=== PATIENT | male | born 1945 | race Caucasian/White ===

== ENCOUNTER 2016-07-23 08:22 | Inpatient (IN) | payer MEDICARE, OTHER ==
[~2016-07-23] VITALS: Ht 182.9 cm; Wt 145.1 kg
[2016-07-23] VITALS (19 sets, daily range): BP systolic 98–165; BP diastolic 47–83; PULSE 76–138; RESP 18–28; TEMP 97.4–98; O2SAT 93–98
[~2016-07-23 08:22] MED LIST: ASPI325T PO; CARD240C6 PO; GABA300C3 PO; LANTUS2P SC; LISI10 PO; METF-324 PO; SITA100 PO; TRIA50 PO
[2016-07-23] MEDS ORDERED: ASPIRIN 81 MG CHEW TAB PO ONE (08:45)
[2016-07-23] MEDS ORDERED: SODIUM CHLORIDE 0.9% FLUSH 10 ML FLUSH IVF PRN ×2 (08:45→09:30)
--- NOTE | 2016-07-23 08:56 | PD ---
HPI Chief Complaint: Chest Pain Time Seen by Provider: 08:44 Travel History International Travel<30 days: No Contact w/Intl Traveler<30days: No Traveled to known affect area: No History of Present Illness HPI This is a 71-year-old gentleman with a history of diabetes mellitus, who presents today with complaints of intermittent left sided chest pain. Patient states that last night while sleeping, he noted left sided chest pain. He states it was positional when he laid on his right side. He reports the pain is an "achy" sensation with no radiation. He reports it as a 4-5 on the 10 scale. He denies any nausea or vomiting. He denies any diaphoresis. The patient does have chronic shortness of breath and states he can only walk a half a block before be getting winded. He states this is not new. The patient denies any acute swelling of his extremities. He denies any history of pulmonary disease. PFSH Past Medical History Arthritis: Yes (possibly in bi - lat knees) Anxiety: No Depression: No Heart Rhythm Problems: Yes (this visit) Cancer: No Cardiac Catheterization: Yes Cardiovascular Problems: Yes (this visit - SVT) Diabetes: Yes (INSULIN DEPENDENT) Patient Takes Glucophage: No Diminished Hearing: Yes (BILAT DIMINISHED ) Endocrine: Yes Gastrointestinal Disorders: Yes (ABDOMINAL DISTENTION, ABDOMINAL PAIN) Genitourinary: No Hepatitis: No Hiatal Hernia: No Hypertension: Yes Immune Disorder: No Musculoskeletal: No Neurologic: No Psychiatric: No Reproductive: No Respiratory: Yes Thyroid Disease: No Past Surgical History AICD: No Joint Replacement: No Pacemaker: No Social History Alcohol Use: No Tobacco Use: No Substance Use: No Allergies-Medications (Allergen,Severity, Reaction): Coded Allergies: No Known Allergies (Unverified , 10/22/15) Reported Meds & Prescriptions Reported Meds & Active Scripts Active Reported Dyrenium (Triamterene) 50 Mg Cap 25 Mg PO DAILY Januvia (Sitagliptin Phosphate) 100 Mg Tab 100 Mg PO DAILY Metformin (Metformin HCl) 1,000 Mg Tab 1,000 Mg PO BIDPC With meals Lisinopril 10 Mg Tab 10 Mg PO DAILY Lantus Inj (Insulin Glargine) 1,000 Unit/10 Ml Vial 30 Units SQ HS Gabapentin 300 Mg Cap 300 Mg PO DAILY Cardizem (Diltiazem HCl) 120 Mg Tab 240 Mg PO DAILY Aspirin 325 Mg Tab 325 Mg PO DAILY Review of Systems Except as stated in HPI: all other systems reviewed are Neg General / Constitutional: No: Fever, Chills HENT: No: Headaches, Vertigo, Lightheadedness Cardiovascular: Positive: Chest Pain or Discomfort, No: Palpitations Respiratory: Positive: Shortness of Breath (chronic), Wheezing, No: Cough Gastrointestinal: No: Nausea, Vomiting Genitourinary: No: Frequency, Dysuria Musculoskeletal: No: Weakness, Edema, Pain Neurologic: No: Weakness, Dizziness, Headache Endocrine: No: Polyuria, Polydipsia Physical Exam Narrative GENERAL: Well-developed well-nourished gentleman in mild to moderate respiratory discomfort. SKIN: Focused skin assessment warm/dry. HEAD: Atraumatic. Normocephalic. EYES: No scleral icterus. No injection or drainage. ENT: No nasal bleeding or discharge. Mucous membranes pink and moist. NECK: Trachea midline. Supple. CARDIOVASCULAR: Tachycardic with a rate in the 130s to 140s. No obvious appreciable murmur. RESPIRATORY: Diffuse expiratory wheezing. No Rales appreciated. GASTROINTESTINAL: Abdomen soft, obese, non-tender, nondistended. MUSCULOSKELETAL: No obvious deformities. No clubbing. No cyanosis. No edema. Chronic venous stasis changes. NEUROLOGICAL: Awake and alert. No obvious cranial nerve deficits. Motor grossly within normal limits. Normal speech. PSYCHIATRIC: Appropriate mood and affect; insight and judgment normal. Data Data Last Documented VS Vital Signs Date Time Temp Pulse Resp B/P Pulse Ox O2 Delivery O2 Flow Rate FiO2 07/23/16 09:59 88 18 165/70 07/23/16 09:49 Nasal Cannula 1 96 07/23/16 08:57 98 07/23/16 08:24 97.8 Orders Electrocardiogram (07/23/16 08:44) Basic Metabolic Panel (Bmp) (07/23/16 08:44) B-Type Natriuretic Peptide (07/23/16 08:44) Ckmb (Isoenzyme) Profile (07/23/16 08:44) Complete Blood Count With Diff (07/23/16 08:44) Magnesium (Mg) (07/23/16 08:44) Prothrombin Time / Inr (Pt) (07/23/16 08:44) Act Partial Throm Time (Ptt) (07/23/16 08:44) Troponin I (07/23/16 08:44) Chest, Single Ap (07/23/16 08:44) Ecg Monitoring (07/23/16 08:44) Bilateral Bp Monitoring (07/23/16 08:44) Iv Access Insert/Monitor (07/23/16 08:44) Oximetry (07/23/16 08:44) Oxygen Administration (07/23/16 08:44) Aspirin Chew (Aspirin Chew) (07/23/16 08:45) Sodium Chloride 0.9% Flush (Ns Flush) (07/23/16 08:45) Blood Pressure (07/23/16 09:25) Vital Signs (07/23/16 09:25) Diltiazem Inj (Cardizem Inj) (07/23/16 09:30) Diltiazem Inj (Cardizem Inj) (07/23/16 09:30) Sodium Chloride 0.9% Flush (Ns Flush) (07/23/16 09:30) Thyroid Stimulating Hormone (07/23/16 09:27) Electrocardiogram (07/23/16 10:22) Labs Laboratory Tests Test 07/23/16 09:06 White Blood Count 17.0 TH/MM3 Red Blood Count 4.69 MIL/MM3 Hemoglobin 14.5 GM/DL Hematocrit 42.9 % Mean Corpuscular Volume 91.4 FL Mean Corpuscular Hemoglobin 31.0 PG Mean Corpuscular Hemoglobin 33.9 % Concent Red Cell Distribution Width 14.9 % Platelet Count 297 TH/MM3 Mean Platelet Volume 9.8 FL Neutrophils (%) (Auto) 80.8 % Lymphocytes (%) (Auto) 10.1 % Monocytes (%) (Auto) 8.1 % Eosinophils (%) (Auto) 0.8 % Basophils (%) (Auto) 0.2 % Neutrophils # (Auto) 13.7 TH/MM3 Lymphocytes # (Auto) 1.7 TH/MM3 Monocytes # (Auto) 1.4 TH/MM3 Eosinophils # (Auto) 0.1 TH/MM3 Basophils # (Auto) 0.0 TH/MM3 CBC Comment DIFF FINAL Differential Comment Prothrombin Time 11.8 SEC Prothromb Time International 1.1 RATIO Ratio Activated Partial 32.9 SEC Thromboplast Time Sodium Level 136 MEQ/L Potassium Level 4.9 MEQ/L Chloride Level 104 MEQ/L Carbon Dioxide Level 25.4 MEQ/L Anion Gap 7 MEQ/L Blood Urea Nitrogen 28 MG/DL Creatinine 1.61 MG/DL Estimat Glomerular Filtration 43 ML/MIN Rate Random Glucose 166 MG/DL Calcium Level 9.2 MG/DL Magnesium Level 2.1 MG/DL Total Creatine Kinase 99 U/L Troponin I LESS THAN 0.02 NG/ML B-Type Natriuretic Peptide 254 PG/ML Thyroid Stimulating Hormone 1.500 uIU/ML 3rd Gen [facility] Medical Decision Making Medical Screen Exam Complete: Yes Emergency Medical Condition: Yes Differential Diagnosis ACS versus CHF versus pneumonia versus A. fib with RVR Narrative Course 71-year-old year-old gentleman who presents with intermittent chest pain since last night. The patient was noted to be and atrial tachycardia/flutter with a rate in the 130s. He was given diltiazem bolus followed by a drip and is now rate controlled in the 80s. The patient's cardiac enzymes are normal. He does have renal insufficiency noted on laboratory tests. The patient is pain-free at the time of my examination. BNP is elevated in the 200s. White blood cell count is elevated at 17,000. A urinalysis has also been ordered. There is a call out to [facility] hospitalist, Dr. Sanford, for admission. Diagnosis Primary Impression: Atrial flutter with rapid ventricular response Additional Impressions: Renal insufficiency Leukocytosis Diabetes mellitus type 2 in obese Admitting Information Admitting Physician Requests: Admit Al Mabry MD Jul 23, 2016 08:56
[2016-07-23] MEDS ORDERED: ASPI325T PO (09:01)
[2016-07-23] MEDS ORDERED: CARD120T4 PO (09:02)
[2016-07-23] MEDS ORDERED: TRIA1CAP6 PO (09:06)
[2016-07-23] MEDS ORDERED: LANTUS2P SQ (09:06)
[2016-07-23] MEDS ORDERED: SITA1TAB2 PO (09:06)
[2016-07-23] MEDS ORDERED: METF1000 PO (09:06)
[2016-07-23] MEDS ORDERED: LISI10TA3 PO (09:06)
[2016-07-23] MEDS ORDERED: GABA300C5 PO (09:06)
[2016-07-23 09:18] LABS: AUTOMATED NEUTROPHIL # 13.7 TH/MM3 (1.8-7.7); BASOPHIL % 0.2 % (0.0-2.0); EOSINOPHIL # 0.1 TH/MM3 (0-0.4); EOSINOPHIL % 0.8 % (0.0-4.0); HEMATOCRIT 42.9 % (39.0-51.0); HEMO FLAGS DIFF FINAL; LYMPH % 10.1 % (9.0-44.0); LYMPHOCYTE # 1.7 TH/MM3 (1.0-4.8); MEAN CELL VOLUME 91.4 FL (80.0-100.0); MEAN CORPUSCULAR HGB CONC 33.9 % (32.0-36.0); MONO % 8.1 % (0.0-8.0); NEUT % 80.8 % (16.0-70.0); PLATELET COUNT 297 TH/MM3 (150-450); RED BLOOD COUNT 4.69 MIL/MM3 (4.50-5.90); RED CELL DISTRIBUTION WIDTH 14.9 % (11.6-17.2)
[2016-07-23 09:27] LABS: APTT (PATIENT) 32.9 SEC (24.3-30.1); INTERNATIONAL NORMALIZED RATIO 1.1 RATIO; PROTHROMBIN TIME - PATIENT 11.8 SEC (9.8-11.6)
[2016-07-23] MEDS ORDERED: DILTIAZEM INJ 125 MG in SODIUM CHLORIDE 0.9% INJ 100 ML IV SCH ×2 (09:30→11:00)
[2016-07-23] MEDS ORDERED: DILTIAZEM HCL 25 MG/5 ML VIAL IV PUSH ONE (09:30)
[2016-07-23 09:39] LABS: ANION GAP 7 MEQ/L (5-15); BICARBONATE 25.4 MEQ/L (21.0-32.0); BLOOD UREA NITROGEN 28 MG/DL (7-18); CHLORIDE 104 MEQ/L (98-107); GLOMERULAR FILTRATION RATE 43 ML/MIN (>89); MAGNESIUM 2.1 MG/DL (1.5-2.5); POTASSIUM 4.9 MEQ/L (3.5-5.1); SODIUM (NA) 136 MEQ/L (136-145)
--- NOTE | 2016-07-23 09:39 | RADRPT ---
EXAM DATE/TIME: 07/23/2016 09:06 [place] COMPARISON: CHEST SINGLE AP, October 22, 2015, 19:43. INDICATIONS : Chest pain. MEDICAL HISTORY : None. SURGICAL HISTORY : None. ENCOUNTER: Initial ACUITY: 1 day PAIN SCORE: 8/10 LOCATION: Bilateral chest FINDINGS: The heart is enlarged. There are patchy areas of atelectasis in both lung bases stable compared to pr evious dated 10/22/15. The lung apices are clear. The visualized bony structures are intact. No pneumothorax is seen. CONCLUSION: 1. Mild cardiomegaly. 2. Patchy areas of atelectasis in the lung bases. This is most apparent on the left. 3. Stable compared previous exam. Lee Navarro MD on July 23, 2016 at 9:36 Board Certified Radiologist. This report was verified electronically.
[2016-07-23 09:59] LABS: CREATINE KINASE 99 U/L (39-308)
[2016-07-23] MEDS ORDERED: SODIUM CHLORIDE 0.9% FLUSH 10 ML FLUSH IV FLUSH SCH (11:00)
[2016-07-23] MEDS ORDERED: SODIUM CHLORIDE 0.9% FLUSH 10 ML FLUSH IV FLUSH PRN (11:00)
[2016-07-23] MEDS ORDERED: NITROGLYCERIN 0.4 MG SL 25 TABS/BTL SL PRN (11:15)
[2016-07-23] MEDS ORDERED: ACETAMINOPHEN 500 MG CPLT PO PRN (11:15)
[2016-07-23] MEDS ORDERED: ONDANSETRON HCL 4 MG/2 ML VIAL IV PRN (11:15)
[2016-07-23] MEDS ORDERED: FUROSEMIDE 40 MG/4 ML VIAL IV PUSH ONE (11:15)
[2016-07-23] MEDS: PANTOPRAZOLE SOD 40 MG DELAYED RELEASE TAB PO SCH (12:25)
[2016-07-23] MEDS: ENOXAPARIN SODIUM 40 MG/0.4 ML SYRINGE SQ SCH (12:26)
--- NOTE | 2016-07-23 12:40 | MB ---
cc: RONNY RECINOS M.D. DATE OF CONSULTATION 07/23/2016 REASON FOR CONSULTATION Juan José is a very pleasant 71-year-old gentleman with a history of atrial fibrillation, type 2 diabetes, and renal insufficiency. He developed chest pain while lying on his left side at 3:00 a.m. He is not able to characterize this is a tightness, squeezing pressure sharp or dull headache. He does state it is severe. It is not completely relieve. He was found to be in an SVT at a rate of about 150 beats per minute initially which appears to be regular. Subsequent EKG shows ectopic atrial rhythm. He has been evaluated by Dr. Cochran in the past and had an EP study which showed no significant arrhythmia. LEFT HEART CATHETERIZATION Left heart catheterization 10/31/2015 showed no significant coronary disease, EF 60%. LV pressure is 150/20-22. Negative EP study October 2015. He has been seen by Dr. Cochran for severe tachybrady. Dr. Cochran did not indicate the patient had a. fib and read his EKG as SVT with right bundle-branch block and possible left anterior fascicular block. 2-D echo 11/03/2015 showed an EF of 60-65%, mild MR. PAST MEDICAL HISTORY Includes: 1. Arthritis 2. Hypertension SOCIAL HISTORY Denies tobacco or alcohol use. ALLERGIES None. MEDICATIONS PRIOR TO ADMISSION 1. Januvia 2. Metformin. 3. Triamterene 50/25 daily 4. Lisinopril 10 daily 5. Lantus 6. Gabapentin 7. Cardizem 120 daily 8. Aspirin 325 daily MEDICATIONS IN THE HOSPITAL 1. Aspirin 81 mg daily 2. Albuterol 3. Lovenox 40 subcu q24h 4. Pantoprazole 40 daily 5. Cardizem drip CURRENT PHYSICAL EXAM VITAL SIGNS: Blood pressure 165/70, pulse 88. GENERAL: He is alert and oriented times three in no acute distress. NECK: Supple. No JVD. No bruit. CARDIOVASCULAR: S1 and S2. No murmurs, rubs or gallops. CHEST: Clear to auscultation bilaterally. ABDOMEN: Soft, nontender, nondistended. Positive bowel sounds. EXTREMITIES: No clubbing, cyanosis or edema. LABORATORY DATA White count 17.0, hemoglobin 14.5, hematocrit 42.9, platelet count 297, troponin is less than 0.02. BNP is 254. Sodium 136, potassium 4.9, chloride 104, bicarb 25.4, BUN 20 creatinine 1.61, TSH is 1.5, INR 1.1. Chest x-ray, mild cardiomegaly, patchy areas of atelectasis in the lung bases most apparent on the left. EKG is not in the computer, but again the initial EKG showed SVT at a rate of 150 beats per minute. A second EKG shows ectopic atrial rhythm. FINAL DIAGNOSIS 1. SVT 2. History of tachybrady syndrome 3. Diabetes 4. Elevated white count 5. Decompensated congestive heart failure 6. Chronic renal insufficiency 7. Hyperglycemia DISCUSSION At this point in time, the patient has converted to sinus rhythm. He has no definite evidence of a. flutter a. fib. He denies noncompliance, however, he does have a history of tachybrady syndrome and ultimately may require AV node ablation and a permanent pacemaker. We will monitor him on telemetry. If the patient does develop bradyarrhythmia on higher doses of Cardizem, we will consult Dr. Cochran. MD RANDOLPH Tapia/MITZI /12:18 PM /12:29 PM
[2016-07-23] MEDS ORDERED: NALOXONE HCL 0.4 MG/ML AMP IV PRN (12:45)
[2016-07-23] MEDS: RESP: ALBUTEROL 2.5 MG/IPRATROPIUM 0.5 MG NEB (SCH) NEB ×2 (14:20→19:05)
--- NOTE | 2016-07-23 15:00 | EC ---
Study Study Date:07/23/2016 STUDY CONCLUSIONS SUMMARY - Procedure narrative: Transthoracic echocardiography. Image quality was very poor. Scanning was performed from the parasternal, apical, and subcostal acoustic windows. - Left ventricle: The cavity size was normal. Wall thickness was normal. Systolic function was normal. The estimated ejection fraction was in the range of 55% to 60%. Images were inadequate for LV wall motion assessment. - Aortic valve: Poorly visualized. - Tricuspid valve: Trace regurgitation. If LV function is below 40, please consider prescribing an ACEI or ARB or document rationale for non-use. PROCEDURE DATA STUDY STATUS: Elective. Procedure: Transthoracic echocardiography. Image quality was very poor. Scanning was performed from the parasternal, apical, and subcostal acoustic windows. Study completion: The patient tolerated the procedure well. Transthoracic echocardiography. M-mode, complete 2D, complete spectral Doppler, and color Doppler. Height: Height: 72in. Weight: Weight: 325.3lb. Body mass index: BMI: 44.2kg/m^2. Body surface area: BSA: 2.62m^2. Patient status: Inpatient. CARDIAC ANATOMY LEFT VENTRICLE: The cavity size was normal. Wall thickness was normal. Systolic function was normal. The estimated ejection fraction was in the range of 55% to 60%. Images were inadequate for LV wall motion assessment. AORTIC VALVE: Poorly visualized. Doppler: Transvalvular velocity was within the normal range. There was no stenosis. No regurgitation. Valve area: 2.74cm^2(VTI). Indexed valve area: 1.05cm^2/m^2 (VTI). Valve area: 2.47cm^2 (Vmax). Indexed valve area: 0.94cm^2/m^2 (Vmax). Mean gradient: 2mm Hg (S). AORTA: Aortic root: The aortic root was normal in size. MITRAL VALVE: Structurally normal valve. Doppler: Transvalvular velocity was within the normal range. There was no evidence for stenosis. No regurgitation. Peak gradient: 8mm Hg (D). LEFT ATRIUM: The atrium was normal in size. RIGHT VENTRICLE: The cavity size was normal. Wall thickness was normal. PULMONIC VALVE: Doppler: Transvalvular velocity was within the normal range. There was no evidence for stenosis. No regurgitation. TRICUSPID VALVE: Structurally normal valve. Doppler: Transvalvular velocity was within the normal range. Trace regurgitation. PULMONARY ARTERY: The main pulmonary artery was normal-sized. Systolic pressure was within the normal range. RIGHT ATRIUM: The atrium was normal in size. PERICARDIUM: There was no pericardial effusion. SYSTEMIC VEINS: Inferior vena cava: The vessel was normal in size. Patient weight: 325.3lb _Ejection fraction:_ 65-75% _Fractional shortening:_ 32% up to 5Kg 5-11.5Kg 11.6-22.9Kg 23-45Kg 45-57Kg Aortic Root 7-13 <17 13-22 17-27 17-27 LA diam 6-13 <23 24-38 33-47 37-40 RVID 10-17 7-15 7-15 7-18 8-17 LVIDd 12-22 <32 24-38 33-47 37-40 LVPW 2-4 3-6 5-7 6-8 7-8 IVS 2-4 3-6 5-7 6-8 7-8 BASIC MEASUREMENTS ADULT NORMAL Left ventricle LV internal dimension, ED, chordal 43.8 mm 43-52 level, PLAX LV internal dimension, ES, chordal *39.8 mm 23-38 level, PLAX Fractional shortening, chordal level, *9 % >29 PLAX LV posterior wall thickness, ED 11.3 mm IVS/LVPW ratio, ED 1.02 <1.3 Ventricular septum Septal thickness, ED 11.5 mm Aortic valve Leaflet separation 25 mm 15-26 Aorta Root diameter, ED 36 mm BASIC MEASUREMENTS ADULT NORMAL Aortic valve Leaflet separation 25 mm 15-26 DOPPLER MEASUREMENTS ADULT NORMAL Main pulmonary artery Pressure, S 25 mm Hg =30 Aortic valve Peak velocity, S 83.7 cm/s Mean velocity, S 62.4 cm/s VTI, S 11.8 cm Mean gradient, S 2 mm Hg Valve area, VTI 2.74 cm^2 Valve area index, VTI 1.05 cm^2/m^2 Valve area, Vmax 2.47 cm^2 Valve area index, Vmax 0.94 cm^2/m^2 Mitral valve Peak E-wave velocity 145 cm/s Deceleration time *129 ms 150-230 Peak gradient, D 8 mm Hg Tricuspid valve Regurgitant peak velocity 198 cm/s Peak RV-RA gradient, S 16 mm Hg Maximal regurgitant velocity 198 cm/s Systemic veins Estimated CVP 10 mm Hg Right ventricle RV pressure, S 26 mm Hg <30 Pulmonic valve Peak velocity, S 48.9 cm/s LEGEND: Mean values are shown as u=mean value. Asterisk (*) tracy values outside specified normal range. Prepared and signed by Ronni Harding [id number]
[2016-07-23] MEDS ORDERED: DEXTROSE 50% IN WATER 50 ML VIAL(D50) IV PUSH PRN (17:15)
[2016-07-23] MEDS ORDERED: GLUCAGON 1 MG/ML VIAL OTHER PRN (17:15)
--- NOTE | 2016-07-23 18:00 | HHI.PR ---
Objective Objective Results - Vital Signs Date Time Temp Pulse Resp B/P Pulse Ox O2 Delivery O2 Flow Rate FiO2 07/23/16 17:00 86 07/23/16 16:00 98 07/23/16 15:16 118 07/23/16 15:00 97.9 112 28 133/83 93 07/23/16 15:00 107 07/23/16 14:32 122 20 162/75 96 Nasal Cannula 2 07/23/16 14:23 95 Nasal Cannula 2.00 07/23/16 09:59 88 18 165/70 07/23/16 09:58 88 18 165/70 07/23/16 09:49 88 20 165/70 Nasal Cannula 1 96 07/23/16 08:58 136 18 Nasal Cannula 2 07/23/16 08:57 136 121/64 98 Nasal Cannula 2 07/23/16 08:56 135 122/72 07/23/16 08:54 98 Nasal Cannula 2 07/23/16 08:54 98 Nasal Cannula 2 07/23/16 08:24 97.8 138 24 138/65 95 Room Air I/O 07/22/16 07/22/16 07/22/16 07/23/16 07/23/16 07/23/16 07:00 15:00 23:00 07:00 15:00 23:00 Intake Total 272 ml Output Total 350 ml Balance -78 ml Intake Oral 240 ml IV Total 32 ml Output Urine Total 350 ml # Bowel Movements 0 Result Diagram: 07/23/16 0906 07/23/16 0906 Other Results Laboratory Tests Test 07/23/16 09:06 White Blood Count 17.0 Red Blood Count 4.69 Hemoglobin 14.5 Hematocrit 42.9 Mean Corpuscular Volume 91.4 Mean Corpuscular Hemoglobin 31.0 Mean Corpuscular Hemoglobin 33.9 Concent Red Cell Distribution Width 14.9 Platelet Count 297 Mean Platelet Volume 9.8 Neutrophils (%) (Auto) 80.8 Lymphocytes (%) (Auto) 10.1 Monocytes (%) (Auto) 8.1 Eosinophils (%) (Auto) 0.8 Basophils (%) (Auto) 0.2 Neutrophils # (Auto) 13.7 Lymphocytes # (Auto) 1.7 Monocytes # (Auto) 1.4 Eosinophils # (Auto) 0.1 Basophils # (Auto) 0.0 CBC Comment DIFF FINAL Differential Comment Prothrombin Time 11.8 Prothromb Time International 1.1 Ratio Activated Partial 32.9 Thromboplast Time Sodium Level 136 Potassium Level 4.9 Chloride Level 104 Carbon Dioxide Level 25.4 Anion Gap 7 Blood Urea Nitrogen 28 Creatinine 1.61 Estimat Glomerular Filtration 43 Rate Random Glucose 166 Calcium Level 9.2 Magnesium Level 2.1 Total Creatine Kinase 99 Troponin I LESS THAN 0.02 B-Type Natriuretic Peptide 254 Thyroid Stimulating Hormone 1.500 3rd Gen A/P Assessment and Plan PT SEEN AND EXAMINED FACE TO FACE TO TIME SPENT WITH PT CHART WAS REVIEWED INCLUDING LABS MEDS AND RAD DATA PLAN OF CARE WAS DW JORGE QUIROZ PT IN DETAIL H/P WILL BE DICTATED BY Von Guthrie MD Jul 23, 2016 18:00
[2016-07-23 18:10] LABS: CREATINE KINASE 87 U/L (39-308)
--- NOTE | 2016-07-23 19:14 | MH ---
cc: STANISLAV SANFORD DATE OF ADMISSION 07/23/2016 DATE OF 1945 REASON FOR ADMISSION Chest pain, irregular heart rhythm. Travel in the last 30 days, none. HISTORY OF THE PRESENT ILLNESS This is a pleasant 71-year-old gentleman who presents with left-sided chest pain. He states that he was awakened during the night with an aching sensation on his left chest. He thought he had laid on the wrong side but the pain continued. It waxed and waned through the night but sometime in the early in the morning the pain went away. He describes no dizziness. No nausea. No vomiting. No headache. He was positive for some mild clamminess, some mild shortness of breath. He did note some palpitations with is heart. The patient states that he does have chronic shortness of breath and his ambulation and activity is limited. He states that he does have some swelling in his lower extremities but denies any COPD. The patient is a diabetic for approximately five years and is insulin dependent. The patient wears glasses. He has caries and is missing some of his teeth. The patient is obese. He is currently resting in the bed with O2 on. Head of bed is lying almost flat. PAST MEDICAL HISTORY Medical history includes: 1. Arthritis. 2. Current irregular heart rhythm. 3. . 4. Insulin-dependent diabetes mellitus type 2. 5. Bilateral hard of hearing. 6. Abdominal distention. 7. Abdominal pain. 8. Hypertension. 9. Shortness of breath. PAST SURGICAL HISTORY None to my knowledge. ALLERGIES NONE KNOWN. MEDICATIONS Reported: 1. Januvia. 2. Metformin. 3. Lisinopril. 4. Lantus. 5. Gabapentin. 6. Cardizem. 7. Aspirin. 8. Dyrenium. SOCIAL HISTORY The patient is , currently lives at home with his . He denies any alcohol, tobacco or illicit drug use. He is retired. FAMILY HISTORY Heart disease. REVIEW OF SYSTEMS A 12 point review was done. Positives and negatives were noted in the history of present illness which include chest pain, irregular heart rhythm, clamminess and shortness of breath. Otherwise systems are negative or unremarkable. PHYSICAL EXAMINATION VITAL SIGNS: Temperature 97.9, pulse labile between 86-122, respiratory rate also labile between 20-28. Blood pressure is 162/79 and 133/83. O2 saturation 93% currently on 2 liters nasal cannula. GENERAL: Obese, male looks to be his stated age, resting in the bed. He is alert and a fair historian. HEENT: Atraumatic, normocephalic. Pupils equal, round, reactive to light and accommodation. Mucous membranes are slightly dry but pink. NECK: Supple. Thick. SKIN: Erik but warm and dry. CARDIOVASCULAR: S1-S2, irregular heart rhythm. No murmurs, rubs, or gallops appreciated but heart sounds are distant. LUNGS: He has no rhonchi. No wheezing. He does have diminished breath sounds in his bases bilaterally and decreased breath sounds with some possible bibasilar rales in his lower lobes. ABDOMEN: Round, soft and nontender. Nondistended. Active bowel sounds. MUSCULOSKELETAL: He moves his extremities with purpose. NEUROLOGIC: He is alert, oriented, appropriate. Conversational. Speech is clear. PSYCHOSOCIAL: Appropriate mood and affect. LABORATORY DATA Diagnostic data WBC 17, RBC 4.69. Hemoglobin 14.5, hematocrit 42.9. Platelet count 297. Neutrophil auto count 80.8, monocyte auto count 8.1. PT INR 1.1. Chemistry, sodium 136, potassium 4.9, chloride 104, carbon dioxide 25.4, anion gap 7, BUN 28, creatinine 1.61. GFR 43, random glucose 166, calcium 9.2. Magnesium 2.1. Total creatine kinase 99 and then 87 as a redraw. Troponin less than 0.02. BNP 254. TSH 1.5. IMAGING Imaging studies show chest x-ray to have mild cardiomegaly, patchy areas of atelectasis in his lung bases more apparent on the left than the right. Stable compared to previous examination. ASSESSMENT AND PLAN 1. Chest pain, rule out myocardial infarction, rule out cardiovascular disease. 2. Obesity. 3. Atrial fibrillation with some atrial flutter and rapid ventricular response, uncontrolled. 4. Leukocytosis. 5. Cardiomegaly. 6. Renal insufficiency with acute kidney injury. 7. Generalized weakness with dyspnea. 8. Hypertension. Our plan is to admit inpatient status. In the emergency room the patient was placed on the monitor, IV access was obtained, labs were drawn. The patient's heart rate was treated with IV Cardizem and gentle hydration. The patient was placed on a Cardizem drip and blood pressure was monitored q.15 and as warranted for stabilization. The patient did respond to Cardizem but has continued to be monitored and bolused as appropriate. Sequential compression devices and Lovenox used for deep venous thrombosis prophylaxis. We will consult cardiology for their expert opinion and we will follow their recommendations. A 2-D echocardiogram to be done. The patient was placed on aspirin, healthy heart diet ADA, intake and output. Bed rest unless up to the bedside commode with assistance. The patient was started on his home medications. He is on Protonix for peptic ulcer disease prophylaxis. Pain management which includes nitroglycerine sublingual for any chest pain. He will have a rule out course. Currently the patient is full code, full aggressive care and we will follow. Dictated by: JORGE Jackson Stanislav Sanford MD JP/ERIC /6:23 PM /6:38 PM PT SEEN AND EXAMINED IN DAY OF ADMISSION ABOVE CHART WAS REVIEWED PLAN OF CARE WAS RICHIE COOLEY
[2016-07-23] MEDS: INSULIN ASPART SUPPLEMENTAL SCALE SQ SCH (21:00)
[2016-07-23] MEDS: INSULIN DETEMIR 100 UNITS/ML VIAL SQ SCH (21:39)
[2016-07-24] VITALS (21 sets, daily range): BP systolic 110–135; BP diastolic 50–88; PULSE 62–108; RESP 20–40; TEMP 97.4–98.3; O2SAT 90–96
[2016-07-24 00:56] LABS: CREATINE KINASE 111 U/L (39-308)
[2016-07-24 01:08] LABS: CKMB 1.8 NG/ML (0.5-3.6)
[2016-07-24 06:04] LABS: HEMATOCRIT 39.9 % (39.0-51.0); MEAN CELL VOLUME 91.8 FL (80.0-100.0); MEAN CORPUSCULAR HEMOGLOBIN 30.5 PG (27.0-34.0); MEAN CORPUSCULAR HGB CONC 33.2 % (32.0-36.0); PLATELET COUNT 239 TH/MM3 (150-450); RED BLOOD COUNT 4.35 MIL/MM3 (4.50-5.90); RED CELL DISTRIBUTION WIDTH 14.9 % (11.6-17.2); REVIEW FLAG FINAL; WHITE BLOOD COUNT 14.6 TH/MM3 (4.0-11.0)
[2016-07-24 06:33] LABS: BICARBONATE 26.2 MEQ/L (21.0-32.0); POTASSIUM 4.3 MEQ/L (3.5-5.1)
[2016-07-24] MEDS: INSULIN ASPART SUPPLEMENTAL SCALE SQ SCH ×4 (07:00→20:37)
[2016-07-24] MEDS: RESP: ALBUTEROL 2.5 MG/IPRATROPIUM 0.5 MG NEB (SCH) NEB ×3 (07:45→20:00)
[2016-07-24] MEDS: PANTOPRAZOLE SOD 40 MG DELAYED RELEASE TAB PO SCH (08:55)
[2016-07-24] MEDS: GABAPENTIN 300 MG CAP PO SCH (08:55)
[2016-07-24] MEDS: ASPIRIN 325 MG TAB PO SCH (08:55)
[2016-07-24] MEDS: LISINOPRIL 10 MG TAB PO SCH (08:55)
[2016-07-24] MEDS ORDERED: ASPIRIN 81 MG CHEW TAB PO SCH (09:00)
[2016-07-24] MEDS ORDERED: NON-FORMULARY DRUG (Triamterene (Dyrenium) 25 MG) PO SCH (09:00)
[2016-07-24] MEDS ORDERED: TRIAMTERENE 25 MG PO SCH (09:00)
--- NOTE | 2016-07-24 09:59 | HHI.PR ---
Subjective Interval History awake alert and oriented no chest pain in sinus rhythm HR in 70s family at bed side Vitals/Results Intake & Output 07/23/16 07/23/16 07/24/16 15:00 23:00 07:00 Intake Total 272 ml 435 ml Output Total 350 ml 675 ml Balance -78 ml -240 ml Intake Oral 240 ml 360 ml IV Total 32 ml 75 ml Output Urine Total 350 ml 675 ml # Bowel Movements 0 Vital Signs Vital Signs Date Time Temp Pulse Resp B/P Pulse Ox O2 Delivery O2 Flow Rate FiO2 07/24/16 09:27 97.4 105 24 135/88 93 07/24/16 09:27 94 Room Air 07/24/16 07:45 94 21 07/24/16 06:00 76 07/24/16 05:00 78 07/24/16 04:00 76 07/24/16 03:00 98.1 79 28 113/50 96 07/24/16 03:00 94 07/24/16 02:00 76 07/24/16 01:00 74 07/24/16 00:00 62 07/23/16 23:00 94 07/23/16 23:00 97.4 76 28 98/47 93 07/23/16 22:00 86 07/23/16 21:00 84 07/23/16 20:00 116 07/23/16 19:05 96 Nasal Cannula 2.00 07/23/16 19:00 98.0 77 28 109/74 97 07/23/16 19:00 97 Nasal Cannula 3.00 07/23/16 19:00 89 07/23/16 18:00 109 07/23/16 17:00 86 07/23/16 16:00 98 07/23/16 15:16 118 07/23/16 15:00 97.9 112 28 133/83 93 07/23/16 15:00 107 07/23/16 14:32 122 20 162/75 96 Nasal Cannula 2 07/23/16 14:23 95 Nasal Cannula 2.00 07/23/16 09:59 88 18 165/70 07/23/16 09:58 88 18 165/70 CBC/BMP: 07/24/16 0540 07/24/16 0540 Lab Results Laboratory Tests Test 07/23/16 07/24/16 07/24/16 17:18 00:23 05:40 Total Creatine Kinase 87 U/L 111 U/L Troponin I LESS THAN 0.02 LESS THAN 0.02 NG/ML NG/ML Creatine Kinase MB 1.8 NG/ML White Blood Count 14.6 TH/MM3 Red Blood Count 4.35 MIL/MM3 Hemoglobin 13.2 GM/DL Hematocrit 39.9 % Mean Corpuscular Volume 91.8 FL Mean Corpuscular Hemoglobin 30.5 PG Mean Corpuscular Hemoglobin 33.2 % Concent Red Cell Distribution Width 14.9 % Platelet Count 239 TH/MM3 Mean Platelet Volume 9.8 FL Sodium Level 138 MEQ/L Potassium Level 4.3 MEQ/L Chloride Level 103 MEQ/L Carbon Dioxide Level 26.2 MEQ/L Anion Gap 9 MEQ/L Blood Urea Nitrogen 36 MG/DL Creatinine 1.61 MG/DL Estimat Glomerular Filtration 43 ML/MIN Rate Random Glucose 162 MG/DL Calcium Level 9.0 MG/DL Physical Exam General General Appearance: Well Developed, Well Nourished, No Acute Distress, Comfortable, Obese Eyes Eye Exam: Pupils Equal, Pupils Reactive, Sclera White, Extraocular Movement Intact Throat Throat Exam: Oral Mucosa [place] & Moist Neck Neck Exam: Neck Supple, Trachea Midline Pulmonary Resp Exam: Clear Bilaterally, Breath Sounds Equal, No Distress Cardiology CV Exam: Regular, Normal Sinus Rhythm, Good Perfusion Gastrointestinal/Abdomen GI Exam: Soft, Non-Tender, Bowel Sounds Present Musculoskeletal MS Exam: Joints Intact, Normal Gait, Normal Tone, Good Strength Integumentary Skin Exam: Clear, Warm, Dry, Intact Neurologic Neuro Exam: Alert, Awake, Oriented, Speech Clear, Moving All Extremities Psychiatric Psych Exam: Appropriate Responses Assessment/Plan Assessment/Plan ASSESSMENT AND PLAN 1. Chest pain, rule out myocardial infarction, rule out cardiovascular disease. 2. Obesity. 3. Atrial arrythmia, now in sinus rhythm. h/o tachybrady syndrome 4. Leukocytosis. 5. Cardiomegaly. 6. Renal insufficiency with acute kidney injury. 7. Generalized weakness with dyspnea. 8. Hypertension. Appreciate Cardiology input currently on Cardizem gtt with HR in 70s in sinus rhythm likely switch to po cardizem , if ok with Cardiology troponin neg elaborate workup less than a year ago including cardiac cath: No CAD EP study with Dr Cochran with no arrythmia identified deep venous thrombosis prophylaxis. We will aspirin, healthy heart diet ADA, start home medications. Protonix for peptic ulcer disease prophylaxis. Lyly Rob MD Jul 24, 2016 09:59
--- NOTE | 2016-07-24 12:30 | PD.CARD.PN ---
Subjective Subjective Remarks denies chest pain Objective Vital Signs / I&O Vital Signs Date Time Temp Pulse Resp B/P Pulse Ox O2 Delivery O2 Flow Rate FiO2 07/24/16 11:18 98.0 91 26 126/62 93 07/24/16 09:27 97.4 105 24 135/88 93 07/24/16 09:27 94 Room Air 07/24/16 07:45 94 21 07/24/16 06:00 76 07/24/16 05:00 78 07/24/16 04:00 76 07/24/16 03:00 98.1 79 28 113/50 96 07/24/16 03:00 94 07/24/16 02:00 76 07/24/16 01:00 74 07/24/16 00:00 62 07/23/16 23:00 94 07/23/16 23:00 97.4 76 28 98/47 93 07/23/16 22:00 86 07/23/16 21:00 84 07/23/16 20:00 116 07/23/16 19:05 96 Nasal Cannula 2.00 07/23/16 19:00 98.0 77 28 109/74 97 07/23/16 19:00 97 Nasal Cannula 3.00 07/23/16 19:00 89 07/23/16 18:00 109 07/23/16 17:00 86 07/23/16 16:00 98 07/23/16 15:16 118 07/23/16 15:00 97.9 112 28 133/83 93 07/23/16 15:00 107 07/23/16 14:32 122 20 162/75 96 Nasal Cannula 2 07/23/16 14:23 95 Nasal Cannula 2.00 I/O 07/23/16 07/23/16 07/23/16 07/24/16 07/24/16 07/24/16 07:00 15:00 23:00 07:00 15:00 23:00 Intake Total 272 ml 435 ml Output Total 350 ml 675 ml Balance -78 ml -240 ml Intake Oral 240 ml 360 ml IV Total 32 ml 75 ml Output Urine Total 350 ml 675 ml # Bowel Movements 0 Laboratory GENERAL: SKIN: Warm and dry. HEAD: Normocephalic. EYES: No scleral icterus. No injection or drainage. NECK: Supple, trachea midline. No JVD or lymphadenopathy. CARDIOVASCULAR: Regular rate and rhythm without murmurs, gallops, or rubs. RESPIRATORY: Breath sounds equal bilaterally. No accessory muscle use. GASTROINTESTINAL: Abdomen soft, non-tender, nondistended. MUSCULOSKELETAL: No cyanosis, or edema. BACK: Nontender without obvious deformity. No CVA tenderness. Laboratory Tests Test 07/23/16 07/24/16 07/24/16 17:18 00:23 05:40 Total Creatine Kinase 87 U/L 111 U/L Troponin I LESS THAN 0.02 LESS THAN 0.02 NG/ML NG/ML Creatine Kinase MB 1.8 NG/ML White Blood Count 14.6 TH/MM3 Red Blood Count 4.35 MIL/MM3 Hemoglobin 13.2 GM/DL Hematocrit 39.9 % Mean Corpuscular Volume 91.8 FL Mean Corpuscular Hemoglobin 30.5 PG Mean Corpuscular Hemoglobin 33.2 % Concent Red Cell Distribution Width 14.9 % Platelet Count 239 TH/MM3 Mean Platelet Volume 9.8 FL Sodium Level 138 MEQ/L Potassium Level 4.3 MEQ/L Chloride Level 103 MEQ/L Carbon Dioxide Level 26.2 MEQ/L Anion Gap 9 MEQ/L Blood Urea Nitrogen 36 MG/DL Creatinine 1.61 MG/DL Estimat Glomerular Filtration 43 ML/MIN Rate Random Glucose 162 MG/DL Calcium Level 9.0 MG/DL Assessment and Plan Problem List: (1) Atrial tachycardia (2) Tachyarrhythmia (3) Diabetes mellitus type 2 in obese (4) Renal insufficiency Assessment and Plan 1.) SVT - in nsr, assymptomatic, possible dc luis if remains stable Marcos Omer MD Jul 24, 2016 12:30
--- NOTE | 2016-07-24 13:35 | EKG ---
Date Performed: 07/23/2016 Time Performed: 10:32:56 PTAGE: 71 years EKG: ECTOPIC ATRIAL RHYTHM WITH FIRST DEGREE AV BLOCK INTRAVENTRICULAR CONDUCTION DELAY PROBABLE LATERAL MYOCARDIAL INFARCTION ABNORMAL ECG PREVIOUS TRACING : 11/01/2015 05.33 DOCTOR: Claudy Franks Interpretating Date/Time 07/24/2016 13:35:00
--- NOTE | 2016-07-24 13:36 | EKG ---
Date Performed: 07/23/2016 Time Performed: 08:45:36 PTAGE: 71 years EKG: ATRIAL FLUTTER/TACHYCARDIA WITH RAPID VENTRICULAR RESPONSE INTRAVENTRICULAR CONDUCTION DENA Y ABNORMAL ECG NO PREVIOUS TRACING DOCTOR: Claudy Franks Interpretating Date/Time 07/24/2016 13:35:09
[2016-07-24] MEDS: ENOXAPARIN SODIUM 40 MG/0.4 ML SYRINGE SQ SCH (13:40)
[2016-07-24] MEDS: INSULIN DETEMIR 100 UNITS/ML VIAL SQ SCH (20:37)
[2016-07-25] VITALS (10 sets, daily range): BP systolic 101–149; BP diastolic 50–69; PULSE 79–102; RESP 18–44; TEMP 97.9–99; O2SAT 93–98
[2016-07-25] MEDS: INSULIN ASPART SUPPLEMENTAL SCALE SQ SCH ×4 (06:15→21:06)
[2016-07-25] MEDS: RESP: ALBUTEROL 2.5 MG/IPRATROPIUM 0.5 MG NEB (SCH) NEB ×3 (07:37→19:18)
[2016-07-25] MEDS: GABAPENTIN 300 MG CAP PO SCH (09:00)
[2016-07-25] MEDS: ASPIRIN 325 MG TAB PO SCH (09:42)
[2016-07-25] MEDS: PANTOPRAZOLE SOD 40 MG DELAYED RELEASE TAB PO SCH (09:42)
[2016-07-25] MEDS: LISINOPRIL 10 MG TAB PO SCH (09:42)
--- NOTE | 2016-07-25 10:40 | HHI.PR ---
Subjective Subjective Remarks sob overnight put back on oxygen at 2L/NC, sats 95% was on RA, desated to 88% no cp no palpitations, tele reviewed, ST ? afib RVR, HR improved, now down to 88 Review of Systems Constitutional Constitutional Remarks 12 point ROS completed, negative except as noted above Vitals/Results Intake & Output 07/24/16 07/24/16 07/25/16 15:00 23:00 07:00 Intake Total 700 ml 0 ml Output Total 425 ml 225 ml Balance 275 ml -225 ml Intake Oral 690 ml 0 ml IV Total 10 ml Output Urine Total 425 ml 225 ml # Bowel Movements 0 0 Vital Signs Vital Signs Date Time Temp Pulse Resp B/P Pulse Ox O2 Delivery O2 Flow Rate FiO2 07/25/16 08:00 98.1 86 18 149/69 96 07/25/16 07:44 Nasal Cannula 2.00 07/25/16 07:44 85 07/25/16 07:38 98 Nasal Cannula 1.50 07/25/16 03:56 94 07/25/16 03:32 97.9 102 44 144/61 95 07/24/16 23:12 97.5 92 40 116/56 94 07/24/16 20:40 95 Nasal Cannula 2.00 07/24/16 19:44 97.8 99 24 115/55 95 07/24/16 15:39 85 07/24/16 15:35 98.3 89 20 110/58 90 07/24/16 13:00 84 07/24/16 12:00 98 07/24/16 11:18 98.0 91 26 126/62 93 07/24/16 11:00 87 CBC/BMP: 07/24/16 0540 07/24/16 0540 Physical Exam General General Appearance: Well Developed, Well Nourished, No Acute Distress, Comfortable, Obese Eyes Eye Exam: Pupils Equal, Pupils Reactive, Sclera White, Extraocular Movement Intact Ears & Nose Ears & Nose Exam: Nasal Mucosa [place] Throat Throat Exam: Oral Mucosa [place] & Moist Neck Neck Exam: Neck Supple, Trachea Midline Pulmonary Resp Exam: No Distress, Decreased Bases Cardiology CV Exam: Regular, Normal Sinus Rhythm, Good Perfusion, Arrhythmia Gastrointestinal/Abdomen GI Exam: Soft, Non-Tender, Bowel Sounds Present, Non-Distended Musculoskeletal MS Exam: Joints Intact, Normal Gait, Normal Tone, Good Strength Integumentary Skin Exam: Warm, Dry Extremeties Extremities Exam: Pedal Pulses Palpable, Trace Edema Neurologic Neuro Exam: Alert, Awake, Oriented, Speech Clear, Moving All Extremities, No Focal Deficits Psychiatric Psych Exam: Appropriate Responses VTE Prophylaxis VTE Prophylaxis Meds: Lovenox PUD Prophylasis PUD Prophylaxis: Protonix Assessment/Plan Assessment/Plan ASSESSMENT AND PLAN 1. Chest pain, rule out myocardial infarction, rule out cardiovascular disease. 2. Obesity. 3. Atrial arrythmia, now in sinus rhythm. h/o tachybrady syndrome 4. Leukocytosis. 5. Cardiomegaly. 6. Renal insufficiency with acute kidney injury. 7. Generalized weakness with dyspnea. 8. Hypertension. 9. CHF Plan: appreciate cardiology input, recommends to continue on present tx Wean off Cardizem gtt, restart Cardizem CD 240 mg PO daily Telemetry monitoring Trop negative had elaborate workup less than a year ago including cardiac cath: No CAD/EP study with Dr Cochran with no arrythmia identified CHF, elevated BNP 254 Will give Lasix 20 mg PO daily recent Echo EF 55 to 60% continue with oxygen to keep sats > 92% Duonebs PRN continue with ASA/KEL Accuchecks with ISS continue with Lovenox for DVT prophylaxis PPI for GI prophylaxis monitor renal function closely not ready for discharge yet BMP in am D/W RN D/W Dr. Rob D/W pt. This patient was seen by myself and Dr. Rob, this note is written on her behalf. Amy Alcaraz Jul 25, 2016 10:40
[2016-07-25] MEDS: FUROSEMIDE 20 MG TAB PO SCH (10:45)
[2016-07-25] MEDS: ENOXAPARIN SODIUM 40 MG/0.4 ML SYRINGE SQ SCH (11:45)
[2016-07-25] MEDS: DILTIAZEM-CD 240 MG CAP ER PO SCH (11:45)
--- NOTE | 2016-07-25 12:08 | PD.CARD.PN ---
Subjective Subjective Remarks alert in nad Objective Vital Signs / I&O Vital Signs Date Time Temp Pulse Resp B/P Pulse Ox O2 Delivery O2 Flow Rate FiO2 07/25/16 08:00 98.1 86 18 149/69 96 07/25/16 07:44 Nasal Cannula 2.00 07/25/16 07:44 85 07/25/16 07:38 98 Nasal Cannula 1.50 07/25/16 03:56 94 07/25/16 03:32 97.9 102 44 144/61 95 07/24/16 23:12 97.5 92 40 116/56 94 07/24/16 20:40 95 Nasal Cannula 2.00 07/24/16 19:44 97.8 99 24 115/55 95 07/24/16 15:39 85 07/24/16 15:35 98.3 89 20 110/58 90 07/24/16 13:00 84 I/O 07/24/16 07/24/16 07/24/16 07/25/16 07/25/16 07/25/16 07:00 15:00 23:00 07:00 15:00 23:00 Intake Total 435 ml 700 ml 0 ml Output Total 675 ml 425 ml 225 ml Balance -240 ml 275 ml -225 ml Intake Oral 360 ml 690 ml 0 ml IV Total 75 ml 10 ml Output Urine Total 675 ml 425 ml 225 ml # Bowel Movements 0 0 Imaging GENERAL: SKIN: Warm and dry. HEAD: Normocephalic. EYES: No scleral icterus. No injection or drainage. NECK: Supple, trachea midline. No JVD or lymphadenopathy. CARDIOVASCULAR: Regular rate and rhythm without murmurs, gallops, or rubs. RESPIRATORY: Breath sounds equal bilaterally. No accessory muscle use. GASTROINTESTINAL: Abdomen soft, non-tender, nondistended. MUSCULOSKELETAL: No cyanosis, or edema. BACK: Nontender without obvious deformity. No CVA tenderness. Assessment and Plan Problem List: (1) Atrial tachycardia (2) Tachyarrhythmia (3) Diabetes mellitus type 2 in obese (4) Renal insufficiency Assessment and Plan 1.) SVT - in nsr, assymptomatic, still episodes of tachycardia, 7.3 sec pause on outpatient holter, will consult Dr Cochran, d/w patient, nurse and Dr Rob at bedside Marcos Omer MD Jul 25, 2016 12:08
[2016-07-25] MEDS ORDERED: DILTIAZEM HCL 30 MG TAB PO SCH (13:00)
--- NOTE | 2016-07-25 20:35 | MB ---
cc: SANDRA WEBSTER M.D. DATE OF CONSULTATION 07/25/16 REASON FOR CONSULTATION Tachyarrhythmia. HISTORY OF PRESENT ILLNESS Mr. Lai is a 71-year-old gentleman with severe COPD, history of atrial tachyarrhythmia. Previous electrophysiology study showed no tachyarrhythmia and no need for pacing support. He has morbid obesity, high blood pressure, hyperlipidemia, diabetes mellitus. He was admitted due to chest pain and tachycardia. He was evaluated by Dr. Omer. Negative chronotropic medication was initiated. He developed tootie. I was consulted for further evaluation. The chart was reviewed. The patient was evaluated. ALLERGIES None. SOCIAL HISTORY Negative for smoking and drinking. FAMILY HISTORY Noncontributory to his current medical condition. MEDICATIONS Currently 1. Cardizem IV that was discontinued. 2. Aspirin. 3. Albuterol inhaler. 4. Cardizem CD 240 mg a day. 5. Lovenox. 6. Lasix 20 mg a day. 7. Neurontin 200 mg a day. 8. Insulin. 9. Lisinopril 10 mg a day. REVIEW OF SYSTEMS He referred no chest pain, no chest discomfort. Shortness of breath PHYSICAL EXAMINATION GENERAL: Alert, fully oriented. VITAL SIGNS: Blood pressure 132/59, pulse 87, respiratory rate 20-22 LUNGS: Ventilated CARDIOVASCULAR: S1-S2, regular. ABDOMEN: Obese. No mass. No bruit. EXTREMITIES: No edema. CARDIOLOGY STUDIES Electrocardiogram shows a low atrial arrhythmia. This is not atrial fibrillation. LABORATORY DATA Hemoglobin 13.2, white blood cell 14.6, potassium 4.2, creatinine 1.61, troponin less than 0.02. ASSESSMENT AND RECOMMENDATIONS Mr. Lai is currently stable. He has tachy-tootie syndrome. He has atrial tachycardia. It may be multifocal atrial tachycardia because of his severe COPD. At that point, my recommendation is continue on Cardizem p.o. If the gentleman develops severe bradycardia, then pacing support will be considered. Case extensively discussed with the patient and the nurse. Followup by Dr. Omer. I will be available on a p.r.n. basis. MD ROXY Medeiros/ /4:21 PM /8:26 PM
[2016-07-25] MEDS: INSULIN DETEMIR 100 UNITS/ML VIAL SQ SCH (21:06)
[2016-07-26] VITALS (9 sets, daily range): BP systolic 128–148; BP diastolic 60–63; PULSE 79–95; RESP 20–36; TEMP 98.1–99.2; O2SAT 88–98
[2016-07-26] MEDS: INSULIN ASPART SUPPLEMENTAL SCALE SQ SCH ×3 (06:30→17:12)
[2016-07-26] MEDS: RESP: ALBUTEROL 2.5 MG/IPRATROPIUM 0.5 MG NEB (SCH) NEB ×3 (07:47→19:58)
[2016-07-26 08:12] LABS: HEMATOCRIT 37.4 % (39.0-51.0); MEAN CELL VOLUME 92.2 FL (80.0-100.0); MEAN CORPUSCULAR HEMOGLOBIN 30.8 PG (27.0-34.0); MEAN CORPUSCULAR HGB CONC 33.4 % (32.0-36.0); PLATELET COUNT 271 TH/MM3 (150-450); RED BLOOD COUNT 4.06 MIL/MM3 (4.50-5.90); RED CELL DISTRIBUTION WIDTH 14.5 % (11.6-17.2); REVIEW FLAG FINAL; WHITE BLOOD COUNT 10.1 TH/MM3 (4.0-11.0)
[2016-07-26] MEDS: GABAPENTIN 300 MG CAP PO SCH (08:21)
[2016-07-26] MEDS: PANTOPRAZOLE SOD 40 MG DELAYED RELEASE TAB PO SCH (08:21)
[2016-07-26] MEDS: FUROSEMIDE 20 MG TAB PO SCH (08:21)
[2016-07-26] MEDS: DILTIAZEM-CD 240 MG CAP ER PO SCH (08:21)
[2016-07-26] MEDS: LISINOPRIL 10 MG TAB PO SCH (08:21)
[2016-07-26] MEDS: ASPIRIN 325 MG TAB PO SCH (08:21)
[2016-07-26 08:34] LABS: BICARBONATE 27.8 MEQ/L (21.0-32.0); MAGNESIUM 2.5 MG/DL (1.5-2.5); POTASSIUM 4.6 MEQ/L (3.5-5.1)
--- NOTE | 2016-07-26 11:37 | HHI.PR ---
Subjective Subjective Remarks Alert awake Resting in bed Mild dyspnea noted at rest Heart appearing Facial Color estelle Temp 99 2, low-grade (Isamar Huston) Review of Systems Constitutional Constitutional: Weakness (generalized) Constitutional Remarks 10 point ROS done positives noted in ROS assessmentm, other systems negative or unremarkable (Isamar Huston) Pulmonary Respiratory: Coughing (occasional), Shortness of Breath (at rest and with exertion), Wheezing (mild) (Isamar Huston) Musculoskeletal MS: Weakness, Stiffness MS Remarks Obese (Isamar Huston) Psychiatric Psychiatric: Normal Mood Psychiatric Remarks Hard of hearing (Isamar Huston) Vitals/Results Intake & Output 07/25/16 07/25/16 07/26/16 15:00 23:00 07:00 Intake Total 480 ml 395 ml 360 ml Output Total 550 ml 150 ml 100 ml Balance -70 ml 245 ml 260 ml Intake Oral 480 ml 360 ml 360 ml IV Total 35 ml Output Urine Total 550 ml 150 ml 100 ml # Voids 2 # Bowel Movements 0 0 Vital Signs Vital Signs Date Time Temp Pulse Resp B/P Pulse Ox O2 Delivery O2 Flow Rate FiO2 07/26/16 08:26 Nasal Cannula 2.00 07/26/16 08:26 87 07/26/16 08:00 99.2 86 24 137/61 97 07/26/16 07:49 96 Nasal Cannula 2.00 07/26/16 04:00 98.1 94 36 128/62 94 07/26/16 01:03 95 07/26/16 00:02 98.2 85 32 140/62 98 07/25/16 21:05 Nasal Cannula 2.00 07/25/16 20:00 97.9 98 36 101/50 93 07/25/16 19:21 94 Nasal Cannula 2.00 07/25/16 16:00 98.7 79 18 109/58 97 07/25/16 15:03 96 07/25/16 12:00 99.0 87 18 132/59 94 (Isamar Huston) CBC/BMP: 07/26/16 0600 07/26/16 0600 Lab Results Laboratory Tests Test 07/26/16 06:00 White Blood Count 10.1 TH/MM3 Red Blood Count 4.06 MIL/MM3 Hemoglobin 12.5 GM/DL Hematocrit 37.4 % Mean Corpuscular Volume 92.2 FL Mean Corpuscular Hemoglobin 30.8 PG Mean Corpuscular Hemoglobin 33.4 % Concent Red Cell Distribution Width 14.5 % Platelet Count 271 TH/MM3 Mean Platelet Volume 10.3 FL Sodium Level 137 MEQ/L Potassium Level 4.6 MEQ/L Chloride Level 102 MEQ/L Carbon Dioxide Level 27.8 MEQ/L Anion Gap 7 MEQ/L Blood Urea Nitrogen 53 MG/DL Creatinine 2.10 MG/DL Estimat Glomerular Filtration 31 ML/MIN Rate Random Glucose 191 MG/DL Calcium Level 8.8 MG/DL Magnesium Level 2.5 MG/DL Imaging Remarks Last Impressions Chest X-Ray 07/23/16 0844 Signed Impressions: Service Date/Time: Saturday, July 23, 2016 09:06 - CONCLUSION: 1. Mild cardiomegaly. 2. Patchy areas of atelectasis in the lung bases. This is most apparent on the left. 3. Stable compared previous exam. Lee Navarro MD Current Medications Active Medications Diltiazem HCl (Cardizem) 30 mg QID PO; Start 07/25/16 at 13:00; Stop 07/25/16 at 13:00; Status DC Sitagliptin Phosphate (Januvia) 100 mg DAILY PO Last administered on 07/26/16t 08 :21; Admin Dose 100 MG; Start 07/26/16 at 09:00 (Isamar Huston) Physical Exam General General Appearance: Well Developed, Well Nourished, No Acute Distress, Comfortable, Obese (Isamar Huston) Eyes Eye Exam: Pupils Equal, Pupils Reactive, Sclera White, Extraocular Movement Intact (Isamar Huston) Ears & Nose Ears & Nose Exam: Nasal Mucosa [place] (Isamar Huston) Throat Throat Exam: Oral Mucosa [place] & Moist (Isamar Huston) Neck Neck Exam: Neck Supple, Trachea Midline (Isamar Huston) Pulmonary Resp Exam: No Distress, Crackles, Decreased Bases, Diminished Breath Sounds ( Isamar Huston) Cardiology CV Exam: Regular, Normal Sinus Rhythm, Good Perfusion, Arrhythmia (HamiltonIsamar joya M. TELECOMMUNICATOR) Gastrointestinal/Abdomen GI Exam: Soft, Non-Tender, Bowel Sounds Present, Non-Distended (Robel,Susan M. TELECOMMUNICATOR) Musculoskeletal MS Exam: Joints Intact, Normal Gait, Normal Tone, Good Strength (Isamar Huston M. TELECOMMUNICATOR) Integumentary Skin Exam: Warm, Dry (Isamar Huston M. TELECOMMUNICATOR) Extremeties Extremities Exam: Pedal Pulses Palpable, Trace Edema (Isamar Huston M. TELECOMMUNICATOR) Neurologic Neuro Exam: Alert, Awake, Oriented, Speech Clear, Moving All Extremities, No Focal Deficits (Isamar Huston M. TELECOMMUNICATOR) Psychiatric Psych Exam: Appropriate Responses (Isamar Huston M. TELECOMMUNICATOR) VTE Prophylaxis VTE Prophylaxis Meds: Lovenox (Robel,Susan M. TELECOMMUNICATOR) PUD Prophylasis PUD Prophylaxis: Protonix (Isamar Huston M. TELECOMMUNICATOR) Assessment/Plan Assessment/Plan 1. Chest pain, rule out myocardial infarction, rule out cardiovascular disease. 2. Obesity. 3. Atrial arrythmia, now in sinus rhythm. h/o tachybrady syndrome 4. Leukocytosis. 5. Cardiomegaly. 6. Renal insufficiency with acute kidney injury. 7. Generalized weakness with dyspnea. 8. Hypertension. 9. CHF Plan: appreciate cardiology input, recommends to continue on present tx, currently the patient's in sinus rhythm, in the 90s Currently remains on by mouth Cardizem Telemetry monitoring, initial diagnosis of tachybradycardia syndrome, with pauses Dr. Cochran consult, feels patient is currently stable and has atrial arrhythmias due to his severe COPD. Recommends medical management for now, possible pacing in the future if patient has severe bradycardia PR ruled out .Trop negative CHF, elevated BNP 254 Currently patient has been on by mouth Lasix but decreased diurese as noted. Will give Lasix 40 IV today and monitor aggressive intake and output recent Echo EF 55 to 60% continue with oxygen to keep sats > 92% Duonebs PRN Labs reviewed, Acute kidney injury noted, probable chronic renal insufficiency, will monitor for any acute needs Anemia probably secondary to chronic disease remained stable at 12.5 Leukocytosis now resolved, currently WBC count 10.1 Vital signs reviewed, temp 99 2, pulse between 80s and 90s, tachypnea respirations even at rest lowest noted 24. Accuchecks with ISS continue with Lovenox for DVT prophylaxis PPI for GI prophylaxis Debility, patient gets up in room and goes to bathroom. We'll have PT eval for his strengths/ mobility D/W RN D/W Dr. Rob, seen on her behalf D/W pt. (Isamar Huston) Assessment/Plan Patient seen and examined Multifocal atrial tach appreciate Dr Cochran and DR Omer's input ok to d/c home on Po cardizem discussed with patient discussed with Isamar PATEL (Lyly Rob MD) Isamar Huston Jul 26, 2016 11:37 Lyly Rob MD Jul 26, 2016 12:38
[2016-07-26] MEDS ORDERED: FUROSEMIDE 40 MG/4 ML VIAL IV PUSH ONE (12:00)
--- NOTE | 2016-07-26 12:39 | PD.CARD.PN ---
Subjective Subjective Remarks alert in nad Objective Vital Signs / I&O Vital Signs Date Time Temp Pulse Resp B/P Pulse Ox O2 Delivery O2 Flow Rate FiO2 07/26/16 08:26 Nasal Cannula 2.00 07/26/16 08:26 87 07/26/16 08:00 99.2 86 24 137/61 97 07/26/16 07:49 96 Nasal Cannula 2.00 07/26/16 04:00 98.1 94 36 128/62 94 07/26/16 01:03 95 07/26/16 00:02 98.2 85 32 140/62 98 07/25/16 21:05 Nasal Cannula 2.00 07/25/16 20:00 97.9 98 36 101/50 93 07/25/16 19:21 94 Nasal Cannula 2.00 07/25/16 16:00 98.7 79 18 109/58 97 07/25/16 15:03 96 I/O 07/25/16 07/25/16 07/25/16 07/26/16 07/26/16 07/26/16 07:00 15:00 23:00 07:00 15:00 23:00 Intake Total 0 ml 480 ml 395 ml 360 ml Output Total 225 ml 550 ml 150 ml 100 ml Balance -225 ml -70 ml 245 ml 260 ml Intake Oral 0 ml 480 ml 360 ml 360 ml IV Total 35 ml Output Urine Total 225 ml 550 ml 150 ml 100 ml # Voids 2 # Bowel Movements 0 0 0 Physical Exam GENERAL: SKIN: Warm and dry. HEAD: Normocephalic. EYES: No scleral icterus. No injection or drainage. NECK: Supple, trachea midline. No JVD or lymphadenopathy. CARDIOVASCULAR: Regular rate and rhythm without murmurs, gallops, or rubs. RESPIRATORY: Breath sounds equal bilaterally. No accessory muscle use. GASTROINTESTINAL: Abdomen soft, non-tender, nondistended. MUSCULOSKELETAL: No cyanosis, or edema. BACK: Nontender without obvious deformity. No CVA tenderness. Laboratory Laboratory Tests Test 07/26/16 06:00 White Blood Count 10.1 TH/MM3 Red Blood Count 4.06 MIL/MM3 Hemoglobin 12.5 GM/DL Hematocrit 37.4 % Mean Corpuscular Volume 92.2 FL Mean Corpuscular Hemoglobin 30.8 PG Mean Corpuscular Hemoglobin 33.4 % Concent Red Cell Distribution Width 14.5 % Platelet Count 271 TH/MM3 Mean Platelet Volume 10.3 FL Sodium Level 137 MEQ/L Potassium Level 4.6 MEQ/L Chloride Level 102 MEQ/L Carbon Dioxide Level 27.8 MEQ/L Anion Gap 7 MEQ/L Blood Urea Nitrogen 53 MG/DL Creatinine 2.10 MG/DL Estimat Glomerular Filtration 31 ML/MIN Rate Random Glucose 191 MG/DL Calcium Level 8.8 MG/DL Magnesium Level 2.5 MG/DL Assessment and Plan Problem List: (1) Atrial tachycardia (2) Tachyarrhythmia (3) Diabetes mellitus type 2 in obese (4) Renal insufficiency Assessment and Plan 1.) SVT - in nsr, assymptomatic, still episodes of tachycardia, 7.3 sec pause on outpatient holter, reviewed consult by Dr Cochran, rec cont obs, ok to dc from cv standpoint, d/w Dr Rob, f/u with me in office [place]. Marcos Omer MD Jul 26, 2016 12:39
[2016-07-26] MEDS: ENOXAPARIN SODIUM 40 MG/0.4 ML SYRINGE SQ SCH (13:39)
[2016-07-26] MEDS ORDERED: OXYGENTANK NAS.CANULA (17:59)
--- NOTE | 2016-07-27 16:51 | HHI.DS ---
Discharge Summary Admission Date Jul 23, 2016 at 10:52 Discharge Date: Jul 26, 2016 Admitting Diagnosis atrial flutter/fib with RVR, renal insufficiency, leukocytosis, diab Brief History This was a pleasant 71-year-old gentleman who presented with left-sided chest pain. He stated that he was awakened during the night with an aching sensation on his left chest. He thought he had laid on the wrong side but the pain continued. It waxed and waned through the night but sometime in the early in the morning the pain went away. He described no dizziness. No nausea. No vomiting. No headache. He was positive for some mild clamminess, some mild shortness of breath. He did note some palpitations with is heart. The patient stated that he did have chronic shortness of breath and his ambulation and activity was limited. He stated that he does have some swelling in his lower extremities but denied any COPD. The patient was a diabetic for approximately five years and was insulin dependent. The patient has glasses. He had caries and was missing some of his teeth. The patient was obese. He was currently resting in the bed with O2 on. CBC/BMP: 07/26/16 0600 07/26/16 0600 Significant Findings Laboratory Tests Test 07/26/16 06:00 Red Blood Count 4.06 MIL/MM3 (4.50-5.90) Hemoglobin 12.5 GM/DL (13.0-17.0) Hematocrit 37.4 % (39.0-51.0) Blood Urea Nitrogen 53 MG/DL (7-18) Creatinine 2.10 MG/DL (0.60-1.30) Estimat Glomerular Filtration 31 ML/MIN (>89) Rate Random Glucose 191 MG/DL (74-106) Imaging Last Impressions Chest X-Ray 07/23/16 0809 Signed Impressions: Service Date/Time: Saturday, July 23, 2016 09:06 - CONCLUSION: 1. Mild cardiomegaly. 2. Patchy areas of atelectasis in the lung bases. This is most apparent on the left. 3. Stable compared previous exam. Lee Navarro MD PE at Discharge General Appearance: Well Developed, Well Nourished, No Acute Distress, Comfortable, Obese (Isamar Huston) Eyes Eye Exam: Pupils Equal, Pupils Reactive, Sclera White, Extraocular Movement Intact (Robel,Susan M. WIRE MILL OPERATOR) Ears & Nose Ears & Nose Exam: Nasal Mucosa [place] (Mulvane,Isamar M. WIRE MILL OPERATOR) Throat Throat Exam: Oral Mucosa [place] & Moist (Mulvane,Isamar M. WIRE MILL OPERATOR) Neck Neck Exam: Neck Supple, Trachea Midline (Mulvane,Isamar M. WIRE MILL OPERATOR) Pulmonary Resp Exam: No Distress, Crackles, Decreased Bases, Diminished Breath Sounds ( Mulvane,Isamar M. WIRE MILL OPERATOR) Cardiology CV Exam: Regular, Normal Sinus Rhythm, Good Perfusion, Arrhythmia (Mulvane Isamar M. WIRE MILL OPERATOR) Gastrointestinal/Abdomen GI Exam: Soft, Non-Tender, Bowel Sounds Present, Non-Distended (MulvaneIsamar M. WIRE MILL OPERATOR) Musculoskeletal MS Exam: Joints Intact, Normal Gait, Normal Tone, Good Strength (Mulvane,Isamar M. WIRE MILL OPERATOR) Integumentary Skin Exam: Warm, Dry (Mulvane,Isamar M. WIRE MILL OPERATOR) Extremeties Extremities Exam: Pedal Pulses Palpable, Trace Edema (Vera Hustonan M. WIRE MILL OPERATOR) Neurologic Neuro Exam: Alert, Awake, Oriented, Speech Clear, Moving All Extremities, No Focal Deficits (Mulvane,Isamar M. WIRE MILL OPERATOR) Psychiatric Psych Exam: Appropriate Responses (RobelIsamar M. WIRE MILL OPERATOR) VTE Prophylaxis VTE Prophylaxis Meds: Lovenox (RobelVeraIsamar M. WIRE MILL OPERATOR) PUD Prophylasis PUD Prophylaxis: Protonix (RobelVeraIsamar M. WIRE MILL OPERATOR) Hospital Course These are the diagnoses that were used to treat this patient during this hospital stay in for his plan of care. 1. Chest pain, rule out myocardial infarction, rule out cardiovascular disease. 2. Obesity. 3. Atrial arrythmia, now in sinus rhythm. h/o tachybrady syndrome 4. Leukocytosis. 5. Cardiomegaly. 6. Renal insufficiency with acute kidney injury. 7. Generalized weakness with dyspnea. 8. Hypertension. 9. CHF Vital signs were monitored every 4 and when necessary depending on patient's needs. Initial lab work was started in the ER Home medications were reconciled, the patient's heart rhythm was monitored on telemetry. appreciate cardiology input which was ordered on admission. Accommodations were to continue on present tx, currently the patient's in sinus rhythm, in the 90s. It was questionable whether patient would need a pacemaker for his tachybradycardia syndrome. Currently patient remains on by mouth Cardizem Telemetry monitoring, initial diagnosis of tachybradycardia syndrome, with pauses. Patient was stabilized with Cardizem and had no further noticeable bradycardic events. Dr. Cochran was then consulted, feels patient is currently stable and has atrial arrhythmias due to his severe COPD. Recommends medical management for now, possible pacing in the future if patient has severe bradycardia. Patient did have a workup with Dr. Cochran approximately a year ago which showed negative ischemia. DE ruled out . Troponins negative CHF, elevated BNP 254 Currently patient has been on by mouth Lasix but decreased diurese as noted. Will give Lasix 40 IV 1 dose and monitor aggressive intake and output recent Echo EF 55 to 60% continue with oxygen to keep sats > 92% Duonebs PRN Labs reviewed, this a.m. and throughout hospital stay Acute kidney injury noted, probable chronic renal insufficiency, will monitor for any acute needs Anemia probably secondary to chronic disease remained stable at 12.5 Leukocytosis now resolved, currently WBC count 10.1 Vital signs reviewed, temp 99 2, pulse between 80s and 90s, tachypnea respirations even at rest lowest noted 24. Accuchecks with ISS, patient remained stable with out acute events continue with Lovenox for DVT prophylaxis PPI for GI prophylaxis Debility, chiefly secondary to his COPD. patient gets up in room and goes to bathroom. Initial fall was to get physical therapy involved, but patient tolerates his activity fairly well in the room and bathroom. On the day of discharge Dr. olivas 's visited patient along with WIRE MILL OPERATOR Patient was seen and examined Multifocal atrial tach noted appreciate Dr Cochran and DR Omer's input ok to d/c home on Po cardizem, stable for discharge Pt Condition on Discharge: Stable Discharge Disposition: Discharge Home Discharge Instructions DIET: Follow Instructions for: Heart Healthy Diet Activities you can perform: Regular-No Restrictions Follow up Referrals: Cardiology - 2 Weeks with Marcos Omer MD New Medications: Oxygen tank (Oxygen tank) 1 Ea Tank 2 LITER CHANDRAKANT.CANULA CONTINUOUS Oxygen Concentrator Portable Gaseous 2 L/min via Nasal Cannula Continuous For 99 months HYPOXEMIA PREVENTION #2 CYLINDER Continued Medications: Aspirin (Aspirin) 325 Mg Tab 325 MG PO DAILY #30 Ref 0 TAB Diltiazem (Cardizem) 120 Mg Tab 240 MG PO DAILY Angina #120 Ref 0 TAB Gabapentin (Gabapentin) 300 Mg Cap 300 MG PO DAILY #60 Ref 0 CAP Insulin Glargine Inj (Lantus Inj) 1,000 Unit/10 Ml Vial 30 UNITS SQ HS Blood Sugar Management Ref 0 VIAL Lisinopril (Lisinopril) 10 Mg Tab 10 MG PO DAILY #30 Ref 0 TAB Metformin (Metformin) 1,000 Mg Tab 1000 MG PO BIDPC With meals Blood Sugar Management #60 Ref 0 TAB Sitagliptin (Januvia) 100 Mg Tab 100 MG PO DAILY Blood Sugar Management #30 Ref 0 TAB Triamterene (Dyrenium) 50 Mg Cap 25 MG PO DAILY Edema #30 Ref 0 CAP Isamar HustonP Jul 27, 2016 16:51
--- NOTE | 2016-07-30 10:38 | PQ ---
Physician Query Response Document PATIENT: CHRISTAL SALCIDO : 1945 ADMIT DATE: 07/23/2016 10:52 AM DISCH DATE: 07/26/2016 9:20 PM RESPONDING PROVIDER #: [email or web address] QUERY TEXT: CHF Acuity and Type Congestive Heart Failure is documented in the Medical Record. Please document the type (includes prob able or suspected) Such as: Type: -- Systolic -- Diastolic -- Combined -- Other, please specify Also please document the underlying cause of the CHF (includes probable or suspected) If you have any additional questions/comments and/or concerns, please do not hesitate to reach out to the CDI/Coding Hotline, Ext. [phone]. The patient's Clinical Indicators include: Progress note 07/25/16: CHF, elevated BNP 254 Will give Lasix 20 mg PO daily recent Echo EF 55 to 60% (echo performed during this admission 07/23/16) Progress note 07/26/16: CHF, elevated BNP 254 Currently patient has been on by mouth Lasix but decreased diurese as noted. Will give Lasix 40 IV to day and monitor aggressive intake and output recent Echo EF 55 to 60% continue with oxygen to keep sats > 92% Dr. Omer's consult of 07/23/16 with diagnosis of: Decompensated congestive heart failure (acute on chronic) Query created by: Moira Pritchett on 07/29/2016 3:46 PM RESPONSE TEXT: Acute on chronic diastolic CHF Electronically signed by: Lyly Rob MD 07/30/2016 10:33 AM
== END 2016-07-26 21:20 | disposition home or self-care (01) | DRG 308 ==
LOC: NEPE 08:22 → NEDA 10:52 → HCIS 15:03 → N04A 07-24 15:35
PROVIDERS: ADMIT Specialist; ATTEND Specialist
DX: I49.8 Other specified cardiac arrhythmias (principal); I50.33 Acute on chronic diastolic (congestive) heart failure; N17.9 Acute kidney failure, unspecified; Z68.41 Body mass index [BMI] 40.0-44.9, adult; D63.8 Anemia in other chronic diseases classified elsewhere; E11.9 Type 2 diabetes mellitus without complications; I12.9 Hypertensive chronic kidney disease with stage 1 through stage 4 chronic kidney disease, or unspecified chronic kidney disease; J44.9 Chronic obstructive pulmonary disease, unspecified; E66.01 Morbid (severe) obesity due to excess calories; Z79.4 Long term (current) use of insulin; Z79.84 Long term (current) use of oral hypoglycemic drugs; N18.9 Chronic kidney disease, unspecified; K02.9 Dental caries, unspecified; Z79.82 Long term (current) use of aspirin; M19.90 Unspecified osteoarthritis, unspecified site; H91.93 Unspecified hearing loss, bilateral; E78.5 Hyperlipidemia, unspecified
CPT/HCPCS: 71010; 80048; 82550; 82552; 82948; 83735; 83880; 84443; 84484; 85025; 85027; 85610; 85730; 93005; 93306; 94620; 94640; 94664; 96365; 96376; J1650; J1815; J1940

== ENCOUNTER 2016-10-18 08:25 | Inpatient (IN) | payer MEDICARE, OTHER ==
[~2016-10-18] VITALS: Ht 182.9 cm; Wt 140.2 kg
[2016-10-18] VITALS (21 sets, daily range): BP systolic 118–178; BP diastolic 56–76; PULSE 74–95; RESP 22–40; TEMP 99.4–100.5; O2SAT 77–100
[~2016-10-18 08:25] MED LIST changes: +CARD120T4 PO; -CARD240C6 PO; -GABA300C3 PO; +GABA300C5 PO; -LANTUS2P SC; +LANTUS2P SQ; -LISI10 PO; +LISI10TA3 PO; -METF-324 PO; +METF1000 PO; +OXYGENTANK NAS.CANULA; -SITA100 PO; +SITA1TAB2 PO; +TRIA1CAP6 PO; -TRIA50 PO
--- NOTE | 2016-10-18 08:40 | PD ---
HPI Chief Complaint: Respiratory Symptoms Time Seen by Provider: 08:34 Travel History International Travel<30 days: No Contact w/Intl Traveler<30days: No History of Present Illness HPI 71 yo M arrives by EMS 2/2 dyspnea. Patient uses home oxygen 24 7. This morning he was sitting on the toilet. He was then unable to stand from a sitting position. In his efforts to stand upright he became short of breath. At the time he had no oxygen on. EMS notes on scene his O2 sat was 82%. EMS applied a nonrebreather and his oxygen saturation increased to the high 90s. On scene his respiratory rate was approaching 40. He received Solu-Medrol 125 mg IV. He denies fever. Heart rate was about 100 sinus on scene. Prior records reveal a diagnosis of "shortness of breath" however I see no record of COPD. PFSH Past Medical History Arthritis: Yes (possibly in bi - lat knees) Anxiety: No Depression: No Heart Rhythm Problems: Yes (this visit) Cancer: No Cardiac Catheterization: Yes Cardiovascular Problems: Yes (this visit - SVT) Diabetes: Yes (INSULIN DEPENDENT) Diminished Hearing: Yes (BILAT DIMINISHED ) Endocrine: Yes Gastrointestinal Disorders: Yes (ABDOMINAL DISTENTION, ABDOMINAL PAIN) Genitourinary: No Hepatitis: No Hiatal Hernia: No Hypertension: Yes Immune Disorder: No Musculoskeletal: No Neurologic: No Psychiatric: No Reproductive: No Respiratory: Yes Thyroid Disease: No Past Surgical History AICD: No Joint Replacement: No Pacemaker: No Social History Alcohol Use: No Tobacco Use: No Substance Use: No Allergies-Medications (Allergen,Severity, Reaction): Coded Allergies: No Known Allergies (Unverified , 10/18/16) Reported Meds & Prescriptions Reported Meds & Active Scripts Active Oxygen tank (Oxygen) 1 Ea Tank 2 Liter CHANDRAKANT.CANULA CONTINUOUS Oxygen Concentrator Portable Gaseous 2 L/min via Nasal Cannula Continuous For 99 months Reported Dyrenium (Triamterene) 50 Mg Cap 25 Mg PO DAILY Januvia (Sitagliptin Phosphate) 100 Mg Tab 100 Mg PO DAILY Metformin (Metformin HCl) 1,000 Mg Tab 1,000 Mg PO BIDPC With meals Lisinopril 10 Mg Tab 10 Mg PO DAILY Lantus Inj (Insulin Glargine) 1,000 Unit/10 Ml Vial 50 Units SQ HS Gabapentin 300 Mg Cap 300 Mg PO DAILY Cardizem (Diltiazem HCl) 120 Mg Tab 240 Mg PO DAILY Aspirin 325 Mg Tab 325 Mg PO DAILY Review of Systems Except as stated in HPI: all other systems reviewed are Neg Physical Exam Narrative GENERAL: 71-year-old male BMI at least 40 marked dyspnea SKIN: Focused skin assessment warm/dry. HEAD: Atraumatic. Normocephalic. EYES: Pupils equal and round. No scleral icterus. No injection or drainage. ENT: No nasal bleeding or discharge. Mucous membranes pink and moist. NECK: Trachea midline. No JVD. CARDIOVASCULAR: Tachycardia. Rate approximately 100 RESPIRATORY: Tachypnea. Lungs are clear. GASTROINTESTINAL: Abdomen soft, non-tender, nondistended. Hepatic and splenic margins not palpable. MUSCULOSKELETAL: No obvious deformities. No clubbing. No cyanosis. Marked clubbing involving the left fourth finger without evidence of infection. NEUROLOGICAL: Awake and alert. No obvious cranial nerve deficits. Motor grossly within normal limits. Normal speech. PSYCHIATRIC: Appropriate mood and affect; insight and judgment normal. Data Data Last Documented VS Vital Signs Date Time Temp Pulse Resp B/P Pulse Ox O2 Delivery O2 Flow Rate FiO2 10/18/16 10:25 99.7 10/18/16 10:24 88 30 140/60 97 BiPAP 50 Orders Electrocardiogram (10/18/16 08:39) Complete Blood Count With Diff (10/18/16 08:40) Basic Metabolic Panel (Bmp) (10/18/16 08:40) B-Type Natriuretic Peptide (10/18/16 08:40) Magnesium (Mg) (10/18/16 08:40) Arterial Blood Gas (Abg) (10/18/16 08:40) Iv Access Insert/Monitor (10/18/16 08:40) Electrocardiogram (10/18/16 08:40) Ecg Monitoring (10/18/16 08:40) Oximetry (10/18/16 08:40) Oxygen Administration (10/18/16 08:40) Chest, Single Ap (10/18/16 08:40) Sodium Chloride 0.9% Flush (Ns Flush) (10/18/16 08:45) Resp Bipap / Cpap Non Invas Vt (10/18/16 08:40) Ckmb (Isoenzyme) Profile (10/18/16 08:57) Troponin I (10/18/16 08:57) Nitroglycerin 2% Oint (Nitroglycerin 2% (10/18/16 09:00) Blood Culture (10/18/16 09:28) Ceftriaxone Inj (Rocephin Inj) (10/18/16 09:30) Azithromycin Inj (Zithromax Inj) (10/18/16 09:30) Electrocardiogram (10/18/16 08:55) Arterial Blood Gas (Abg) (10/18/16 ) Labs Laboratory Tests Test 10/18/16 10/18/16 10/18/16 08:47 09:25 09:35 White Blood Count 14.7 TH/MM3 Red Blood Count 4.56 MIL/MM3 Hemoglobin 14.0 GM/DL Hematocrit 42.8 % Mean Corpuscular Volume 93.9 FL Mean Corpuscular Hemoglobin 30.8 PG Mean Corpuscular Hemoglobin 32.7 % Concent Red Cell Distribution Width 16.3 % Platelet Count 282 TH/MM3 Mean Platelet Volume 9.8 FL Neutrophils (%) (Auto) 78.1 % Lymphocytes (%) (Auto) 11.7 % Monocytes (%) (Auto) 7.0 % Eosinophils (%) (Auto) 2.7 % Basophils (%) (Auto) 0.5 % Neutrophils # (Auto) 11.5 TH/MM3 Lymphocytes # (Auto) 1.7 TH/MM3 Monocytes # (Auto) 1.0 TH/MM3 Eosinophils # (Auto) 0.4 TH/MM3 Basophils # (Auto) 0.1 TH/MM3 CBC Comment DIFF FINAL Differential Comment B-Type Natriuretic Peptide 99 PG/ML Blood Gas Puncture Site LT RADIAL Blood Gas Patient Temperature 98.6 Blood Gas HCO3 33 mmol/L Blood Gas Base Excess 6.2 mmol/L Blood Gas Oxygen Saturation 96 % Arterial Blood pH 7.28 Arterial Blood Partial 71 mmHg Pressure CO2 Arterial Blood Partial 126 mmHG Pressure O2 Arterial Blood Oxygen Content 18.4 Vol % Arterial Blood 1.7 % Carboxyhemoglobin Arterial Blood Methemoglobin 1.0 % Blood Gas Hemoglobin 13.6 G/DL Oxygen Delivery Device BIPAP Blood Gas Ventilator Setting 15IPAP/6EPAP Blood Gas Inspired Oxygen 60 % Sodium Level 137 MEQ/L Potassium Level 5.7 MEQ/L Chloride Level 102 MEQ/L Carbon Dioxide Level 33.5 MEQ/L Anion Gap 2 MEQ/L Blood Urea Nitrogen 28 MG/DL Creatinine 1.51 MG/DL Estimat Glomerular Filtration 46 ML/MIN Rate Random Glucose 158 MG/DL Calcium Level 8.8 MG/DL Magnesium Level 2.1 MG/DL Total Creatine Kinase 74 U/L Troponin I 0.09 NG/ML MDM Medical Decision Making Medical Screen Exam Complete: Yes Emergency Medical Condition: Yes Differential Diagnosis NSTEMI, unstable angina, coronary vasospasm, PE, PTX, aortic dissection, pericarditis, myocarditis, endocarditis, PNA, esophageal disease, aneurysm, musculoskeletal etiologies, anxiety, cocaine/sympathomimetic abuse Narrative Course CBC & BMP Diagram 10/18/16 08:47 10/18/16 09:35 Troponin 0.09 BNP 99 EKG reveals a sinus rhythm with a first-degree AV block and a right bundle branch block pattern the left anterior fascicular block with ST changes raising concern for ischemic-type strain. A catheterization performed 12 months prior revealed no significant coronary disease and a right dominant system. Cardiology is Dr. Omer. Last 24 hours Impressions Chest X-Ray 10/18/16 0840 Signed Impressions: Service Date/Time: Tuesday, October 18, 2016 08:54 - CONCLUSION: Left basilar airspace disease and small left effusion suspected. Kelvin Woodard MD In summary the patient arrives with left lung consolidation. Rocephin and azithromycin started. Troponin 0.09 is of indeterminate significance in the setting of a clean coronary catheterization from 1 year ago and no chest pain. The patient has been on BiPAP since his arrival. His initial ABG reveals 7.28 /71/32.6 on 60% FiO2 with a PCO2 of 126. He'll be admitted for continued BiPAP therapy and from management of hypercapnia. Patient reassessed at 10:20 AM. O2 sat about 90. Heart rate about 90 as well. The patient states he feels okay. He asked to have his bed lowered. Prior records reveal no history of COPD. Case d/w Dr Kaye for FMR. Admission planned for [facility] 2/[address] Gibbs of cardiology, Dr Omer's covering physician, paged at [phone]. Critical Care Narrative Aggregate critical care time was 35 minutes. Time to perform other separately billable procedures was not included in the critical care time. My time did not include minutes spent treating any other patients simultaneously or on activities that did not directly contribute to the patient's treatment. The services I provided to this patient were to treat and/or prevent clinically significant deterioration that could result in: Hypoxia, hypercapnia, cardiopulmonary arrest I provided critical care services requiring my management, as noted below: Chart data review, documentation time, medication orders and management, vital sign assessments/reviewing monitor data, ordering and reviewing lab tests, ordering and interpreting/reviewing x-rays and diagnostic studies, care of the patient and discussion of the patient with the admitting physicians. Diagnosis Primary Impression: Shortness of breath Additional Impressions: Obesity Qualified Code: E66.9 - Obesity, unspecified obesity severity, unspecified obesity type Pneumonia Qualified Code: J18.1 - Pneumonia of left lower lobe due to infectious organism Admitting Information Admitting Physician Requests: Lee Tompkins MD Oct 18, 2016 08:40
[2016-10-18] MEDS ORDERED: SODIUM CHLORIDE 0.9% FLUSH 10 ML FLUSH IVF PRN (08:45)
[2016-10-18] MEDS ORDERED: NITROGLYCERIN 2% OINT 1 GM PACKET TOP ONE (09:00)
[2016-10-18 09:02] LABS: AUTOMATED NEUTROPHIL # 11.5 TH/MM3 (1.8-7.7); BASOPHIL # 0.1 TH/MM3 (0-0.2); BASOPHIL % 0.5 % (0.0-2.0); EOSINOPHIL # 0.4 TH/MM3 (0-0.4); EOSINOPHIL % 2.7 % (0.0-4.0); HEMATOCRIT 42.8 % (39.0-51.0); HEMO FLAGS DIFF FINAL; LYMPH % 11.7 % (9.0-44.0); LYMPHOCYTE # 1.7 TH/MM3 (1.0-4.8); MEAN CELL VOLUME 93.9 FL (80.0-100.0); MEAN CORPUSCULAR HEMOGLOBIN 30.8 PG (27.0-34.0); MEAN CORPUSCULAR HGB CONC 32.7 % (32.0-36.0); NEUT % 78.1 % (16.0-70.0); PLATELET COUNT 282 TH/MM3 (150-450); RED BLOOD COUNT 4.56 MIL/MM3 (4.50-5.90); RED CELL DISTRIBUTION WIDTH 16.3 % (11.6-17.2); WHITE BLOOD COUNT 14.7 TH/MM3 (4.0-11.0)
--- NOTE | 2016-10-18 09:17 | RADRPT ---
EXAM DATE/TIME: 10/18/2016 08:54 [facility] COMPARISON: CHEST SINGLE AP, July 23, 2016, 9:06. INDICATIONS : Shortness of breath. MEDICAL HISTORY : Diabetes mellitus type II. Hypertension SURGICAL HISTORY : None. ENCOUNTER: Initial ACUITY: 1 day PAIN SCORE: 0/10 LOCATION: Bilateral chest FINDINGS: Small left effusion and left basilar airspace disease. Cardiomegaly. Right lung is clear. Osseous str uctures are intact. CONCLUSION: Left basilar airspace disease and small left effusion suspected. Kelvin Woodard MD on October 18, 2016 at 9:14 Board Certified Radiologist. This report was verified electronically.
[2016-10-18 09:29] LABS: BLOOD GAS BASE EXCESS 6.2 mmol/L (-2-2); BLOOD GAS CARBOXYHEMOGLOBIN 1.7 % (0-4); BLOOD GAS HCO3 33 mmol/L (22-26); BLOOD GAS O2 HGB SATURATION 96 % (90-100); BLOOD GAS OXYGEN CONTENT 18.4 Vol % (12.0-20.0); BLOOD GAS PCO2 71 mmHg (38-42); BLOOD GAS PO2 126 mmHG (61-120); BLOOD GAS TOTAL HGB 13.6 G/DL (12.0-16.0); TEMP CORR TO 98.6
[2016-10-18 09:30] LABS: CRITICAL VALUE YES; DRAW SITE LT RADIAL; FIO2 60 %; NUMBER OF ARTERIAL PUNCTURES 1; OXYGEN DEVICE BIPAP; STAT YES; ULNAR PULSE Y; VENT SETTINGS 15IPAP/6EPAP
[2016-10-18] MEDS ORDERED: cefTRIAXone INJ 1,000 MG in SODIUM CHLORIDE 0.9% INJ 100 ML IV ONE (09:30)
[2016-10-18] MEDS ORDERED: AZITHROMYCIN INJ 500 MG in SODIUM CHLOR 0.9% 250 ML INJ 250 ML IV ONE (09:30)
[2016-10-18 10:00] LABS: BICARBONATE 33.5 MEQ/L (21.0-32.0); MAGNESIUM 2.1 MG/DL (1.5-2.5); POTASSIUM 5.7 MEQ/L (3.5-5.1)
[2016-10-18 10:45] LABS: BLOOD GAS BASE EXCESS 5.9 mmol/L (-2-2); BLOOD GAS CARBOXYHEMOGLOBIN 1.7 % (0-4); BLOOD GAS HCO3 32 mmol/L (22-26); BLOOD GAS O2 HGB SATURATION 94 % (90-100); BLOOD GAS OXYGEN CONTENT 17.9 Vol % (12.0-20.0); BLOOD GAS PCO2 70 mmHg (38-42); BLOOD GAS PO2 98 mmHG (61-120); BLOOD GAS TOTAL HGB 13.4 G/DL (12.0-16.0); CRITICAL VALUE YES; DRAW SITE LT RADIAL; FIO2 50 %; NUMBER OF ARTERIAL PUNCTURES 1; OXYGEN DEVICE BIPAP; STAT YES; TEMP CORR TO 98.6; ULNAR PULSE Y; VENT SETTINGS 15 IPAP/6 EPAP
[2016-10-18] MEDS ORDERED: ENOXAPARIN SODIUM 150 MG/ML SYRINGE SQ ONE (11:00)
[2016-10-18] MEDS ORDERED: TRIA37.5 PO (11:12)
[2016-10-18] MEDS ORDERED: GLIP10TA6 PO (11:12)
[2016-10-18] MEDS ORDERED: ALBI1INJ SQ (11:12)
[2016-10-18] MEDS ORDERED: FENO54TA PO (11:12)
[2016-10-18] MEDS: METFORMIN HOLD POST IV CONTRAST SCH (11:30)
[2016-10-18] MEDS ORDERED: IOHEXOL 350 MG/ML 10 ML VIAL (for RAD DIAG) IV ONE (11:41)
--- NOTE | 2016-10-18 11:49 | EKG ---
Date Performed: 10/18/2016 Time Performed: 08:55:19 PTAGE: 71 years EKG: Sinus rhythm WITH FIRST DEGREE AV BLOCK RIGHT BUNDLE BRANCH BLOCK LEFT ANTERIOR FASCICULAR BLOCK POSSIBLE ANTERIO R MYOCARDIAL INFARCTION ABNORMAL ECG INTERPRETATION BASED ON A DEFAULT AGE OF 40 YEARS No significant change from prior electrocardiogram. PREVIOUS TRACING : 10/18/2016 08.44 DOCTOR: Ronan Correa Interpretating Date/Time 10/18/2016 11:47:24
--- NOTE | 2016-10-18 11:49 | EKG ---
Date Performed: 10/18/2016 Time Performed: 08:54:21 PTAGE: 71 years EKG: Baseline artifact present. Lead V6 is not available. Probable Sinus rhythm with first-degree AV block Right bundle branch block with left anterior fascicular block No signific ant change from prior electrocardiogram. PREVIOUS TRACING : 10/18/2016 08.44 DOCTOR: Ronan Correa Interpretating Date/Time 10/18/2016 11:48:09
--- NOTE | 2016-10-18 11:49 | EKG ---
Date Performed: 10/18/2016 Time Performed: 08:44:01 PTAGE: 71 years EKG: Probable Sinus rhythm with first-degree AV block Right bundle-branch block with left anterior fascicular block No signific ant change from prior electrocardiogram. PREVIOUS TRACING : 07/23/2016 10.32 DOCTOR: Ronan Correa Interpretating Date/Time 10/18/2016 11:48:45
--- NOTE | 2016-10-18 12:08 | RADRPT ---
EXAM DATE/TIME: 10/18/2016 11:40 [facility] COMPARISON: CHEST SINGLE AP, October 18, 2016, 8:54. INDICATIONS : Shortness of breath. IV CONTRAST: 75 cc Omnipaque 350 (iohexol) IV RADIATION DOSE: 14.81 CTDIvol (mGy) MEDICAL HISTORY : Cardiovascular disease. Hypertension. Diabetes mellitus type 2. SURGICAL HISTORY : None. ENCOUNTER: Initial ACUITY: 1 day PAIN SCALE: 0/10 LOCATION: Bilateral chest TECHNIQUE: Volumetric scanning of the chest was performed using a pulmonary embolism protocol MIP images were re constructed. Using automated exposure control and adjustment of the mA and/or kV according to patien t size, radiation dose was kept as low as reasonably achievable to obtain optimal diagnostic quality images. DICOM format image data is available electronically for review and comparison. FINDINGS: There is basilar consolidation bilaterally versus atelectasis. There is a small left-sided pleural ef fusion. There is no evidence for pulmonary embolism. No adenopathy or aneurysm. CONCLUSION: 1. No evidence for pulmonary embolism. 2. Small left effusion, basilar consolidation and atelectasis noted. Kelvin Woodard MD on October 18, 2016 at 12:05 Board Certified Radiologist. This report was verified electronically.
[2016-10-18] MEDS ORDERED: RESP: ALBUTEROL 2.5 MG/3 ML NEB (PRN) INH (12:15)
[2016-10-18] MEDS ORDERED: ACETAMINOPHEN/HYDROcodone 325 MG/5 MG TAB PO PRN (12:15)
[2016-10-18] MEDS ORDERED: BISACODYL 10 MG SUPP RECTAL PRN (12:15)
[2016-10-18] MEDS ORDERED: ACETAMINOPHEN 325 MG TAB PO PRN ×2 (12:15→12:45)
[2016-10-18] MEDS ORDERED: SODIUM CHLORIDE 0.9% FLUSH 10 ML FLUSH IV FLUSH PRN (12:15)
[2016-10-18] MEDS ORDERED: LACTULOSE SYRUP 20 GM/30 ML CUP PO PRN (12:15)
[2016-10-18] MEDS ORDERED: MORPHINE SULFATE 4 MG/ML INJ IV PRN (12:15)
[2016-10-18] MEDS ORDERED: ONDANSETRON HCL 4 MG/2 ML VIAL IV PRN (12:15)
[2016-10-18] MEDS ORDERED: SENNOSIDES 8.6 MG TAB PO PRN (12:15)
[2016-10-18] MEDS ORDERED: MAGNESIUM HYDROXIDE SUSP 30 ML CUP PO PRN (12:15)
[2016-10-18] MEDS ORDERED: CHLORHEXIDINE GLUCONATE 2 % 1 PACK (2 CLOTHS) TOP PRN (12:15)
[2016-10-18] MEDS ORDERED: MISCELLANEOUS NURSING INFORMATION XX SCH (12:15)
[2016-10-18] MEDS ORDERED: DEXTROSE 50% IN WATER 50 ML VIAL(D50) IV PRN (12:45)
[2016-10-18] MEDS ORDERED: GLUCAGON 1 MG/ML VIAL OTHER PRN (12:45)
--- NOTE | 2016-10-18 12:51 | HHI.HP ---
[facility] Service Critical Care Medicine Primary Care Physician Rigoberto Goldsmith MD Admission Diagnosis Dyspnea, PNA, Elevated Tn, Hypercapnea Diagnosis: (1) Obesity Diagnosis: Principal (2) Pneumonia Diagnosis: Principal (3) Shortness of breath Diagnosis: Principal (4) Diabetes mellitus type 2 in obese Diagnosis: Principal (5) Hard of hearing Diagnosis: Principal (6) Acute respiratory acidosis Diagnosis: Principal (7) RADHA (obstructive sleep apnea) Diagnosis: Principal (8) Neuropathy Diagnosis: Principal (9) Renal insufficiency Diagnosis: Principal (10) Diabetic neuropathy, type II diabetes mellitus Diagnosis: Principal (11) Leukocytosis Diagnosis: Principal (12) Diabetes mellitus type 2, uncontrolled Diagnosis: Principal (13) Weakness Diagnosis: Principal (14) Dyslipidemia Diagnosis: Principal (15) Acute respiratory failure Diagnosis: Principal (16) Elevated troponin Diagnosis: Principal (17) Right bundle branch block (RBBB) on electrocardiogram (ECG) Diagnosis: Principal (18) First degree atrioventricular block by electrocardiogram Diagnosis: Principal (19) Hyperglycemia Diagnosis: Principal (20) Hyperkalemia Diagnosis: Principal (21) Sepsis Diagnosis: Principal Chief Complaint: Shortness of breath Travel History International Travel<30 Days: No Contact w/Intl Traveler <30 Da: No Traveled to Known Affected Are: No Sepsis Criteria SIRS Criteria (2 or more): RR > 20 or PaCO2 < 32, WBC > 51230, < 4000 or > 10 % bands Sepsis Criteria (SIRS+source): Infect source susp/known Criteria Outcome: Meets sepsis criteria History of Present Illness This is a 71-year-old male. Date of admission 10/18/2016. Past records includes morbid obesity with a weight of 146 kg, 2 L oxygen dependent possible secondary to pickwickian/RADHA, history of TIA 2013, diabetes with peripheral neuropathy and nephropathy, hypertension, hard of hearing. Patient also has history of arrhythmia with history of a 7.3 second sinus pause on outpatient Holter monitoring. Patient negative EPS study 11/[address] Cochran. Patient had a normal cardiac catheterization by Dr. Omer 11/02 including no coronary disease/right dominant. Ejection fraction 60%. Some diastolic dysfunction with elevated left diastolic ventricular pressures 150/22. Echocardiogram earlier this years 09/03 revealed EF 55%. Trace TR. Normal systolic function. Patient presents to [facility] today after a 2-3 history of malaise, increasing shortness of breath. Patient increased oxygen from 2-3 L in the interim. Patient was able to get off the toilet and was short of breath. Patient noted a saturation of 82% by EMS. Was transported on nonrebreather mask to [facility]. Initial chest x-ray revealed left lower lobe infiltrate versus effusion. CT of the chest revealed basilar atelectasis versus consolidation with a small left pleural effusion. No pulmonary embolism. Patient is currently on BiPAP. 18/6 at 50%. PCO2 is still elevated at 70. ABG revealed an acute on chronic respiratory acidosis. Start on Rocephin and Zithromax in the ED. EKG revealed right bundle branch block which is chronic, first-degree AV block and left anterior fascicular block. Troponin 0.09. Dr. Gibbs was contacted. Recommended one dose Lovenox and repeat troponins and EKGs. Dr. Gibbs has been consulted. Patient denies any chest pain. Review of Systems Constitutional: DENIES: Fever, Weight gain, Weight loss, Chills Endocrine: DENIES: Polydipsia, Polyuria Eyes: DENIES: Blurred vision, Double Vision Ears, nose, mouth, throat: COMPLAINS OF: Hearing loss, DENIES: Odynophagia Respiratory: COMPLAINS OF: Apneas, Shortness of breath, DENIES: Cough, Sputum production Cardiovascular: DENIES: Chest pain, Lower Extremity Edema Gastrointestinal: DENIES: Abdominal pain Genitourinary: DENIES: Dysuria, Nocturia Musculoskeletal: DENIES: Joint pain Integumentary: COMPLAINS OF: Abnormal pigmentation, DENIES: Rash Hematologic/lymphatic: DENIES: Bruising Immunologic/allergic: DENIES: Eczema, Urticaria Neurologic: DENIES: Abnormal gait, Headache Psychiatric: DENIES: Anxiety, Confusion, Depression Past Family Social History Allergies: Coded Allergies: No Known Allergies (Unverified , 10/18/16) Past Medical History TIA 2013 Morbid obesity with a BMI greater than 40 Hard of hearing Diabetes mellitus with neuropathy and nephropathy Chronic kidney disease stage III Hypertension Chronic respiratory failure/oxygen dependent likely pickwickian Dyslipidemia Past Surgical History Cardiac catheterization 11/02. Dr. Omer EPS study 11/02. By Dr. Cochran Reported Medications Oxygen tank (Oxygen) 1 Ea Tank 2 Liter [employer] CONTINUOUS Oxygen Concentrator Portable Gaseous 2 L/min via Nasal Cannula Continuous For 99 months Reported Dyrenium (Triamterene) 50 Mg Cap 25 Mg PO DAILY Januvia (Sitagliptin Phosphate) 100 Mg Tab 100 Mg PO DAILY Metformin (Metformin HCl) 1,000 Mg Tab 1,000 Mg PO BIDPC With meals Lisinopril 10 Mg Tab 10 Mg PO DAILY Lantus Inj (Insulin Glargine) 1,000 Unit/10 Ml Vial 50 Units SQ HS Gabapentin 300 Mg Cap 300 Mg PO DAILY Cardizem (Diltiazem HCl) 120 Mg Tab 240 Mg PO DAILY Aspirin 325 Mg Tab 325 Mg PO DAILY Active Ordered Medications Reviewed in EMR Family History Mother and father both of old age. Mother with diabetes and heart disease Social History Denies any history of tobacco, alcohol or IV drug use. and lives with . Physical Exam Vital Signs Vital Signs Date Time Temp Pulse Resp B/P Pulse Ox O2 Delivery O2 Flow Rate FiO2 10/18/16 11:57 97 10/18/16 11:25 88 32 129/60 96 BiPAP 50 10/18/16 11:13 90 22 129/60 98 BiPAP 50 10/18/16 10:56 97 50 10/18/16 10:25 99.7 10/18/16 10:24 88 30 140/60 97 BiPAP 50 10/18/16 09:11 95 38 150/62 100 BiPAP 60 10/18/16 09:02 94 BiPAP 35 10/18/16 09:00 99 60 10/18/16 08:55 BiPAP 10/18/16 08:32 100.3 95 40 178/76 77 Physical Exam GENERAL: 71-year-old male, morbidly obese currently resting in bed on BiPAP SKIN: Warm and dry. Chronic venous stasis bilateral lower x-rays. Onychomycosis to toenails. Left fourth finger with clubbing without overt infection HEAD: Atraumatic. Normocephalic. EYES: Pupils equal and round around 3 mm bilaterally and reactive.. No scleral icterus. No injection or drainage. ENT: No nasal bleeding or discharge. Mucous membranes pink and moist. Oropharynx without erythema or exudate. NECK: Trachea midline. No obvious JVD. Obese. CARDIOVASCULAR: Diminished due to body habitus. Regular rate and rhythm. S1, S2. No S4. Without murmur, clicks, or rubs RESPIRATORY: No accessory muscle use. Diminished breath sounds throughout due to body habitus. No wheezing appreciated. GASTROINTESTINAL: Abdomen soft, obese and protuberant. Hypoactive bowel sounds are appreciated. MUSCULOSKELETAL: Extremities without significant peripheral edema. NEUROLOGICAL: Awake and alert. No obvious cranial nerve deficits. Motor grossly within normal limits. Five out of 5 muscle strength in the arms and legs. Normal speech with my examination. Previously documented as not clear.. Laboratory Laboratory Tests Test 10/18/16 10/18/16 10/18/16 10/18/16 08:47 09:25 09:35 10:40 White Blood Count 14.7 Red Blood Count 4.56 Hemoglobin 14.0 Hematocrit 42.8 Mean Corpuscular Volume 93.9 Mean Corpuscular Hemoglobin 30.8 Mean Corpuscular Hemoglobin 32.7 Concent Red Cell Distribution Width 16.3 Platelet Count 282 Mean Platelet Volume 9.8 Neutrophils (%) (Auto) 78.1 Lymphocytes (%) (Auto) 11.7 Monocytes (%) (Auto) 7.0 Eosinophils (%) (Auto) 2.7 Basophils (%) (Auto) 0.5 Neutrophils # (Auto) 11.5 Lymphocytes # (Auto) 1.7 Monocytes # (Auto) 1.0 Eosinophils # (Auto) 0.4 Basophils # (Auto) 0.1 CBC Comment DIFF FINAL Differential Comment B-Type Natriuretic Peptide 99 Blood Gas Puncture Site LT RADIAL LT RADIAL Blood Gas Patient Temperature 98.6 98.6 Blood Gas HCO3 33 32 Blood Gas Base Excess 6.2 5.9 Blood Gas Oxygen Saturation 96 94 Arterial Blood pH 7.28 7.28 Arterial Blood Partial 71 70 Pressure CO2 Arterial Blood Partial 126 98 Pressure O2 Arterial Blood Oxygen Content 18.4 17.9 Arterial Blood 1.7 1.7 Carboxyhemoglobin Arterial Blood Methemoglobin 1.0 1.0 Blood Gas Hemoglobin 13.6 13.4 Oxygen Delivery Device BIPAP BIPAP Blood Gas Ventilator Setting 15IPAP/6EPAP 15 IPAP/6 EPAP Blood Gas Inspired Oxygen 60 50 Sodium Level 137 Potassium Level 5.7 Chloride Level 102 Carbon Dioxide Level 33.5 Anion Gap 2 Blood Urea Nitrogen 28 Creatinine 1.51 Estimat Glomerular Filtration 46 Rate Random Glucose 158 Calcium Level 8.8 Magnesium Level 2.1 Total Creatine Kinase 74 Troponin I 0.09 Date/Time Procedure Status Source Growth 10/18/16 09:38 Aerobic Blood Culture Received Blood Peripheral Pending 10/18/16 09:38 Anaerobic Blood Culture Received Blood Peripheral Pending Result Diagram: 10/18/16 0847 10/18/16 [address] Angiography 10/18/16 1108 Signed Impressions: Service Date/Time: Tuesday, October 18, 2016 11:40 - CONCLUSION: 1. No evidence for pulmonary embolism. 2. Small left effusion, basilar consolidation and atelectasis noted. Kelvin Woodard MD Chest X-Ray 10/18/16 0840 Signed Impressions: Service Date/Time: Tuesday, October 18, 2016 08:54 - CONCLUSION: Left basilar airspace disease and small left effusion suspected. Kelvin Woodard MD Assessment and Plan Assessment and Plan Neuro/Psych: Hard of hearing Acute metabolic encephalopathy likely secondary to CO2 retention Acetaminophen for fever Pelkie/morphine for pain management CV: History of hypertension Elevated troponin History of tachybradycardia syndrome History of sinus pause Right bundle-branch block/chronic First-degree AV block Dyslipidemia EKG admission revealed a first degree AV block, chronic right bundle branch block with left ventricular signal block with possible ischemic changes in the lateral leads. Troponin 0.09. Dr. Gibbs/cardiology consult. Recommended one dose Lovenox with serial troponin/ EKGs. 11/02 - Dr. Omer cardiac catheterization - no significant coronary disease/ right dominant. EF 60%. Diastolic dysfunction. 11/02 - Dr. Cochran EPS study - negative for inducible arrhythmia 08/04 - echocardiogram - EF 55%. Trace TR. Normal systolic function. Troponin 0.09. Continue aspirin 325 mg by mouth daily. Early holding Cardizem 240 mg daily, lisinopril 10 mg daily and Dyazide 37.5/25 one tablet daily. Holding fenofibrate 54 mg by mouth daily Resp: Acute on chronic respiratory failure - 2 L oxygen dependent likely pickwickian Possible community-acquired pneumonia ABG revealed acute on chronic respiratory acidosis CTA chest revealed no pulmonary embolism. Small left pleural effusion. Bibasal consolidation/atelectasis Currently on BiPAP 18/ at 50%. PCO2 still elevated at 70. Bronchodilators with DuoNeb's every 4 hours with albuterol every 2 hours when necessary dyspnea Solu-Medrol 40 mg IV twice a day Follow-up on chest x-ray and ABG in a.m. GI: ADA diet when indicated Protonix for GI prophylaxis Ellen-Colace for bowel regimen : Finn catheter if indicated for accurate I's and O's in a critically ill patient Endo: Diabetes mellitus with neuropathy and nephropathy High glucose Slight scale insulin Accu-Cheks every 4 hours to maintain euglycemia/high regimen Home medications Lantus 50 units at night, metformin 1000 mg twice a day, glipizide 20 mg daily andTanzeum unknown dosage weekly. These will be held. Metformin for elevated creatinine. Renal: Acute on chronic kidney injury Baseline creatinine around 1.5 which is his current numbers. Accurate I's and O's Monitor urine output Repeat BMP in a.m. Heme: Leukocytosis Monitor CBC daily. Follow trends ID: Possibly community acquired pneumonia Rocephin/Zithromax day #1 Blood cultures 2, sputum, UA Legionella and pneumococcal antigens and influenza all pending MSK: PT evaluate and treat FEN: Hyperkalemia 1 g calcium gluconate, 10 units insulin, D50 1 amp to, one ampule sodium bicarbonate and 15 g Kayexalate times 1. Recheck in 3 hours. Access - Utilize peripheral IV. Central line if indicated Prophylaxis - GI - Protonix - DVT - SCD/Lovenox subcutaneous 1 Critical Care: The total critical care time was 45 minutes. Time to perform other separately billable procedures was not included in the critical care time. Patient multisystem organ failure requiring close observation the ICU. At high risk for intubation/potentially difficult due to body habitus. Code Status Full code Discussed Condition With Dr. Ahmadi/ED physician. Patient. Care plan discussed all questions answered. Problem Qualifiers (1) Obesity: Qualified Code: E66.9 - Obesity, unspecified obesity severity, unspecified obesity type (2) Pneumonia: Qualified Code: J18.1 - Pneumonia of left lower lobe due to infectious organism (3) Hard of hearing: Qualified Code: H91.90 - Hearing loss, unspecified hearing loss type, unspecified laterality (4) Diabetic neuropathy, type II diabetes mellitus: Qualified Code: E11.40 - Type 2 diabetes mellitus with diabetic neuropathy, unspecified penitentiary insulin use status (5) Leukocytosis: Qualified Code: D72.825 - Bandemia (6) Diabetes mellitus type 2, uncontrolled: Qualified Code: E11.8 - Uncontrolled type 2 diabetes mellitus with complication , with long-term current use of insulin (7) Acute respiratory failure: Qualified Code: J96.00 - Acute respiratory failure, unspecified whether with hypoxia or hypercapnia (8) Sepsis: Qualified Code: A41.9 - Sepsis, due to unspecified organism Shlomo Murphy MD Oct 18, 2016 12:50
[2016-10-18] MEDS ORDERED: SODIUM BICARBONATE 8.4% SOLN 50 MEQ/50 ML VIAL SLOW IVP ONE (13:00)
[2016-10-18] MEDS ORDERED: DEXTROSE 50% IN WATER 50 ML VIAL(D50) IV PUSH ONE ×2 (13:00→20:00)
[2016-10-18] MEDS ORDERED: INSULIN HUMAN REGULAR 1,000 UNITS/10 ML VIAL IV PUSH ONE ×2 (13:00→20:15)
[2016-10-18] MEDS: ARTIFICIAL TEARS OPTH SOLN 15 ML BTL EACH EYE SCH ×2 (13:00→18:00)
[2016-10-18] MEDS ORDERED: CALCIUM GLUCONATE 10% 1 GM/10 ML VIAL SLOW IVP ONE ×2 (13:00→20:00)
[2016-10-18] MEDS: SODIUM CHLOR 0.9% 1000 ML INJ 1,000 ML IV SCH (13:08)
[2016-10-18] MEDS ORDERED: SODIUM POLYSTYRENE SULFONATE SUSP 15 GM/60 ML CUP PO ONE ×2 (14:00→20:00)
[2016-10-18] MEDS ORDERED: DEXTROSE 50% IN WATER 50 ML SYRINGE IV PRN (14:00)
--- NOTE | 2016-10-18 14:10 | MB ---
cc: RONNY RECINOS M.D. DATE OF CONSULTATION: 10/18/2016. HISTORY OF PRESENT ILLNESS: Juan José is a very pleasant 72-year-old gentleman with history of tachy-tootie syndrome. He had a heart catheterization done last year by myself which showed no significant coronary disease. Left ventricular end diastolic pressure was 20/22. Ejection fraction of 60%. The patient complains of increasing shortness of breath over the last two days prior to admission. He denies chest pain. Denies fever. Denies cough. Denies GI or bleeding, paroxysmal nocturnal dyspnea, orthopnea, syncope or dizziness. PAST MEDICAL HISTORY: His past medical history includes: 1. Echocardiogram done 07/23/16 that showed an ejection fraction of 55% to 60%. Trace tricuspid regurgitation. The mitral valve had a peak gradient of 8 mmHg. Right ventricular systolic pressure was estimated at 267 mmHg. 2. Diabetes. 3. COPD. 4. Atrial tachyarrhythmia. Previous EP study was negative for tachyarrhythmia. 5. Hypertension. 6. Hyperlipidemia. 7. Tachy-tootie syndrome. 8. Possible multifocal atrial tachycardia. 9. History of arthritis. SOCIAL HISTORY: Denies tobacco or alcohol use. ALLERGIES: None. MEDICATIONS PRIOR TO ADMISSION: 1. Oxygen. 2. Triamterene 50 milligrams daily. 3. Januvia. 4. Metformin. 5. Lisinopril 10 daily. 6. Lantus. 7. Gabapentin. 8. Diltiazem HCL 120 daily. 9. Aspirin 325 daily. PHYSICAL EXAMINATION: VITAL SIGNS: Blood pressure 129/60, respiratory rate ranging between 22 and 32. Pulse 88. Temperature 99.7. Saturation 96% on 50% BiPAP. BiPAP is in place. NECK: The neck is supple. No jugular venous distention. No bruits. CARDIOVASCULAR EXAM: S1 and S2. No murmurs, rubs or gallops. LUNGS: Notable for decreased air movement at the left base. ABDOMEN: The abdomen is soft, nontender and nondistended with positive bowel sounds. EXTREMITIES: 1+ lower extremity edema. IMAGING STUDIES: Chest x-ray shows left basilar air space disease and small left effusion. MEDICATIONS IN THE HOSPITAL: 1. Pantoprazole 40 IV daily. 2. Aspirin 325 milligrams daily. 3. Gabapentin 300 daily. 4. Albuterol PRN. 5. Cefepime 2000 IV q. 8 hours. 6. Azithromycin IV. 7. Insulin 10 units IV push x1. 8. Sodium bicarbonate. LABORATORY DATA: White count 14.7, hemoglobin 14.0, hematocrit 42.8, platelet count 282,000. Troponin is 0.09. BNP is 99. CK 74. Magnesium 2.1. Sodium 137, potassium 5.7, chloride 103, bicarbonate 33.5, BUN 8, creatinine 1.51, glucose 158. Blood gas initially was pH 7.28, pC02 of 71, p02 of 126 on 60% BiPAP. EKGS: EKG shows normal sinus rhythm at 95 beats per minute, left anterior fascicular block, right bundle-branch block, poor R-wave progression. IMAGING STUDIES: CT of the chest shows no evidence for PE. Small left effusion, basilar consolidation and atelectasis noted. DIAGNOSES: He has the following diagnoses: 1. NSTEMI. 2. COPD. 3. Hypoxia. 4. Respiratory acidosis. 5. Elevated white count. 6. Hyperkalemia. 7. Acute renal failure. 8. Chronic renal insufficiency. 9. Hyperglycemia. 10. Diabetes mellitus. 11. History of atrial tachycardia. 12. History of multifocal atrial tachycardia. 13. History of bradycardia. 14. History of tachy-tootie syndrome. 15. Diastolic congestive heart failure, compensated. DISCUSSION: At this point in time, based on the normal BNP, a chest x-ray without pulmonary edema and the presence of left lower lobe consolidation, suspect that the patient's primary problem is pneumonia with COPD exacerbation. Agree with antibiotics. I suspect his troponin elevation is secondary to hypoxia. Nevertheless, he does have multiple risk factors including diabetes, hypertension, hyperlipidemia. I certainly recommend telemetry monitoring given his history of multifocal atrial tachycardia, atrial tachycardia and tachy-tootie syndrome. He is currently on aspirin and Cardizem. MD RANDOLPH Tapia/KENYATTA /1:01 PM /1:59 PM
[2016-10-18] MEDS: CEFEPIME INJ 2,000 MG in SODIUM CHLORIDE 0.9% INJ 100 ML IV SCH ×2 (14:58→21:37)
[2016-10-18] MEDS: RESP: ALBUTEROL 2.5 MG/IPRATROPIUM 0.5 MG NEB (SCH) INH ×3 (15:27→23:57)
[2016-10-18] MEDS: INSULIN NovoLIN REGULAR SUPPLEMENTAL SCALE SQ SCH ×2 (16:00→21:34)
[2016-10-18 16:33] LABS: POTASSIUM 5.5 MEQ/L (3.5-5.1)
[2016-10-18] MEDS: DILTIAZEM HCL 30 MG TAB PO SCH (18:20)
[2016-10-18] MEDS ORDERED: SODIUM CHLORID 0.9% 500 ML INJ 500 ML IV ONE (20:00)
[2016-10-18] MEDS: SODIUM CHLORIDE 0.9% FLUSH 10 ML FLUSH IV FLUSH SCH (21:00)
[2016-10-18] MEDS: DOCUSATE SODIUM 50 MG/SENNA 8.6 MG TAB PO SCH (21:00)
[2016-10-18] MEDS: methylPREDNISolone SOD SUCC 40 MG/1 ML VIAL IV PUSH SCH (21:37)
[2016-10-19] VITALS (24 sets, daily range): BP systolic 134–185; BP diastolic 60–86; PULSE 66–112; RESP 12–42; TEMP 97.7–99.7; O2SAT 92–95
[2016-10-19] MEDS: SODIUM CHLOR 0.9% 1000 ML INJ 1,000 ML IV SCH ×4 (00:07→23:57)
[2016-10-19] MEDS: DILTIAZEM HCL 30 MG TAB PO SCH ×4 (00:28→17:49)
[2016-10-19] MEDS: INSULIN NovoLIN REGULAR SUPPLEMENTAL SCALE SQ SCH ×6 (00:33→20:24)
[2016-10-19 01:49] LABS: POTASSIUM 5.3 MEQ/L (3.5-5.1)
--- NOTE | 2016-10-19 03:22 | RADRPT ---
EXAM DATE/TIME: 10/19/2016 02:31 [facility] COMPARISON: CHEST SINGLE AP, October 18, 2016, 8:54. INDICATIONS : Shortness of breath MEDICAL HISTORY : Cardiovascular disease. Hypertension. Diabetes mellitus type 2. SURGICAL HISTORY : None. ENCOUNTER: Subsequent ACUITY: 2 days PAIN SCORE: 8/10 LOCATION: Bilateral chest FINDINGS: A single view of the chest demonstrates the lungs to be symmetrically aerated without evidence of mas s, infiltrate or effusion. The cardiomediastinal contours are unremarkable. Osseous structures are intact. CONCLUSION: Normal examination. Blake Martinez MD on October 19, 2016 at 3:21 Board Certified Radiologist. This report was verified electronically.
[2016-10-19] MEDS: CHLORHEXIDINE GLUCONATE 2 % 1 PACK (2 CLOTHS) TOP SCH (04:00)
[2016-10-19 04:14] LABS: AUTOMATED NEUTROPHIL # 8.8 TH/MM3 (1.8-7.7); BASOPHIL % 0.1 % (0.0-2.0); HEMATOCRIT 38.7 % (39.0-51.0); HEMO FLAGS DIFF FINAL; LYMPH % 7.7 % (9.0-44.0); LYMPHOCYTE # 0.8 TH/MM3 (1.0-4.8); MEAN CELL VOLUME 95.4 FL (80.0-100.0); MEAN CORPUSCULAR HGB CONC 31.4 % (32.0-36.0); MONO % 4.1 % (0.0-8.0); NEUT % 88.1 % (16.0-70.0); PLATELET COUNT 234 TH/MM3 (150-450); RED BLOOD COUNT 4.06 MIL/MM3 (4.50-5.90); RED CELL DISTRIBUTION WIDTH 15.9 % (11.6-17.2); WHITE BLOOD COUNT 9.9 TH/MM3 (4.0-11.0)
[2016-10-19] MEDS: RESP: ALBUTEROL 2.5 MG/IPRATROPIUM 0.5 MG NEB (SCH) INH ×6 (04:24→23:04)
[2016-10-19 04:35] LABS: PROTHROMBIN TIME - PATIENT 11.3 SEC (9.8-11.6)
[2016-10-19 04:42] LABS: ANION GAP 2 MEQ/L (5-15); AST (GOT) 15 U/L (15-37); BICARBONATE 33.8 MEQ/L (21.0-32.0); BLOOD UREA NITROGEN 32 MG/DL (7-18); CHLORIDE 104 MEQ/L (98-107); GLOMERULAR FILTRATION RATE 49 ML/MIN (>89); MAGNESIUM 2.1 MG/DL (1.5-2.5); POTASSIUM 5.3 MEQ/L (3.5-5.1); SODIUM (NA) 140 MEQ/L (136-145)
[2016-10-19 04:46] LABS: ALKALINE PHOSPHATASE 47 U/L (45-117); ALT (GPT) 31 U/L (12-78); TOTAL BILIRUBIN ADULT 0.2 MG/DL (0.2-1.0)
[2016-10-19] MEDS: CEFEPIME INJ 2,000 MG in SODIUM CHLORIDE 0.9% INJ 100 ML IV SCH ×3 (05:25→21:10)
[2016-10-19] MEDS: methylPREDNISolone SOD SUCC 40 MG/1 ML VIAL IV PUSH SCH ×3 (05:25→21:11)
[2016-10-19] MEDS: DOCUSATE SODIUM 50 MG/SENNA 8.6 MG TAB PO SCH ×2 (09:00→21:00)
[2016-10-19] MEDS: ARTIFICIAL TEARS OPTH SOLN 15 ML BTL EACH EYE SCH ×3 (09:00→17:49)
[2016-10-19] MEDS: GABAPENTIN 300 MG CAP PO SCH (10:02)
[2016-10-19] MEDS: PANTOPRAZOLE SODIUM 40 MG VIAL IV SCH (10:02)
[2016-10-19] MEDS: ASPIRIN 325 MG TAB PO SCH (10:02)
[2016-10-19] MEDS: SODIUM CHLORIDE 0.9% FLUSH 10 ML FLUSH IV FLUSH SCH ×2 (10:03→21:12)
[2016-10-19] MEDS: AZITHROMYCIN INJ 500 MG in SODIUM CHLOR 0.9% 250 ML INJ 250 ML IV SCH (11:00)
[2016-10-19] MEDS: METFORMIN HOLD POST IV CONTRAST SCH (11:30)
--- NOTE | 2016-10-19 12:13 | PD.CARD.PN ---
Subjective Subjective Remarks feels better, still on bipap Objective Vital Signs / I&O Vital Signs Date Time Temp Pulse Resp B/P Pulse Ox O2 Delivery O2 Flow Rate FiO2 10/19/16 06:00 74 10/19/16 04:00 99.7 70 33 152/68 95 10/19/16 04:00 77 10/19/16 02:00 66 10/19/16 01:30 94 40 10/19/16 00:16 94 40 10/19/16 00:00 71 10/19/16 00:00 99.5 78 27 139/60 93 10/18/16 22:00 76 10/18/16 20:00 99.4 75 32 118/59 94 10/18/16 20:00 80 10/18/16 19:54 93 High Flow Nasal Cannula 30.00 60 10/18/16 19:00 95 Nasal Cannula 60 10/18/16 18:40 94 High Flow Nasal Cannula 30.00 60 10/18/16 18:00 80 10/18/16 18:00 80 40 128/60 10/18/16 17:00 80 36 129/59 95 10/18/16 16:45 96 Nasal Cannula 60 10/18/16 16:00 100.2 74 34 130/66 97 10/18/16 16:00 77 10/18/16 15:27 96 Venturi Mask 6.00 50 10/18/16 15:00 81 28 132/60 10/18/16 15:00 80 10/18/16 14:42 100.5 87 34 131/63 98 10/18/16 13:08 84 24 131/56 96 BiPAP 50 I/O 10/18/16 10/18/16 10/18/16 10/19/16 10/19/16 10/19/16 07:00 15:00 23:00 07:00 15:00 23:00 Intake Total 1180 ml 528 ml Output Total 700 ml 450 ml Balance 480 ml 78 ml Intake Oral 30 ml 30 ml IV Total 1150 ml 498 ml Output Urine Total 700 ml 450 ml # Bowel Movements 0 0 Physical Exam GENERAL: SKIN: Warm and dry. HEAD: Normocephalic. EYES: No scleral icterus. No injection or drainage. NECK: Supple, trachea midline. No JVD or lymphadenopathy. CARDIOVASCULAR: Regular rate and rhythm without murmurs, gallops, or rubs. RESPIRATORY: Breath sounds equal bilaterally. No accessory muscle use. GASTROINTESTINAL: Abdomen soft, non-tender, nondistended. MUSCULOSKELETAL: No cyanosis, or edema. BACK: Nontender without obvious deformity. No CVA tenderness. Laboratory Laboratory Tests Test 10/18/16 10/18/16 10/19/16 10/19/16 16:02 17:55 00:36 03:38 Potassium Level 5.5 MEQ/L 5.3 MEQ/L 5.3 MEQ/L Ammonia 34 MCMOL/L Troponin I 0.07 NG/ML 0.04 NG/ML Nasal Screen MRSA (PCR) MRSA NOT DETECTED Total Creatine Kinase 68 U/L White Blood Count 9.9 TH/MM3 Red Blood Count 4.06 MIL/MM3 Hemoglobin 12.2 GM/DL Hematocrit 38.7 % Mean Corpuscular Volume 95.4 FL Mean Corpuscular Hemoglobin 30.0 PG Mean Corpuscular Hemoglobin 31.4 % Concent Red Cell Distribution Width 15.9 % Platelet Count 234 TH/MM3 Mean Platelet Volume 10.0 FL Neutrophils (%) (Auto) 88.1 % Lymphocytes (%) (Auto) 7.7 % Monocytes (%) (Auto) 4.1 % Eosinophils (%) (Auto) 0.0 % Basophils (%) (Auto) 0.1 % Neutrophils # (Auto) 8.8 TH/MM3 Lymphocytes # (Auto) 0.8 TH/MM3 Monocytes # (Auto) 0.4 TH/MM3 Eosinophils # (Auto) 0.0 TH/MM3 Basophils # (Auto) 0.0 TH/MM3 CBC Comment DIFF FINAL Differential Comment Prothrombin Time 11.3 SEC Prothromb Time International 1.0 RATIO Ratio Activated Partial 31.0 SEC Thromboplast Time Sodium Level 140 MEQ/L Chloride Level 104 MEQ/L Carbon Dioxide Level 33.8 MEQ/L Anion Gap 2 MEQ/L Blood Urea Nitrogen 32 MG/DL Creatinine 1.43 MG/DL Estimat Glomerular Filtration 49 ML/MIN Rate Random Glucose 198 MG/DL Lactic Acid Level 1.4 mmol/L Calcium Level 8.6 MG/DL Phosphorus Level 3.1 MG/DL Magnesium Level 2.1 MG/DL Total Bilirubin 0.2 MG/DL Aspartate Amino Transf 15 U/L (AST/SGOT) Alanine Aminotransferase 31 U/L (ALT/SGPT) Alkaline Phosphatase 47 U/L Total Protein 7.4 GM/DL Albumin 3.3 GM/DL Assessment and Plan Problem List: (1) Atrial tachycardia (2) Tachyarrhythmia (3) Acute respiratory failure (4) Acute respiratory acidosis (5) Shortness of breath (6) Diabetic neuropathy, type II diabetes mellitus (7) Renal insufficiency (8) Elevated troponin (9) NSTEMI (non-ST elevated myocardial infarction) Assessment and Plan 1.) Copd/pneumonia - patient clinically improving on antibiotics 2.) Arrythmia - stable 3.) Diastolic chf - appears euvolemic on current meds Problem Qualifiers (1) Acute respiratory failure: Qualified Code: J96.00 - Acute respiratory failure, unspecified whether with hypoxia or hypercapnia (2) Diabetic neuropathy, type II diabetes mellitus: Qualified Code: E11.40 - Type 2 diabetes mellitus with diabetic neuropathy, unspecified half-way insulin use status Marcos Omer MD Oct 19, 2016 12:13
--- NOTE | 2016-10-19 13:08 | HHI.CCPN ---
Subjective Remarks/Hospital Course This is a 71-year-old male. Date of admission 10/18/2016. Past records includes morbid obesity with a weight of 146 kg, 2 L oxygen dependent possible secondary to pickwickian/RADHA, history of TIA 2013, diabetes with peripheral neuropathy and nephropathy, hypertension, hard of hearing. Patient also has history of arrhythmia with history of a 7.3 second sinus pause on outpatient Holter monitoring. Patient negative EPS study 11/[address] Cochran. Patient had a normal cardiac catheterization by Dr. Omer 11/02 including no coronary disease/right dominant. Ejection fraction 60%. Some diastolic dysfunction with elevated left diastolic ventricular pressures 150/22. Echocardiogram earlier this years 09/03 revealed EF 55%. Trace TR. Normal systolic function. Patient presents to [facility] today after a 2-3 history of malaise, increasing shortness of breath. Patient increased oxygen from 2-3 L in the interim. Patient was able to get off the toilet and was short of breath. Patient noted a saturation of 82% by EMS. Was transported on nonrebreather mask to [facility]. Initial chest x-ray revealed left lower lobe infiltrate versus effusion. CT of the chest revealed basilar atelectasis versus consolidation with a small left pleural effusion. No pulmonary embolism. Patient is currently on BiPAP. 18/6 at 50%. PCO2 is still elevated at 70. ABG revealed an acute on chronic respiratory acidosis. Start on Rocephin and Zithromax in the ED. EKG revealed right bundle branch block which is chronic, first-degree AV block and left anterior fascicular block. Troponin 0.09. Dr. Gibbs was contacted. Recommended one dose Lovenox and repeat troponins and EKGs. Dr. Gibbs has been consulted. Patient denies any chest pain. Subjective 10/19: Resting comfortably in bed on high flow nasal cannula. 50%/30 L. Appears comfortable. Denies chest pain or shortness of breath. Finn catheter was placed Objective Vital Signs Date Time Temp Pulse Resp B/P Pulse Ox O2 Delivery O2 Flow Rate FiO2 10/19/16 06:00 74 10/19/16 04:00 99.7 33 152/68 95 10/19/16 01:30 40 10/18/16 19:54 High Flow Nasal Cannula 30.00 Intake and Output 7/110/18/16 10/19/16 08:00 16:00 00:00 Intake Total 1180 ml Output Total 700 ml Balance 480 ml Result Diagram: 10/19/16 0338 10/19/16 1149 Other Results Microbiology Date/Time Procedure Status Source Growth 10/18/16 09:38 Aerobic Blood Culture - Preliminary Resulted Blood Peripheral NO GROWTH IN 1 DAY 10/18/16 09:38 Anaerobic Blood Culture - Preliminary Resulted Blood Peripheral NO GROWTH IN 1 DAY Imaging Last Impressions Chest X-Ray 10/19/16 0000 Signed Impressions: Service Date/Time: Wednesday, October 19, 2016 02:31 - CONCLUSION: Normal examination. Blake Martinez MD CT Angiography 10/18/16 1108 Signed Impressions: Service Date/Time: Tuesday, October 18, 2016 11:40 - CONCLUSION: 1. No evidence for pulmonary embolism. 2. Small left effusion, basilar consolidation and atelectasis noted. Kelvin Woodard MD Objective Remarks GENERAL: 71-year-old male, morbidly obese currently resting in bed on BiPAP SKIN: Warm and dry. Chronic venous stasis bilateral lower x-rays. Onychomycosis to toenails. Left fourth finger with clubbing without overt infection HEAD: Atraumatic. Normocephalic. EYES: Pupils equal and round around 3 mm bilaterally and reactive.. No scleral icterus. No injection or drainage. ENT: No nasal bleeding or discharge. Mucous membranes pink and moist. Oropharynx without erythema or exudate. NECK: Trachea midline. No obvious JVD. Obese. CARDIOVASCULAR: Diminished due to body habitus. Regular rate and rhythm. S1, S2. No S4. Without murmur, clicks, or rubs RESPIRATORY: No accessory muscle use. Diminished breath sounds throughout due to body habitus. No wheezing appreciated. GASTROINTESTINAL: Abdomen soft, obese and protuberant. Hypoactive bowel sounds are appreciated. MUSCULOSKELETAL: Extremities without significant peripheral edema. NEUROLOGICAL: Awake and alert. No obvious cranial nerve deficits. Motor grossly within normal limits. Five out of 5 muscle strength in the arms and legs. Normal speech with my examination. Urinary Catheter: Yes Assessment to: Continue Finn insert reason: Prolonged Immobilization Vascular Central Line Catheter: No Assessment to: Continue A/P Assessment and Plan Neuro/Psych: Hard of hearing Acute metabolic encephalopathy likely secondary to CO2 retention - improved Acetaminophen for fever [place]/morphine for pain management To Neurontin 300 mg by mouth daily for neuropathy. CV: History of hypertension Elevated troponin History of tachybradycardia syndrome History of sinus pause Right bundle-branch block/chronic First-degree AV block Dyslipidemia EKG admission revealed a first degree AV block, chronic right bundle branch block with left ventricular signal block with possible ischemic changes in the lateral leads. Troponin 0.09. Dr. Gibbs/cardiology consult. Recommended one dose Lovenox with serial troponin/ EKGs. 11/02 - Dr. Omer cardiac catheterization - no significant coronary disease/ right dominant. EF 60%. Diastolic dysfunction. 11/02 - Dr. Cochran EPS study - negative for inducible arrhythmia 08/04 - echocardiogram - EF 55%. Trace TR. Normal systolic function. Troponin 0.09. Troponin 07. Continue aspirin 325 mg by mouth daily. Currently holding Cardizem 240 mg daily, lisinopril 10 mg daily and Dyazide 37.5 /25 one tablet daily On Cardizem 30 mg every 6 hours. Holding fenofibrate 54 mg by mouth daily Resp: Acute on chronic respiratory failure - 2 L oxygen dependent likely pickwickian Possible community-acquired pneumonia ABG revealed acute on chronic respiratory acidosis CTA chest revealed no pulmonary embolism. Small left pleural effusion. Bibasal consolidation/atelectasis Currently on high flow nasal cannula 50%/30 L to maintain SPO2 greater than 92% Bronchodilators with DuoNeb's every 4 hours with albuterol every 2 hours when necessary dyspnea Solu-Medrol 40 mg IV 3 times a day Chest x-ray revealed no acute cardiopulmonary findings GI: ADA dietheart healthy diet initiated Protonix for GI prophylaxis Ellen-Colace for bowel regimen : Finn catheter if indicated for accurate I's and O's in a critically ill patient Endo: Diabetes mellitus with neuropathy and nephropathy High glucose Sliding scale insulin Accu-Cheks every 4 hours to maintain euglycemia/high regimen Home medications Lantus 50 units at night, metformin 1000 mg twice a day, glipizide 20 mg daily andTanzeum unknown dosage weekly. These will be held. Metformin for elevated creatinine. Start Levemir 10 units twice a day his diet initiated Renal: Acute on chronic kidney injury Baseline creatinine around 1.5 which is his current numbers. Accurate I's and O's Monitor urine output Repeat BMP in a.m. Heme: Normocytic anemia Monitor CBC daily. Follow trends ID: Possibly community acquired pneumonia Rocephin/Zithromax day #2 Blood cultures 2, sputum, UA Legionella and pneumococcal antigens and influenza all pending MSK: PT evaluate and treat FEN: Hyperkalemia Recheck in AM. Access - Utilize peripheral IV. Central line if indicated Prophylaxis - GI - Protonix - DVT - SCD/Lovenox subcutaneous 1. Will start Lovenox subcutaneous today. Level III Shlomo Murphy MD Oct 19, 2016 13:08
[2016-10-19] MEDS: INSULIN DETEMIR 100 UNITS/ML VIAL SQ SCH (21:12)
[2016-10-20] VITALS (23 sets, daily range): BP systolic 125–168; BP diastolic 70–88; PULSE 58–112; RESP 21–42; TEMP 97.2–98.5; O2SAT 89–96
[2016-10-20] MEDS: DILTIAZEM HCL 30 MG TAB PO SCH ×5 (00:47→23:58)
[2016-10-20] MEDS: CHLORHEXIDINE GLUCONATE 2 % 1 PACK (2 CLOTHS) TOP SCH (02:45)
[2016-10-20] MEDS: INSULIN NovoLIN REGULAR SUPPLEMENTAL SCALE SQ SCH ×7 (04:00→23:54)
[2016-10-20] MEDS: RESP: ALBUTEROL 2.5 MG/IPRATROPIUM 0.5 MG NEB (SCH) INH ×6 (04:00→23:05)
[2016-10-20 05:04] LABS: HEMATOCRIT 39.1 % (39.0-51.0); MEAN CELL VOLUME 95.2 FL (80.0-100.0); MEAN CORPUSCULAR HEMOGLOBIN 29.7 PG (27.0-34.0); MEAN CORPUSCULAR HGB CONC 31.2 % (32.0-36.0); PLATELET COUNT 225 TH/MM3 (150-450); RED BLOOD COUNT 4.11 MIL/MM3 (4.50-5.90); RED CELL DISTRIBUTION WIDTH 15.6 % (11.6-17.2); REVIEW FLAG FINAL; WHITE BLOOD COUNT 13.6 TH/MM3 (4.0-11.0)
[2016-10-20] MEDS: methylPREDNISolone SOD SUCC 40 MG/1 ML VIAL IV PUSH SCH ×3 (05:08→22:10)
[2016-10-20] MEDS: CEFEPIME INJ 2,000 MG in SODIUM CHLORIDE 0.9% INJ 100 ML IV SCH ×3 (05:08→22:10)
[2016-10-20 05:32] LABS: BICARBONATE 34.8 MEQ/L (21.0-32.0); POTASSIUM 4.9 MEQ/L (3.5-5.1)
--- NOTE | 2016-10-20 05:44 | RADRPT ---
EXAM DATE/TIME: 10/20/2016 04:40 [place] COMPARISON: CHEST SINGLE AP, October 19, 2016, 2:31. INDICATIONS : Shortness of breath, possible pulmonary disease. MEDICAL HISTORY : Diabetes mellitus type II. Hypertension Chronin kinye disease. SURGICAL HISTORY : None. ENCOUNTER: Subsequent ACUITY: 3 days PAIN SCORE: Non-responsive. LOCATION: Bilateral chest FINDINGS: A single view of the chest demonstrates left basilar density. Cardiomegaly. There is increase in pulm onary vascularity. Osseous structures are intact. CONCLUSION: 1. Left basilar consolidation. 2. Cardiomegaly. Santiago Wisdom MD on October 20, 2016 at 5:42 Board Certified Radiologist. This report was verified electronically.
--- NOTE | 2016-10-20 07:52 | HHI.CCPN ---
Subjective Remarks/Hospital Course This is a 71-year-old male. Date of admission 10/18/2016. Past records includes morbid obesity with a weight of 146 kg, 2 L oxygen dependent possible secondary to pickwickian/RADHA, history of TIA 2013, diabetes with peripheral neuropathy and nephropathy, hypertension, hard of hearing. Patient also has history of arrhythmia with history of a 7.3 second sinus pause on outpatient Holter monitoring. Patient negative EPS study 11/[address] Cochran. Patient had a normal cardiac catheterization by Dr. Omer 11/02 including no coronary disease/right dominant. Ejection fraction 60%. Some diastolic dysfunction with elevated left diastolic ventricular pressures 150/22. Echocardiogram earlier this years 09/03 revealed EF 55%. Trace TR. Normal systolic function. Patient presents to [place] today after a 2-3 history of malaise, increasing shortness of breath. Patient increased oxygen from 2-3 L in the interim. Patient was able to get off the toilet and was short of breath. Patient noted a saturation of 82% by EMS. Was transported on nonrebreather mask to [facility]. Initial chest x-ray revealed left lower lobe infiltrate versus effusion. CT of the chest revealed basilar atelectasis versus consolidation with a small left pleural effusion. No pulmonary embolism. Patient is currently on BiPAP. 18/6 at 50%. PCO2 is still elevated at 70. ABG revealed an acute on chronic respiratory acidosis. Start on Rocephin and Zithromax in the ED. EKG revealed right bundle branch block which is chronic, first-degree AV block and left anterior fascicular block. Troponin 0.09. Dr. Gibbs was contacted. Recommended one dose Lovenox and repeat troponins and EKGs. Dr. Gibbs has been consulted. Patient denies any chest pain. Subjective 10/19: Resting comfortably in bed on high flow nasal cannula. 50%/30 L. Appears comfortable. Denies chest pain or shortness of breath. Finn catheter was placed 10/20 Patient is on high flow oxygen with 40% FIO2. Afebrile Objective Vital Signs Date Time Temp Pulse Resp B/P Pulse Ox O2 Delivery O2 Flow Rate FiO2 10/20/16 07:20 96 High Flow Nasal Cannula 25.00 40 10/20/16 06:00 62 10/20/16 04:00 97.6 35 10/20/16 00:00 160/72 Intake and Output 10/19/16 10/19/16 10/20/16 08:00 16:00 00:00 Intake Total 528 ml 1270 ml 1218 ml Output Total 450 ml 450 ml 900 ml Balance 78 ml 820 ml 318 ml Result Diagram: 10/20/16 0406 10/20/16 0406 Other Results Laboratory Tests Test 10/19/16 10/20/16 11:49 04:06 Creatinine 1.41 MG/DL 1.39 MG/DL Estimat Glomerular Filtration 50 ML/MIN 50 ML/MIN Rate White Blood Count 13.6 TH/MM3 Red Blood Count 4.11 MIL/MM3 Hemoglobin 12.2 GM/DL Hematocrit 39.1 % Mean Corpuscular Volume 95.2 FL Mean Corpuscular Hemoglobin 29.7 PG Mean Corpuscular Hemoglobin 31.2 % Concent Red Cell Distribution Width 15.6 % Platelet Count 225 TH/MM3 Mean Platelet Volume 10.3 FL Sodium Level 139 MEQ/L Potassium Level 4.9 MEQ/L Chloride Level 102 MEQ/L Carbon Dioxide Level 34.8 MEQ/L Anion Gap 2 MEQ/L Blood Urea Nitrogen 37 MG/DL Random Glucose 184 MG/DL Calcium Level 8.3 MG/DL Imaging Last Impressions Chest X-Ray 10/20/16 0600 Signed Impressions: Service Date/Time: Thursday, October 20, 2016 04:40 - CONCLUSION: 1. Left basilar consolidation. 2. Cardiomegaly. Santiago Wisdom MD CT Angiography 10/18/16 1108 Signed Impressions: Service Date/Time: Tuesday, October 18, 2016 11:40 - CONCLUSION: 1. No evidence for pulmonary embolism. 2. Small left effusion, basilar consolidation and atelectasis noted. Kelvin Woodard MD Objective Remarks GENERAL: 71-year-old male, morbidly obese currently resting in bed on high flow oxygen SKIN: Warm and dry. Chronic venous stasis bilateral lower x-rays. Onychomycosis to toenails. Left fourth finger with clubbing without overt infection HEAD: Atraumatic. Normocephalic. EYES: Pupils equal and round around 3 mm bilaterally and reactive.. No scleral icterus. No injection or drainage. ENT: No nasal bleeding or discharge. Mucous membranes pink and moist. NECK: Trachea midline. No obvious JVD. Obese. CARDIOVASCULAR: Diminished due to body habitus. Regular rate and rhythm. S1, S2. No S4. Without murmur, clicks, or rubs RESPIRATORY: No accessory muscle use. Diminished breath sounds throughout due to body habitus. No wheezing appreciated. GASTROINTESTINAL: Abdomen soft, obese and protuberant. Hypoactive bowel sounds are appreciated. MUSCULOSKELETAL: Extremities without significant peripheral edema. NEUROLOGICAL: Awake and alert. No obvious cranial nerve deficits. Motor grossly within normal limits. Five out of 5 muscle strength in the arms and legs. Normal speech with my examination. A/P Assessment and Plan Neuro/Psych: Hard of hearing Acute metabolic encephalopathy likely secondary to CO2 retention - improved Acetaminophen for fever [place]/morphine for pain management To Neurontin 300 mg by mouth daily for neuropathy. CV: History of hypertension Elevated troponin History of tachybradycardia syndrome History of sinus pause Right bundle-branch block/chronic First-degree AV block Dyslipidemia EKG admission revealed a first degree AV block, chronic right bundle branch block with left ventricular signal block with possible ischemic changes in the lateral leads. Troponin 0.09. Dr. Gibbs/cardiology consult. Recommended one dose Lovenox with serial troponin/ EKGs. 11/02 - Dr. Omer cardiac catheterization - no significant coronary disease/ right dominant. EF 60%. Diastolic dysfunction. 11/02 - Dr. Cochran EPS study - negative for inducible arrhythmia 08/04 - echocardiogram - EF 55%. Trace TR. Normal systolic function. Monitor HR and BP keep MAP>65mmHg Continue aspirin 325 mg by mouth daily. Cardizem 30 mg every 6 hours. Resp: Acute on chronic respiratory failure - 2 L oxygen dependent likely pickwickian Possible community-acquired pneumonia ABG revealed acute on chronic respiratory acidosis CTA chest revealed no pulmonary embolism. Small left pleural effusion. Bibasal consolidation/atelectasis Wean down oxygen as willa keep sat > 92% Bronchodilators with DuoNeb's every 4 hours with albuterol every 2 hours when necessary dyspnea Solu-Medrol 40 mg IV Q8, IS, pulm eval CXR this morning left basilar consolidation GI: ADA dietheart healthy diet initiated Protonix for GI prophylaxis Ellen-Colace for bowel regimen Endo: Diabetes mellitus with neuropathy and nephropathy Sliding scale insulin Accu-Cheks every 4 hours to maintain euglycemia/high regimen Levemir 10 units twice a day Renal: Acute on chronic kidney injury Monitor renal function, I/O's, avoid nephrotoxins. Renal function is improving with Cr: 1.39, UO:2300ml in 24 hrs On NS@84ml/hr Heme: Normocytic anemia Monitor CBC daily. Follow trends ID: Possibly community acquired pneumonia Continue with abx(Cefepime/Zithromax)monitor for signs of infections ( Fever, WBC) Check sputum, UA Legionella and pneumococcal antigens and influenza all pending Follow up on from 10/18: NGTD MSK: PT evaluate and treat Access - Utilize peripheral IV. Prophylaxis - GI - Protonix - DVT - SCD/Lovenox subQ Level III Franklyn Morse MD Oct 20, 2016 07:52
[2016-10-20] MEDS: GABAPENTIN 300 MG CAP PO SCH (08:10)
[2016-10-20] MEDS: SODIUM CHLORIDE 0.9% FLUSH 10 ML FLUSH IV FLUSH SCH ×2 (08:10→20:41)
[2016-10-20] MEDS: PANTOPRAZOLE SODIUM 40 MG VIAL IV SCH (08:10)
[2016-10-20] MEDS: ASPIRIN 325 MG TAB PO SCH (08:10)
[2016-10-20] MEDS: ARTIFICIAL TEARS OPTH SOLN 15 ML BTL EACH EYE SCH ×3 (08:11→17:32)
[2016-10-20] MEDS: INSULIN DETEMIR 100 UNITS/ML VIAL SQ SCH ×2 (08:12→20:43)
--- NOTE | 2016-10-20 09:06 | PD.CARD.PN ---
Subjective Subjective Remarks alert in nad Objective Vital Signs / I&O Vital Signs Date Time Temp Pulse Resp B/P Pulse Ox O2 Delivery O2 Flow Rate FiO2 10/20/16 07:20 96 High Flow Nasal Cannula 25.00 40 10/20/16 06:00 62 10/20/16 04:00 97.6 68 35 94 10/20/16 04:00 68 10/20/16 02:00 109 10/20/16 00:00 97.2 69 21 160/72 94 10/20/16 00:00 69 10/19/16 22:00 93 10/19/16 21:10 93 Nasal Cannula 50 10/19/16 20:00 112 10/19/16 20:00 98.8 83 30 154/75 92 10/19/16 19:20 93 High Flow Nasal Cannula 30.00 50 10/19/16 19:00 83 29 164/73 92 10/19/16 18:00 84 39 163/75 94 10/19/16 17:00 82 31 160/73 92 10/19/16 16:00 98.2 85 36 161/72 93 10/19/16 15:00 83 35 159/74 94 10/19/16 14:13 87 37 159/74 93 10/19/16 14:05 90 36 185/81 95 10/19/16 14:00 86 35 181/80 94 10/19/16 13:00 77 12 154/70 94 10/19/16 12:00 97.7 77 37 150/70 94 10/19/16 11:36 74 42 140/63 95 10/19/16 11:00 71 40 95 10/19/16 10:00 67 41 144/64 94 I/O 10/19/16 10/19/16 10/19/16 10/20/16 10/20/16 10/20/16 07:00 15:00 23:00 07:00 15:00 23:00 Intake Total 528 ml 1270 ml 1218 ml 1883 ml Output Total 450 ml 450 ml 900 ml 950 ml Balance 78 ml 820 ml 318 ml 933 ml Intake Oral 30 ml 600 ml 480 ml 600 ml IV Total 498 ml 670 ml 738 ml 1283 ml Output Urine Total 450 ml 450 ml 900 ml 950 ml # Bowel Movements 0 0 0 0 Physical Exam GENERAL: SKIN: Warm and dry. HEAD: Normocephalic. EYES: No scleral icterus. No injection or drainage. NECK: Supple, trachea midline. No JVD or lymphadenopathy. CARDIOVASCULAR: Regular rate and rhythm without murmurs, gallops, or rubs. RESPIRATORY: Breath sounds equal bilaterally. No accessory muscle use. GASTROINTESTINAL: Abdomen soft, non-tender, nondistended. MUSCULOSKELETAL: No cyanosis, or edema. BACK: Nontender without obvious deformity. No CVA tenderness. Laboratory Laboratory Tests Test 10/19/16 10/20/16 11:49 04:06 Creatinine 1.41 MG/DL 1.39 MG/DL Estimat Glomerular Filtration 50 ML/MIN 50 ML/MIN Rate White Blood Count 13.6 TH/MM3 Red Blood Count 4.11 MIL/MM3 Hemoglobin 12.2 GM/DL Hematocrit 39.1 % Mean Corpuscular Volume 95.2 FL Mean Corpuscular Hemoglobin 29.7 PG Mean Corpuscular Hemoglobin 31.2 % Concent Red Cell Distribution Width 15.6 % Platelet Count 225 TH/MM3 Mean Platelet Volume 10.3 FL Sodium Level 139 MEQ/L Potassium Level 4.9 MEQ/L Chloride Level 102 MEQ/L Carbon Dioxide Level 34.8 MEQ/L Anion Gap 2 MEQ/L Blood Urea Nitrogen 37 MG/DL Random Glucose 184 MG/DL Calcium Level 8.3 MG/DL Assessment and Plan Problem List: (1) Atrial tachycardia (2) Tachyarrhythmia (3) Acute respiratory failure (4) Acute respiratory acidosis (5) Shortness of breath (6) Diabetic neuropathy, type II diabetes mellitus (7) Renal insufficiency (8) Elevated troponin (9) NSTEMI (non-ST elevated myocardial infarction) Assessment and Plan 1.) Copd/pneumonia - patient clinically improving on antibiotics 2.) Arrythmia - stable 3.) Diastolic chf - appears euvolemic on current meds Problem Qualifiers (1) Acute respiratory failure: Qualified Code: J96.00 - Acute respiratory failure, unspecified whether with hypoxia or hypercapnia (2) Diabetic neuropathy, type II diabetes mellitus: Qualified Code: E11.40 - Type 2 diabetes mellitus with diabetic neuropathy, unspecified intermission coordinator insulin use status Marcos Omer MD Oct 20, 2016 09:06
[2016-10-20 09:58] LABS: BLOOD GAS BASE EXCESS 2.4 mmol/L (-2-2); BLOOD GAS CARBOXYHEMOGLOBIN 1.7 % (0-4); BLOOD GAS HCO3 28 mmol/L (22-26); BLOOD GAS METHEMOGLOBIN 1.5 % (0-2); BLOOD GAS O2 HGB SATURATION 90 % (90-100); BLOOD GAS OXYGEN CONTENT 15.6 Vol % (12.0-20.0); BLOOD GAS PCO2 54 mmHg (38-42); BLOOD GAS PO2 70 mmHg (61-120); BLOOD GAS TOTAL HGB 12.3 G/DL (12.0-16.0); TEMP CORR TO 98.6
[2016-10-20 09:59] LABS: CRITICAL VALUE YES; LITER FLOW 25 L/M; OXYGEN DEVICE NASAL CANNULA
[2016-10-20 10:00] LABS: DRAW SITE LT RADIAL; FIO2 40 %; NUMBER OF ARTERIAL PUNCTURES 1; STAT NO; ULNAR PULSE PRESENT
[2016-10-20] MEDS: ENOXAPARIN SODIUM 40 MG/0.4 ML SYRINGE SQ SCH (10:02)
[2016-10-20] MEDS: AZITHROMYCIN INJ 500 MG in SODIUM CHLOR 0.9% 250 ML INJ 250 ML IV SCH (10:11)
[2016-10-20] MEDS ORDERED: VANCOMYCIN INJ 1,000 MG in SODIUM CHLOR 0.9% 250 ML INJ 250 ML IV ONE (11:15)
[2016-10-20] MEDS: SODIUM CHLOR 0.9% 1000 ML INJ 1,000 ML IV SCH (12:12)
[2016-10-20] MEDS: DOCUSATE SODIUM 50 MG/SENNA 8.6 MG TAB PO SCH ×2 (12:12→20:41)
[2016-10-20 16:49] LABS: BACTERIA, URINE MANY /hpf; BLOOD, URINE LARGE (NEG); COMMENT (UR) CULTURE INDICATED; CULTURE IF INDICATED CULTURE INDICATED; GLUCOSE,URINE NEG (NEG); KETONE, URINE TRACE mg/dL (NEG); NITRITE,URINE NEG (NEG); PH, URINE 5.5 (5.0-8.5); URINE COLOR DARK-RED (YELLW/STRAW)
[2016-10-21] VITALS (14 sets, daily range): BP systolic 140–160; BP diastolic 69–85; PULSE 60–107; RESP 22–36; TEMP 97.5–98.4; O2SAT 91–97
[2016-10-21] MEDS: RESP: ALBUTEROL 2.5 MG/IPRATROPIUM 0.5 MG NEB (SCH) INH ×6 (03:45→23:01)
[2016-10-21] MEDS: CHLORHEXIDINE GLUCONATE 2 % 1 PACK (2 CLOTHS) TOP SCH (04:00)
[2016-10-21] MEDS: SODIUM CHLOR 0.9% 1000 ML INJ 1,000 ML IV SCH (04:05)
[2016-10-21] MEDS: INSULIN NovoLIN REGULAR SUPPLEMENTAL SCALE SQ SCH ×5 (04:42→20:00)
[2016-10-21 05:25] LABS: AUTOMATED NEUTROPHIL # 9.2 TH/MM3 (1.8-7.7); HEMATOCRIT 38.2 % (39.0-51.0); HEMO FLAGS DIFF FINAL; LYMPH % 5.2 % (9.0-44.0); LYMPHOCYTE # 0.5 TH/MM3 (1.0-4.8); MEAN CELL VOLUME 94.7 FL (80.0-100.0); MEAN CORPUSCULAR HEMOGLOBIN 29.9 PG (27.0-34.0); MEAN CORPUSCULAR HGB CONC 31.6 % (32.0-36.0); MONO % 5.6 % (0.0-8.0); NEUT % 89.2 % (16.0-70.0); PLATELET COUNT 203 TH/MM3 (150-450); RED BLOOD COUNT 4.03 MIL/MM3 (4.50-5.90); RED CELL DISTRIBUTION WIDTH 15.7 % (11.6-17.2); WHITE BLOOD COUNT 10.3 TH/MM3 (4.0-11.0)
[2016-10-21 05:55] LABS: BICARBONATE 32.8 MEQ/L (21.0-32.0); POTASSIUM 4.6 MEQ/L (3.5-5.1)
[2016-10-21] MEDS: methylPREDNISolone SOD SUCC 40 MG/1 ML VIAL IV PUSH SCH ×2 (06:30→16:27)
[2016-10-21] MEDS: DILTIAZEM HCL 30 MG TAB PO SCH ×3 (06:30→16:27)
[2016-10-21] MEDS: CEFEPIME INJ 2,000 MG in SODIUM CHLORIDE 0.9% INJ 100 ML IV SCH ×3 (06:31→21:20)
--- NOTE | 2016-10-21 07:21 | HHI.CCPN ---
Subjective Remarks/Hospital Course This is a 71-year-old male. Date of admission 10/18/2016. Past records includes morbid obesity with a weight of 146 kg, 2 L oxygen dependent possible secondary to pickwickian/RADHA, history of TIA 2013, diabetes with peripheral neuropathy and nephropathy, hypertension, hard of hearing. Patient also has history of arrhythmia with history of a 7.3 second sinus pause on outpatient Holter monitoring. Patient negative EPS study 11/[address] Cochran. Patient had a normal cardiac catheterization by Dr. Omer 11/02 including no coronary disease/right dominant. Ejection fraction 60%. Some diastolic dysfunction with elevated left diastolic ventricular pressures 150/22. Echocardiogram earlier this years 09/03 revealed EF 55%. Trace TR. Normal systolic function. Patient presents to [place] today after a 2-3 history of malaise, increasing shortness of breath. Patient increased oxygen from 2-3 L in the interim. Patient was able to get off the toilet and was short of breath. Patient noted a saturation of 82% by EMS. Was transported on nonrebreather mask to [facility] [address]. Initial chest x-ray revealed left lower lobe infiltrate versus effusion. CT of the chest revealed basilar atelectasis versus consolidation with a small left pleural effusion. No pulmonary embolism. Patient is currently on BiPAP. 18/6 at 50%. PCO2 is still elevated at 70. ABG revealed an acute on chronic respiratory acidosis. Start on Rocephin and Zithromax in the ED. EKG revealed right bundle branch block which is chronic, first-degree AV block and left anterior fascicular block. Troponin 0.09. Dr. Gibbs was contacted. Recommended one dose Lovenox and repeat troponins and EKGs. Dr. Gibbs has been consulted. Patient denies any chest pain. Subjective 10/19: Resting comfortably in bed on high flow nasal cannula. 50%/30 L. Appears comfortable. Denies chest pain or shortness of breath. Finn catheter was placed 10/20 Patient is on high flow oxygen with 40% FIO2. Afebrile 10/21 No events overnight. Patient is on high flow oxygen 25L with 50% FIO2. Afebrile. Objective Vital Signs Date Time Temp Pulse Resp B/P Pulse Ox O2 Delivery O2 Flow Rate FiO2 10/21/16 06:00 87 10/21/16 04:00 97.9 22 140/70 97 10/20/16 20:26 High Flow Nasal Cannula 25.00 50 Intake and Output 10/20/16 10/20/16 10/21/16 08:00 16:00 00:00 Intake Total 1883 ml 1600 ml 1263 ml Output Total 950 ml 600 ml 700 ml Balance 933 ml 1000 ml 563 ml Result Diagram: 10/21/16 0412 10/21/16 0412 Other Results Laboratory Tests Test 10/20/16 10/20/16 10/21/16 09:43 14:00 04:12 Blood Gas Puncture Site LT RADIAL Blood Gas Patient Temperature 98.6 Blood Gas HCO3 28 mmol/L Blood Gas Base Excess 2.4 mmol/L Blood Gas Oxygen Saturation 90 % Arterial Blood pH 7.34 Arterial Blood Partial 54 mmHg Pressure CO2 Arterial Blood Partial 70 mmHg Pressure O2 Arterial Blood Oxygen Content 15.6 Vol % Arterial Blood 1.7 % Carboxyhemoglobin Arterial Blood Methemoglobin 1.5 % Blood Gas Hemoglobin 12.3 G/DL Oxygen Delivery Device NASAL CANNULA Blood Gas Liter Flow 25 L/M Blood Gas Inspired Oxygen 40 % Urine Color DARK-RED Urine Turbidity CLOUDY Urine pH 5.5 Urine Specific [place] 1.021 Urine Protein 30 mg/dL Urine Glucose (UA) NEG mg/dL Urine Ketones TRACE mg/dL Urine Occult Blood LARGE Urine Nitrite NEG Urine Bilirubin NEG Urine Urobilinogen LESS THAN 2.0 MG/DL Urine Leukocyte Esterase MOD Urine RBC /hpf Urine WBC /hpf Urine Amorphous Sediment RARE Urine Bacteria MANY /hpf Microscopic Urinalysis Comment CULTURE INDICATED White Blood Count 10.3 TH/MM3 Red Blood Count 4.03 MIL/MM3 Hemoglobin 12.1 GM/DL Hematocrit 38.2 % Mean Corpuscular Volume 94.7 FL Mean Corpuscular Hemoglobin 29.9 PG Mean Corpuscular Hemoglobin 31.6 % Concent Red Cell Distribution Width 15.7 % Platelet Count 203 TH/MM3 Mean Platelet Volume 10.3 FL Neutrophils (%) (Auto) 89.2 % Lymphocytes (%) (Auto) 5.2 % Monocytes (%) (Auto) 5.6 % Eosinophils (%) (Auto) 0.0 % Basophils (%) (Auto) 0.0 % Neutrophils # (Auto) 9.2 TH/MM3 Lymphocytes # (Auto) 0.5 TH/MM3 Monocytes # (Auto) 0.6 TH/MM3 Eosinophils # (Auto) 0.0 TH/MM3 Basophils # (Auto) 0.0 TH/MM3 CBC Comment DIFF FINAL Differential Comment Sodium Level 139 MEQ/L Potassium Level 4.6 MEQ/L Chloride Level 102 MEQ/L Carbon Dioxide Level 32.8 MEQ/L Anion Gap 4 MEQ/L Blood Urea Nitrogen 41 MG/DL Creatinine 1.35 MG/DL Estimat Glomerular Filtration 52 ML/MIN Rate Random Glucose 160 MG/DL Calcium Level 8.1 MG/DL B-Type Natriuretic Peptide 235 PG/ML Imaging Last Impressions Chest X-Ray 10/20/16 0600 Signed Impressions: Service Date/Time: Thursday, October 20, 2016 04:40 - CONCLUSION: 1. Left basilar consolidation. 2. Cardiomegaly. Santiago Wisdom MD CT Angiography 10/18/16 1108 Signed Impressions: Service Date/Time: Tuesday, October 18, 2016 11:40 - CONCLUSION: 1. No evidence for pulmonary embolism. 2. Small left effusion, basilar consolidation and atelectasis noted. Kelvin Woodard MD Objective Remarks GENERAL: 71-year-old male, morbidly obese currently resting in bed on high flow oxygen SKIN: Warm and dry. Chronic venous stasis bilateral lower x-rays. Onychomycosis to toenails. Left fourth finger with clubbing without overt infection HEAD: Atraumatic. Normocephalic. EYES: Pupils equal and round around 3 mm bilaterally and reactive.. No scleral icterus. No injection or drainage. ENT: No nasal bleeding or discharge. Mucous membranes pink and moist. NECK: Trachea midline. No obvious JVD. Obese. CARDIOVASCULAR: Diminished due to body habitus. Regular rate and rhythm. S1, S2. No S4. Without murmur, clicks, or rubs RESPIRATORY: No accessory muscle use. Diminished breath sounds throughout due to body habitus. No wheezing appreciated. GASTROINTESTINAL: Abdomen soft, obese and protuberant. Hypoactive bowel sounds are appreciated. MUSCULOSKELETAL: Extremities without significant peripheral edema. NEUROLOGICAL: Awake and alert. No obvious cranial nerve deficits. Motor grossly within normal limits. Five out of 5 muscle strength in the arms and legs. Normal speech with my examination. A/P Assessment and Plan Neuro/Psych: Hard of hearing Acute metabolic encephalopathy likely secondary to CO2 retention - improved Acetaminophen for fever [place]/morphine for pain management To Neurontin 300 mg by mouth daily for neuropathy. CV: History of hypertension Elevated troponin History of tachybradycardia syndrome History of sinus pause Right bundle-branch block/chronic First-degree AV block Dyslipidemia EKG admission revealed a first degree AV block, chronic right bundle branch block with left ventricular signal block with possible ischemic changes in the lateral leads. Troponin 0.09. Dr. Gibbs/cardiology consult. Recommended one dose Lovenox with serial troponin/ EKGs. 11/02 - Dr. Omer cardiac catheterization - no significant coronary disease/ right dominant. EF 60%. Diastolic dysfunction. 11/02 - Dr. Cochran EPS study - negative for inducible arrhythmia 08/04 - echocardiogram - EF 55%. Trace TR. Normal systolic function. Monitor HR and BP keep MAP>65mmHg Continue aspirin 325 mg by mouth daily. Cardizem 30 mg every 6 hours. Resp: Acute on chronic respiratory failure - 2 L oxygen dependent likely pickwickian Possible community-acquired pneumonia ABG revealed acute on chronic respiratory acidosis CTA chest revealed no pulmonary embolism. Small left pleural effusion. Bibasilar consolidation/atelectasis Wean down oxygen as willa keep sat > 92% Bronchodilators with DuoNeb's every 4 hours with albuterol every 2 hours when necessary dyspnea Decrease Solu-Medrol 40 mg IV Q12, IS, pulm is following-Dr. Bah GI: ADA dietheart healthy diet initiated Protonix for GI prophylaxis Ellen-Colace for bowel regimen Endo: Diabetes mellitus with neuropathy and nephropathy Sliding scale insulin Accu-Cheks every 4 hours to maintain euglycemia/high regimen Levemir 10 units twice a day Renal: Acute on chronic kidney injury Monitor renal function, I/O's, avoid nephrotoxins. Renal function is improving with Cr: 1.35, UO:2200ml in 24 hrs Heme: Normocytic anemia Monitor CBC daily. Follow trends ID: Possibly community acquired pneumonia Continue with abx(Cefepime/Zithromax)monitor for signs of infections ( Fever, WBC) Check sputum, UA Legionella and pneumococcal antigens all pending Nasal washing negative for Influenza on 10/20 Follow up on BC from 10/18: [facility]PC 04/23 bottles. ? Contaminant patient received Davis x1 dose yesterday. Patient is afebrile, WBC is trending down. Repeat BC 10/20: NGTD MSK: PT evaluate and treat Access - Utilize peripheral IV. Prophylaxis - GI - Protonix - DVT - SCD/Lovenox subQ Level III Franklyn Morse MD Oct 21, 2016 07:21
--- NOTE | 2016-10-21 08:28 | MB ---
cc: RICHARD HARRELL DATE OF CONSULTATION 10/20/[address] Morse REASON FOR CONSULTATION Pulmonary management. HISTORY OF PRESENT ILLNESS Mr. Duff is a pleasant 71-year-old morbidly obese male with history of COPD, obstructive sleep apnea, possible Pickwickian syndrome. He has history of diabetes mellitus and peripheral neuropathy. The patient was admitted in the hospital with shortness of breath getting worse. He barely walks and gets short of breath. He was evaluated in the hospital and his blood gas showed pH 7.28, pCO2 71, pO2 126 and 60% BiPap. He is now weaned down to high-flow oxygen. Blood gas - pH 7.34, pCO2 54, pO2 70, bicarb 28. His CBC showed WBC count of 13.6, hemoglobin 12.2, hematocrit 39.1, MCV 95, platelet count 225. His INR is 1.0. Sodium 113, potassium 4.9, chloride 104, CO2 35, BUN 37, creatinine 1.39. He had a CT of the chest done which does not show any pulmonary embolism. It shows marked pleural effusion with basal consolidation and atelectasis. PAST MEDICAL HISTORY 1. History of obstructive sleep apnea. 2. Hypertension. 3. TIA. 4. Morbid obesity. 5. History of EPS study done. No arrhythmia could be induced. 6. Dyslipidemia. MEDICATIONS He is currently taking - 1. Lovenox 40 mg a day. 1. Insulin 10 units q.12 hours. 2. Zithromax 500 mg daily. 3. Protonix 40 mg. 4. Aspirin 325 mg. 5. Neurontin 300 mg per day. 6. Solu-Medrol 40 mg q. 8 hours. 7. Diltiazem 30 mg q.6 hours. 8. Albuterol/Atrovent nebulizer. 9. Cefepime 2 grams q.8 hours. 10. [place] p.r.n. ALLERGIES No known drug allergies. SOCIAL HISTORY He has no history of smoking or alcohol abuse. FAMILY HISTORY . No children. REVIEW OF SYSTEMS He can walk only short distance. Has gained more and more weight. Uses C-PAP machine off and on. Denies history of TIA. PHYSICAL EXAMINATION GENERAL: A morbidly obese male, mild short of breath. VITAL SIGNS: Blood pressure 147/70, heart rate 16, respirations 16, temperature 98.4. HEENT EXAMINATION: The pupils are equal and reactive to light. Bilateral cataracts. Oral mucosa and nasal mucosa normal. NECK: Supple. JVP not raised. CHEST: Equal bilaterally. No rhonchi or wheeze. CV: S1 and S2 normal. ABDOMEN: Soft, obese, nontender. Bowel sounds are present. EXTREMITIES: 1+ pedal edema. COGENERATION OPERATOR: Alert and oriented x 3. No focal deficit. IMPRESSION 1. Hypercapnic respiratory failure has improved. 2. Obesity hypoventilation syndrome. 3. Obstructive sleep apnea. 4. Hypertension. 5. Diabetes mellitus. PLAN 1. I have advised him to use C-PAP machine. 2. I would not use high-flow oxygen. We will titer oxygen to keep his saturation between 88 and 92%. 3. Continue aerosol treatment. 4. Monitor his blood sugar. 5. He is on antibiotic Zithromax and cefepime. Further treatment will depend on his course in the hospital. Thank you Dr. Morse for this consult. Richard Harrell MD ADA/SSB /7:13 PM /8:10 AM
--- NOTE | 2016-10-21 08:35 | PD.CARD.PN ---
Subjective Subjective Remarks alert in nad Objective Vital Signs / I&O Vital Signs Date Time Temp Pulse Resp B/P Pulse Ox O2 Delivery O2 Flow Rate FiO2 10/21/16 07:58 96 High Flow Nasal Cannula 20.00 45 10/21/16 06:00 87 10/21/16 04:00 78 10/21/16 04:00 97.9 65 22 140/70 97 10/21/16 02:00 94 10/21/16 00:00 60 10/21/16 00:00 97.8 60 28 149/69 93 10/20/16 22:00 88 10/20/16 20:26 94 High Flow Nasal Cannula 25.00 50 10/20/16 20:00 71 10/20/16 20:00 97.9 71 30 145/71 93 10/20/16 19:00 Nasal Cannula 50 10/20/16 18:01 69 32 147/70 94 10/20/16 18:00 67 36 93 10/20/16 17:00 91 37 125/74 91 10/20/16 16:01 92 35 146/76 92 10/20/16 16:00 98.4 94 36 91 10/20/16 15:00 89 36 132/72 91 10/20/16 14:00 98 35 91 10/20/16 13:01 111 40 131/88 91 10/20/16 13:00 112 42 90 10/20/16 12:16 98 36 137/71 92 10/20/16 12:00 98.5 95 39 89 10/20/16 11:00 71 26 168/73 91 10/20/16 10:00 66 31 163/74 94 10/20/16 09:00 64 32 164/77 94 I/O 10/20/16 10/20/16 10/20/16 10/21/16 10/21/16 10/21/16 07:00 15:00 23:00 07:00 15:00 23:00 Intake Total 1883 ml 1600 ml 1263 ml 1170 ml Output Total 950 ml 600 ml 700 ml 900 ml Balance 933 ml 1000 ml 563 ml 270 ml Intake Oral 600 ml 900 ml 480 ml 520 ml IV Total 1283 ml 700 ml 783 ml 650 ml Output Urine Total 950 ml 600 ml 700 ml 900 ml # Bowel Movements 0 0 0 0 Physical Exam GENERAL: SKIN: Warm and dry. HEAD: Normocephalic. EYES: No scleral icterus. No injection or drainage. NECK: Supple, trachea midline. No JVD or lymphadenopathy. CARDIOVASCULAR: Regular rate and rhythm without murmurs, gallops, or rubs. RESPIRATORY: Breath sounds equal bilaterally. No accessory muscle use. GASTROINTESTINAL: Abdomen soft, non-tender, nondistended. MUSCULOSKELETAL: No cyanosis, or edema. BACK: Nontender without obvious deformity. No CVA tenderness. Laboratory Laboratory Tests Test 10/20/16 10/20/16 10/21/16 09:43 14:00 04:12 Blood Gas Puncture Site LT RADIAL Blood Gas Patient Temperature 98.6 Blood Gas HCO3 28 mmol/L Blood Gas Base Excess 2.4 mmol/L Blood Gas Oxygen Saturation 90 % Arterial Blood pH 7.34 Arterial Blood Partial 54 mmHg Pressure CO2 Arterial Blood Partial 70 mmHg Pressure O2 Arterial Blood Oxygen Content 15.6 Vol % Arterial Blood 1.7 % Carboxyhemoglobin Arterial Blood Methemoglobin 1.5 % Blood Gas Hemoglobin 12.3 G/DL Oxygen Delivery Device NASAL CANNULA Blood Gas Liter Flow 25 L/M Blood Gas Inspired Oxygen 40 % Urine Color DARK-RED Urine Turbidity CLOUDY Urine pH 5.5 Urine Specific [place] 1.021 Urine Protein 30 mg/dL Urine Glucose (UA) NEG mg/dL Urine Ketones TRACE mg/dL Urine Occult Blood LARGE Urine Nitrite NEG Urine Bilirubin NEG Urine Urobilinogen LESS THAN 2.0 MG/DL Urine Leukocyte Esterase MOD Urine RBC /hpf Urine WBC /hpf Urine Amorphous Sediment RARE Urine Bacteria MANY /hpf Microscopic Urinalysis Comment CULTURE INDICATED White Blood Count 10.3 TH/MM3 Red Blood Count 4.03 MIL/MM3 Hemoglobin 12.1 GM/DL Hematocrit 38.2 % Mean Corpuscular Volume 94.7 FL Mean Corpuscular Hemoglobin 29.9 PG Mean Corpuscular Hemoglobin 31.6 % Concent Red Cell Distribution Width 15.7 % Platelet Count 203 TH/MM3 Mean Platelet Volume 10.3 FL Neutrophils (%) (Auto) 89.2 % Lymphocytes (%) (Auto) 5.2 % Monocytes (%) (Auto) 5.6 % Eosinophils (%) (Auto) 0.0 % Basophils (%) (Auto) 0.0 % Neutrophils # (Auto) 9.2 TH/MM3 Lymphocytes # (Auto) 0.5 TH/MM3 Monocytes # (Auto) 0.6 TH/MM3 Eosinophils # (Auto) 0.0 TH/MM3 Basophils # (Auto) 0.0 TH/MM3 CBC Comment DIFF FINAL Differential Comment Sodium Level 139 MEQ/L Potassium Level 4.6 MEQ/L Chloride Level 102 MEQ/L Carbon Dioxide Level 32.8 MEQ/L Anion Gap 4 MEQ/L Blood Urea Nitrogen 41 MG/DL Creatinine 1.35 MG/DL Estimat Glomerular Filtration 52 ML/MIN Rate Random Glucose 160 MG/DL Calcium Level 8.1 MG/DL B-Type Natriuretic Peptide 235 PG/ML Assessment and Plan Problem List: (1) Atrial tachycardia (2) Tachyarrhythmia (3) Acute respiratory failure (4) Acute respiratory acidosis (5) Shortness of breath (6) Diabetic neuropathy, type II diabetes mellitus (7) Renal insufficiency (8) Elevated troponin (9) NSTEMI (non-ST elevated myocardial infarction) Assessment and Plan 1.) Copd/pneumonia - patient clinically improving on antibiotics 2.) Arrythmia - stable 3.) Diastolic chf - appears euvolemic on current meds([id number]) Problem Qualifiers (1) Acute respiratory failure: Qualified Code: J96.00 - Acute respiratory failure, unspecified whether with hypoxia or hypercapnia (2) Diabetic neuropathy, type II diabetes mellitus: Qualified Code: E11.40 - Type 2 diabetes mellitus with diabetic neuropathy, unspecified chcf insulin use status Marcos Omer MD Oct 21, 2016 08:35
[2016-10-21] MEDS: ARTIFICIAL TEARS OPTH SOLN 15 ML BTL EACH EYE SCH ×3 (09:00→16:26)
[2016-10-21] MEDS: DOCUSATE SODIUM 50 MG/SENNA 8.6 MG TAB PO SCH ×2 (09:00→21:21)
[2016-10-21] MEDS: PANTOPRAZOLE SODIUM 40 MG VIAL IV SCH (09:11)
[2016-10-21] MEDS: ENOXAPARIN SODIUM 40 MG/0.4 ML SYRINGE SQ SCH (09:11)
[2016-10-21] MEDS: ASPIRIN 325 MG TAB PO SCH (09:12)
[2016-10-21] MEDS: SODIUM CHLORIDE 0.9% FLUSH 10 ML FLUSH IV FLUSH SCH ×2 (09:12→21:21)
[2016-10-21] MEDS: GABAPENTIN 300 MG CAP PO SCH (09:12)
[2016-10-21] MEDS: INSULIN DETEMIR 100 UNITS/ML VIAL SQ SCH ×2 (09:13→21:23)
[2016-10-21] MEDS: AZITHROMYCIN INJ 500 MG in SODIUM CHLOR 0.9% 250 ML INJ 250 ML IV SCH (11:54)
--- NOTE | 2016-10-21 14:58 | HHI.PR ---
Subjective Remarks 71 YOWm with hypercapnoic RF,RADHA, obesity On High flow 02 50% Breathing betetr Mild sob No CP No cough or sp Objective Vital Signs Vital Signs Date Time Temp Pulse Resp B/P Pulse Ox O2 Delivery O2 Flow Rate FiO2 10/21/16 12:00 64 10/21/16 12:00 97.8 64 33 156/69 94 10/21/16 10:00 62 10/21/16 08:00 63 10/21/16 08:00 97.9 63 31 156/85 96 10/21/16 07:58 96 High Flow Nasal Cannula 20.00 45 10/21/16 07:00 Nasal Cannula 50 10/21/16 06:00 87 10/21/16 04:00 78 10/21/16 04:00 97.9 65 22 140/70 97 10/21/16 02:00 94 10/21/16 00:00 60 10/21/16 00:00 97.8 60 28 149/69 93 10/20/16 22:00 88 10/20/16 20:26 94 High Flow Nasal Cannula 25.00 50 10/20/16 20:00 71 10/20/16 20:00 97.9 71 30 145/71 93 10/20/16 19:00 Nasal Cannula 50 10/20/16 18:01 69 32 147/70 94 10/20/16 18:00 67 36 93 10/20/16 17:00 91 37 125/74 91 10/20/16 16:01 92 35 146/76 92 10/20/16 16:00 98.4 94 36 91 10/20/16 15:00 89 36 132/72 91 I/O 10/20/16 10/20/16 10/20/16 10/21/16 10/21/16 10/21/16 07:00 15:00 23:00 07:00 15:00 23:00 Intake Total 1883 ml 1600 ml 1263 ml 1170 ml Output Total 950 ml 600 ml 700 ml 900 ml Balance 933 ml 1000 ml 563 ml 270 ml Intake Oral 600 ml 900 ml 480 ml 520 ml IV Total 1283 ml 700 ml 783 ml 650 ml Output Urine Total 950 ml 600 ml 700 ml 900 ml # Bowel Movements 0 0 0 0 Result Diagram: 10/21/16 04110/21/16411 Objective Remarks GENERAL: obese Wm mild sob SKIN: Warm and dry. HEAD: Normocephalic. EYES: No scleral icterus. No injection or drainage. NECK: Supple, trachea midline. No JVD or lymphadenopathy. CARDIOVASCULAR: Regular rate and rhythm without murmurs, gallops, or rubs. RESPIRATORY: Breath sounds equal bilaterally. No accessory muscle use. GASTROINTESTINAL: Abdomen soft, non-tender, nondistended. MUSCULOSKELETAL: No cyanosis, or edema. BACK: Nontender without obvious deformity. No CVA tenderness. A/P Assessment and Plan Hypercapnoic RF RADHA Obesity-Hypoventlation synd DM HTN PLAN: High flow 02 to keep sat 88-92% IV Solumedrol 40 mg q 12 hrs Cont Abx Cefepime and Zithro Aerosol nebs CPAP at night and PRN. Scotty Bah MD Oct 21, 2016 14:58
[2016-10-22] VITALS (21 sets, daily range): BP systolic 126–193; BP diastolic 64–129; PULSE 60–114; RESP 5–39; TEMP 97.6–98.9; O2SAT 89–96
[2016-10-22] MEDS: DILTIAZEM HCL 30 MG TAB PO SCH ×4 (00:49→17:38)
[2016-10-22] MEDS: RESP: ALBUTEROL 2.5 MG/IPRATROPIUM 0.5 MG NEB (SCH) INH ×6 (03:27→23:28)
[2016-10-22] MEDS: INSULIN NovoLIN REGULAR SUPPLEMENTAL SCALE SQ SCH ×6 (03:56→20:00)
[2016-10-22] MEDS: CHLORHEXIDINE GLUCONATE 2 % 1 PACK (2 CLOTHS) TOP SCH ×2 (03:57→19:39)
[2016-10-22] MEDS: methylPREDNISolone SOD SUCC 40 MG/1 ML VIAL IV PUSH SCH ×2 (05:36→17:38)
[2016-10-22] MEDS: CEFEPIME INJ 2,000 MG in SODIUM CHLORIDE 0.9% INJ 100 ML IV SCH ×3 (05:36→21:44)
[2016-10-22 06:19] LABS: AUTOMATED NEUTROPHIL # 8.4 TH/MM3 (1.8-7.7); BASOPHIL % 0.1 % (0.0-2.0); HEMATOCRIT 39.4 % (39.0-51.0); LYMPH % 6.6 % (9.0-44.0); LYMPHOCYTE # 0.7 TH/MM3 (1.0-4.8); MEAN CELL VOLUME 93.8 FL (80.0-100.0); MEAN CORPUSCULAR HEMOGLOBIN 30.2 PG (27.0-34.0); MEAN CORPUSCULAR HGB CONC 32.2 % (32.0-36.0); MONO % 10.9 % (0.0-8.0); NEUT % 82.4 % (16.0-70.0); PLATELET COUNT 189 TH/MM3 (150-450); RED CELL DISTRIBUTION WIDTH 15.4 % (11.6-17.2); WHITE BLOOD COUNT 10.2 TH/MM3 (4.0-11.0)
[2016-10-22 06:21] LABS: HEMO FLAGS AUTO DIFF
[2016-10-22 06:40] LABS: BICARBONATE 30.7 MEQ/L (21.0-32.0); MAGNESIUM 2.6 MG/DL (1.5-2.5); POTASSIUM 4.7 MEQ/L (3.5-5.1)
[2016-10-22 08:03] LABS: SCAN/DIFF AUTO DIFF CONFIRMED
[2016-10-22] MEDS: PANTOPRAZOLE SODIUM 40 MG VIAL IV SCH (08:11)
[2016-10-22] MEDS: ASPIRIN 325 MG TAB PO SCH (08:11)
[2016-10-22] MEDS: GABAPENTIN 300 MG CAP PO SCH (08:11)
[2016-10-22] MEDS: ENOXAPARIN SODIUM 40 MG/0.4 ML SYRINGE SQ SCH (08:12)
[2016-10-22] MEDS: INSULIN DETEMIR 100 UNITS/ML VIAL SQ SCH ×2 (08:13→20:36)
[2016-10-22] MEDS: SODIUM CHLORIDE 0.9% FLUSH 10 ML FLUSH IV FLUSH SCH ×2 (08:13→20:33)
[2016-10-22] MEDS: ARTIFICIAL TEARS OPTH SOLN 15 ML BTL EACH EYE SCH ×3 (08:14→17:39)
--- NOTE | 2016-10-22 10:55 | HHI.CCPN ---
Subjective Remarks/Hospital Course This is a 71-year-old male. Date of admission 10/18/2016. Past records includes morbid obesity with a weight of 146 kg, 2 L oxygen dependent possible secondary to pickwickian/RADHA, history of TIA 2013, diabetes with peripheral neuropathy and nephropathy, hypertension, hard of hearing. Patient also has history of arrhythmia with history of a 7.3 second sinus pause on outpatient Holter monitoring. Patient negative EPS study 11/[address] Cochran. Patient had a normal cardiac catheterization by Dr. Omer 11/02 including no coronary disease/right dominant. Ejection fraction 60%. Some diastolic dysfunction with elevated left diastolic ventricular pressures 150/22. Echocardiogram earlier this years 09/03 revealed EF 55%. Trace TR. Normal systolic function. Patient presents to [facility] today after a 2-3 history of malaise, increasing shortness of breath. Patient increased oxygen from 2-3 L in the interim. Patient was able to get off the toilet and was short of breath. Patient noted a saturation of 82% by EMS. Was transported on nonrebreather mask to [facility]. Initial chest x-ray revealed left lower lobe infiltrate versus effusion. CT of the chest revealed basilar atelectasis versus consolidation with a small left pleural effusion. No pulmonary embolism. Patient is currently on BiPAP. 18/6 at 50%. PCO2 is still elevated at 70. ABG revealed an acute on chronic respiratory acidosis. Start on Rocephin and Zithromax in the ED. EKG revealed right bundle branch block which is chronic, first-degree AV block and left anterior fascicular block. Troponin 0.09. Dr. Gibbs was contacted. Recommended one dose Lovenox and repeat troponins and EKGs. Dr. Gibbs has been consulted. Patient denies any chest pain. Subjective 7/2: Resting comfortably in bed on high flow nasal cannula. 50%/30 L. Appears comfortable. Denies chest pain or shortness of breath. Finn catheter was placed 10/20 Patient is on high flow oxygen with 40% FIO2. Afebrile 10/21 No events overnight. Patient is on high flow oxygen 25L with 50% FIO2. Afebrile. 10/22: Remains on high flow nasal cannula 55% oxygen. Subjectively showing some improvement. Add EzPAP and acapella Objective Vital Signs Date Time Temp Pulse Resp B/P Pulse Ox O2 Delivery O2 Flow Rate FiO2 10/22/16 09:05 96 High Flow Nasal Cannula 20.00 24 10/22/16 06:00 64 10/22/16 04:00 98.7 29 143/75 Intake and Output 10/21/16 10/21/16 10/22/16 08:00 16:00 00:00 Intake Total 1170 ml 950 ml 340 ml Output Total 900 ml 650 ml 850 ml Balance 270 ml 300 ml -510 ml Result Diagram: 10/22/16 0521 10/22/16 05 Other Results Microbiology Date/Time Procedure Status Source Growth 10/20/16 14:00 Influenza Types A,B Antigen (KATE) - Final Complete Nasal Aspirate NEGATIVE FOR FLU A AND B ANTIGEN.... Imaging Last Impressions Chest X-Ray 10/20/16 0600 Signed Impressions: Service Date/Time: Thursday, October 20, 2016 04:40 - CONCLUSION: 1. Left basilar consolidation. 2. Cardiomegaly. Santiago Wisdom MD CT Angiography 10/18/16 1108 Signed Impressions: Service Date/Time: Tuesday, October 18, 2016 11:40 - CONCLUSION: 1. No evidence for pulmonary embolism. 2. Small left effusion, basilar consolidation and atelectasis noted. Kelvin Woodard MD Objective Remarks GENERAL: 71-year-old male, morbidly obese currently resting in bed on high flow oxygen SKIN: Warm and dry. Chronic venous stasis bilateral lower x-rays. Onychomycosis to toenails. Left fourth finger with clubbing without overt infection HEAD: Atraumatic. Normocephalic. EYES: Pupils equal and round around 3 mm bilaterally and reactive. No scleral icterus. No injection or drainage. ENT: No nasal bleeding or discharge. Mucous membranes pink and moist. NECK: Trachea midline. No obvious JVD. Obese. CARDIOVASCULAR: Diminished due to body habitus. Regular rate and rhythm. S1, S2. No S4. Without murmur, clicks, or rubs RESPIRATORY: No accessory muscle use. Diminished breath sounds throughout due to body habitus. No wheezing appreciated. GASTROINTESTINAL: Abdomen soft, obese and protuberant. Hypoactive bowel sounds are appreciated. MUSCULOSKELETAL: Extremities without significant peripheral edema. NEUROLOGICAL: Awake and alert. No obvious cranial nerve deficits. Motor grossly normal. Five out of 5 muscle strength in the arms and legs. Normal speech with my examination. Urinary Catheter: Yes Assessment to: Continue A/P Assessment and Plan Neuro/Psych: Hard of hearing Acute metabolic encephalopathy likely secondary to CO2 retention - improved Acetaminophen for fever [place]/morphine for pain management To Neurontin 300 mg by mouth daily for neuropathy. CV: Elevated troponin History of tachybradycardia syndrome History of hypertension History of sinus pause Right bundle-branch block/chronic First-degree AV block Dyslipidemia EKG admission revealed a first degree AV block, chronic right bundle branch block with left ventricular fascicular block with possible ischemic changes in the lateral leads. Troponin 0.09. Dr. Gibbs/cardiology consult. Recommended one dose Lovenox with serial troponin/EKGs. 11/02 - Dr. Omer cardiac catheterization - no significant coronary disease/ right dominant. EF 60%. Diastolic dysfunction. 11/02 - Dr. Cochran EPS study - negative for inducible arrhythmia 08/04 - echocardiogram - EF 55%. Trace TR. Normal systolic function. Monitor HR and BP keep MAP>65mmHg Continue aspirin 325 mg by mouth daily. Cardizem 30 mg every 6 hours. Resp: Acute on chronic respiratory failure - 2 L oxygen dependent likely pickwickian Possible community-acquired pneumonia ABG revealed acute on chronic respiratory acidosis CTA chest revealed no pulmonary embolism. Small left pleural effusion. Bibasilar consolidation/atelectasis Wean down oxygen as willa keep sat > 89-90% Bronchodilators with DuoNeb's every 4 hours with albuterol every 2 hours when necessary dyspnea Solu-Medrol 40 mg IV Q12, IS, pulm is following-Dr. Bah Add Symbicort, Add ezpap, acapella GI: ADA dietheart healthy diet initiated Protonix for GI prophylaxis Ellen-Colace for bowel regimen Endo: Diabetes mellitus with neuropathy and nephropathy Sliding scale insulin Accu-Cheks every 4 hours to maintain euglycemia/high regimen Levemir 10 units twice a day Renal: Acute on chronic kidney injury Monitor renal function, I/O's, avoid nephrotoxins. Renal function is improving Heme: Normocytic anemia Monitor CBC daily. Follow trends ID: Possibly community acquired pneumonia Continue with abx(Cefepime/Zithromax)monitor for signs of infections ( Fever, WBC) Nasal washing negative for Influenza on 10/20 Follow up on BC from 10/18: Micrococcus 04/23 bottles. ? Contaminant patient received Davis x1 dose yesterday. Repeat BC 10/20: NGTD MSK: PT evaluate and treat Access - Utilize peripheral IV. Prophylaxis - GI - Protonix - DVT - SCD/Lovenox subQ Level III Shantanu Mcmahon MD Oct 22, 2016 10:54
[2016-10-22] MEDS: AZITHROMYCIN INJ 500 MG in SODIUM CHLOR 0.9% 250 ML INJ 250 ML IV SCH (11:14)
[2016-10-22] MEDS: DOCUSATE SODIUM 50 MG/SENNA 8.6 MG TAB PO SCH ×2 (11:14→20:33)
--- NOTE | 2016-10-22 12:43 | PD.CARD.PN ---
Subjective Subjective Remarks alert in nad Objective Vital Signs / I&O Vital Signs Date Time Temp Pulse Resp B/P Pulse Ox O2 Delivery O2 Flow Rate FiO2 10/22/16 09:05 96 High Flow Nasal Cannula 20.00 24 10/22/16 06:00 64 10/22/16 04:00 98 10/22/16 04:00 98.7 98 29 143/75 93 10/22/16 02:00 63 10/22/16 00:00 98.5 60 5 151/65 95 10/22/16 00:00 60 10/21/16 22:00 103 10/21/16 20:00 97.5 100 32 148/80 92 10/21/16 20:00 103 10/21/16 19:23 92 High Flow Nasal Cannula 20.00 55 10/21/16 19:00 Tank Truck Mechanic 55 10/21/16 18:00 107 10/21/16 16:00 98.4 96 36 160/72 91 10/21/16 16:00 105 10/21/16 14:00 105 I/O 10/21/16 10/21/16 10/21/16 10/22/16 10/22/16 10/22/16 07:00 15:00 23:00 07:00 15:00 23:00 Intake Total 1170 ml 950 ml 340 ml 150 ml Output Total 900 ml 650 ml 850 ml 1000 ml Balance 270 ml 300 ml -510 ml -850 ml Intake Oral 520 ml 420 ml 240 ml 150 ml IV Total 650 ml 530 ml 100 ml Output Urine Total 900 ml 650 ml 850 ml 1000 ml # Bowel Movements 0 2 Physical Exam GENERAL: SKIN: Warm and dry. HEAD: Normocephalic. EYES: No scleral icterus. No injection or drainage. NECK: Supple, trachea midline. No JVD or lymphadenopathy. CARDIOVASCULAR: Regular rate and rhythm without murmurs, gallops, or rubs. RESPIRATORY: Breath sounds equal bilaterally. No accessory muscle use. GASTROINTESTINAL: Abdomen soft, non-tender, nondistended. MUSCULOSKELETAL: No cyanosis, or edema. BACK: Nontender without obvious deformity. No CVA tenderness. Laboratory Laboratory Tests Test 10/22/16 05:21 White Blood Count 10.2 TH/MM3 Red Blood Count 4.20 MIL/MM3 Hemoglobin 12.7 GM/DL Hematocrit 39.4 % Mean Corpuscular Volume 93.8 FL Mean Corpuscular Hemoglobin 30.2 PG Mean Corpuscular Hemoglobin 32.2 % Concent Red Cell Distribution Width 15.4 % Platelet Count 189 TH/MM3 Mean Platelet Volume 10.5 FL Neutrophils (%) (Auto) 82.4 % Lymphocytes (%) (Auto) 6.6 % Monocytes (%) (Auto) 10.9 % Eosinophils (%) (Auto) 0.0 % Basophils (%) (Auto) 0.1 % Neutrophils # (Auto) 8.4 TH/MM3 Lymphocytes # (Auto) 0.7 TH/MM3 Monocytes # (Auto) 1.1 TH/MM3 Eosinophils # (Auto) 0.0 TH/MM3 Basophils # (Auto) 0.0 TH/MM3 CBC Comment AUTO DIFF Differential Comment AUTO DIFF CONFIRMED Sodium Level 136 MEQ/L Potassium Level 4.7 MEQ/L Chloride Level 100 MEQ/L Carbon Dioxide Level 30.7 MEQ/L Anion Gap 5 MEQ/L Blood Urea Nitrogen 36 MG/DL Creatinine 1.08 MG/DL Estimat Glomerular Filtration 67 ML/MIN Rate Random Glucose 160 MG/DL Calcium Level 8.3 MG/DL Phosphorus Level 3.0 MG/DL Magnesium Level 2.6 MG/DL Assessment and Plan Problem List: (1) Atrial tachycardia (2) Tachyarrhythmia (3) Acute respiratory failure (4) Acute respiratory acidosis (5) Shortness of breath (6) Diabetic neuropathy, type II diabetes mellitus (7) Renal insufficiency (8) Elevated troponin (9) NSTEMI (non-ST elevated myocardial infarction) Assessment and Plan 1.) Copd/pneumonia - patient clinically improving on antibiotics 2.) Arrythmia - stable 3.) Diastolic chf - appears euvolemic on current meds, ([id number]) Problem Qualifiers (1) Acute respiratory failure: Qualified Code: J96.00 - Acute respiratory failure, unspecified whether with hypoxia or hypercapnia (2) Diabetic neuropathy, type II diabetes mellitus: Qualified Code: E11.40 - Type 2 diabetes mellitus with diabetic neuropathy, 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
--- NOTE | 2016-10-22 18:18 | HHI.PR ---
Subjective Remarks 71 YOWm with hypercapnoic RF,RADHA, obesity On High flow 02 50% Breathing betetr Mild sob No CP No cough or sp at BS. Objective Vital Signs Vital Signs Date Time Temp Pulse Resp B/P Pulse Ox O2 Delivery O2 Flow Rate FiO2 10/22/16 16:00 106 10/22/16 16:00 106 33 155/71 92 10/22/16 15:00 106 34 155/72 91 10/22/16 15:00 106 10/22/16 14:01 108 10/22/16 14:01 108 32 156/84 90 10/22/16 14:00 109 35 90 10/22/16 14:00 109 10/22/16 14:00 109 10/22/16 13:01 112 10/22/16 13:01 112 10/22/16 13:01 112 39 126/77 89 10/22/16 12:09 114 10/22/16 12:09 114 38 158/72 91 10/22/16 12:09 114 10/22/16 12:00 103 39 193/129 96 10/22/16 12:00 103 10/22/16 12:00 98.9 10/22/16 12:00 103 10/22/16 11:00 99 10/22/16 11:00 99 10/22/16 11:00 99 27 178/83 93 10/22/16 10:31 100 29 190/90 92 10/22/16 10:31 100 10/22/16 10:31 100 10/22/16 10:00 76 10/22/16 10:00 76 36 182/85 94 10/22/16 10:00 76 10/22/16 09:05 96 High Flow Nasal Cannula 20.00 24 10/22/16 08:00 67 10/22/16 08:00 67 10/22/16 08:00 97.6 10/22/16 08:00 67 30 151/65 94 10/22/16 07:00 92 Knifer Up 20.00 55 10/22/16 06:00 64 10/22/16 04:00 98 10/22/16 04:00 98.7 98 29 143/75 93 10/22/16 02:00 63 10/22/16 00:00 98.5 60 5 151/65 95 10/22/16 00:00 60 10/21/16 22:00 103 10/21/16 20:00 97.5 100 32 148/80 92 10/21/16 20:00 103 10/21/16 19:23 92 High Flow Nasal Cannula 20.00 55 10/21/16 19:00 Knifer Up 55 I/O 10/21/16 10/21/16 10/21/16 10/22/16 10/22/16 10/22/16 07:00 15:00 23:00 07:00 15:00 23:00 Intake Total 1170 ml 950 ml 340 ml 150 ml 1271 ml Output Total 900 ml 650 ml 850 ml 1000 ml 1000 ml Balance 270 ml 300 ml -510 ml -850 ml 271 ml Intake Oral 520 ml 420 ml 240 ml 150 ml 750 ml IV Total 650 ml 530 ml 100 ml 521 ml Output Urine Total 900 ml 650 ml 850 ml 1000 ml 1000 ml # Bowel Movements 0 2 2 Result Diagram: 10/22/1652010/22/16520 Objective Remarks GENERAL: obese Wm mild sob SKIN: Warm and dry. HEAD: Normocephalic. EYES: No scleral icterus. No injection or drainage. NECK: Supple, trachea midline. No JVD or lymphadenopathy. CARDIOVASCULAR: Regular rate and rhythm without murmurs, gallops, or rubs. RESPIRATORY: Breath sounds equal bilaterally. No accessory muscle use. GASTROINTESTINAL: Abdomen soft, non-tender, nondistended. MUSCULOSKELETAL: No cyanosis, or edema. BACK: Nontender without obvious deformity. No CVA tenderness. A/P Assessment and Plan Hypercapnoic RF RADHA Obesity-Hypoventlation synd DM HTN PLAN: High flow 02 to keep sat 88-92% IV Solumedrol 40 mg q 12 hrs Cont Abx Cefepime and Zithro Aerosol nebs Dw at BS. Scotty Bah MD Oct 22, 2016 18:18
[2016-10-23] VITALS (20 sets, daily range): BP systolic 130–160; BP diastolic 61–90; PULSE 60–118; RESP 17–37; TEMP 97.8–99.4; O2SAT 90–96
[2016-10-23] MEDS: DILTIAZEM HCL 30 MG TAB PO SCH ×4 (00:31→18:15)
[2016-10-23] MEDS: RESP: ALBUTEROL 2.5 MG/IPRATROPIUM 0.5 MG NEB (SCH) INH ×6 (03:22→23:34)
--- NOTE | 2016-10-23 04:12 | RADRPT ---
EXAM DATE/TIME: 10/23/2016 02:57 [facility] COMPARISON: CHEST SINGLE AP, October 20, 2016, 4:40. INDICATIONS : Shortness of breath, possible pulmonary disease. MEDICAL HISTORY : Diabetes mellitus type II. Hypertension Chronic kidney disease SURGICAL HISTORY : None. ENCOUNTER: Subsequent ACUITY: 4 - 6 days PAIN SCORE: Non-responsive. LOCATION: Bilateral chest FINDINGS: A single view of the chest demonstrates left basilar density. Right lung clear. Cardiomegaly. Osseou s structures are intact. CONCLUSION: Left basilar density. Santiago Wisdom MD on October 23, 2016 at 4:10 Board Certified Radiologist. This report was verified electronically.
[2016-10-23] MEDS: INSULIN NovoLIN REGULAR SUPPLEMENTAL SCALE SQ SCH ×5 (06:25→20:47)
[2016-10-23] MEDS: methylPREDNISolone SOD SUCC 40 MG/1 ML VIAL IV PUSH SCH ×2 (06:25→18:15)
[2016-10-23] MEDS: CEFEPIME INJ 2,000 MG in SODIUM CHLORIDE 0.9% INJ 100 ML IV SCH ×2 (06:25→14:54)
[2016-10-23] MEDS: PANTOPRAZOLE SODIUM 40 MG VIAL IV SCH (08:45)
[2016-10-23] MEDS: ENOXAPARIN SODIUM 40 MG/0.4 ML SYRINGE SQ SCH (08:45)
[2016-10-23] MEDS: ARTIFICIAL TEARS OPTH SOLN 15 ML BTL EACH EYE SCH ×3 (08:45→18:15)
[2016-10-23] MEDS: ASPIRIN 325 MG TAB PO SCH (08:46)
[2016-10-23] MEDS: GABAPENTIN 300 MG CAP PO SCH (08:46)
[2016-10-23] MEDS: SODIUM CHLORIDE 0.9% FLUSH 10 ML FLUSH IV FLUSH SCH ×2 (08:46→20:45)
[2016-10-23] MEDS: INSULIN DETEMIR 100 UNITS/ML VIAL SQ SCH ×2 (08:47→20:46)
[2016-10-23] MEDS: DOCUSATE SODIUM 50 MG/SENNA 8.6 MG TAB PO SCH ×2 (09:00→20:45)
--- NOTE | 2016-10-23 09:50 | PD.CARD.PN ---
Subjective Subjective Remarks alert in nad Objective Vital Signs / I&O Vital Signs Date Time Temp Pulse Resp B/P Pulse Ox O2 Delivery O2 Flow Rate FiO2 10/23/16 07:50 93 High Flow Nasal Cannula 20.00 40 10/23/16 07:00 92 Blow Off Worker 20.00 45 10/23/16 06:00 66 10/23/16 04:00 97.9 88 20 158/72 93 10/23/16 04:00 94 10/23/16 00:00 97.8 94 20 160/69 93 10/23/16 00:00 94 10/22/16 22:00 104 10/22/16 20:00 107 10/22/16 20:00 97.8 107 22 142/64 93 10/22/16 19:39 94 High Flow Nasal Cannula 20.00 43 10/22/16 19:00 93 Blow Off Worker 20.00 55 10/22/16 18:00 106 10/22/16 17:00 107 10/22/16 16:00 106 10/22/16 16:00 106 10/22/16 16:00 106 33 155/71 92 10/22/16 15:00 106 10/22/16 15:00 106 34 155/72 91 10/22/16 15:00 106 10/22/16 14:01 108 10/22/16 14:01 108 32 156/84 90 10/22/16 14:01 108 10/22/16 14:00 109 35 90 10/22/16 14:00 109 10/22/16 14:00 109 10/22/16 14:00 109 10/22/16 13:01 112 10/22/16 13:01 112 10/22/16 13:01 112 39 126/77 89 10/22/16 13:01 112 10/22/16 12:09 114 10/22/16 12:09 114 10/22/16 12:09 114 38 158/72 91 10/22/16 12:09 114 10/22/16 12:00 103 39 193/129 96 10/22/16 12:00 103 10/22/16 12:00 98.9 10/22/16 12:00 103 10/22/16 12:00 103 10/22/16 11:00 99 10/22/16 11:00 99 10/22/16 11:00 99 27 178/83 93 10/22/16 11:00 99 10/22/16 10:31 100 29 190/90 92 10/22/16 10:31 100 10/22/16 10:31 100 10/22/16 10:31 100 10/22/16 10:00 76 10/22/16 10:00 76 36 182/85 94 10/22/16 10:00 76 10/22/16 10:00 76 I/O 10/22/16 10/22/16 10/22/16 10/23/16 10/23/16 10/23/16 07:00 15:00 23:00 07:00 15:00 23:00 Intake Total 150 ml 1271 ml 825 ml 600 ml Output Total 1000 ml 1000 ml 1500 ml 1400 ml Balance -850 ml 271 ml -675 ml -800 ml Intake Oral 150 ml 750 ml 600 ml 480 ml IV Total 521 ml 225 ml 120 ml Output Urine Total 1000 ml 1000 ml 1500 ml 1400 ml # Bowel Movements 2 0 1 Physical Exam GENERAL: SKIN: Warm and dry. HEAD: Normocephalic. EYES: No scleral icterus. No injection or drainage. NECK: Supple, trachea midline. No JVD or lymphadenopathy. CARDIOVASCULAR: Regular rate and rhythm without murmurs, gallops, or rubs. RESPIRATORY: Breath sounds equal bilaterally. No accessory muscle use. GASTROINTESTINAL: Abdomen soft, non-tender, nondistended. MUSCULOSKELETAL: No cyanosis, or edema. BACK: Nontender without obvious deformity. No CVA tenderness. Assessment and Plan Problem List: (1) Atrial tachycardia (2) Tachyarrhythmia (3) Acute respiratory failure (4) Acute respiratory acidosis (5) Shortness of breath (6) Diabetic neuropathy, type II diabetes mellitus (7) Renal insufficiency (8) Elevated troponin (9) NSTEMI (non-ST elevated myocardial infarction) Assessment and Plan 1.) Copd/pneumonia - patient clinically improving on antibiotics 2.) Arrythmia - stable 3.) Diastolic chf - appears euvolemic on current meds, ([id number]) Problem Qualifiers (1) Acute respiratory failure: Qualified Code: J96.00 - Acute respiratory failure, unspecified whether with hypoxia or hypercapnia (2) Diabetic neuropathy, type II diabetes mellitus: Qualified Code: E11.40 - Type 2 diabetes mellitus with diabetic neuropathy, unspecified termite renewal inspector insulin use status Marcos Omer MD Oct 23, 2016 09:50
--- NOTE | 2016-10-23 09:52 | PD.TRANSFR ---
Transfer Summary Admission Date Oct 18, 2016 at 10:42 Admitting Diagnosis Dyspnea, PNA, Elevated Tn, Hypercapnea Diagnoses: (1) Acute respiratory acidosis Diagnosis: Principal (2) Acute respiratory failure Diagnosis: Principal (3) COPD exacerbation Diagnosis: Principal (4) Sepsis Diagnosis: Principal (5) Pneumonia Diagnosis: Principal (6) Hyperkalemia Diagnosis: Principal (7) Hyperglycemia Diagnosis: Principal (8) Elevated troponin Diagnosis: Principal (9) Leukocytosis Diagnosis: Principal (10) Obesity Diagnosis: Secondary (11) Shortness of breath Diagnosis: Secondary (12) Diabetes mellitus type 2 in obese Diagnosis: Secondary (13) Hard of hearing Diagnosis: Secondary (14) RADHA (obstructive sleep apnea) Diagnosis: Secondary (15) Neuropathy Diagnosis: Secondary (16) Renal insufficiency Diagnosis: Secondary (17) Diabetic neuropathy, type II diabetes mellitus Diagnosis: Secondary (18) Diabetes mellitus type 2, uncontrolled Diagnosis: Secondary (19) Weakness Diagnosis: Secondary (20) Dyslipidemia Diagnosis: Secondary (21) Right bundle branch block (RBBB) on electrocardiogram (ECG) Diagnosis: Secondary (22) First degree atrioventricular block by electrocardiogram Diagnosis: Secondary Transfer Summary/Subjective This is a 71-year-old male. Date of admission 10/18/2016. with past medical history morbid obesity weight of 146 kg, 2 L oxygen dependent possible secondary to pickwickian/RADHA, COPD, history of TIA 2013, diabetes with peripheral neuropathy and nephropathy, hypertension, hard of hearing. Patient also has history of arrhythmia with history of a 7.3 second sinus pause on outpatient Holter monitoring. Patient negative EPS study 11/[address] Cochran. Patient had a normal cardiac catheterization by Dr. Omer 11/02 including no coronary disease/right dominant. Ejection fraction 60%. Some diastolic dysfunction with elevated left diastolic ventricular pressures 150/22. Echocardiogram earlier this years 09/03 revealed EF 55%. Trace TR. Normal systolic function. Patient presents to [place] 10/18/16 after a 2-3 history of malaise, increasing shortness of breath. Patient increased oxygen from 2-3 L in the interim. Patient was able to get off the toilet and was short of breath. Patient noted a saturation of 82% by EMS. Was transported on nonrebreather mask to [facility]. Initial chest x-ray revealed left lower lobe infiltrate versus effusion. CT of the chest revealed basilar atelectasis versus consolidation with a small left pleural effusion. No pulmonary embolism. Patient was placed on BiPAP. / at 50%. PCO2 is still elevated at 70. ABG revealed an acute on chronic respiratory acidosis. Started on Rocephin and Zithromax in the ED. EKG revealed right bundle branch block which is chronic, first-degree AV block and left anterior fascicular block. Troponin 0.09. Dr. Gibbs was contacted. Recommended one dose Lovenox and repeat troponins and EKGs. Dr. Gibbs has been consulted. Patient denies any chest pain. Subjective 10/19: Resting comfortably in bed on high flow nasal cannula. 50%/30 L. Appears comfortable. Denies chest pain or shortness of breath. Finn catheter was placed 10/20 Patient is on high flow oxygen with 40% FIO2. Afebrile 10/21 No events overnight. Patient is on high flow oxygen 25L with 50% FIO2. Afebrile. 10/22: Remains on high flow nasal cannula 55% oxygen. Subjectively showing some improvement. Add EzPAP and acapella 10/23: Remains on high flow/40%, He feels hios SOB slowly improving. Chest x-ray shows persistent left lower lobe infiltrate Objective Vital Signs Date Time Temp Pulse Resp B/P Pulse Ox O2 Delivery O2 Flow Rate FiO2 10/23/16 09:00 101 34 130/61 90 10/23/16 08:00 98.0 10/23/16 07:50 High Flow Nasal Cannula 20.00 40 Intake and Output 10/22/16 10/22/16 10/23/16 08:00 16:00 00:00 Intake Total 150 ml 1271 ml 825 ml Output Total 1000 ml 1000 ml 1500 ml Balance -850 ml 271 ml -675 ml Result Diagram: 10/22/16 0521 10/22/16 0521 Other Results Microbiology Date/Time Procedure Status Source Growth 10/20/16 14:00 Influenza Types A,B Antigen (KATE) - Final Complete Nasal Aspirate NEGATIVE FOR FLU A AND B ANTIGEN.... 10/20/16 14:00 Urine Culture - Final Complete Urine Clean Catch NO GROWTH IN 48 HOURS. Imaging Last Impressions Chest X-Ray 10/20/16 0600 Signed Impressions: Service Date/Time: Thursday, October 20, 2016 04:40 - CONCLUSION: 1. Left basilar consolidation. 2. Cardiomegaly. Santiago Wisdom MD CT Angiography 10/18/16 1108 Signed Impressions: Service Date/Time: Thursday, October 18, 2016 11:40 - CONCLUSION: 1. No evidence for pulmonary embolism. 2. Small left effusion, basilar consolidation and atelectasis noted. Kelvin Woodard MD Objective Remarks GENERAL: 71-year-old male, morbidly obese currently resting in bed on high flow oxygen SKIN: Warm and dry. Chronic venous stasis bilateral lower x-rays. Onychomycosis to toenails. Left fourth finger with clubbing without overt infection HEAD: Atraumatic. Normocephalic. EYES: Pupils equal and round around 3 mm bilaterally and reactive. No scleral icterus. No injection or drainage. ENT: No nasal bleeding or discharge. Mucous membranes pink and moist. NECK: Trachea midline. No obvious JVD. Obese. CARDIOVASCULAR: Diminished due to body habitus. Regular rate and rhythm. S1, S2. No S4. Without murmur, clicks, or rubs RESPIRATORY: No accessory muscle use. Diminished breath sounds throughout due to body habitus. No wheezing appreciated. GASTROINTESTINAL: Abdomen soft, obese and protuberant. Hypoactive bowel sounds are appreciated. MUSCULOSKELETAL: Extremities without significant peripheral edema. NEUROLOGICAL: Awake and alert. No obvious cranial nerve deficits. Motor grossly normal. Five out of 5 muscle strength in the arms and legs. A/P Assessment and Plan Neuro/Psych: Acute metabolic encephalopathy likely secondary to CO2 retention - improved Hard of hearing Acetaminophen for fever Secor/morphine for pain management Neurontin 300 mg by mouth daily for neuropathy. CV: Elevated troponin (Mild) History of tachybradycardia syndrome History of hypertension History of sinus pause Right bundle-branch block/chronic First-degree AV block Dyslipidemia EKG admission revealed a first degree AV block, chronic right bundle branch block with left ventricular fascicular block with possible ischemic changes in the lateral leads. Troponin 0.09. Dr. Gibbs/cardiology consult. Recommended one dose Lovenox with serial troponin/EKGs. 11/02 - Dr. Omer cardiac catheterization - no significant coronary disease/ right dominant. EF 60%. Diastolic dysfunction. 11/02 - Dr. Cochran EPS study - negative for inducible arrhythmia 08/04 - echocardiogram - EF 55%. Trace TR. Normal systolic function. Monitor HR and BP keep MAP>65mmHg Continue aspirin 325 mg by mouth daily. Cardizem 30 mg every 6 hours. Resp: Acute on chronic respiratory failure - 2 L oxygen dependent likely pickwickian Possible community-acquired pneumonia Probable COPD ABG revealed acute on chronic respiratory acidosis CTA chest revealed no pulmonary embolism. Small left pleural effusion. Bibasilar consolidation/atelectasis Wean down oxygen as willa keep sat > 89-90% Bronchodilators with DuoNeb's every 4 hours with albuterol every 2 hours when necessary dyspnea Solu-Medrol 40 mg IV Q12, IS, pulm is following-Dr. Bah Continue Symbicort, Continue ezpap, acapella, IS. GI: ADA dietheart healthy diet initiated Protonix for GI prophylaxis Ellen-Colace for bowel regimen Endo: Diabetes mellitus with neuropathy and nephropathy Sliding scale insulin Accu-Cheks every 4 hours to maintain euglycemia/high regimen Levemir 10 units twice a day Renal: Acute on chronic kidney injury Monitor renal function, I/O's, avoid nephrotoxins. Renal function is improving Heme: Normocytic anemia Monitor CBC daily. Follow trends ID: Possible community acquired pneumonia Continue with abx(Cefepime/Zithromax)monitor for signs of infections ( Fever, WBC) Nasal washing negative for Influenza on 10/20 Follow up on BC from 10/18: Micrococcus /4 bottles. ? Contaminant patient received Davis x1 dose Repeat BC 10/20: NGTD MSK: PT evaluate and treat, OOB Access - Utilize peripheral IV. Prophylaxis - GI - Protonix - DVT - SCD/Lovenox subQ Level II Consult hospitalist to assume care in Shantanu Mims MD Oct 23, 2016 09:52
[2016-10-23] MEDS: AZITHROMYCIN INJ 500 MG in SODIUM CHLOR 0.9% 250 ML INJ 250 ML IV SCH (10:48)
--- NOTE | 2016-10-23 14:55 | HHI.PR ---
Subjective Interval History Alert, verbal, complaining of general weakness but denies pain, no resting dyspnea, still has some cough, no fever Review of Systems Constitutional Constitutional Remarks As above, 10 systems reviewed otherwise negative Vitals/Results Intake & Output 10/22/16 10/22/16 10/23/16 15:00 23:00 07:00 Intake Total 1271 ml 825 ml 600 ml Output Total 1000 ml 1500 ml 1400 ml Balance 271 ml -675 ml -800 ml Intake Oral 750 ml 600 ml 480 ml IV Total 521 ml 225 ml 120 ml Output Urine Total 1000 ml 1500 ml 1400 ml # Bowel Movements 2 0 1 Vital Signs Vital Signs Date Time Temp Pulse Resp B/P Pulse Ox O2 Delivery O2 Flow Rate FiO2 10/23/16 12:00 118 10/23/16 12:00 99.4 118 37 142/71 95 10/23/16 11:06 93 Nasal Cannula 3.00 10/23/16 11:00 70 17 144/65 95 10/23/16 11:00 94 Nasal Cannula 3.00 10/23/16 10:11 95 Venturi Mask 50 10/23/16 10:00 112 25 143/66 93 10/23/16 10:00 112 10/23/16 09:30 95 Venturi Mask 50 10/23/16 09:00 101 34 130/61 90 10/23/16 08:00 98.0 91 31 145/65 95 10/23/16 08:00 91 10/23/16 07:50 93 High Flow Nasal Cannula 20.00 40 10/23/16 07:00 92 Wig Comber 20.00 45 10/23/16 07:00 60 21 140/67 93 10/23/16 06:00 66 10/23/16 04:00 97.9 88 20 158/72 93 10/23/16 04:00 94 10/23/16 00:00 97.8 94 20 160/69 93 10/23/16 00:00 94 10/22/16 22:00 104 10/22/16 20:00 107 10/22/16 20:00 97.8 107 22 142/64 93 10/22/16 19:39 94 High Flow Nasal Cannula 20.00 43 10/22/16 19:00 93 Wig Comber 20.00 55 10/22/16 18:00 106 10/22/16 17:00 107 10/22/16 16:00 106 10/22/16 16:00 106 10/22/16 16:00 106 33 155/71 92 10/22/16 15:00 106 10/22/16 15:00 106 34 155/72 91 10/22/16 15:00 106 CBC/BMP: 10/22/16 0521 10/22/16 0521 Physical Exam General General Appearance: Comfortable, Obese Eyes Eye Exam: Pupils Reactive Ears & Nose Ears & Nose Exam: Nasal Mucosa [place] Throat Throat Exam: Oral Mucosa [place] & Moist Neck Neck Exam: Trachea Midline Pulmonary Resp Exam: Breath Sounds Equal, Crackles Cardiology CV Exam: Irregular, Tachycardia Gastrointestinal/Abdomen GI Exam: Soft, Non-Tender, Bowel Sounds Present, Positive Bowel Movement Musculoskeletal MS Exam: Normal Tone Integumentary Skin Exam: Warm, Dry Neurologic Neuro Exam: Awake, Oriented, Speech Clear, Moving All Extremities Psychiatric Psych Exam: Appropriate Responses VTE Prophylaxis VTE Prophylaxis Meds: Lovenox Assessment/Plan Problem List: (1) Acute respiratory acidosis (2) Acute respiratory failure (3) COPD exacerbation (4) Sepsis (5) Pneumonia (6) Hyperkalemia (7) Hyperglycemia (8) Elevated troponin (9) Leukocytosis (10) Obesity (11) Shortness of breath (12) Diabetes mellitus type 2 in obese (13) Hard of hearing (14) RADHA (obstructive sleep apnea) (15) Neuropathy (16) Renal insufficiency (17) Diabetic neuropathy, type II diabetes mellitus (18) Diabetes mellitus type 2, uncontrolled (19) Weakness (20) Dyslipidemia (21) Right bundle branch block (RBBB) on electrocardiogram (ECG) (22) First degree atrioventricular block by electrocardiogram Assessment/Plan Assessment Respiratory failure on admission, improved CO2 retention Obstructive sleep apnea ObesityHypoventilation syndrome Acute on chronic Diastolic heart failure Morbid obesity Diabetes mellitus Hypertension Atrial tachycardia Chronic kidney disease PLAN: Supplemental oxygen IV Solumedrol 40 mg q 12 hrs Continue antibiotics, Cefepime and Zithro Bronchodilators Sinus scale insulin Physical therapy evaluation Follow electrolyte levels and replace as needed Follow renal function Discussed with patient Discussed with nurse Acute for this consultation, we will be glad to take over service Celia Dickey MD Oct 23, 2016 14:55
--- NOTE | 2016-10-23 18:54 | HHI.PR ---
Subjective Remarks 71 YOWm with hypercapnoic RF,RADHA, obesity Breathing better Mild sob No CP No cough or sp Weaned to NC Objective Vital Signs Vital Signs Date Time Temp Pulse Resp B/P Pulse Ox O2 Delivery O2 Flow Rate FiO2 10/23/16 18:00 107 10/23/16 16:00 98.5 104 31 142/66 96 10/23/16 16:00 104 10/23/16 15:00 107 30 151/73 93 10/23/16 14:00 107 33 147/73 94 10/23/16 14:00 107 10/23/16 14:00 93 Nasal Cannula 2.00 10/23/16 13:00 109 26 141/67 93 10/23/16 12:00 118 10/23/16 12:00 99.4 118 37 142/71 95 10/23/16 11:06 93 Nasal Cannula 3.00 10/23/16 11:00 70 17 144/65 95 10/23/16 11:00 94 Nasal Cannula 3.00 10/23/16 10:11 95 Venturi Mask 50 10/23/16 10:00 112 25 143/66 93 10/23/16 10:00 112 10/23/16 09:30 95 Venturi Mask 50 10/23/16 09:00 101 34 130/61 90 10/23/16 08:00 98.0 91 31 145/65 95 10/23/16 08:00 91 10/23/16 07:50 93 High Flow Nasal Cannula 20.00 40 10/23/16 07:00 92 Rubber Stamp Maker 20.00 45 10/23/16 07:00 60 21 140/67 93 10/23/16 06:00 66 10/23/16 04:00 97.9 88 20 158/72 93 10/23/16 04:00 94 10/23/16 00:00 97.8 94 20 160/69 93 10/23/16 00:00 94 10/22/16 22:00 104 10/22/16 20:00 107 10/22/16 20:00 97.8 107 22 142/64 93 10/22/16 19:39 94 High Flow Nasal Cannula 20.00 43 10/22/16 19:00 93 Rubber Stamp Maker 20.00 55 I/O 10/22/16 10/22/16 10/22/16 10/23/16 10/23/16 7/6/17 07:00 15:00 23:00 07:00 15:00 23:00 Intake Total 150 ml 1271 ml 825 ml 600 ml 1024 ml Output Total 1000 ml 1000 ml 1500 ml 1400 ml 1900 ml Balance -850 ml 271 ml -675 ml -800 ml -876 ml Intake Oral 150 ml 750 ml 600 ml 480 ml 666 ml IV Total 521 ml 225 ml 120 ml 358 ml Output Urine Total 1000 ml 1000 ml 1500 ml 1400 ml 1900 ml # Bowel Movements 2 0 1 3 Result Diagram: 10/22/1652010/22/16520 Objective Remarks GENERAL: obese Wm mild sob SKIN: Warm and dry. HEAD: Normocephalic. EYES: No scleral icterus. No injection or drainage. NECK: Supple, trachea midline. No JVD or lymphadenopathy. CARDIOVASCULAR: Regular rate and rhythm without murmurs, gallops, or rubs. RESPIRATORY: Breath sounds equal bilaterally. No accessory muscle use. GASTROINTESTINAL: Abdomen soft, non-tender, nondistended. MUSCULOSKELETAL: No cyanosis, or edema. BACK: Nontender without obvious deformity. No CVA tenderness. A/P Assessment and Plan Hypercapnoic RF RADHA Obesity-Hypoventlation synd DM HTN PLAN: IV Solumedrol 40 mg q 12 hrs Cont Abx Cefepime and Zithro Aerosol nebs Dw at BS. Supplement 02 to keep sat >90% Scotty Bah MD Oct 23, 2016 18:54
[2016-10-24] VITALS (15 sets, daily range): BP systolic 116–160; BP diastolic 57–71; PULSE 61–108; RESP 19–26; TEMP 97.7–98.8; O2SAT 91–97
[2016-10-24] MEDS: DILTIAZEM HCL 30 MG TAB PO SCH ×5 (00:25→23:44)
[2016-10-24] MEDS: CEFEPIME INJ 2,000 MG in SODIUM CHLORIDE 0.9% INJ 100 ML IV SCH ×4 (00:25→21:35)
[2016-10-24] MEDS: RESP: ALBUTEROL 2.5 MG/IPRATROPIUM 0.5 MG NEB (SCH) INH ×6 (03:37→23:25)
[2016-10-24] MEDS: CHLORHEXIDINE GLUCONATE 2 % 1 PACK (2 CLOTHS) TOP SCH (04:00)
[2016-10-24] MEDS: methylPREDNISolone SOD SUCC 40 MG/1 ML VIAL IV PUSH SCH ×2 (06:26→17:43)
[2016-10-24] MEDS: INSULIN NovoLIN REGULAR SUPPLEMENTAL SCALE SQ SCH ×4 (06:34→21:00)
[2016-10-24 07:07] LABS: AUTOMATED NEUTROPHIL # 11.2 TH/MM3 (1.8-7.7); BASOPHIL % 0.1 % (0.0-2.0); HEMATOCRIT 41.5 % (39.0-51.0); HEMO FLAGS DIFF FINAL; LYMPH % 5.2 % (9.0-44.0); LYMPHOCYTE # 0.7 TH/MM3 (1.0-4.8); MEAN CELL VOLUME 93.2 FL (80.0-100.0); MEAN CORPUSCULAR HEMOGLOBIN 29.3 PG (27.0-34.0); MEAN CORPUSCULAR HGB CONC 31.4 % (32.0-36.0); NEUT % 85.7 % (16.0-70.0); PLATELET COUNT 180 TH/MM3 (150-450); RED BLOOD COUNT 4.45 MIL/MM3 (4.50-5.90); RED CELL DISTRIBUTION WIDTH 15.4 % (11.6-17.2); WHITE BLOOD COUNT 13.1 TH/MM3 (4.0-11.0)
[2016-10-24 07:10] LABS: ANION GAP 2 MEQ/L (5-15); AST (GOT) 17 U/L (15-37); BICARBONATE 35.9 MEQ/L (21.0-32.0); BLOOD UREA NITROGEN 37 MG/DL (7-18); CHLORIDE 98 MEQ/L (98-107); GLOMERULAR FILTRATION RATE 67 ML/MIN (>89); POTASSIUM 4.8 MEQ/L (3.5-5.1); SODIUM (NA) 136 MEQ/L (136-145)
[2016-10-24 07:11] LABS: ALT (GPT) 42 U/L (12-78)
[2016-10-24 07:14] LABS: ALKALINE PHOSPHATASE 39 U/L (45-117); TOTAL BILIRUBIN ADULT 0.4 MG/DL (0.2-1.0)
[2016-10-24] MEDS: ASPIRIN 325 MG TAB PO SCH (08:42)
[2016-10-24] MEDS: DOCUSATE SODIUM 50 MG/SENNA 8.6 MG TAB PO SCH ×2 (08:42→21:35)
[2016-10-24] MEDS: ENOXAPARIN SODIUM 40 MG/0.4 ML SYRINGE SQ SCH (08:42)
[2016-10-24] MEDS: GABAPENTIN 300 MG CAP PO SCH (08:42)
[2016-10-24] MEDS: SODIUM CHLORIDE 0.9% FLUSH 10 ML FLUSH IV FLUSH SCH ×2 (08:43→21:00)
[2016-10-24] MEDS: PANTOPRAZOLE SODIUM 40 MG VIAL IV SCH (08:43)
[2016-10-24] MEDS: ARTIFICIAL TEARS OPTH SOLN 15 ML BTL EACH EYE SCH ×3 (08:43→17:44)
[2016-10-24] MEDS: INSULIN DETEMIR 100 UNITS/ML VIAL SQ SCH ×2 (08:44→21:00)
[2016-10-24] MEDS: AZITHROMYCIN INJ 500 MG in SODIUM CHLOR 0.9% 250 ML INJ 250 ML IV SCH (11:01)
--- NOTE | 2016-10-24 16:00 | PD.CARD.PN ---
Subjective Subjective Remarks alert in nad Objective Vital Signs / I&O Vital Signs Date Time Temp Pulse Resp B/P Pulse Ox O2 Delivery O2 Flow Rate FiO2 10/24/16 14:00 104 10/24/16 12:00 104 10/24/16 12:00 98.8 104 20 155/57 97 10/24/16 10:00 108 10/24/16 08:00 96 10/24/16 08:00 98.5 96 20 160/71 96 10/24/16 07:38 94 Nasal Cannula 2.00 10/24/16 07:15 97 Nasal Cannula 2.00 10/24/16 06:00 61 10/24/16 04:00 98.6 88 22 121/60 91 10/24/16 04:00 88 10/24/16 02:00 85 10/24/16 00:00 98.7 96 22 118/58 95 10/24/16 00:00 96 10/23/16 22:00 108 10/23/16 20:00 98.6 108 26 143/90 91 10/23/16 20:00 108 10/23/16 19:31 95 Nasal Cannula 2.00 10/23/16 19:00 95 Nasal Cannula 2.00 10/23/16 18:00 107 10/23/16 16:00 98.5 104 31 142/66 96 10/23/16 16:00 104 I/O 10/23/16 10/23/16 10/23/16 10/24/16 10/24/16 10/24/16 07:00 15:00 23:00 07:00 15:00 23:00 Intake Total 600 ml 1024 ml 399 ml 199 ml 1185 ml Output Total 1400 ml 1900 ml 1100 ml 1000 ml 1850 ml Balance -800 ml -876 ml -701 ml -801 ml -665 ml Intake Oral 480 ml 666 ml 300 ml 100 ml 720 ml IV Total 120 ml 358 ml 99 ml 99 ml 465 ml Output Urine Total 1400 ml 1900 ml 1100 ml 1000 ml 1850 ml # Bowel Movements 1 3 0 0 1 Physical Exam GENERAL: SKIN: Warm and dry. HEAD: Normocephalic. EYES: No scleral icterus. No injection or drainage. NECK: Supple, trachea midline. No JVD or lymphadenopathy. CARDIOVASCULAR: Regular rate and rhythm without murmurs, gallops, or rubs. RESPIRATORY: Breath sounds equal bilaterally. No accessory muscle use. GASTROINTESTINAL: Abdomen soft, non-tender, nondistended. MUSCULOSKELETAL: No cyanosis, or edema. BACK: Nontender without obvious deformity. No CVA tenderness. Laboratory Laboratory Tests Test 10/24/16 06:25 White Blood Count 13.1 TH/MM3 Red Blood Count 4.45 MIL/MM3 Hemoglobin 13.0 GM/DL Hematocrit 41.5 % Mean Corpuscular Volume 93.2 FL Mean Corpuscular Hemoglobin 29.3 PG Mean Corpuscular Hemoglobin 31.4 % Concent Red Cell Distribution Width 15.4 % Platelet Count 180 TH/MM3 Mean Platelet Volume 10.6 FL Neutrophils (%) (Auto) 85.7 % Lymphocytes (%) (Auto) 5.2 % Monocytes (%) (Auto) 9.0 % Eosinophils (%) (Auto) 0.0 % Basophils (%) (Auto) 0.1 % Neutrophils # (Auto) 11.2 TH/MM3 Lymphocytes # (Auto) 0.7 TH/MM3 Monocytes # (Auto) 1.2 TH/MM3 Eosinophils # (Auto) 0.0 TH/MM3 Basophils # (Auto) 0.0 TH/MM3 CBC Comment DIFF FINAL Differential Comment Sodium Level 136 MEQ/L Potassium Level 4.8 MEQ/L Chloride Level 98 MEQ/L Carbon Dioxide Level 35.9 MEQ/L Anion Gap 2 MEQ/L Blood Urea Nitrogen 37 MG/DL Creatinine 1.09 MG/DL Estimat Glomerular Filtration 67 ML/MIN Rate Random Glucose 172 MG/DL Calcium Level 8.3 MG/DL Total Bilirubin 0.4 MG/DL Aspartate Amino Transf 17 U/L (AST/SGOT) Alanine Aminotransferase 42 U/L (ALT/SGPT) Alkaline Phosphatase 39 U/L Total Protein 6.1 GM/DL Albumin 2.9 GM/DL Assessment and Plan Problem List: (1) Atrial tachycardia (2) Tachyarrhythmia (3) Acute respiratory failure (4) Acute respiratory acidosis (5) Shortness of breath (6) Diabetic neuropathy, type II diabetes mellitus (7) Renal insufficiency (8) Elevated troponin (9) NSTEMI (non-ST elevated myocardial infarction) Assessment and Plan 1.) Copd/pneumonia - patient clinically improving on antibiotics 2.) Arrythmia - in svt@105, assymptomatic, continue tele; rx conservatively given h/o tachy-bradycardy; expect to improve if/when oxygenation improves 3.) Diastolic chf - appears euvolemic on current meds, ([id number]) Marcos Omer MD Oct 24, 2016 15:59
--- NOTE | 2016-10-24 16:26 | HHI.PR ---
Subjective Interval History Alert, verbal, still complaining of general weakness, was able to sit on the side of the bed today, breathing reasonably controlled, no pain, borderline tachycardic Review of Systems Constitutional Constitutional Remarks As above, 10 systems reviewed otherwise negative Vitals/Results Intake & Output 10/23/16 10/23/16 10/24/16 14:59 22:59 06:59 Intake Total 1024 ml 399 ml 199 ml Output Total 1900 ml 1100 ml 1000 ml Balance -876 ml -701 ml -801 ml Intake Oral 666 ml 300 ml 100 ml IV Total 358 ml 99 ml 99 ml Output Urine Total 1900 ml 1100 ml 1000 ml # Bowel Movements 3 0 0 Vital Signs Vital Signs Date Time Temp Pulse Resp B/P Pulse Ox O2 Delivery O2 Flow Rate FiO2 10/24/16 16:00 107 10/24/16 16:00 98.3 97 19 116/69 94 10/24/16 14:00 104 10/24/16 12:00 104 10/24/16 12:00 98.8 104 20 155/57 97 10/24/16 10:00 108 10/24/16 08:00 96 10/24/16 08:00 98.5 96 20 160/71 96 10/24/16 07:38 94 Nasal Cannula 2.00 10/24/16 07:15 97 Nasal Cannula 2.00 10/24/16 06:00 61 10/24/16 04:00 98.6 88 22 121/60 91 10/24/16 04:00 88 10/24/16 02:00 85 10/24/16 00:00 98.7 96 22 118/58 95 10/24/16 00:00 96 10/23/16 22:00 108 10/23/16 20:00 98.6 108 26 143/90 91 10/23/16 20:00 108 10/23/16 19:31 95 Nasal Cannula 2.00 10/23/16 19:00 95 Nasal Cannula 2.00 10/23/16 18:00 107 CBC/BMP: 10/24/16 0625 10/24/16 0625 Lab Results Laboratory Tests Test 10/24/16 06:25 White Blood Count 13.1 TH/MM3 Red Blood Count 4.45 MIL/MM3 Hemoglobin 13.0 GM/DL Hematocrit 41.5 % Mean Corpuscular Volume 93.2 FL Mean Corpuscular Hemoglobin 29.3 PG Mean Corpuscular Hemoglobin 31.4 % Concent Red Cell Distribution Width 15.4 % Platelet Count 180 TH/MM3 Mean Platelet Volume 10.6 FL Neutrophils (%) (Auto) 85.7 % Lymphocytes (%) (Auto) 5.2 % Monocytes (%) (Auto) 9.0 % Eosinophils (%) (Auto) 0.0 % Basophils (%) (Auto) 0.1 % Neutrophils # (Auto) 11.2 TH/MM3 Lymphocytes # (Auto) 0.7 TH/MM3 Monocytes # (Auto) 1.2 TH/MM3 Eosinophils # (Auto) 0.0 TH/MM3 Basophils # (Auto) 0.0 TH/MM3 CBC Comment DIFF FINAL Differential Comment Sodium Level 136 MEQ/L Potassium Level 4.8 MEQ/L Chloride Level 98 MEQ/L Carbon Dioxide Level 35.9 MEQ/L Anion Gap 2 MEQ/L Blood Urea Nitrogen 37 MG/DL Creatinine 1.09 MG/DL Estimat Glomerular Filtration 67 ML/MIN Rate Random Glucose 172 MG/DL Calcium Level 8.3 MG/DL Total Bilirubin 0.4 MG/DL Aspartate Amino Transf 17 U/L (AST/SGOT) Alanine Aminotransferase 42 U/L (ALT/SGPT) Alkaline Phosphatase 39 U/L Total Protein 6.1 GM/DL Albumin 2.9 GM/DL Physical Exam General General Appearance: Comfortable, Obese Eyes Eye Exam: Pupils Reactive Ears & Nose Ears & Nose Exam: Nasal Mucosa [place] Throat Throat Exam: Oral Mucosa [place] & Moist Neck Neck Exam: Trachea Midline Pulmonary Resp Exam: Breath Sounds Equal, Crackles Cardiology CV Exam: Irregular, Tachycardia Gastrointestinal/Abdomen GI Exam: Soft, Non-Tender, Bowel Sounds Present, Positive Bowel Movement Musculoskeletal MS Exam: Normal Tone Integumentary Skin Exam: Warm, Dry Neurologic Neuro Exam: Awake, Oriented, Speech Clear, Moving All Extremities Psychiatric Psych Exam: Appropriate Responses VTE Prophylaxis VTE Prophylaxis Meds: Lovenox Assessment/Plan Problem List: (1) Acute respiratory acidosis (2) Acute respiratory failure (3) COPD exacerbation (4) Sepsis (5) Pneumonia (6) Hyperkalemia (7) Hyperglycemia (8) Elevated troponin (9) Leukocytosis (10) Obesity (11) Shortness of breath (12) Diabetes mellitus type 2 in obese (13) Hard of hearing (14) RADHA (obstructive sleep apnea) (15) Neuropathy (16) Renal insufficiency (17) Diabetic neuropathy, type II diabetes mellitus (18) Diabetes mellitus type 2, uncontrolled (19) Weakness (20) Dyslipidemia (21) Right bundle branch block (RBBB) on electrocardiogram (ECG) (22) First degree atrioventricular block by electrocardiogram Assessment/Plan Assessment Respiratory failure on admission, improved CO2 retention Obstructive sleep apnea ObesityHypoventilation syndrome Acute on chronic Diastolic heart failure Morbid obesity Diabetes mellitus Hypertension Atrial tachycardia Chronic kidney disease PLAN: Supplemental oxygen IV Solumedrol 40 mg q 12 hrs Continue antibiotics, Cefepime and Zithromax Bronchodilators Sinus scale insulin Physical therapy evaluation Follow electrolyte levels and replace as needed Follow renal function Incentive spirometry Transfer to telemetry Discussed with patient Discussed with nurse Celia Dickey MD Oct 24, 2016 16:26
--- NOTE | 2016-10-24 17:49 | HHI.PR ---
Subjective Remarks 71 YOWm with hypercapnoic RF,RADHA, obesity Breathing better Mild sob No CP No cough or sp Weaned to NC Appetite better Objective Vital Signs Vital Signs Date Time Temp Pulse Resp B/P Pulse Ox O2 Delivery O2 Flow Rate FiO2 10/24/16 16:00 107 10/24/16 16:00 98.3 97 19 116/69 94 10/24/16 14:00 104 10/24/16 12:00 104 10/24/16 12:00 98.8 104 20 155/57 97 10/24/16 10:00 108 10/24/16 08:00 96 10/24/16 08:00 98.5 96 20 160/71 96 10/24/16 07:38 94 Nasal Cannula 2.00 10/24/16 07:15 97 Nasal Cannula 2.00 10/24/16 06:00 61 10/24/16 04:00 98.6 88 22 121/60 91 10/24/16 04:00 88 10/24/16 02:00 85 10/24/16 00:00 98.7 96 22 118/58 95 10/24/16 00:00 96 10/23/16 22:00 108 10/23/16 20:00 98.6 108 26 143/90 91 10/23/16 20:00 108 10/23/16 19:31 95 Nasal Cannula 2.00 10/23/16 19:00 95 Nasal Cannula 2.00 10/23/16 18:00 107 I/O 10/23/16 10/23/16 10/23/16 10/24/16 10/24/16 10/24/16 07:00 15:00 23:00 07:00 15:00 23:00 Intake Total 600 ml 1024 ml 399 ml 199 ml 1185 ml Output Total 1400 ml 1900 ml 1100 ml 1000 ml 1850 ml Balance -800 ml -876 ml -701 ml -801 ml -665 ml Intake Oral 480 ml 666 ml 300 ml 100 ml 720 ml IV Total 120 ml 358 ml 99 ml 99 ml 465 ml Output Urine Total 1400 ml 1900 ml 1100 ml 1000 ml 1850 ml # Bowel Movements 1 3 0 0 1 Result Diagram: 10/24/1662410/24/16624 Objective Remarks GENERAL: obese Wm mild sob SKIN: Warm and dry. HEAD: Normocephalic. EYES: No scleral icterus. No injection or drainage. NECK: Supple, trachea midline. No JVD or lymphadenopathy. CARDIOVASCULAR: Regular rate and rhythm without murmurs, gallops, or rubs. RESPIRATORY: Breath sounds equal bilaterally. No accessory muscle use. GASTROINTESTINAL: Abdomen soft, non-tender, nondistended. MUSCULOSKELETAL: No cyanosis, or edema. BACK: Nontender without obvious deformity. No CVA tenderness. A/P Assessment and Plan Hypercapnoic RF RADHA Obesity-Hypoventlation synd DM HTN PLAN: Cont Abx Cefepime and Zithro Aerosol nebs Dw at BS. Supplement 02 to keep sat >90% DC Solumedrol Pred 10 mg bid Scotty Bah MD Oct 24, 2016 17:49
[2016-10-24] MEDS: predniSONE 10 MG TAB PO SCH (21:35)
[2016-10-25] VITALS (9 sets, daily range): BP systolic 123–159; BP diastolic 56–70; PULSE 67–135; RESP 18–24; TEMP 97.4–98; O2SAT 95–98
[2016-10-25] MEDS: RESP: ALBUTEROL 2.5 MG/IPRATROPIUM 0.5 MG NEB (SCH) INH ×5 (03:31→19:46)
[2016-10-25] MEDS: CHLORHEXIDINE GLUCONATE 2 % 1 PACK (2 CLOTHS) TOP SCH (04:00)
[2016-10-25] MEDS: CEFEPIME INJ 2,000 MG in SODIUM CHLORIDE 0.9% INJ 100 ML IV SCH ×3 (06:03→21:38)
[2016-10-25] MEDS: DILTIAZEM HCL 30 MG TAB PO SCH ×4 (06:07→22:52)
[2016-10-25] MEDS: INSULIN NovoLIN REGULAR SUPPLEMENTAL SCALE SQ SCH ×4 (06:10→21:41)
[2016-10-25] MEDS: ENOXAPARIN SODIUM 40 MG/0.4 ML SYRINGE SQ SCH (09:05)
[2016-10-25] MEDS: PANTOPRAZOLE SODIUM 40 MG VIAL IV SCH (09:05)
[2016-10-25] MEDS: ASPIRIN 325 MG TAB PO SCH (09:06)
[2016-10-25] MEDS: SODIUM CHLORIDE 0.9% FLUSH 10 ML FLUSH IV FLUSH SCH ×2 (09:06→21:40)
[2016-10-25] MEDS: predniSONE 10 MG TAB PO SCH ×2 (09:06→21:40)
[2016-10-25] MEDS: DOCUSATE SODIUM 50 MG/SENNA 8.6 MG TAB PO SCH ×2 (09:07→21:00)
[2016-10-25] MEDS: GABAPENTIN 300 MG CAP PO SCH (09:07)
[2016-10-25] MEDS: INSULIN DETEMIR 100 UNITS/ML VIAL SQ SCH ×2 (10:26→21:43)
[2016-10-25] MEDS: ARTIFICIAL TEARS OPTH SOLN 15 ML BTL EACH EYE SCH ×3 (10:26→17:32)
--- NOTE | 2016-10-25 11:29 | HHI.PR ---
Subjective Subjective Remarks Resting in bed Awake, on bedpan Mild exertional dyspnea noted, but patient states he doesn't feel short of breath Afebrile (Isamar Huston) Review of Systems Constitutional Constitutional: Fatigue, Weakness Constitutional Remarks 10 point ROS done positives noted (Isamar Huston) Pulmonary Respiratory: Coughing, Shortness of Breath, Wheezing (mild) (Isamar Huston) GI/Abdomen GI/Abdominal Exam: Constipation (monitor) (Isamar Huston) Genitourinary Remarks DC Finn today (Isamar Huston) Musculoskeletal MS: Weakness, Stiffness (Isamar Huston) Psychiatric Psychiatric: Normal Mood, Agitation (at times) (Isamar Huston) Vitals/Results Intake & Output 10/24/16 10/24/16 10/25/16 15:00 23:00 07:00 Intake Total 1185 ml 670 ml 240 ml Output Total 1850 ml 1600 ml 1325 ml Balance -665 ml -930 ml -1085 ml Intake Oral 720 ml 450 ml 240 ml IV Total 465 ml 220 ml Output Urine Total 1850 ml 1600 ml 1325 ml # Bowel Movements 1 0 Vital Signs Vital Signs Date Time Temp Pulse Resp B/P Pulse Ox O2 Delivery O2 Flow Rate FiO2 10/25/16 08:00 97.5 95 20 159/70 97 10/25/16 07:15 97 Nasal Cannula 2.00 10/25/16 07:05 98 Nasal Cannula 2.00 10/25/16 03:40 97.5 67 24 141/58 95 10/24/16 23:00 97.7 90 26 129/66 93 10/24/16 23:00 86 10/24/16 23:00 94 Nasal Cannula 2.00 10/24/16 22:00 104 10/24/16 20:13 97 Nasal Cannula 2.00 10/24/16 20:00 98 10/24/16 20:00 98.0 98 22 128/59 92 10/24/16 19:00 92 Nasal Cannula 2.00 10/24/16 18:00 105 10/24/16 18:00 94 Nasal Cannula 2.00 10/24/16 16:00 107 10/24/16 16:00 98.3 97 19 116/69 94 10/24/16 14:00 104 10/24/16 12:00 104 10/24/16 12:00 98.8 104 20 155/57 97 (Isamar Huston) CBC/BMP: 10/24/16 0625 10/24/16 0625 Current Medications Administered Medications Medications (Trade) Dose Ordered Sig/Jessica Route PRN Reason Start Time Stop Time Status Last Admin Dose Admin Sodium Chloride (NS Flush) 2 ml UNSCH PRN IVF FLUSH AFTER USING IV ACCESS 10/18/16 08:45 10/18/16 11:03 Sodium Chloride (NS Flush) 2 ml UNSCH PRN IV FLUSH FLUSH AFTER USING IV ACCESS 10/18/16 12:15 10/23/16 08:46 Sodium Chloride (NS Flush) 2 ml BID IV FLUSH 10/18/16 21:00 10/25/16 09:06 Pantoprazole Sodium (Protonix Inj) 40 mg DAILY IV 10/19/16 09:00 10/25/16 09:05 Artificial Tears (Tears Naturale Opth Soln) 1 drop TID EACH EYE 10/18/16 13:00 10/25/16 10:26 Miscellaneous Information 1 Q361D XX 10/18/16 12:15 10/18/16 13:07 Chlorhexidine Gluconate (Chlorhexidine 2% Cloth) Taper DAILY@04 TOP 10/19/16 04:00 10/15/17 03:59 10/24/16 04:00 Senna/Docusate Sodium (Ellen-Colace) 1 tab BID PO 10/18/16 21:00 10/25/16 09:07 Aspirin (Aspirin) 325 mg DAILY PO 10/19/16 09:00 10/25/16 09:06 Gabapentin 300 mg 300 mg DAILY PO 10/19/16 09:00 10/25/16 09:07 Cefepime HCl 2000 mg/Sodium Chloride 100 ml @ 200 mls/hr Q8H IV 10/18/16 14:00 10/25/16 06:03 Azithromycin/ Sodium Chloride (Zithromax Inj/ NS 250 ml Inj) 250 ml @ 250 mls/hr Q24H IV 10/19/16 11:00 10/24/16 11:01 Diltiazem HCl (Cardizem) 30 mg Q6HR PO 10/18/16 18:00 10/25/16 06:07 Insulin Detemir (Levemir Inj) 10 units Q12HR SQ 10/19/16 21:00 10/25/16 10:26 Enoxaparin Sodium (Lovenox Inj) 40 mg Q24H SQ 10/20/16 08:00 10/25/16 09:05 Prednisone (Deltasone) 10 mg BID PO 10/24/16 21:00 10/25/16 09:06 (Isamar Huston) Physical Exam General General Appearance: Comfortable, Obese (Isamar HustonP) Eyes Eye Exam: Pupils Equal, Pupils Reactive (Isamar HustonP) Ears & Nose Ears & Nose Exam: Nasal Mucosa [place] (Isamar HustonP) Throat Throat Exam: Oral Mucosa [place] & Moist (Isamar HustonP) Neck Neck Exam: Trachea Midline (Isamar HustonP) Pulmonary Resp Exam: Breath Sounds Equal, Crackles, Diminished Breath Sounds (Isamar HustonP) Cardiology CV Exam: Irregular, Tachycardia (Isamar HustonP) Gastrointestinal/Abdomen GI Exam: Soft, Non-Tender, Bowel Sounds Present, Positive Bowel Movement ( Isamar HustonP) Genitourinary Remarks Finn discontinued today monitor for any dysuria or urinary retention (Isamar HustonP) Musculoskeletal MS Exam: Normal Tone (Isamar HustonP) Integumentary Skin Exam: Warm, Dry (Isamar HustonP) Neurologic Neuro Exam: Awake, Oriented, Speech Clear, Moving All Extremities (Isamar HustonP) Psychiatric Psych Exam: Appropriate Responses (Isamar Huston) VTE Prophylaxis VTE Prophylaxis Meds: Lovenox (Isamar HustonP) Assessment/Plan Problem List: (1) Acute respiratory acidosis (2) Acute respiratory failure (3) COPD exacerbation (4) Sepsis (5) Pneumonia (6) Hyperkalemia (7) Hyperglycemia (8) Elevated troponin (9) Leukocytosis (10) Obesity (11) Shortness of breath (12) Diabetes mellitus type 2 in obese (13) Hard of hearing (14) RADHA (obstructive sleep apnea) (15) Neuropathy (16) Renal insufficiency (17) Diabetic neuropathy, type II diabetes mellitus (18) Diabetes mellitus type 2, uncontrolled (19) Weakness (20) Dyslipidemia (21) Right bundle branch block (RBBB) on electrocardiogram (ECG) (22) First degree atrioventricular block by electrocardiogram Assessment/Plan Vital signs reviewed, normal trends for now with monitoring of BP systolic currently 159/70 a.m. Labs reviewed, leukocytosis still below trends at 13.1, blood sugar 172, positive blood culture sepsis treatment continues Respiratory failure on admission, improved Obstructive sleep apnea, obesity hypoventilation syndrome with CO2 retention Pneumonia ObesityHypoventilation syndrome, appreciate pulmonary input, patient's currently maintained on by mouth steroids, dual nebs, continue IV antibiotics, encouraged incentive spirometry Acute on chronic Diastolic heart failure, appreciate cardiology input, medical management Morbid obesity, encourage patient to be up out of bed with assistance, physical therapy, need to evaluate current debility and fatigue status, PT notes patient would benefit from rolling walker, debilitated with mobility and current medical status, will continue to see 3-5 times a week, Will work with safe discharge within the next week. Will DC Finn catheter encourage patient to stand and urinate with assistance, encourage by mouth fluids Bowel regimen monitor, currently patient is on bedpan Diabetes mellitus, Accu-Cheks before meals and at bedtime a.m. blood sugar 172, sliding scale Hypertension, medical management, current control with 159/70 Atrial tachycardia, monitor telemetry and heart rate currently controlled Chronic kidney disease, monitor labs medical management Discussed with patient Discussed with nurse Discussed with Dr. Dickey, seen on his behalf (Isamar Huston) Assessment/Plan seen, examined by myself, Dr Dickey, today Discussed with patient Discussed with nurse Bilateral wheezing on exam Ambulate as tolerated Physical therapy/occupational therapy Arrange rehabilitation Discussed with mid level provider The exam, history, and the medical decision-making described in the above note were completed with the assistance of the mid-level provider. I reviewed the findings presented. I attest that I had a [id number] encounter with the patient on the same day, and personally performed and documented my assessment and findings in the medical record. (Celia Dickey MD) Isamar Huston Oct 25, 2016 11:29 Celia Dickey MD Oct 25, 2016 18:17
[2016-10-25] MEDS: AZITHROMYCIN INJ 500 MG in SODIUM CHLOR 0.9% 250 ML INJ 250 ML IV SCH (11:38)
--- NOTE | 2016-10-25 13:20 | PD.CARD.PN ---
Subjective Subjective Remarks alert in nad Objective Vital Signs / I&O Vital Signs Date Time Temp Pulse Resp B/P Pulse Ox O2 Delivery O2 Flow Rate FiO2 10/25/16 13:04 135 141/67 10/25/16 08:00 97.5 95 20 159/70 97 10/25/16 07:15 97 Nasal Cannula 2.00 10/25/16 07:05 98 Nasal Cannula 2.00 10/25/16 03:40 97.5 67 24 141/58 95 10/24/16 23:00 97.7 90 26 129/66 93 10/24/16 23:00 86 10/24/16 23:00 94 Nasal Cannula 2.00 10/24/16 22:00 104 10/24/16 20:13 97 Nasal Cannula 2.00 10/24/16 20:00 98 10/24/16 20:00 98.0 98 22 128/59 92 10/24/16 19:00 92 Nasal Cannula 2.00 10/24/16 18:00 105 10/24/16 18:00 94 Nasal Cannula 2.00 10/24/16 16:00 107 10/24/16 16:00 98.3 97 19 116/69 94 10/24/16 14:00 104 I/O 10/24/16 10/24/16 10/24/16 10/25/16 10/25/16 10/25/16 07:00 15:00 23:00 07:00 15:00 23:00 Intake Total 199 ml 1185 ml 670 ml 240 ml Output Total 1000 ml 1850 ml 1600 ml 1325 ml Balance -801 ml -665 ml -930 ml -1085 ml Intake Oral 100 ml 720 ml 450 ml 240 ml IV Total 99 ml 465 ml 220 ml Output Urine Total 1000 ml 1850 ml 1600 ml 1325 ml # Bowel Movements 0 1 0 Physical Exam GENERAL: SKIN: Warm and dry. HEAD: Normocephalic. EYES: No scleral icterus. No injection or drainage. NECK: Supple, trachea midline. No JVD or lymphadenopathy. CARDIOVASCULAR: Regular rate and rhythm without murmurs, gallops, or rubs. RESPIRATORY: Breath sounds equal bilaterally. No accessory muscle use. GASTROINTESTINAL: Abdomen soft, non-tender, nondistended. MUSCULOSKELETAL: No cyanosis, or edema. BACK: Nontender without obvious deformity. No CVA tenderness. Assessment and Plan Problem List: (1) Atrial tachycardia (2) Tachyarrhythmia (3) Acute respiratory failure (4) Acute respiratory acidosis (5) Shortness of breath (6) Diabetic neuropathy, type II diabetes mellitus (7) Renal insufficiency (8) Elevated troponin (9) NSTEMI (non-ST elevated myocardial infarction) Assessment and Plan 1.) Copd/pneumonia - patient clinically improving on antibiotics 2.) Arrythmia - in svt@105, assymptomatic, continue tele; rx conservatively given h/o tachy-bradycardy; expect to improve if/when oxygenation improves 3.) Diastolic chf - appears euvolemic on current meds, ([id number]) Marcos Omer MD Oct 25, 2016 13:19
[2016-10-26] VITALS (9 sets, daily range): BP systolic 121–155; BP diastolic 56–74; PULSE 66–114; RESP 18–20; TEMP 97.3–98.6; O2SAT 96–98
[2016-10-26] MEDS: RESP: ALBUTEROL 2.5 MG/IPRATROPIUM 0.5 MG NEB (SCH) INH ×3 (03:08→08:17)
[2016-10-26] MEDS: CHLORHEXIDINE GLUCONATE 2 % 1 PACK (2 CLOTHS) TOP SCH (03:15)
[2016-10-26] MEDS: CEFEPIME INJ 2,000 MG in SODIUM CHLORIDE 0.9% INJ 100 ML IV SCH ×3 (06:16→21:55)
[2016-10-26] MEDS: DILTIAZEM HCL 30 MG TAB PO SCH ×3 (06:16→17:14)
[2016-10-26] MEDS: INSULIN NovoLIN REGULAR SUPPLEMENTAL SCALE SQ SCH ×4 (06:17→21:46)
[2016-10-26 07:41] LABS: AUTOMATED NEUTROPHIL # 11.3 TH/MM3 (1.8-7.7); BASOPHIL % 0.1 % (0.0-2.0); EOSINOPHIL # 0.1 TH/MM3 (0-0.4); HEMATOCRIT 40.8 % (39.0-51.0); HEMO FLAGS DIFF FINAL; LYMPH % 7.9 % (9.0-44.0); LYMPHOCYTE # 1.1 TH/MM3 (1.0-4.8); MEAN CELL VOLUME 92.4 FL (80.0-100.0); MEAN CORPUSCULAR HGB CONC 32.5 % (32.0-36.0); MONO % 9.3 % (0.0-8.0); NEUT % 81.7 % (16.0-70.0); PLATELET COUNT 180 TH/MM3 (150-450); RED BLOOD COUNT 4.41 MIL/MM3 (4.50-5.90); RED CELL DISTRIBUTION WIDTH 15.3 % (11.6-17.2); WHITE BLOOD COUNT 13.8 TH/MM3 (4.0-11.0)
[2016-10-26] MEDS: predniSONE 10 MG TAB PO SCH ×2 (07:57→21:39)
[2016-10-26] MEDS: ENOXAPARIN SODIUM 40 MG/0.4 ML SYRINGE SQ SCH (07:57)
[2016-10-26] MEDS: GABAPENTIN 300 MG CAP PO SCH (07:57)
[2016-10-26] MEDS: PANTOPRAZOLE SODIUM 40 MG VIAL IV SCH (07:57)
[2016-10-26] MEDS: DOCUSATE SODIUM 50 MG/SENNA 8.6 MG TAB PO SCH ×2 (07:57→21:00)
[2016-10-26] MEDS: SODIUM CHLORIDE 0.9% FLUSH 10 ML FLUSH IV FLUSH SCH ×2 (07:57→21:39)
[2016-10-26] MEDS: ASPIRIN 325 MG TAB PO SCH (07:57)
[2016-10-26] MEDS: ARTIFICIAL TEARS OPTH SOLN 15 ML BTL EACH EYE SCH ×3 (07:58→17:14)
[2016-10-26 07:59] LABS: BICARBONATE 35.3 MEQ/L (21.0-32.0); POTASSIUM 4.5 MEQ/L (3.5-5.1)
[2016-10-26] MEDS: INSULIN DETEMIR 100 UNITS/ML VIAL SQ SCH ×2 (08:04→21:47)
--- NOTE | 2016-10-26 10:24 | PD.CARD.PN ---
Subjective Subjective Remarks asleep in nad Objective Vital Signs / I&O Vital Signs Date Time Temp Pulse Resp B/P Pulse Ox O2 Delivery O2 Flow Rate FiO2 10/26/16 10:18 Nasal Cannula 2.00 10/26/16 08:17 98 Nasal Cannula 2.00 10/26/16 08:00 97.4 103 20 150/74 96 10/26/16 04:00 98.3 66 18 122/58 96 10/26/16 04:00 Nasal Cannula 2.00 10/26/16 00:00 Nasal Cannula 2.00 10/26/16 00:00 98.6 106 18 121/58 96 10/25/16 20:00 Nasal Cannula 2.00 10/25/16 20:00 98.0 105 19 138/59 95 10/25/16 19:58 111 10/25/16 19:46 97 Nasal Cannula 2.00 10/25/16 16:00 98.0 105 18 140/64 95 10/25/16 13:04 135 141/67 10/25/16 12:00 97.4 106 20 123/56 96 I/O 10/25/16 10/25/16 10/25/16 10/26/16 10/26/16 10/26/16 07:00 15:00 23:00 07:00 15:00 23:00 Intake Total 240 ml 590 ml 100 ml Output Total 1325 ml 1500 ml 800 ml Balance -1085 ml -1500 ml -210 ml 100 ml Intake Oral 240 ml 240 ml IV Total 350 ml 100 ml Output Urine Total 1325 ml 1500 ml 800 ml # Bowel Movements 0 1 Physical Exam GENERAL: SKIN: Warm and dry. HEAD: Normocephalic. EYES: No scleral icterus. No injection or drainage. NECK: Supple, trachea midline. No JVD or lymphadenopathy. CARDIOVASCULAR: Regular rate and rhythm without murmurs, gallops, or rubs. RESPIRATORY: Breath sounds equal bilaterally. No accessory muscle use. GASTROINTESTINAL: Abdomen soft, non-tender, nondistended. MUSCULOSKELETAL: No cyanosis, or edema. BACK: Nontender without obvious deformity. No CVA tenderness. Laboratory Laboratory Tests Test 10/26/16 06:00 White Blood Count 13.8 TH/MM3 Red Blood Count 4.41 MIL/MM3 Hemoglobin 13.2 GM/DL Hematocrit 40.8 % Mean Corpuscular Volume 92.4 FL Mean Corpuscular Hemoglobin 30.0 PG Mean Corpuscular Hemoglobin 32.5 % Concent Red Cell Distribution Width 15.3 % Platelet Count 180 TH/MM3 Mean Platelet Volume 10.8 FL Neutrophils (%) (Auto) 81.7 % Lymphocytes (%) (Auto) 7.9 % Monocytes (%) (Auto) 9.3 % Eosinophils (%) (Auto) 1.0 % Basophils (%) (Auto) 0.1 % Neutrophils # (Auto) 11.3 TH/MM3 Lymphocytes # (Auto) 1.1 TH/MM3 Monocytes # (Auto) 1.3 TH/MM3 Eosinophils # (Auto) 0.1 TH/MM3 Basophils # (Auto) 0.0 TH/MM3 CBC Comment DIFF FINAL Differential Comment Sodium Level 135 MEQ/L Potassium Level 4.5 MEQ/L Chloride Level 97 MEQ/L Carbon Dioxide Level 35.3 MEQ/L Anion Gap 3 MEQ/L Blood Urea Nitrogen 36 MG/DL Creatinine 1.09 MG/DL Estimat Glomerular Filtration 67 ML/MIN Rate Random Glucose 153 MG/DL Calcium Level 8.5 MG/DL Assessment and Plan Problem List: (1) Atrial tachycardia (2) Tachyarrhythmia (3) Acute respiratory failure (4) Acute respiratory acidosis (5) Shortness of breath (6) Diabetic neuropathy, type II diabetes mellitus (7) Renal insufficiency (8) Elevated troponin (9) NSTEMI (non-ST elevated myocardial infarction) Assessment and Plan 1.) Copd/pneumonia - patient clinically improving on antibiotics 2.) Arrythmia - in svt@105, assymptomatic, continue tele; rx conservatively given h/o tachy-bradycardy; expect to improve if/when oxygenation improves 3.) Diastolic chf - appears euvolemic on current meds, ([id number]) Marcos Omer MD Oct 26, 2016 10:24
[2016-10-26] MEDS: AZITHROMYCIN INJ 500 MG in SODIUM CHLOR 0.9% 250 ML INJ 250 ML IV SCH (11:48)
--- NOTE | 2016-10-26 15:53 | HHI.PR ---
Subjective Subjective Remarks Resting in bed Awake, hollers out for staff a lot No shortness of breath noted at rest Afebrile (Isamar Huston) Review of Systems Constitutional Constitutional: Fatigue, Weakness Constitutional Remarks 10 point ROS done positives noted (Isamar Huston) Pulmonary Respiratory: Coughing, Shortness of Breath, Wheezing (mild) (Isamar Huston) GI/Abdomen GI/Abdominal Exam: Constipation (monitor) (Isamar Huston) Genitourinary Remarks DC Finn today (Isamar Huston) Musculoskeletal MS: Weakness, Stiffness (Isamar Huston) Psychiatric Psychiatric: Normal Mood, Agitation (at times) (Isamar Huston) Vitals/Results Intake & Output 10/25/16 10/25/16 10/26/16 15:00 23:00 07:00 Intake Total 590 ml 100 ml Output Total 1500 ml 800 ml Balance -1500 ml -210 ml 100 ml Intake Oral 240 ml IV Total 350 ml 100 ml Output Urine Total 1500 ml 800 ml # Bowel Movements 1 Vital Signs Vital Signs Date Time Temp Pulse Resp B/P Pulse Ox O2 Delivery O2 Flow Rate FiO2 10/26/16 12:00 97.5 114 20 139/63 96 10/26/16 10:32 101 10/26/16 10:18 Nasal Cannula 2.00 10/26/16 08:17 98 Nasal Cannula 2.00 10/26/16 08:00 97.4 103 20 150/74 96 10/26/16 04:00 98.3 66 18 122/58 96 10/26/16 04:00 Nasal Cannula 2.00 10/26/16 00:00 Nasal Cannula 2.00 10/26/16 00:00 98.6 106 18 121/58 96 10/25/16 20:00 Nasal Cannula 2.00 10/25/16 20:00 98.0 105 19 138/59 95 10/25/16 19:58 111 10/25/16 19:46 97 Nasal Cannula 2.00 10/25/16 16:00 98.0 105 18 140/64 95 (Isamar Huston) CBC/BMP: 10/26/16 0600 10/26/16 0600 Lab Results Laboratory Tests Test 10/26/16 06:00 White Blood Count 13.8 TH/MM3 Red Blood Count 4.41 MIL/MM3 Hemoglobin 13.2 GM/DL Hematocrit 40.8 % Mean Corpuscular Volume 92.4 FL Mean Corpuscular Hemoglobin 30.0 PG Mean Corpuscular Hemoglobin 32.5 % Concent Red Cell Distribution Width 15.3 % Platelet Count 180 TH/MM3 Mean Platelet Volume 10.8 FL Neutrophils (%) (Auto) 81.7 % Lymphocytes (%) (Auto) 7.9 % Monocytes (%) (Auto) 9.3 % Eosinophils (%) (Auto) 1.0 % Basophils (%) (Auto) 0.1 % Neutrophils # (Auto) 11.3 TH/MM3 Lymphocytes # (Auto) 1.1 TH/MM3 Monocytes # (Auto) 1.3 TH/MM3 Eosinophils # (Auto) 0.1 TH/MM3 Basophils # (Auto) 0.0 TH/MM3 CBC Comment DIFF FINAL Differential Comment Sodium Level 135 MEQ/L Potassium Level 4.5 MEQ/L Chloride Level 97 MEQ/L Carbon Dioxide Level 35.3 MEQ/L Anion Gap 3 MEQ/L Blood Urea Nitrogen 36 MG/DL Creatinine 1.09 MG/DL Estimat Glomerular Filtration 67 ML/MIN Rate Random Glucose 153 MG/DL Calcium Level 8.5 MG/DL (Isamar HustonP) Physical Exam General General Appearance: Comfortable, Obese (Isamar Huston SENIOR INVESTMENT MANAGER) Eyes Eye Exam: Pupils Equal, Pupils Reactive (Isamar Huston SENIOR INVESTMENT MANAGER) Ears & Nose Ears & Nose Exam: Nasal Mucosa [place] (Isamar Huston SENIOR INVESTMENT MANAGER) Throat Throat Exam: Oral Mucosa [place] & Moist (Isamar Huston SENIOR INVESTMENT MANAGER) Neck Neck Exam: Trachea Midline (Isamar Huston SENIOR INVESTMENT MANAGER) Pulmonary Resp Exam: Breath Sounds Equal, Crackles, Diminished Breath Sounds (Isamar Huston SENIOR INVESTMENT MANAGER) Cardiology CV Exam: Irregular, Tachycardia (Isamar Huston. SENIOR INVESTMENT MANAGER) Gastrointestinal/Abdomen GI Exam: Soft, Non-Tender, Bowel Sounds Present, Positive Bowel Movement ( Isamar HustonP) Genitourinary Remarks Finn discontinued today monitor for any dysuria or urinary retention (Isamar Huston) Musculoskeletal MS Exam: Normal Tone (Isamar Huston) Integumentary Skin Exam: Warm, Dry (Isamar Huston) Neurologic Neuro Exam: Awake, Oriented, Speech Clear, Moving All Extremities (Isamar Huston) Psychiatric Psych Exam: Appropriate Responses (Isamar Huston) VTE Prophylaxis VTE Prophylaxis Meds: Lovenox (Isamar Huston) Assessment/Plan Problem List: (1) Acute respiratory acidosis (2) Acute respiratory failure (3) COPD exacerbation (4) Sepsis (5) Pneumonia (6) Hyperkalemia (7) Hyperglycemia (8) Elevated troponin (9) Leukocytosis (10) Obesity (11) Shortness of breath (12) Diabetes mellitus type 2 in obese (13) Hard of hearing (14) RADHA (obstructive sleep apnea) (15) Neuropathy (16) Renal insufficiency (17) Diabetic neuropathy, type II diabetes mellitus (18) Diabetes mellitus type 2, uncontrolled (19) Weakness (20) Dyslipidemia (21) Right bundle branch block (RBBB) on electrocardiogram (ECG) (22) First degree atrioventricular block by electrocardiogram Assessment/Plan Vital signs reviewed, normal trends Respiratory failure on admission, improved with pneumonia treatment and IV antibiotics Obstructive sleep apnea, obesity hypoventilation syndrome with CO2 retention Pneumonia, responding to treatment ObesityHypoventilation syndrome, appreciate pulmonary input, PO steroids, dual nebs, continue IV antibiotics, encouraged incentive spirometry PT eval and treat. DC planning Acute on chronic Diastolic heart failure, appreciate cardiology input, medical management Morbid obesity, encourage patient to be up out of bed with assistance, physical therapy, need to evaluate current debility and fatigue status, PT notes patient would benefit from rolling walker, will continue to see 3-5 times a week, Will work with safe discharge within the next week. Finn catheter DC'd on 10-25, patient is voiding in urinal without difficulty, clear yellow Bowel regimen , BM in the last 24 hours Diabetes mellitus, Accu-Cheks before meals and at bedtime a.m. Hypertension, medical management, Atrial tachycardia, monitor telemetry and heart rate currently controlled Chronic kidney disease, monitor labs medical management Discussed with patient Discussed with nurse Discussed with Dr. Dickey, seen on his behalf Discharge planning for rehabilitation, in the next day or 2 (Isamar Huston) Assessment/Plan seen, examined by myself, Dr Dickey, today Discussed with patient, he sitting on the side of the bed, feeling much better [facility] Discussed with mid level provider The exam, history, and the medical decision-making described in the above note were completed with the assistance of the mid-level provider. I reviewed the findings presented. I attest that I had a [id number] encounter with the patient on the same day, and personally performed and documented my assessment and findings in the medical record. (Celia Dickey MD) Isamar Huston Oct 26, 2016 15:53 Celia Dickey MD Oct 26, 2016 18:18
[2016-10-27] VITALS (10 sets, daily range): BP systolic 97–131; BP diastolic 44–73; PULSE 63–113; RESP 18–22; TEMP 97.6–97.8; O2SAT 94–99
[2016-10-27] MEDS: DILTIAZEM HCL 30 MG TAB PO SCH ×4 (00:11→17:41)
[2016-10-27] MEDS: CHLORHEXIDINE GLUCONATE 2 % 1 PACK (2 CLOTHS) TOP SCH (03:49)
[2016-10-27] MEDS: CEFEPIME INJ 2,000 MG in SODIUM CHLORIDE 0.9% INJ 100 ML IV SCH ×3 (05:36→21:45)
[2016-10-27] MEDS: INSULIN NovoLIN REGULAR SUPPLEMENTAL SCALE SQ SCH ×4 (05:45→21:39)
--- NOTE | 2016-10-27 07:22 | RADRPT ---
EXAM DATE/TIME: 10/27/2016 05:29 [facility] COMPARISON: CHEST SINGLE AP, October 23, 2016, 2:57. INDICATIONS : Coughing, short of breath MEDICAL HISTORY : Diabetes mellitus type II. Hypertension chronic kidney disease SURGICAL HISTORY : None. ENCOUNTER: Subsequent ACUITY: 1 week PAIN SCORE: 0/10 LOCATION: Bilateral chest FINDINGS: Less consolidation is identified in the left base. There is no evidence of new airspace disease. Heart and mediastinal structures are stable. CONCLUSION: Decreasing consolidation of left airspace disease. Dick Martinez MD on October 27, 2016 at 7:20 Board Certified Radiologist. This report was verified electronically.
[2016-10-27] MEDS: ARTIFICIAL TEARS OPTH SOLN 15 ML BTL EACH EYE SCH ×3 (09:00→17:41)
[2016-10-27] MEDS: ENOXAPARIN SODIUM 40 MG/0.4 ML SYRINGE SQ SCH (09:28)
[2016-10-27] MEDS: ASPIRIN 325 MG TAB PO SCH (09:28)
[2016-10-27] MEDS: DOCUSATE SODIUM 50 MG/SENNA 8.6 MG TAB PO SCH ×2 (09:28→21:40)
[2016-10-27] MEDS: predniSONE 10 MG TAB PO SCH ×2 (09:28→21:40)
[2016-10-27] MEDS: SODIUM CHLORIDE 0.9% FLUSH 10 ML FLUSH IV FLUSH SCH ×2 (09:29→21:44)
[2016-10-27] MEDS: PANTOPRAZOLE SODIUM 40 MG VIAL IV SCH (09:29)
[2016-10-27] MEDS: GABAPENTIN 300 MG CAP PO SCH (09:29)
[2016-10-27] MEDS: INSULIN DETEMIR 100 UNITS/ML VIAL SQ SCH ×2 (09:31→21:38)
--- NOTE | 2016-10-27 11:19 | HHI.PR ---
Subjective Subjective Remarks Resting in bed, no shortness of breath, patient sleeping this a.m. but responds readily to verbal stimuli Awake, hollers out for staff a lot Afebrile Heart rate ranging between 70s and 105, cardiology following appreciate input Review of Systems Constitutional Constitutional: Fatigue, Weakness Constitutional Remarks 10 point ROS done positives noted Pulmonary Respiratory: Coughing, Shortness of Breath, Wheezing (mild) GI/Abdomen GI/Abdominal Exam: Constipation (monitor) Genitourinary Remarks ISHA Finn today Musculoskeletal MS: Weakness, Stiffness Psychiatric Psychiatric: Normal Mood, Agitation (at times) Vitals/Results Intake & Output 10/26/16 10/26/16 10/27/16 15:00 23:00 07:00 Intake Total 1600 ml 100 ml Output Total 1600 ml Balance 0 ml 100 ml Intake Oral 1600 ml IV Total 100 ml Output Urine Total 1600 ml # Bowel Movements 1 Vital Signs Vital Signs Date Time Temp Pulse Resp B/P Pulse Ox O2 Delivery O2 Flow Rate FiO2 10/27/16 08:06 97.8 77 22 112/55 97 10/27/16 05:30 97.8 107 18 122/59 96 10/27/16 00:52 97.6 111 20 131/66 96 10/26/16 21:20 Nasal Cannula 2.00 10/26/16 20:00 110 10/26/16 18:00 97.3 113 20 155/74 96 10/26/16 16:00 97.4 107 20 126/56 96 10/26/16 12:00 97.5 114 20 139/63 96 CBC/BMP: 10/26/16 0600 10/26/16 0600 Current Medications Administered Medications Medications (Trade) Dose Ordered Sig/Jessica Route PRN Reason Start Time Stop Time Status Last Admin Dose Admin Sodium Chloride (NS Flush) 2 ml UNSCH PRN IVF FLUSH AFTER USING IV ACCESS 10/18/16 08:45 10/18/16 11:03 Sodium Chloride (NS Flush) 2 ml UNSCH PRN IV FLUSH FLUSH AFTER USING IV ACCESS 10/18/16 12:15 10/23/16 08:46 Sodium Chloride (NS Flush) 2 ml BID IV FLUSH 10/18/16 21:00 10/27/16 09:29 Pantoprazole Sodium (Protonix Inj) 40 mg DAILY IV 10/19/16 09:00 10/27/16 09:29 Artificial Tears (Tears Naturale Opth Soln) 1 drop TID EACH EYE 10/18/16 13:00 10/27/16 09:00 Miscellaneous Information 1 Q361D XX 10/18/16 12:15 10/18/16 13:07 Chlorhexidine Gluconate (Chlorhexidine 2% Cloth) Taper DAILY@04 TOP 10/19/16 04:00 10/15/17 03:59 10/24/16 04:00 Senna/Docusate Sodium (Ellen-Colace) 1 tab BID PO 10/18/16 21:00 10/27/16 09:28 Aspirin (Aspirin) 325 mg DAILY PO 10/19/16 09:00 10/27/16 09:28 Gabapentin 300 mg 300 mg DAILY PO 10/19/16 09:00 10/27/16 09:29 Cefepime HCl/ Sodium Chloride (Maxipime Inj/NS Inj) 100 ml @ 200 mls/hr Q8H IV 10/18/16 14:00 10/27/16 05:36 Diltiazem HCl (Cardizem) 30 mg Q6HR PO 10/18/16 18:00 10/27/16 05:36 Insulin Detemir (Levemir Inj) 10 units Q12HR SQ 10/19/16 21:00 10/27/16 09:31 Enoxaparin Sodium (Lovenox Inj) 40 mg Q24H SQ 10/20/16 08:00 10/27/16 09:28 Prednisone (Deltasone) 10 mg BID PO 10/24/16 21:00 10/27/16 09:28 Physical Exam General General Appearance: Comfortable, Obese Eyes Eye Exam: Pupils Equal, Pupils Reactive Ears & Nose Ears & Nose Exam: Nasal Mucosa [place] Throat Throat Exam: Oral Mucosa [place] & Moist Neck Neck Exam: Trachea Midline Pulmonary Resp Exam: Breath Sounds Equal, Crackles, Diminished Breath Sounds Cardiology CV Exam: Irregular, Tachycardia Gastrointestinal/Abdomen GI Exam: Soft, Non-Tender, Bowel Sounds Present, Positive Bowel Movement Genitourinary Remarks Finn discontinued today monitor for any dysuria or urinary retention Musculoskeletal MS Exam: Normal Tone Integumentary Skin Exam: Warm, Dry Neurologic Neuro Exam: Awake, Oriented, Speech Clear, Moving All Extremities Psychiatric Psych Exam: Appropriate Responses VTE Prophylaxis VTE Prophylaxis Meds: Lovenox Assessment/Plan Problem List: (1) Acute respiratory acidosis (2) Acute respiratory failure (3) COPD exacerbation (4) Sepsis (5) Pneumonia (6) Hyperkalemia (7) Hyperglycemia (8) Elevated troponin (9) Leukocytosis (10) Obesity (11) Shortness of breath (12) Diabetes mellitus type 2 in obese (13) Hard of hearing (14) RADHA (obstructive sleep apnea) (15) Neuropathy (16) Renal insufficiency (17) Diabetic neuropathy, type II diabetes mellitus (18) Diabetes mellitus type 2, uncontrolled (19) Weakness (20) Dyslipidemia (21) Right bundle branch block (RBBB) on electrocardiogram (ECG) (22) First degree atrioventricular block by electrocardiogram Assessment/Plan Assessment/Plan Vital signs reviewed, heart rate ranges between 80s and 105 Afebrile Labs reviewed, leukocytosis without fever with trends borderline between 10 and 13 Chest x-ray done on shows improvement in airspace disease and left base Respiratory failure on admission, improved with pneumonia treatment and IV antibiotics Obstructive sleep apnea, obesity hypoventilation syndrome with CO2 retention Pneumonia, responding to treatment, symptomatic improvement ObesityHypoventilation syndrome, appreciate pulmonary input, PO steroids, dual nebs, continue IV antibiotics, encouraged incentive spirometry PT eval and treat. DC planning Acute on chronic Diastolic heart failure, appreciate cardiology input, medical management Morbid obesity, encourage patient to be up out of bed with assistance, physical therapy, need to evaluate current debility and fatigue status, PT notes patient would benefit from rolling walker, will continue to see 3-5 times a week, Will work with safe discharge within the next week. Finn catheter DC'd on 10-25, patient is voiding in urinal without difficulty, clear yellow Bowel regimen , BM monitored, within the last 48 hours Diabetes mellitus, Accu-Cheks before meals and at bedtime a.m. Hypertension, medical management, History of Atrial tachycardia, monitor telemetry and heart rate ranging in the 70s to 105, appreciate cardiology input, patient is on by mouth Cardizem 30 mg every 6hr, Once cardiology feels he is stable we will transition to snf rehabilitation, or back to his previous settings Chronic kidney disease, monitor labs medical management Discussed with patient Discussed with nurse Discussed with Dr. Dickey, seen on his behalf Discharge planning for rehabilitation, SNF when okay with cardiology Isamar Huston Oct 27, 2016 11:19
--- NOTE | 2016-10-27 13:12 | PD.CARD.PN ---
Subjective Subjective Remarks c/o mailaise Objective Vital Signs / I&O Vital Signs Date Time Temp Pulse Resp B/P Pulse Ox O2 Delivery O2 Flow Rate FiO2 10/27/16 12:19 97 Nasal Cannula 2.00 10/27/16 12:06 97.8 113 20 129/60 95 10/27/16 08:06 97.8 77 22 112/55 97 10/27/16 05:30 97.8 107 18 122/59 96 10/27/16 00:52 97.6 111 20 131/66 96 10/26/16 21:20 Nasal Cannula 2.00 10/26/16 20:00 110 10/26/16 18:00 97.3 113 20 155/74 96 10/26/16 16:00 97.4 107 20 126/56 96 I/O 10/26/16 10/26/16 10/26/16 10/27/16 10/27/16 10/27/16 07:00 15:00 23:00 07:00 15:00 23:00 Intake Total 100 ml 1600 ml 100 ml Output Total 1600 ml Balance 100 ml 0 ml 100 ml Intake Oral 1600 ml IV Total 100 ml 100 ml Output Urine Total 1600 ml # Bowel Movements 1 Physical Exam GENERAL: SKIN: Warm and dry. HEAD: Normocephalic. EYES: No scleral icterus. No injection or drainage. NECK: Supple, trachea midline. No JVD or lymphadenopathy. CARDIOVASCULAR: Regular rate and rhythm without murmurs, gallops, or rubs. RESPIRATORY: Breath sounds equal bilaterally. No accessory muscle use. GASTROINTESTINAL: Abdomen soft, non-tender, nondistended. MUSCULOSKELETAL: No cyanosis, or edema. BACK: Nontender without obvious deformity. No CVA tenderness. Assessment and Plan Problem List: (1) Atrial tachycardia (2) Tachyarrhythmia (3) Acute respiratory failure (4) Acute respiratory acidosis (5) Shortness of breath (6) Diabetic neuropathy, type II diabetes mellitus (7) Renal insufficiency (8) Elevated troponin (9) NSTEMI (non-ST elevated myocardial infarction) Assessment and Plan 1.) Copd/pneumonia - patient clinically improving on antibiotics 2.) Arrythmia - in svt@105, assymptomatic, continue tele; rx conservatively given h/o tachy-bradycardy; expect to improve if/when oxygenation improves 3.) Diastolic chf - appears euvolemic on current meds, (pub=794) Marcos Omer MD Oct 27, 2016 13:12
--- NOTE | 2016-10-27 16:07 | HHI.FF ---
Face to Face Verification Diagnosis: (1) Physical deconditioning Physical Therapy Order: Evaluate and Treat I have seen patient Juan José Lai on 10/27/16. My clinical findings support the need for the requested home health care services because: Ltd mobility - disease progression I certify that my clinical findings support that this patient is homebound because: Hx COPD- exertion dyspnea/weakness Celia Dickey MD Oct 27, 2016 16:07
--- NOTE | 2016-10-27 18:53 | HHI.PR ---
Subjective Remarks 71 YOWm with hypercapnoic RF,RADHA, obesity Breathing better Mild sob No CP No cough or sp Weaned to NC Objective Vital Signs Vital Signs Date Time Temp Pulse Resp B/P Pulse Ox O2 Delivery O2 Flow Rate FiO2 10/27/16 16:28 97.8 110 20 97/44 94 10/27/16 12:19 97 Nasal Cannula 2.00 10/27/16 12:06 97.8 113 20 129/60 95 10/27/16 08:06 97.8 77 22 112/55 97 10/27/16 08:00 Nasal Cannula 2.00 10/27/16 08:00 63 10/27/16 05:30 97.8 107 18 122/59 96 10/27/16 00:52 97.6 111 20 131/66 96 10/26/16 21:20 Nasal Cannula 2.00 10/26/16 20:00 110 I/O 10/26/16 10/26/16 10/26/16 10/27/16 10/27/16 10/27/16 07:00 15:00 23:00 07:00 15:00 23:00 Intake Total 100 ml 1600 ml 100 ml 600 ml Output Total 1600 ml 650 ml Balance 100 ml 0 ml 100 ml -50 ml Intake Oral 1600 ml 600 ml IV Total 100 ml 100 ml Output Urine Total 1600 ml 650 ml # Bowel Movements 1 1 Result Diagram: 10/26/16 0600 10/26/16 0600 Objective Remarks GENERAL: obese Wm mild sob SKIN: Warm and dry. HEAD: Normocephalic. EYES: No scleral icterus. No injection or drainage. NECK: Supple, trachea midline. No JVD or lymphadenopathy. CARDIOVASCULAR: Regular rate and rhythm without murmurs, gallops, or rubs. RESPIRATORY: Breath sounds equal bilaterally. No accessory muscle use. GASTROINTESTINAL: Abdomen soft, non-tender, nondistended. MUSCULOSKELETAL: No cyanosis, or edema. BACK: Nontender without obvious deformity. No CVA tenderness. A/P Assessment and Plan Hypercapnoic RF RADHA Obesity-Hypoventlation synd DM HTN PLAN: Cont Abx Aerosol nebs Dw at BS. Supplement 02 to keep sat >90% Pred 10 mg bid DC Plans underway. Scotty Bah MD Oct 27, 2016 18:53
[2016-10-28] VITALS (9 sets, daily range): BP systolic 117–141; BP diastolic 58–70; PULSE 68–111; RESP 18–22; TEMP 97.3–98.2; O2SAT 93–98
[2016-10-28] MEDS: DILTIAZEM HCL 30 MG TAB PO SCH ×4 (00:07→17:12)
[2016-10-28] MEDS: CHLORHEXIDINE GLUCONATE 2 % 1 PACK (2 CLOTHS) TOP SCH (03:43)
[2016-10-28] MEDS: CEFEPIME INJ 2,000 MG in SODIUM CHLORIDE 0.9% INJ 100 ML IV SCH ×3 (05:41→21:05)
[2016-10-28] MEDS: INSULIN NovoLIN REGULAR SUPPLEMENTAL SCALE SQ SCH ×4 (06:48→21:13)
[2016-10-28] MEDS: SODIUM CHLORIDE 0.9% FLUSH 10 ML FLUSH IV FLUSH SCH ×2 (08:00→21:06)
[2016-10-28] MEDS: ASPIRIN 325 MG TAB PO SCH (08:20)
[2016-10-28] MEDS: DOCUSATE SODIUM 50 MG/SENNA 8.6 MG TAB PO SCH ×2 (08:20→20:58)
[2016-10-28] MEDS: ARTIFICIAL TEARS OPTH SOLN 15 ML BTL EACH EYE SCH ×3 (08:20→17:12)
[2016-10-28] MEDS: predniSONE 10 MG TAB PO SCH ×2 (08:20→21:05)
[2016-10-28] MEDS: ENOXAPARIN SODIUM 40 MG/0.4 ML SYRINGE SQ SCH (08:20)
[2016-10-28] MEDS: GABAPENTIN 300 MG CAP PO SCH (08:20)
[2016-10-28] MEDS: PANTOPRAZOLE SODIUM 40 MG VIAL IV SCH (08:20)
[2016-10-28] MEDS: INSULIN DETEMIR 100 UNITS/ML VIAL SQ SCH ×2 (08:30→21:13)
--- NOTE | 2016-10-28 12:45 | HHI.PR ---
Subjective Subjective Remarks Up in chair for approximately 3-1/2 hours this morning, no shortness of breath, tolerated well Stood with minimal assist physical therapy No acute chest pain Afebrile Heart rate 68-72 (Isamar Huston) Review of Systems Constitutional Constitutional: Fatigue (improved gradual), Weakness (improved gradual) Constitutional Remarks 10 point ROS done positives noted (Isamar Huston) Pulmonary Respiratory: Coughing (improved), Shortness of Breath (none at rest), Wheezing (none noted) (Isamar Huston) Genitourinary Remarks ISHA Finn today (Isamar Huston) Musculoskeletal MS: Weakness, Stiffness MS Remarks Morbid obesity (Isamar Huston) Psychiatric Psychiatric: Normal Mood, Agitation (at times) (Isamar Huston) Vitals/Results Intake & Output 10/27/16 10/27/16 10/28/16 15:00 23:00 07:00 Intake Total 600 ml 240 ml 0 ml Output Total 650 ml 1125 ml 350 ml Balance -50 ml -885 ml -350 ml Intake Oral 600 ml 240 ml 0 ml Output Urine Total 650 ml 1125 ml 350 ml # Bowel Movements 1 Vital Signs Vital Signs Date Time Temp Pulse Resp B/P Pulse Ox O2 Delivery O2 Flow Rate FiO2 10/28/16 12:08 98 Nasal Cannula 2.00 10/28/16 09:07 Nasal Cannula 2.00 10/28/16 04:00 98.2 71 22 133/70 97 10/28/16 00:00 98.2 68 18 117/63 95 10/27/16 22:29 99 Nasal Cannula 2.00 10/27/16 21:40 Nasal Cannula 2.00 10/27/16 20:33 91 10/27/16 20:00 97.6 94 20 118/73 95 10/27/16 16:28 97.8 110 20 97/44 94 (Isamar Huston) CBC/BMP: 10/26/16 0600 10/26/16 0600 Lab Results Laboratory Tests Test 10/28/16 05:25 B-Type Natriuretic Peptide 168 PG/ML (Isamar Huston) Physical Exam General General Appearance: Comfortable, Obese Appearance Remarks No shortness of breath noted while up in chair (Isamar Huston. [employer]IST) Eyes Eye Exam: Pupils Equal, Pupils Reactive (Isamar Huston. [employer] SPECIALIST) Ears & Nose Ears & Nose Exam: Nasal Mucosa [place] (Isamar Huston. [employer] SPECIALIST) Throat Throat Exam: Oral Mucosa [place] & Moist (Isamar Huston M. [employer]LE[employer] SPECIALIST) Neck Neck Exam: Trachea Midline (Isamar Huston. [employer] SPECIALIST) Pulmonary Resp Exam: Breath Sounds Equal, Crackles, Diminished Breath Sounds (Isamar Huston. [employer] SPECIALIST) Cardiology CV Exam: Regular, Irregular (no tachycardia seen), Tachycardia (Isamar Huston. [employer] SPECIALIST) Gastrointestinal/Abdomen GI Exam: Soft, Non-Tender, Bowel Sounds Present, Positive Bowel Movement ( Isamar Huston. [employer] SPECIALIST) Genitourinary Remarks Finn discontinued monitor for any dysuria or urinary retention (Isamar Huston [employer] SPECIALIST) Musculoskeletal MS Exam: Normal Tone, Good Strength (adequate strength), Unable to Ambulate ( up with minimal assistance) (Isamar Huston. [employer]LE[employer] SPECIALIST) Integumentary Skin Exam: Warm, Dry (Isamar Huston. [employer] SPECIALIST) Neurologic Neuro Exam: Awake, Oriented, Speech Clear, Moving All Extremities (Isamar Huston M. [employer] SPECIALIST) Psychiatric Psych Exam: Appropriate Responses (Isamar HustonP) VTE Prophylaxis VTE Prophylaxis Meds: Lovenox (Isamar Huston. [employer] SPECIALIST) Assessment/Plan Problem List: (1) Acute respiratory acidosis (2) Acute respiratory failure (3) COPD exacerbation (4) Sepsis (5) Pneumonia (6) Hyperkalemia (7) Hyperglycemia (8) Elevated troponin (9) Leukocytosis (10) Obesity (11) Shortness of breath (12) Diabetes mellitus type 2 in obese (13) Hard of hearing (14) RADHA (obstructive sleep apnea) (15) Neuropathy (16) Renal insufficiency (17) Diabetic neuropathy, type II diabetes mellitus (18) Diabetes mellitus type 2, uncontrolled (19) Weakness (20) Dyslipidemia (21) Right bundle branch block (RBBB) on electrocardiogram (ECG) (22) First degree atrioventricular block by electrocardiogram Assessment/Plan Assessment/Plan Vital signs reviewed, heart rate normal ranges 60-70s Afebrile Labs reviewed, CBC pending Chest x-ray done on shows improvement in airspace disease and left base Respiratory failure on admission, improved with pneumonia treatment and IV antibiotics Obstructive sleep apnea, obesity hypoventilation syndrome with CO2 retention Pneumonia, responding to treatment, symptomatic improvement ObesityHypoventilation syndrome, appreciate pulmonary input, PO steroids, dual nebs, continue IV antibiotics, encouraged incentive spirometry PT eval and treat. DC planning, patient was able to sit up in chair 3-1/2 hours today, minimal assistance to go back to bed Acute on chronic Diastolic heart failure, appreciate cardiology input, medical management Morbid obesity, encourage patient to be up out of bed with assistance, physical therapy, need to evaluate current debility and fatigue status, PT notes patient would benefit from rolling walker, Finn catheter DC'd on 10-25, patient is voiding in urinal without difficulty, clear yellow Diabetes mellitus, Accu-Cheks before meals and at bedtime a.m. Hypertension, medical management, History of Atrial tachycardia, rate controlled appreciate cardiology input, patient is on by mouth Cardizem 30 mg every 6hr, Chronic kidney disease, monitor labs medical management Discussed with patient Discussed with nurse Discussed with Dr. Dickey, seen on his behalf Discharge planning probable for his STEFAN today, (Isamar Huston) Assessment/Plan seen, examined by myself, Dr Dickey, today 10/28/16 Discussed with patient He feels worse today Gen. numbness Mildly lethargic check arterial blood gas Check head CT If above is negative and if he is stable to be discharge tomorrow Discussed with mid level provider The exam, history, and the medical decision-making described in the above note were completed with the assistance of the mid-level provider. I reviewed the findings presented. I attest that I had a [id number] encounter with the patient on the same day, and personally performed and documented my assessment and findings in the medical record. (Celia Dickey MD) Isamar Huston Oct 28, 2016 12:45 Celia Dickey MD Oct 28, 2016 18:34
[2016-10-28 14:53] LABS: AUTOMATED NEUTROPHIL # 14.9 TH/MM3 (1.8-7.7); BASOPHIL % 0.2 % (0.0-2.0); EOSINOPHIL # 0.2 TH/MM3 (0-0.4); EOSINOPHIL % 1.1 % (0.0-4.0); HEMATOCRIT 42.7 % (39.0-51.0); HEMO FLAGS DIFF FINAL; MEAN CELL VOLUME 93.5 FL (80.0-100.0); MEAN CORPUSCULAR HEMOGLOBIN 29.6 PG (27.0-34.0); MEAN CORPUSCULAR HGB CONC 31.7 % (32.0-36.0); MONO % 7.7 % (0.0-8.0); PLATELET COUNT 167 TH/MM3 (150-450); RED BLOOD COUNT 4.57 MIL/MM3 (4.50-5.90); RED CELL DISTRIBUTION WIDTH 15.1 % (11.6-17.2); WHITE BLOOD COUNT 17.5 TH/MM3 (4.0-11.0)
[2016-10-28 15:26] LABS: BICARBONATE 32.7 MEQ/L (21.0-32.0); POTASSIUM 4.5 MEQ/L (3.5-5.1)
--- NOTE | 2016-10-28 16:23 | RADRPT ---
EXAM DATE/TIME: 10/28/2016 15:56 [facility] COMPARISON: CT BRAIN W/O CONTRAST, August 02, 2013, 21:36. INDICATIONS : Stroke RADIATION DOSE: 50.73 CTDIvol (mGy) MEDICAL HISTORY : Cardiovascular disease. Hypertension. Diabetes mellitus type 1. SURGICAL HISTORY : None. ENCOUNTER: Initial ACUITY: 1 day PAIN SCALE: 0/10 LOCATION: Bilateral cranial TECHNIQUE: Multiple contiguous axial images were obtained of the head. Using automated exposure control and adj ustment of the mA and/or kV according to patient size, radiation dose was kept as low as reasonably a chievable to obtain optimal diagnostic quality images. DICOM format image data is available electro nically for review and comparison. FINDINGS: There is no evidence for intracranial hemorrhage, mass effect, mass lesions, edema, or extra-axial fl uid collections. The visualized bony structures appear intact. The ventricles are normal size for t he patient's age. There are no signs of acute infarction for technique. There is mild mucoperiosteal thickening within bilateral maxillary sinuses. CONCLUSION: Unremarkable study except for mild chronic sinusitis. Neva Robins MD on October 28, 2016 at 16:21 Board Certified Radiologist. This report was verified electronically.
[2016-10-28 16:51] LABS: BLOOD GAS BASE EXCESS 6.6 mmol/L (-2-2); BLOOD GAS CARBOXYHEMOGLOBIN 1.8 % (0-4); BLOOD GAS HCO3 32 mmol/L (22-26); BLOOD GAS METHEMOGLOBIN 1.1 % (0-2); BLOOD GAS O2 HGB SATURATION 85 % (90-100); BLOOD GAS OXYGEN CONTENT 16.4 Vol % (12.0-20.0); BLOOD GAS PCO2 52 mmHg (38-42); BLOOD GAS PO2 53 mmHg (61-120); BLOOD GAS TOTAL HGB 13.8 G/DL (12.0-16.0); TEMP CORR TO 98.6
[2016-10-28 16:52] LABS: CRITICAL VALUE YES; DRAW SITE RT RADIAL; FIO2 21 %; OXYGEN DEVICE ROOM AIR
[2016-10-28 16:53] LABS: NUMBER OF ARTERIAL PUNCTURES 1; STAT NO; ULNAR PULSE PRESENT
--- NOTE | 2016-10-28 20:24 | HHI.PR ---
Subjective Remarks 71 YOWm with hypercapnoic RF,RADHA, obesity Breathing better Mild sob No CP No cough or sp Weaned to NC Anxious to go home Objective Vital Signs Vital Signs Date Time Temp Pulse Resp B/P Pulse Ox O2 Delivery O2 Flow Rate FiO2 10/28/16 17:34 98 Nasal Cannula 2.00 10/28/16 16:00 98.1 91 20 120/58 94 10/28/16 12:08 98 Nasal Cannula 2.00 10/28/16 12:00 97.3 77 20 141/62 96 10/28/16 09:07 Nasal Cannula 2.00 10/28/16 08:00 97.5 89 20 141/64 93 10/28/16 04:00 98.2 71 22 133/70 97 10/28/16 00:00 98.2 68 18 117/63 95 10/27/16 22:29 99 Nasal Cannula 2.00 10/27/16 21:40 Nasal Cannula 2.00 10/27/16 20:33 91 I/O 10/27/16 10/27/16 10/27/16 10/28/16 10/28/16 10/28/16 07:00 15:00 23:00 07:00 15:00 23:00 Intake Total 600 ml 240 ml 0 ml 840 ml Output Total 650 ml 1125 ml 350 ml 125 ml Balance -50 ml -885 ml -350 ml 715 ml Intake Oral 600 ml 240 ml 0 ml 840 ml Output Urine Total 650 ml 1125 ml 350 ml 125 ml # Voids 1 # Bowel Movements 1 1 Result Diagram: 10/28/16 1425 10/28/16 1425 Objective Remarks GENERAL: obese Wm mild sob SKIN: Warm and dry. HEAD: Normocephalic. EYES: No scleral icterus. No injection or drainage. NECK: Supple, trachea midline. No JVD or lymphadenopathy. CARDIOVASCULAR: Regular rate and rhythm without murmurs, gallops, or rubs. RESPIRATORY: Breath sounds equal bilaterally. No accessory muscle use. GASTROINTESTINAL: Abdomen soft, non-tender, nondistended. MUSCULOSKELETAL: No cyanosis, or edema. BACK: Nontender without obvious deformity. No CVA tenderness. A/P Assessment and Plan Hypercapnoic RF RADHA Obesity-Hypoventlation synd DM HTN PLAN: Cont Abx Aerosol nebs Dw at BS. Supplement 02 to keep sat >90% Pred 10 mg bid DC Plans underway. Scotty Bah MD Oct 28, 2016 20:24
[2016-10-29] VITALS: BP 127/52; PULSE 109; RESP 20; TEMP 97.2; O2SAT 95
[2016-10-29] MEDS: DILTIAZEM HCL 30 MG TAB PO SCH ×4 (00:18→18:48)
[2016-10-29 04:00] VITALS: BP 115/54; PULSE 92; RESP 20; TEMP 97.4; O2SAT 99
[2016-10-29] MEDS: CHLORHEXIDINE GLUCONATE 2 % 1 PACK (2 CLOTHS) TOP SCH (04:00)
[2016-10-29] MEDS: INSULIN NovoLIN REGULAR SUPPLEMENTAL SCALE SQ SCH ×3 (05:51→16:00)
[2016-10-29] MEDS: CEFEPIME INJ 2,000 MG in SODIUM CHLORIDE 0.9% INJ 100 ML IV SCH ×2 (06:00→15:39)
[2016-10-29 08:00] VITALS: BP 116/57; PULSE 93; RESP 20; TEMP 98.1; O2SAT 96
[2016-10-29] MEDS: DOCUSATE SODIUM 50 MG/SENNA 8.6 MG TAB PO SCH ×2 (08:41→09:00)
[2016-10-29] MEDS: predniSONE 10 MG TAB PO SCH (08:41)
[2016-10-29] MEDS: GABAPENTIN 300 MG CAP PO SCH (08:41)
[2016-10-29] MEDS: PANTOPRAZOLE SODIUM 40 MG VIAL IV SCH (08:42)
[2016-10-29] MEDS: ASPIRIN 325 MG TAB PO SCH (08:42)
[2016-10-29] MEDS: SODIUM CHLORIDE 0.9% FLUSH 10 ML FLUSH IV FLUSH SCH (08:43)
[2016-10-29] MEDS: ARTIFICIAL TEARS OPTH SOLN 15 ML BTL EACH EYE SCH ×3 (08:43→18:00)
[2016-10-29] MEDS: ENOXAPARIN SODIUM 40 MG/0.4 ML SYRINGE SQ SCH (08:43)
[2016-10-29] MEDS: INSULIN DETEMIR 100 UNITS/ML VIAL SQ SCH (08:45)
--- NOTE | 2016-10-29 09:59 | HHI.PR ---
Subjective Subjective Remarks Resting in bed watching TV no acute distress no shortness of breath Physical therapy for out of bed Chronic sinus disease noted on CT Afebrile (Isamar Huston) Review of Systems Constitutional Constitutional: Fatigue (improved gradual), Weakness (improved gradual) Constitutional Remarks 10 point ROS done positives noted (Isamar Huston) Pulmonary Respiratory: Coughing (improved), Shortness of Breath (resolved), Wheezing ( resolved) Pulmonary Remarks Added loratadine (Isamar Huston) Genitourinary Remarks DC Finn today (Isamar Huston) Musculoskeletal MS: Weakness, Stiffness MS Remarks Morbid obesity (Isamar Huston) Psychiatric Psychiatric: Normal Mood, Agitation (at times) (Isamar Huston) Vitals/Results Intake & Output 10/28/16 10/28/16 10/29/16 15:00 23:00 07:00 Intake Total 840 ml 480 ml 25 ml Output Total 125 ml 100 ml Balance 715 ml 480 ml -75 ml Intake Oral 840 ml 480 ml 25 ml Output Urine Total 125 ml 100 ml # Voids 1 2 # Bowel Movements 1 2 0 Vital Signs Vital Signs Date Time Temp Pulse Resp B/P Pulse Ox O2 Delivery O2 Flow Rate FiO2 10/29/16 04:00 97.4 92 20 115/54 99 10/29/16 00:00 97.2 109 20 127/52 95 10/28/16 21:18 Nasal Cannula 2.00 10/28/16 20:00 97.4 111 20 135/63 94 10/28/16 19:58 110 10/28/16 17:34 98 Nasal Cannula 2.00 10/28/16 16:00 98.1 91 20 120/58 94 10/28/16 12:08 98 Nasal Cannula 2.00 10/28/16 12:00 97.3 77 20 141/62 96 (Isamar Huston) CBC/BMP: 10/28/16 1425 10/28/16 1425 Lab Results Laboratory Tests Test 10/28/16 10/28/16 14:25 16:40 White Blood Count 17.5 TH/MM3 Red Blood Count 4.57 MIL/MM3 Hemoglobin 13.5 GM/DL Hematocrit 42.7 % Mean Corpuscular Volume 93.5 FL Mean Corpuscular Hemoglobin 29.6 PG Mean Corpuscular Hemoglobin 31.7 % Concent Red Cell Distribution Width 15.1 % Platelet Count 167 TH/MM3 Mean Platelet Volume 11.5 FL Neutrophils (%) (Auto) 85.0 % Lymphocytes (%) (Auto) 6.0 % Monocytes (%) (Auto) 7.7 % Eosinophils (%) (Auto) 1.1 % Basophils (%) (Auto) 0.2 % Neutrophils # (Auto) 14.9 TH/MM3 Lymphocytes # (Auto) 1.0 TH/MM3 Monocytes # (Auto) 1.4 TH/MM3 Eosinophils # (Auto) 0.2 TH/MM3 Basophils # (Auto) 0.0 TH/MM3 CBC Comment DIFF FINAL Differential Comment Sodium Level 133 MEQ/L Potassium Level 4.5 MEQ/L Chloride Level 97 MEQ/L Carbon Dioxide Level 32.7 MEQ/L Anion Gap 3 MEQ/L Blood Urea Nitrogen 36 MG/DL Creatinine 0.92 MG/DL Estimat Glomerular Filtration 81 ML/MIN Rate Random Glucose 154 MG/DL Calcium Level 9.0 MG/DL Blood Gas Puncture Site RT RADIAL Blood Gas Patient Temperature 98.6 Blood Gas HCO3 32 mmol/L Blood Gas Base Excess 6.6 mmol/L Blood Gas Oxygen Saturation 85 % Arterial Blood pH 7.40 Arterial Blood Partial 52 mmHg Pressure CO2 Arterial Blood Partial 53 mmHg Pressure O2 Arterial Blood Oxygen Content 16.4 Vol % Arterial Blood 1.8 % Carboxyhemoglobin Arterial Blood Methemoglobin 1.1 % Blood Gas Hemoglobin 13.8 G/DL Oxygen Delivery Device ROOM AIR Blood Gas Inspired Oxygen 21 % Current Medications Administered Medications Medications (Trade) Dose Ordered Sig/Jessica Route PRN Reason Start Time Stop Time Status Last Admin Dose Admin Sodium Chloride (NS Flush) 2 ml UNSCH PRN IVF FLUSH AFTER USING IV ACCESS 10/18/16 08:45 10/18/16 11:03 Sodium Chloride (NS Flush) 2 ml UNSCH PRN IV FLUSH FLUSH AFTER USING IV ACCESS 10/18/16 12:15 10/23/16 08:46 Sodium Chloride (NS Flush) 2 ml BID IV FLUSH 10/18/16 21:00 10/29/16 08:43 Pantoprazole Sodium (Protonix Inj) 40 mg DAILY IV 10/19/16 09:00 10/29/16 08:42 Artificial Tears (Tears Naturale Opth Soln) 1 drop TID EACH EYE 10/18/16 13:00 10/29/16 08:43 Miscellaneous Information 1 Q361D XX 10/18/16 12:15 10/18/16 13:07 Chlorhexidine Gluconate (Chlorhexidine 2% Cloth) Taper DAILY@04 TOP 10/19/16 04:00 10/15/17 03:59 10/24/16 04:00 Senna/Docusate Sodium (Ellen-Colace) 1 tab BID PO 10/18/16 21:00 10/28/16 08:20 Aspirin (Aspirin) 325 mg DAILY PO 10/19/16 09:00 10/29/16 08:42 Gabapentin 300 mg 300 mg DAILY PO 10/19/16 09:00 10/29/16 08:41 Cefepime HCl/ Sodium Chloride (Maxipime Inj/NS Inj) 100 ml @ 200 mls/hr Q8H IV 10/18/16 14:00 10/29/16 06:00 Diltiazem HCl (Cardizem) 30 mg Q6HR PO 10/18/16 18:00 10/29/16 05:51 Insulin Detemir (Levemir Inj) 10 units Q12HR SQ 10/19/16 21:00 10/29/16 08:45 Enoxaparin Sodium (Lovenox Inj) 40 mg Q24H SQ 10/20/16 08:00 10/29/16 08:43 Prednisone (Deltasone) 10 mg BID PO 10/24/16 21:00 10/29/16 08:41 (Isamar Huston) Physical Exam General General Appearance: Comfortable, Obese Appearance Remarks No shortness of breath noted while up in chair (Isamar Huston) Eyes Eye Exam: Pupils Equal, Pupils Reactive (Isamar Huston) Ears & Nose Ears & Nose Exam: Nasal Mucosa [place] (Isamar Huston) Throat Throat Exam: Oral Mucosa [place] & Moist (Isamar Huston) Neck Neck Exam: Trachea Midline (Isamar Huston) Pulmonary Resp Exam: Breath Sounds Equal, Crackles, Diminished Breath Sounds (Isamar Huston) Cardiology CV Exam: Regular, Irregular (no tachycardia seen), Tachycardia (Isamar Huston) Gastrointestinal/Abdomen GI Exam: Soft, Non-Tender, Bowel Sounds Present, Positive Bowel Movement ( Isamar Huston) Genitourinary Remarks Finn discontinued monitor for any dysuria or urinary retention (Isamar Huston) Musculoskeletal MS Exam: Normal Tone, Good Strength (adequate strength), Unable to Ambulate ( up with minimal assistance) (Isamar Huston) Integumentary Skin Exam: Warm, Dry (Isamar Huston) Neurologic Neuro Exam: Awake, Oriented, Speech Clear, Moving All Extremities (Isamar Huston) Psychiatric Psych Exam: Appropriate Responses (Isamar Huston) VTE Prophylaxis VTE Prophylaxis Meds: Lovenox (Isamar Huston) Assessment/Plan Problem List: (1) Acute respiratory acidosis (2) Acute respiratory failure (3) COPD exacerbation (4) Sepsis (5) Pneumonia (6) Hyperkalemia (7) Hyperglycemia (8) Elevated troponin (9) Leukocytosis (10) Obesity (11) Shortness of breath (12) Diabetes mellitus type 2 in obese (13) Hard of hearing (14) RADHA (obstructive sleep apnea) (15) Neuropathy (16) Renal insufficiency (17) Diabetic neuropathy, type II diabetes mellitus (18) Diabetes mellitus type 2, uncontrolled (19) Weakness (20) Dyslipidemia (21) Right bundle branch block (RBBB) on electrocardiogram (ECG) (22) First degree atrioventricular block by electrocardiogram Assessment/Plan Vital signs reviewed, trends normal Afebrile Labs reviewed, CBC leukocytosis patient is on steroids Chest x-ray done on shows improvement in airspace disease and left base Respiratory failure on admission, improved with pneumonia treatment and IV antibiotics Obstructive sleep apnea, obesity hypoventilation syndrome with CO2 retention Pneumonia, chest x-ray improved ObesityHypoventilation syndrome, appreciate pulmonary input, PO steroids, dual nebs, continue IV antibiotics, encouraged incentive spirometry PT , patient out of bed tolerated without acute shortness of breath or pain, Acute on chronic Diastolic heart failure, appreciate cardiology input, medical management Morbid obesity, encourage patient to be up out of bed with assistance, PT, benefit from rolling walker, pt. states he has 2 at home. History of Atrial tachycardia, rate controlled appreciate cardiology input, patient is on by mouth Cardizem 30 mg every 6hr, Chronic kidney disease, Chronic sinus disease, medical management, loratadine every 12hr DC colace per pt. request, BM daily, loose with Colace. Discussed with patient Discussed with nurse Discussed with Dr. Dickey, seen on his behalf Discharge planning , home , home O2 (Isamar Huston) Assessment/Plan seen, examined by myself, Dr Dickey, today Discussed with patient Discharge home today Patient has home oxygen already Discussed with mid level provider The exam, history, and the medical decision-making described in the above note were completed with the assistance of the mid-level provider. I reviewed the findings presented. I attest that I had a [id number] encounter with the patient on the same day, and personally performed and documented my assessment and findings in the medical record. Discussed Condition with: Patient Discharge Minutes: 40 (Celia Dickey MD) Isamar Huston Oct 29, 2016 09:59 Celia Dickey MD Oct 29, 2016 18:30
[2016-10-29] MEDS: LORATADINE/PSEUDOEPHEDRINE 5 MG/120 MG TAB PO SCH ×2 (10:00→15:47)
[2016-10-29 12:00] VITALS: BP 134/66; PULSE 115; RESP 22; TEMP 98.2; O2SAT 95
[2016-10-29 16:00] VITALS: BP 117/75; PULSE 114; RESP 18; TEMP 97.5; O2SAT 95
--- NOTE | 2016-10-29 17:13 | HHI.PR ---
Subjective Remarks 71 YOWm with hypercapnoic RF,RADHA, obesity Denies sob No CP No cough or sp Weaned to NC Anxious to go home Objective Vital Signs Vital Signs Date Time Temp Pulse Resp B/P Pulse Ox O2 Delivery O2 Flow Rate FiO2 10/29/16 16:00 97.5 114 18 117/75 95 10/29/16 12:00 98.2 115 22 134/66 95 10/29/16 10:41 Nasal Cannula 2.00 10/29/16 08:00 Nasal Cannula 2.00 10/29/16 08:00 98.1 93 20 116/57 96 10/29/16 04:00 97.4 92 20 115/54 99 10/29/16 00:00 97.2 109 20 127/52 95 10/28/16 21:18 Nasal Cannula 2.00 10/28/16 20:00 97.4 111 20 135/63 94 10/28/16 19:58 110 10/28/16 17:34 98 Nasal Cannula 2.00 I/O 10/28/16 10/28/16 10/28/16 10/29/16 10/29/16 10/29/16 07:00 15:00 23:00 07:00 15:00 23:00 Intake Total 0 ml 840 ml 480 ml 25 ml 720 ml Output Total 350 ml 125 ml 100 ml 250 ml Balance -350 ml 715 ml 480 ml -75 ml 470 ml Intake Oral 0 ml 840 ml 480 ml 25 ml 720 ml Output Urine Total 350 ml 125 ml 100 ml 250 ml # Voids 1 2 # Bowel Movements 1 2 0 1 Result Diagram: 10/28/16 1425 10/28/16 1425 Objective Remarks GENERAL: obese Wm mild sob SKIN: Warm and dry. HEAD: Normocephalic. EYES: No scleral icterus. No injection or drainage. NECK: Supple, trachea midline. No JVD or lymphadenopathy. CARDIOVASCULAR: Regular rate and rhythm without murmurs, gallops, or rubs. RESPIRATORY: Breath sounds equal bilaterally. No accessory muscle use. GASTROINTESTINAL: Abdomen soft, non-tender, nondistended. MUSCULOSKELETAL: No cyanosis, or edema. BACK: Nontender without obvious deformity. No CVA tenderness. A/P Assessment and Plan Hypercapnoic RF RADHA Obesity-Hypoventlation synd DM HTN PLAN: Cont Abx Aerosol nebs Supplement 02 to keep sat >90% Pred 10 mg bid DC Plans for home Andrey FU in office 1 week. Scotty Bah MD Oct 29, 2016 17:13
[2016-10-29 18:05] VITALS: O2SAT 95
== END 2016-10-29 18:55 | disposition home health service (06) | DRG 871 ==
LOC: NEPC 08:25 → NEDH 10:42 → HIMW 14:30 → N04A 10-24 22:40
PROVIDERS: ADMIT Specialist; ATTEND Specialist
PROC: 5A09357 Assistance with Respiratory Ventilation, Less than 24 Consecutive Hours, Continuous Positive Airway Pressure (ICD-10-PCS; principal; 2016-10-18)
PROC: 0T9B70Z Drainage of Bladder with Drainage Device, Via Natural or Artificial Opening (ICD-10-PCS; 2016-10-19)
DX: A41.9 Sepsis, unspecified organism (principal); J18.9 Pneumonia, unspecified organism; J96.21 Acute and chronic respiratory failure with hypoxia; I21.4 Non-ST elevation (NSTEMI) myocardial infarction; I50.33 Acute on chronic diastolic (congestive) heart failure; G93.41 Metabolic encephalopathy; N17.9 Acute kidney failure, unspecified; I13.0 Hypertensive heart and chronic kidney disease with heart failure and stage 1 through stage 4 chronic kidney disease, or unspecified chronic kidney disease; E87.2 Acidosis; B35.1 Tinea unguium; I47.1 Supraventricular tachycardia; J44.0 Chronic obstructive pulmonary disease with (acute) lower respiratory infection; E66.2 Morbid (severe) obesity with alveolar hypoventilation; I45.2 Bifascicular block; J44.1 Chronic obstructive pulmonary disease with (acute) exacerbation; J98.11 Atelectasis; E11.21 Type 2 diabetes mellitus with diabetic nephropathy; N18.3 Chronic kidney disease, stage 3 (moderate); E11.42 Type 2 diabetes mellitus with diabetic polyneuropathy; E11.22 Type 2 diabetes mellitus with diabetic chronic kidney disease; E11.65 Type 2 diabetes mellitus with hyperglycemia; Z99.81 Dependence on supplemental oxygen; M19.90 Unspecified osteoarthritis, unspecified site; Z79.4 Long term (current) use of insulin; H91.93 Unspecified hearing loss, bilateral; I44.0 Atrioventricular block, first degree; E78.5 Hyperlipidemia, unspecified; E87.5 Hyperkalemia; I49.5 Sick sinus syndrome; I07.1 Rheumatic tricuspid insufficiency; Z86.73 Personal history of transient ischemic attack (TIA), and cerebral infarction without residual deficits
CPT/HCPCS: 36600; 70450; 71010; 71275; 80048; 80053; 81001; 82140; 82550; 82565; 82805; 82948; 83605; 83735; 83880; 84100; 84132; 84484; 85025; 85027; 85610; 85730; 87040; 87086; 87149; 87205; 87641; 87804; 93005; 94002; 94003; 94150; 94640; 94664; 94667; 96365; C9113; J0456; J0610; J0692; J0696; J1650; J1815; J2920; J3370; J7030; J7040; J7050; J7512; J7613; Q9967

== ENCOUNTER 2016-10-30 22:28 | Emergency (ER) | payer MEDICARE, OTHER ==
[~2016-10-30 22:28] MED LIST changes: +ALBI1INJ SQ; +FENO54TA PO; +GLIP10TA6 PO; -SITA1TAB2 PO; -TRIA1CAP6 PO; +TRIA37.5 PO
[2016-10-30 22:33] VITALS: BP 135/60; PULSE 114; RESP 20; TEMP 97.6; O2SAT 94
== END 2016-10-31 01:00 | disposition left against medical advice (07) ==
LOC: NED 22:28
DX: Z00.8 Encounter for other general examination (principal); Z53.21 Procedure and treatment not carried out due to patient leaving prior to being seen by health care provider
CPT/HCPCS: 99281

== ENCOUNTER 2018-02-03 13:33 | Observation (INO) ==
--- NOTE | 2018-02-03 15:15 | XR ---
EXAM DATE: 02/03/2018 2:46 PM EDT AGE/SEX: 72 years / Male INDICATIONS: Left foot pain/infection with no known injury x 2 days. CLINICAL DATA: This is the patient's initial encounter. Patient reports that signs and symptoms have been present for 2 days and indicates a pain score of 6/10. MEDICAL/SURGICAL HISTORY: Diabetes. Hypertension. None. COMPARISON: [facility], XR FOOT (MIN 3 VIEWS), LEFT, 06/23/2017. . FINDINGS: There is dorsal soft tissue swelling. No fracture or dislocation is seen. There are degenerative churchill ges and erosions at the head of the first metatarsal as before. Plantar calcaneal and posterior calca sergey spurs. CONCLUSION: Dorsal soft tissue swelling. Stable exam. Electronically signed by: Kelvin Woodard MD 02/03/2018 3:13 PM EDT
--- NOTE | 2018-02-03 15:27 | XR ---
EXAM DATE: 02/03/2018 2:46 PM EDT AGE/SEX: 72 years / Male INDICATIONS: . Short of breath. CLINICAL DATA: This is the patient's initial encounter. Patient reports that signs and symptoms have been present for 2 days and indicates a pain score of 0/10. MEDICAL/SURGICAL HISTORY: Diabetes. Hypertension. None. COMPAR[place] [facility] [place]. . FINDINGS: The heart is enlarged. There is marked elevation of the right hemidiaphragm. Minimal parenchymal churchill ges persist in the left base improving in the interval from the comparison study. There is no pneumot horax. There is no pleural effusion. Mild degenerative changes in the thoracic spine. CONCLUSION: Cardiomegaly without overt congestive failure. Stable to improving parenchymal changes left base nons pecific. Electronically signed by: John Navarro MD 02/03/2018 3:26 PM EDT
[2018-02-03 15:28] LABS: Baso # (Auto) 0.1 th/mm3 (0.0-0.2); Eos # (Auto) 0.2 th/mm3 (0.0-0.4); Eos % (Auto) 1.5 % (0.0-4.0); Hematocrit 40.9 % (39.0-51.0); Hemoglobin 13.5 gm/dL (13.0-17.0); Lymph # (Auto) 1.9 th/mm3 (1.0-4.8); Lymph % (Auto) 15.4 % (9.0-44.0); Mean Corpuscular Hemoglobin 29.9 pg (27.0-34.0); Mean Corpuscular Volume 90.5 fL (80.0-100.0); Mean Platelet Volume 10.2 fL (7.0-11.0); Mono # (Auto) 0.8 th/mm3 (0.0-0.9); Mono % (Auto) 6.3 % (0.0-8.0); Neut # (Auto) 9.2 th/mm3 (1.8-7.7); Neut % (Auto) 75.8 % (16.0-70.0); Platelet Count 254 th/mm3 (150-450); Red Blood Count 4.52 mil/mm3 (4.50-5.90); Red Cell Distribution Width 14.3 % (11.6-17.2); White Blood Count 12.2 th/mm3 (4.0-11.0)
[2018-02-03 15:36] LABS: Chloride 105 meq/L (98-107); Potassium 4.5 meq/L (3.5-5.1); Sodium 138 meq/L (136-145)
[2018-02-03 15:39] LABS: Albumin 3.9 g/dL (3.4-5.0); Anion Gap 6 meq/L (5-15); Calcium 8.8 mg/dL (8.5-10.1); Carbon Dioxide 27.1 meq/L (21.0-32.0); Glucose,Random 272 mg/dL (74-106)
[2018-02-03 15:40] LABS: Blood Urea Nitrogen 26 mg/dL (7-18)
[2018-02-03 15:42] LABS: Alanine Aminotransferase 38 U/L (12-78); Aspartate Aminotransferase 30 U/L (15-37); Glomerular Filtration Rate 40 mL/min (>89)
[2018-02-03 15:44] LABS: Total Protein 7.6 g/dL (6.4-8.2)
[2018-02-03 15:45] LABS: Alkaline Phosphatase 55 U/L (45-117)
[2018-02-03] MEDS ORDERED: Sod Chloride 0.9% Inj 1,000 ML IV.SIG SCH (16:00)
[2018-02-03] MEDS ORDERED: Clindamycin 600 mg/NS Premix 600 MG/50 ML PIGGYBACK IV.SIG STA (16:16)
--- NOTE | 2018-02-03 16:33 | ED ---
HPI General Chief complaint: Extremity Injury, Lower Stated complaint: Lt foot infection x 2 days Time Seen by Provider: 02/03/18 14:40 Source: patient Mode of arrival: ambulatory Limitations: no limitations History of Present Illness HPI narrative: Patient is a 72-year-old male who comes in due to concerns for infection to his foot. Patient states that he noticed some crusting to the side of his foot yesterday. He called his general laborer who told him to come to the emergency department. He denies any fever or chills. He denies any chest pain or shortness of breath. He denies any other pain to his leg, only around the crusting on his foot. He denies any injury. Severity is mild to moderate. Related Data Home Medications Medication Instructions Recorded Confirmed metformin 02/03/18 Allergies Allergy/AdvReac Type Severity Reaction Status Date / Time No Known Allergies Allergy Verified 02/03/18 13:44 Review of Systems ROS: all other systems reviewed are negative Constitutional Denies chills and Denies fever(s) ENT Denies dizziness Cardiovascular Denies chest pain Respiratory Denies cough Gastrointestinal Denies nausea and Denies vomiting Musculoskeletal Denies myalgias and Denies arthralgias Integumentary/Breasts Reports sores Neurologic Denies focal weakness and Denies numbness [facility] Medical History Medical History Diabetes (Acute) Hypertension (Acute) Surgical History Surgical History No history of previous surgery (Acute) Social History Social History Substance History: No History of Abuse Second Hand Smoke Exposure: No Smoking Status: Never smoker How Often Do You Have a Drink Containing Alcohol: Never Recent Travel in [facility] within the Last 8 Weeks: No Recent Out of Country Travel within the Last 8 Weeks: No Immunization History Tetanus Immunization: >5 Years Exam Narrative Exam Narrative: GENERAL: Awake and alert, in no acute distress. SKIN: Scabbing and mild erythema to the lateral side of the left foot. No areas of fluctuance. HEAD: Atraumatic. Normocephalic. EYES: Pupils equal and round. No scleral icterus. ENT: Mucous membranes pink and moist. NECK: Trachea midline. No JVD. CARDIOVASCULAR: Tachycardia. No murmur appreciated. RESPIRATORY: Clear to auscultation. Breath sounds equal bilaterally. GASTROINTESTINAL: Abdomen soft, non-tender, nondistended. MUSCULOSKELETAL: No obvious deformities. No clubbing. No cyanosis. Edema to the dorsal surface of the left foot. Pedal pulse intact. NEUROLOGICAL: Awake and alert. No obvious cranial nerve deficits. Motor grossly within normal limits. Normal speech. PSYCHIATRIC: Appropriate mood and affect; insight and judgment normal. Course Initial Documented Vital Signs Temperature 97.7 F 02/03/18 13:40 Pulse Rate 121 H 02/03/18 13:40 Respiratory Rate 24 02/03/18 13:40 Blood Pressure 150/70 H 02/03/18 13:40 Pulse Oximetry 96 02/03/18 13:40 Last Documented Vital Signs Temperature 97.7 F 02/03/18 13:40 Pulse Rate 106 H 02/03/18 16:12 Respiratory Rate 24 02/03/18 16:12 Blood Pressure 153/72 H 02/03/18 16:12 Pulse Oximetry 96 02/03/18 16:12 Medical Decision Making MDM Narrative Medical decision making narrative: Patient is a 72-year-old male who comes in complaining of possible infection to his left foot. Patient is tachycardic on exam, appears short of breath. However, he denies the sensation of being short of breath or any chest pain. IV established, labs sent. Labs show his creatinine has doubled since his last visit. Patient given pain medicine. Given some IV fluids. Given Cardizem to control his heart rate. Given a dose of clindamycin. 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 He reports compliance with his medications. Based on his tachycardia as well as his acute kidney injury, I believe he would benefit from admission. Medical Screen Exam Complete: Yes Emergency Medical Condition: Yes Differential Diagnosis Differential Diagnosis: Cellulitis versus dehydration versus electrolyte abdomen Medical Records Medical records reviewed: Yes I reviewed the patient's medical records. Lab Data Lab results reviewed: Yes I reviewed the patient's lab results. Result diagrams: 02/03/18 15:10 02/03/18 15:10 Lab Results 02/03/18 02/03/18 02/03/18 Range/Units 15:10 15:10 15:10 CBC w Diff Auto diff final WBC 12.2 H (4.0-11.0) th/mm3 RBC 4.52 (4.50-5.90) mil/mm3 Hgb 13.5 (13.0-17.0) gm/dL Hct 40.9 (39.0-51.0) % MCV 90.5 (80.0-100.0) fL MCH 29.9 (27.0-34.0) pg MCHC 33.0 (32.0-36.0) % RDW 14.3 (11.6-17.2) % Plt Count 254 (150-450) th/mm3 MPV 10.2 (7.0-11.0) fL Neut % (Auto) 75.8 H (16.0-70.0) % Lymph % (Auto) 15.4 (9.0-44.0) % [place] % (Auto) 6.3 (0.0-8.0) % Eos % (Auto) 1.5 (0.0-4.0) % Baso % (Auto) 1.0 (0.0-2.0) % Neut # (Auto) 9.2 H (1.8-7.7) th/mm3 Lymph # (Auto) 1.9 (1.0-4.8) th/mm3 [place] # (Auto) 0.8 (0.0-0.9) th/mm3 Eos # (Auto) 0.2 (0.0-0.4) th/mm3 Baso # (Auto) 0.1 (0.0-0.2) th/mm3 WBC Differential . Differential Comment . Sodium 138 (136-145) meq/L Potassium 4.5 (3.5-5.1) meq/L Chloride 105 (98-107) meq/L Carbon Dioxide 27.1 (21.0-32.0) meq/L Anion Gap 6 (5-15) meq/L BUN 26 H (7-18) mg/dL Creatinine 1.70 H (0.60-1.30) mg/dL Estimated GFR 40 L (>89) mL/min Random Glucose 272 H (74-106) mg/dL Calcium 8.8 (8.5-10.1) mg/dL Total Bilirubin 0.2 (0.2-1.0) mg/dL AST 30 (15-37) U/L ALT 38 (12-78) U/L Alkaline Phosphatase 55 (45-117) U/L Troponin I 0.02 (0.02-0.05) ng/mL Total Protein 7.6 (6.4-8.2) g/dL Albumin 3.9 (3.4-5.0) g/dL Imaging Data Radiologist's impression: Chest X-Ray 02/03/18 14:46 CONCLUSION: Cardiomegaly without overt congestive failure. Stable to improving parenchymal changes left base nonspecific. Foot X-Ray 02/03/18 14:46 CONCLUSION: Dorsal soft tissue swelling. Stable exam. ECG Data EKG Prior to Arrival: No Attestation: I personally reviewed and interpreted this ECG as follows: Interpretation: ECG shows atrial tachycardia at a rate of 119, right bundle branch block, left anterior fascicular block Discharge Plan Discharge Disposition Patient Disposition: 30 Still Patient Discharge Condition Condition: Stable Discharge Details Diagnosis: Cellulitis, LAQUITA (acute kidney injury), Atrial tachycardia Physicians Team ED Provider: Sheri Zhou Primary Care Provider: Rigoberto Goldsmith Rxs /Orders / Referrals /Forms Prescriptions: No Action metformin RF: 0 Discharge Interventions Interventions: Vital Signs Last Done: 02/03/18 16:13 Status ED Status: With Doctor
[2018-02-03] MEDS ORDERED: Acetaminophen 325 MG Tablet PO PRN (16:50)
[2018-02-03] MEDS ORDERED: Bisacodyl 10 MG Supp RECTAL PRN (16:50)
[2018-02-03] MEDS ORDERED: Sodium Chlor 0.9% Inj 500 ML IV.SIG SCH (17:00)
[2018-02-03] MEDS ORDERED: Dextrose 50% in Water 50 ML Vial IV.PUSH PRN (17:17)
[2018-02-03] MEDS ORDERED: Morphine Inj 4 MG/ML Vial IV.PUSH PRN (17:17)
--- NOTE | 2018-02-03 17:22 | P.HP ---
History of Present Illness Primary Care Physician: Rigoberto Goldsmith MD Chief Complaint: Left lower foot infection History of Present Illness: This is a pleasant 72-year-old male patient with a known medical history of diabetes, obesity who presents to the ED with complaints of left foot pain with concern with possible infection. Patient states he has been following with a tacker off in the outpatient setting, states she is been following with him roughly 6 weeks for diabetes management. He states he called his tacker off today with concern for infection to his foot and worsening pain and erythema, he was advised to come to the ED for evaluation. Patient denies any recent antibiotic use. He states that he is able to walk on his foot, lives at home with his and is able to independently perform all ADLs per self. He does state that over the past couple weeks he has had increasingly shortness of breath especially with exertion. He also has a nonproductive cough for the past couple weeks. He is currently on 3 L nasal cannula, which he does not use any oxygen at home. Patient denies any recent illness including fever, chills, cough, shortness of breath, dumping, nausea, vomiting, diarrhea dysuria. He does have a history of diabetes, currently on metformin. He does also use insulin at home. Follows closely with his PCP, last seen 2 months ago with no changes to his medicines. Patient denies any medication allergies, denies any significant family history, denies any tobacco abuse. Patient was hospitalized roughly 2 months ago in [facility] while on a trip, he states that he was having black stools at that time patient had a colonoscopy which was reportedly unremarkable. Since that time patient has been doing well with no further black stools noted. An echocardiogram was done at that time per patient, he states that the echocardiogram was insignificant and unremarkable. Patient presents with acute kidney injury, denies any chronic kidney disease. We will continue to monitor labs while he is hospitalized here. - Diagnosis (1) Cellulitis (2) LAQUITA (acute kidney injury) (3) Atrial tachycardia Review of Systems All other systems reviewed negative except as stated in HPI PMFSH - History History Provided By: Patient - Medical History Medical History: Medical History (Last Reviewed 02/03/18 @ 17:12 by Sheri Aguilar) Diabetes Hypertension - Surgical History Surgical History: Surgical History (Last Reviewed 10/17/18 @ 17:12 by Sheri Aguilar) No history of previous surgery - Family History Family History: Family History (Last Updated 02/03/18 @ 17:12 by Sheri Aguilar) Other Family history in first degree relatives is unremarkable - Social History I have reviewed the patient's Social History: Yes - Tobacco History Second Hand Smoke Exposure: No Smoking Status: Never smoker - Alcohol History How Often Do You Have a Drink Containing Alcohol: Never - Substance Use History Substance History: No History of Abuse - Travel History Recent Travel in the [place] Within the Last 8 Weeks: No Recent Travel Out of the Country Within the Last 8 Weeks: No - Immunization History Tetanus Immunization: >5 Years Medications and Allergies Active Medications: Active Medications Acetaminophen (Tylenol) 650 mg PO Q4H PRN PRN Reason: Temp > 100.4 Al Hydroxide/Mg Hydroxide (Milk Of Magnesia Liq) 30 ml PO Q12H PRN PRN Reason: Mild Constipation Bisacodyl (Dulcolax Supp) 10 mg RECTAL DAILY PRN PRN Reason: SEVERE CONSITIPATION Heparin Sodium (Porcine) (Heparin Inj) 5,000 units SQ Q12HR PIEDAD Sodium Chloride (Ns Inj) 500 mls @ 0 mls/hr IV.SIG BOLUS PIEDAD Lactulose (Lactulose Liq) 30 ml PO DAILY PRN PRN Reason: SEVERE CONSITIPATION Ondansetron HCl (Zofran Inj) 4 mg IV.PUSH Q6H PRN PRN Reason: NAUSEA OR VOMITING Sennosides (Senokot) 17.2 mg PO Q12H PRN PRN Reason: Moderate Constipation Allergies Allergy/AdvReac Type Severity Reaction Status Date / Time No Known Allergies Allergy Verified 02/03/18 13:44 Home Medications Medication Instructions Recorded Confirmed Type metformin 02/03/18 History Exam Vital signs: Vital Signs 02/03/18 13:40 02/03/18 16:00 02/03/18 16:12 Temperature 97.7 F Pulse Rate 121 H 119 H 106 H Respiratory Rate 24 24 24 Blood Pressure 150/70 H 152/78 H 153/72 H Pulse Oximetry 96 97 96 02/03/18 16:13 02/03/18 16:34 Temperature Pulse Rate 90 102 H Respiratory Rate 24 26 H Blood Pressure 147/74 H 147/73 H Pulse Oximetry 97 96 Intake & Output 02/02/18 02/03/1818 18:59 06:59 18:59 Intake Total 50 / 50 Output Total 100 / 100 Balance -50 / -50 Weight 142 kg Intake: IV 50 / 50 Cleocin 600 mg/NS Premix 600 mg 50 / 50 In 50 ml @ 100 mls/hr IV.SIG ONCE STA Rx#:[id number] Output: Urine 100 / 100 Narrative: GENERAL: Well-developed, obese male patient in NAD. Currently on supplemental O2 with some dyspnea at rest SKIN: Warm and dry. No rash. Left foot with 1+ pitting edema, erythema to dorsal aspect of left foot, pain to palpation. Range of motion intact. HEAD: Normocephalic. Atraumatic. EYES: Pupils equal and round. No scleral icterus. No injection or drainage. ENT: No nasal bleeding or discharge. Mucous membranes pink and moist. NECK: Supple. Trachea midline. CARDIOVASCULAR: Tachycardic rhythm. S1, S2 noted. No murmur appreciated. RESPIRATORY: No accessory muscle use. Diminished breath sounds throughout secondary to body habitus. Breath sounds equal bilaterally. GASTROINTESTINAL: Abdomen soft, non-tender, nondistended. Normoactive bowel sounds x4. MUSCULOSKELETAL: No obvious deformities. Extremities without clubbing, cyanosis. NEUROLOGICAL: Awake and alert. No obvious cranial nerve deficits. Motor grossly within normal limits. 5/5 muscle strength in bilateral upper and lower extremities. Normal speech. PSYCHIATRIC: Appropriate mood and affect; insight and judgment normal. Results - Labs CBC & Chem 7: 02/03/18 15:10 02/03/18 15:10 Labs: Laboratory Results - last 24 hr 02/03/18 02/03/18 02/03/18 15:10 15:10 15:10 CBC w Diff Auto diff final WBC 12.2 H RBC 4.52 Hgb 13.5 Hct 40.9 MCV 90.5 MCH 29.9 MCHC 33.0 RDW 14.3 Plt Count 254 MPV 10.2 Neut % (Auto) 75.8 H Lymph % (Auto) 15.4 [place] % (Auto) 6.3 Eos % (Auto) 1.5 Baso % (Auto) 1.0 Neut # (Auto) 9.2 H Lymph # (Auto) 1.9 [place] # (Auto) 0.8 Eos # (Auto) 0.2 Baso # (Auto) 0.1 WBC Differential . Differential Comment . Sodium 138 Potassium 4.5 Chloride 105 Carbon Dioxide 27.1 Anion Gap 6 BUN 26 H Creatinine 1.70 H Estimated GFR 40 L Random Glucose 272 H Calcium 8.8 Total Bilirubin 0.2 AST 30 ALT 38 Alkaline Phosphatase 55 Troponin I 0.02 Total Protein 7.6 Albumin 3.9 - Imaging Impressions Chest X-Ray 02/03/18 14:46 CONCLUSION: Cardiomegaly without overt congestive failure. Stable to improving parenchymal changes left base nonspecific. Foot X-Ray 02/03/18 14:46 CONCLUSION: Dorsal soft tissue swelling. Stable exam. Caprini VTE Risk Assessment Caprini VTE Risk Assessment: Moderate/High Risk (score >= 2) Caprini Risk Assessment Model: Point Value = 1 Point Value = 2 Point Value = 3 Point Value = 5 Age 41-60 Minor surgery BMI > 25 kg/m2 Swollen legs Varicose veins or History of unexplained or recurrent spontaneous Oral contraceptives or hormone replacement Sepsis (< 1 month) Serious lung disease, including pneumonia (< 1 month) Abnormal pulmonary function Acute myocardial infarction Congestive heart failure (< 1 month) History of inflammatory bowel disease Medical patient at bed rest Age 61-74 Arthroscopic surgery Major open surgery (> 45 min) Laparoscopic surgery (> 45 min) Malignancy Confined to bed (> 72 hours) Immobilizing plaster cast Central venous access Age >= 75 History of VTE Family history of VTE Factor V Leiden Prothrombin [id number] Lupus anticoagulant Anticardiolipin antibodies Elevated serum homocysteine Heparin-induced thrombocytopenia Other congenital or acquired thrombophilia Stroke (< 1 month) Elective arthroplasty Hip, pelvis, or leg fracture Acute spinal cord injury (< 1 month) Prophylaxis Regimen: Total Risk Factor Score Risk Level Prophylaxis Regimen 0-1 Low Early ambulation 2 Moderate Order ONE of the following: *Sequential Compression Device (SCD) *Heparin 5000 units SQ BID 3-4 Higher Order ONE of the following medications: *Heparin 5000 units SQ TID *Enoxaparin/Lovenox 40 mg SQ daily (WT < 150 kg, CrCl > 30 mL/min) *Enoxaparin/Lovenox 30 mg SQ daily (WT < 150 kg, CrCl > 10-29 mL/min) *Enoxaparin/Lovenox 30 mg SQ BID (WT < 150 kg, CrCl > 30 mL/min) AND/OR *Sequential Compression Device (SCD) 5 or more Highest Order ONE of the following medications: *Heparin 5000 units SQ TID (Preferred with Epidurals) *Enoxaparin/Lovenox 40 mg SQ daily (WT < 150 kg, CrCl > 30 mL/min) *Enoxaparin/Lovenox 30 mg SQ daily (WT < 150 kg, CrCl > 10-29 mL/min) *Enoxaparin/Lovenox 30 mg SQ BID (WT < 150 kg, CrCl > 30 mL/min) AND *Sequential Compression Device (SCD) Assessment and Plan - Assessment (1) Cellulitis Code(s): L03.90 - Cellulitis, unspecified Status: Acute (2) LAQUITA (acute kidney injury) Code(s): N17.9 - Acute kidney failure, unspecified Status: Acute (3) Atrial tachycardia Code(s): I47.1 - Supraventricular tachycardia Status: Acute - Plan This is a 72-year-old male patient with: Sepsis Left foot infection -Pain and worsening swelling, patient presents with a 2-week history of worsening foot pain with erythema as well as swelling. -Met sepsis criteria with leukocytosis white blood cell 12,000, tachycardia and suspected source left foot. Lactic acid pending. Patient given IV fluid in ED. -A left foot x-ray was performed showing soft tissue swelling. -Patient denies any trauma or injury to his foot. -Patient was given clindamycin IV in ED. Will continue. Blood cultures ordered and pending. UA also ordered. Will continue to monitor growth. Chest x-ray reviewed showing some cardiomegaly without any infectious source noted. -Monitor for resolution of swelling and pain of left foot. -Pain control with [place] p.o. as well as morphine IV as needed per pain scale. -PT evaluation ordered, pending. -Supportive care. Acute kidney injury -Patient presents with creatinine 1.7, GFR 40. Patient denies any previous chronic kidney disease. -Avoid nephrotoxins. Continue to monitor BMP. Will check BNP, may be secondary to fluid overload congestive heart failure. -Will order for echocardiogram. Chest x-ray reviewed showing some cardiomegaly without overt congestive heart failure. Acute kidney injury may be secondary to possible CHF. Type 2 diabetes mellitus, chronic: Will continue Accu-Chek before meals at bedtime, sliding scale, cover as needed. Monitor blood sugar trends. Diabetic diet. DVT prophylaxis: SCDs. Heparin. (1) Cellulitis Qualifiers: Site of cellulitis: extremity Site of cellulitis of extremity: lower extremity Laterality: left Qualified Code(s): L03.116 - Cellulitis of left lower limb
[2018-02-03] MEDS: Heparin - SQ 10,000 UNITS/ML Vial SQ SCH (17:52)
[2018-02-03 18:34] LABS: Bilirubin,Urine Negative (Negative); Clarity,Urine Clear (Clear); Color,Urine Yellow (Yellw/Straw); Glucose,Urine (UA) Negative (Negative); Leukocyte Esterase,Urine Negative (Negative); Nitrite,Urine Negative (Negative); PH,Urine 5.5 (5.0-8.5); Specific Gravity,Urine Greater/Equal 1.030 (1.002-1.035); Urobilinogen,Urine 0.2 mg/dL (Less than 2)
[2018-02-03 18:44] LABS: Bacteria,Urine Rare /hpf; Mucus,Urine Few /lpf (Occasional); Squamous Epithelial Cell,Urine 0-5 /hpf (0-5)
[2018-02-03 22:02] LABS: Troponin I 0.03 ng/mL (0.02-0.05)
[2018-02-03] MEDS: Insulin NovoLOG Aspart Correctional Sugar Inj SQ SCH (22:31)
[2018-02-03] MEDS ORDERED: dilTIAZem 30 MG Tablet PO ONE (23:12)
[2018-02-04] MEDS: Clindamycin 600 mg/NS Premix 600 MG/50 ML PIGGYBACK IV.SIG SCH ×2 (00:50→09:28)
[2018-02-04 06:32] LABS: Baso % (Auto) 0.4 % (0.0-2.0); Eos # (Auto) 0.2 th/mm3 (0.0-0.4); Eos % (Auto) 2.9 % (0.0-4.0); Hematocrit 39.2 % (39.0-51.0); Hemoglobin 12.6 gm/dL (13.0-17.0); Lymph # (Auto) 2.1 th/mm3 (1.0-4.8); Lymph % (Auto) 25.3 % (9.0-44.0); Mean Corpuscular HGB Conc 32.2 % (32.0-36.0); Mean Corpuscular Hemoglobin 29.2 pg (27.0-34.0); Mean Corpuscular Volume 90.8 fL (80.0-100.0); Mean Platelet Volume 9.9 fL (7.0-11.0); Mono # (Auto) 0.8 th/mm3 (0.0-0.9); Mono % (Auto) 9.1 % (0.0-8.0); Neut # (Auto) 5.3 th/mm3 (1.8-7.7); Neut % (Auto) 62.3 % (16.0-70.0); Platelet Count 210 th/mm3 (150-450); Red Blood Count 4.32 mil/mm3 (4.50-5.90); Red Cell Distribution Width 14.5 % (11.6-17.2); White Blood Count 8.4 th/mm3 (4.0-11.0)
[2018-02-04 06:54] LABS: Potassium 4.5 meq/L (3.5-5.1)
[2018-02-04 07:02] LABS: Calcium 8.3 mg/dL (8.5-10.1); Carbon Dioxide 26.2 meq/L (21.0-32.0)
[2018-02-04 07:10] LABS: Troponin I 0.03 ng/mL (0.02-0.05)
[2018-02-04] MEDS: Insulin NovoLOG Aspart Correctional Sugar Inj SQ SCH ×4 (09:26→20:46)
[2018-02-04] MEDS: Heparin - SQ 10,000 UNITS/ML Vial SQ SCH ×2 (09:27→20:30)
--- NOTE | 2018-02-04 09:44 | P.PNIM ---
Subjective Interval history: Follow-up left foot infection and dyspnea with hypoxia. Patient seen and examined, a walk test has been performed today which patient did well and does not need home oxygen. Dyspnea has improved. Echocardiogram done and pending results. Denies any acute events overnight. Patient states he feels improved. His left foot erythema has improved, still with some trace edema. Overall patient is looking much improved today. Eating well without any abdominal pain nausea or vomiting. Denies any chest pain. Will likely DC home after echocardiogram results today. Physical Exam Vital signs: Vital Signs 02/03/18 13:40 02/03/18 16:00 02/03/18 16:12 Temperature 97.7 F Pulse Rate 121 H 119 H 106 H Respiratory Rate 24 24 24 Blood Pressure 150/70 H 152/78 H 153/72 H Pulse Oximetry 96 97 96 02/03/18 16:13 02/03/18 16:34 02/03/18 17:57 Temperature Pulse Rate 90 102 H 114 H Respiratory Rate 24 26 H 20 Blood Pressure 147/74 H 147/73 H 147/60 H Pulse Oximetry 97 96 02/03/18 18:29 02/03/18 18:56 02/03/18 20:00 Temperature 98.9 F Pulse Rate 112 H 112 H 120 H Respiratory Rate 24 24 16 Blood Pressure 164/72 H 162/74 H 186/105 H Pulse Oximetry 97 96 96 02/03/18 22:41 02/03/18 22:45 02/03/18 23:33 Temperature Pulse Rate 120 H Respiratory Rate 28 H Blood Pressure 185/82 H Pulse Oximetry 96 98 02/04/18 00:00 02/04/18 00:49 02/04/18 04:00 Temperature 98.8 F 97.9 F Pulse Rate 112 H 85 Respiratory Rate 16 28 H 16 Blood Pressure 124/59 L 105/48 L Pulse Oximetry 97 98 02/04/18 08:00 Temperature 97.6 F Pulse Rate 116 H Respiratory Rate 25 H Blood Pressure 127/58 L Pulse Oximetry 97 Intake & Output 02/03/18 02/04/18 02/04/18 18:59 06:59 18:59 Intake Total 550 / 550 50 / 50 Output Total 250 / 250 500 / 500 Balance 300 / 300 -450 / -450 Weight 142 kg 140.8 kg Intake: IV 550 / 550 50 / 50 Cleocin 600 mg/NS Premix 600 mg 50 / 50 50 / 50 In 50 ml @ 100 mls/hr IV.SIG Q8H PIEDAD Rx#:[id number] NS Inj 1,000 ML @ Wide Open IV. 500 / 500 SIG BOLUS PIEDAD Rx#:[id number] Output: Urine 250 / 250 500 / 500 Narrative: GENERAL: Well-developed, obese male patient in NAD. No shortness of breath SKIN: Warm and dry. No rash. Left foot with 1+ pitting edema, erythema to dorsal aspect of left foot, no pain to palpation. Range of motion intact. HEAD: Normocephalic. Atraumatic. EYES: Pupils equal and round. No scleral icterus. No injection or drainage. ENT: No nasal bleeding or discharge. Mucous membranes pink and moist. NECK: Supple. Trachea midline. CARDIOVASCULAR: Tachycardic rhythm. S1, S2 noted. No murmur appreciated. RESPIRATORY: No accessory muscle use. Diminished breath sounds throughout secondary to body habitus. Breath sounds equal bilaterally. GASTROINTESTINAL: Abdomen soft, non-tender, nondistended. Normoactive bowel sounds x4. MUSCULOSKELETAL: No obvious deformities. Extremities without clubbing, cyanosis. NEUROLOGICAL: Awake and alert. No obvious cranial nerve deficits. Motor grossly within normal limits. 5/5 muscle strength in bilateral upper and lower extremities. Normal speech. PSYCHIATRIC: Appropriate mood and affect; insight and judgment normal. Results - Labs CBC & Chem 7: 02/04/18 05:55 02/04/18 05:55 Laboratory Results - last 24 hr 02/03/18 02/03/18 02/03/18 15:10 15:10 15:10 CBC w Diff Auto diff final WBC 12.2 H RBC 4.52 Hgb 13.5 Hct 40.9 MCV 90.5 MCH 29.9 MCHC 33.0 RDW 14.3 Plt Count 254 MPV 10.2 Neut % (Auto) 75.8 H Lymph % (Auto) 15.4 [place] % (Auto) 6.3 Eos % (Auto) 1.5 Baso % (Auto) 1.0 Neut # (Auto) 9.2 H Lymph # (Auto) 1.9 [place] # (Auto) 0.8 Eos # (Auto) 0.2 Baso # (Auto) 0.1 WBC Differential . Diff Scan Differential Comment . Sodium 138 Potassium 4.5 Chloride 105 Carbon Dioxide 27.1 Anion Gap 6 BUN 26 H Creatinine 1.70 H Estimated GFR 40 L POC Glucose Random Glucose 272 H Lactic Acid Calcium 8.8 Total Bilirubin 0.2 AST 30 ALT 38 Alkaline Phosphatase 55 Total Creatine Kinase Troponin I 0.02 B-Natriuretic Peptide Total Protein 7.6 Albumin 3.9 Urine Color Urine Clarity Urine pH Ur Specific [place] Urine Protein Urine Glucose (UA) Urine Ketones Urine Occult Blood Urine Nitrate Urine Bilirubin Urine Urobilinogen Ur Leukocyte Esterase Ur Squamous Epith Cells Urine Bacteria Urine Mucus Micro UA Comment Ur Microscopic Review Urine Culture Comments 02/03/18 02/03/18 02/03/18 17:25 17:25 17:46 CBC w Diff WBC RBC Hgb Hct MCV MCH MCHC RDW Plt Count MPV Neut % (Auto) Lymph % (Auto) [place] % (Auto) Eos % (Auto) Baso % (Auto) Neut # (Auto) Lymph # (Auto) [place] # (Auto) Eos # (Auto) Baso # (Auto) WBC Differential Diff Scan Differential Comment Sodium Potassium Chloride Carbon Dioxide Anion Gap BUN Creatinine Estimated GFR POC Glucose 254 H Random Glucose Lactic Acid 2.5 H Calcium Total Bilirubin AST ALT Alkaline Phosphatase Total Creatine Kinase Troponin I B-Natriuretic Peptide 140 H Total Protein Albumin Urine Color Urine Clarity Urine pH Ur Specific [place] Urine Protein Urine Glucose (UA) Urine Ketones Urine Occult Blood Urine Nitrate Urine Bilirubin Urine Urobilinogen Ur Leukocyte Esterase Ur Squamous Epith Cells Urine Bacteria Urine Mucus Micro UA Comment Ur Microscopic Review Urine Culture Comments 02/03/18 02/03/18 02/03/18 18:28 21:20 21:20 CBC w Diff WBC RBC Hgb Hct MCV MCH MCHC RDW Plt Count MPV Neut % (Auto) Lymph % (Auto) [place] % (Auto) Eos % (Auto) Baso % (Auto) Neut # (Auto) Lymph # (Auto) [place] # (Auto) Eos # (Auto) Baso # (Auto) WBC Differential Diff Scan Differential Comment Sodium Potassium Chloride Carbon Dioxide Anion Gap BUN Creatinine Estimated GFR POC Glucose Random Glucose Lactic Acid 2.1 H Calcium Total Bilirubin AST ALT Alkaline Phosphatase Total Creatine Kinase 99 Cancelled Troponin I 0.03 B-Natriuretic Peptide Total Protein Albumin Urine Color Yellow Urine Clarity Clear Urine pH 5.5 Ur Specific [place] Greater/equal 1.030 Urine Protein Negative Urine Glucose (UA) Negative Urine Ketones Negative Urine Occult Blood Negative Urine Nitrate Negative Urine Bilirubin Negative Urine Urobilinogen 0.2 Ur Leukocyte Esterase Negative Ur Squamous Epith Cells 0-5 Urine Bacteria Rare H Urine Mucus Few H Micro UA Comment Culture not ind Ur Microscopic Review Microscopic reviewed Urine Culture Comments Culture not ind 02/03/18 02/04/18 02/04/18 22:30 05:55 05:55 CBC w Diff Slide review pending WBC 8.4 RBC 4.32 L Hgb 12.6 L Hct 39.2 MCV 90.8 MCH 29.2 MCHC 32.2 RDW 14.5 Plt Count 210 MPV 9.9 Neut % (Auto) 62.3 Lymph % (Auto) 25.3 [place] % (Auto) 9.1 H Eos % (Auto) 2.9 Baso % (Auto) 0.4 Neut # (Auto) 5.3 Lymph # (Auto) 2.1 [place] # (Auto) 0.8 Eos # (Auto) 0.2 Baso # (Auto) 0.0 WBC Differential . Diff Scan Auto diff confirmed Differential Comment . Sodium 141 Potassium 4.5 Chloride 108 H Carbon Dioxide 26.2 Anion Gap 7 BUN 24 H Creatinine 1.40 H Estimated GFR 50 L POC Glucose 251 H Random Glucose 198 H Lactic Acid Calcium 8.3 L Total Bilirubin AST ALT Alkaline Phosphatase Total Creatine Kinase Troponin I 0.03 B-Natriuretic Peptide Total Protein Albumin Urine Color Urine Clarity Urine pH Ur Specific [place] Urine Protein Urine Glucose (UA) Urine Ketones Urine Occult Blood Urine Nitrate Urine Bilirubin Urine Urobilinogen Ur Leukocyte Esterase Ur Squamous Epith Cells Urine Bacteria Urine Mucus Micro UA Comment Ur Microscopic Review Urine Culture Comments 02/04/18 08:29 CBC w Diff WBC RBC Hgb Hct MCV MCH MCHC RDW Plt Count MPV Neut % (Auto) Lymph % (Auto) [place] % (Auto) Eos % (Auto) Baso % (Auto) Neut # (Auto) Lymph # (Auto) [place] # (Auto) Eos # (Auto) Baso # (Auto) WBC Differential Diff Scan Differential Comment Sodium Potassium Chloride Carbon Dioxide Anion Gap BUN Creatinine Estimated GFR POC Glucose 203 H Random Glucose Lactic Acid Calcium Total Bilirubin AST ALT Alkaline Phosphatase Total Creatine Kinase Troponin I B-Natriuretic Peptide Total Protein Albumin Urine Color Urine Clarity Urine pH Ur Specific [place] Urine Protein Urine Glucose (UA) Urine Ketones Urine Occult Blood Urine Nitrate Urine Bilirubin Urine Urobilinogen Ur Leukocyte Esterase Ur Squamous Epith Cells Urine Bacteria Urine Mucus Micro UA Comment Ur Microscopic Review Urine Culture Comments - Imaging Impressions Chest X-Ray 02/03/18 14:46 CONCLUSION: Cardiomegaly without overt congestive failure. Stable to improving parenchymal changes left base nonspecific. Foot X-Ray 02/03/18 14:46 CONCLUSION: Dorsal soft tissue swelling. Stable exam. Assessment and Plan - Assessment (1) Cellulitis Code(s): L03.90 - Cellulitis, unspecified Status: Acute (2) LAQUITA (acute kidney injury) Code(s): N17.9 - Acute kidney failure, unspecified Status: Acute (3) Atrial tachycardia Code(s): I47.1 - Supraventricular tachycardia Status: Acute - Plan This is a 72-year-old male patient with: Sepsis Left foot infection -Pain and worsening swelling, patient presents with a 2-week history of worsening foot pain with erythema as well as swelling. -Met sepsis criteria with leukocytosis white blood cell 12,000, tachycardia and suspected source left foot. Lactic acid pending. Patient given IV fluid in ED. improved. -A left foot x-ray was performed showing soft tissue swelling. -Patient denies any trauma or injury to his foot. -Patient was given clindamycin IV in ED. we will change IV clindamycin to p.o. Blood cultures negative to date. UA negative. Chest x-ray reviewed showing some cardiomegaly without any infectious source noted. -Monitor for resolution of swelling and pain of left foot. Improving. -Pain control with [place] p.o. as well as morphine IV as needed per pain scale. Has not used any pain medications overnight. -PT evaluation ordered, home health care PT. -Supportive care. Acute kidney injury, improving. -Patient presents with creatinine 1.7, GFR 40 improved to 1.4 today. Patient denies any previous chronic kidney disease. -Avoid nephrotoxins. -Echocardiogram done and pending results. Given 1 dose of IV Lasix today. Chest x-ray reviewed showing some cardiomegaly without overt congestive heart failure. Acute kidney injury may be secondary to possible CHF. Type 2 diabetes mellitus, chronic: Will continue Accu-Chek before meals at bedtime, sliding scale, cover as needed. Monitor blood sugar trends. Diabetic diet. DVT prophylaxis: SCDs. Heparin. Discharge Planning: DC home after echocardiogram results. (1) Cellulitis Qualifiers: Site of cellulitis: extremity Site of cellulitis of extremity: lower extremity Laterality: left Qualified Code(s): L03.116 - Cellulitis of left lower limb
--- NOTE | 2018-02-04 11:28 | P.DCO ---
- Diagnosis (1) Cellulitis Status: Acute (2) LAQUITA (acute kidney injury) Status: Acute (3) Atrial tachycardia Status: Acute - Physical Therapy Order: Evaluate and treat, Improve ambulation, Strength and gait training - Home Health Nursing Order: Medical education, Signs/symptoms of disease process, Medication education-adverse effect, Nursing assessment with vital signs - Case Management Consult Yes - Certification I have seen patient Juan José Lai on 02/04/18. My clinical findings support the need for the requested home health care services because: Patient has SOB, Deconditioned with increased weakness I certify that my clinical findings support that this patient is homebound because: Unsteady gait/balance (1) Cellulitis Qualifiers: Site of cellulitis: extremity Site of cellulitis of extremity: lower extremity Laterality: left Qualified Code(s): L03.116 - Cellulitis of left lower limb
--- NOTE | 2018-02-04 12:27 | ECHRPT ---
Indication: Heart Failure CONCLUSIONS Technically very difficult study, making assessment of left ventricular function and wall motion sub optimal. Normal left ventricular size. Mild concentric left ventricular hypertrophy. Left ventricular functi on grossly appears low normal; ejection fraction is roughly estimated at 50%. No definite regional wall motion abnormalities. Trace tricuspid regurgitation. BP: / HR: Rhythm: MEASUREMENTS (Male / Female) Normal Values Technical Quality:Technically difficult study 2D ECHO LV Diastolic Diameter PLAX 4.8 cm 4.2 - 5.9 / 3.9 - 5.3 cm LV Systolic Diameter PLAX 3.9 cm IVS Diastolic Thickness 1.2 cm 0.6 - 1.0 / 0.6 - 0.9 cm LVPW Diastolic Thickness 1.2 cm 0.6 - 1.0 / 0.6 - 0.9 cm LV Relative Wall Thickness 0.5 RV Internal Dim ED PLAX 3.2 cm LVOT Diameter 2.1 cm Aortic Root Diameter 3.2 cm LA Systolic Diameter LX 4.2 cm 3.0 - 4.0 / 2.7 - 3.8 cm M-MODE AV Cusp Separation MM 2.4 cm DOPPLER PV Peak Velocity 97.7 cm/s PV Peak Gradient 3.8 mmHg FINDINGS LEFT VENTRICLE Normal left ventricular size. Mild concentric left ventricular hypertrophy. Left ventricular functi on grossly appears low normal; ejection fraction is roughly estimated at 50%. No definite regional wall motion abnormalities. RIGHT VENTRICLE Normal right ventricular size and systolic function. LEFT ATRIUM The left atrial size is mildly dilated. RIGHT ATRIUM The right atrial size is normal. ATRIAL SEPTUM Normal atrial septal thickness without atrial level shunting by limited color doppler interrogation. AORTA The aortic root and proximal ascending aorta are normal in size on limited imaging. MITRAL VALVE Structurally normal mitral valve. No mitral valve stenosis or regurgitation. AORTIC VALVE Trileaflet aortic valve. No aortic valve stenosis or regurgitation. TRICUSPID VALVE Structurally normal tricuspid valve. Trace tricuspid regurgitation. PULMONARY VALVE The pulmonary valve is not well visualized. PERICARDIUM No pericardial effusion. Ronni Harding MD (Electronically Signed) Final Date:04 February 2018 12:27
[2018-02-04] MEDS ORDERED: dilTIAZem 60 MG Tablet PO SCH ×2 (13:00)
[2018-02-04] MEDS: Lisinopril 10 MG Tablet PO SCH (13:02)
[2018-02-04] MEDS: dilTIAZem 60 MG Tablet PO SCH ×2 (18:07→20:31)
--- NOTE | 2018-02-04 18:38 | ECG ---
Date Performed: 02/04/2018 Time Performed: 03:58:30 PTAGE: 72 years EKG: ECTOPIC ATRIAL TACHYCARDIA INTRAVENTRICULAR CONDUCTION DELAY LEFT ANTERIOR FASICULAR BLOCK ABNORMAL ECG PREVIOUS TRACING : 02/03/2018 23.23 Since the previous tracing, no significant change noted DOCTOR: Desean Martinez Interpretating Date/Time 02/04/2018 18:37:45
--- NOTE | 2018-02-04 18:40 | ECG ---
Date Performed: 02/03/2018 Time Performed: 23:23:28 PTAGE: 72 years EKG: ECTOPIC ATRIAL TACHYCARDIA INTRAVENTRICULAR CONDUCTION DELAY LEFT ANTERIOR FASICULAR BLOCK ABNORMAL ECG PREVIOUS TRACING : 02/03/2018 21.14 Since the previous tracing, no significant change noted DOCTOR: Desean Martinez Interpretating Date/Time 02/04/2018 18:39:19
--- NOTE | 2018-02-04 18:40 | ECG ---
Date Performed: 02/03/2018 Time Performed: 21:14:23 PTAGE: 72 years EKG: SINUS TACHYCARDIA INTRAVENTRICULAR CONDUCTION DELAY LEFT ANTERIOR FASICULAR BLOCK ABNORMAL ECG PREVIOUS TRACING : 02/03/2018 15.47 Since the previous tracing, no significant change noted DOCTOR: Desean Martinez Interpretating Date/Time 02/04/2018 18:40:11
--- NOTE | 2018-02-04 18:42 | ECG ---
Date Performed: 02/03/2018 Time Performed: 15:47:17 PTAGE: 72 years EKG: ECTOPIC ATRIAL TACHYCARDIA RIGHT BUNDLE BRANCH BLOCK LEFT ANTERIOR FASCICULAR BLOCK LEFT VE NTRICULAR HYPERTROPHY AND ST-T CHANGE ABNORMAL ECG PREVIOUS TRACING : 02/03/2018 15.12 Since the previous tracing, no significant change noted DOCTOR: Desean Martinez Interpretating Date/Time 02/04/2018 18:40:43
--- NOTE | 2018-02-04 18:42 | ECG ---
Date Performed: 02/03/2018 Time Performed: 15:12:01 PTAGE: 72 years EKG: ECTOPIC ATRIAL TACHYCARDIA INTRAVENTRICULAR CONDUCTION DELAY LEFT ANTERIOR FASICULAR BLOCK LEFT VENTRICULAR HYPERTROPHY WITH REPOLARIZATION ABNORMALITY PREVIOUS TRACING : 10/18/2016 08.55 Since the previous tracing, no significant change not ed DOCTOR: Desean Martinez Interpretating Date/Time 02/04/2018 18:42:17
[2018-02-05 06:29] LABS: Potassium 4.4 meq/L (3.5-5.1)
[2018-02-05 06:32] LABS: Calcium 8.9 mg/dL (8.5-10.1)
[2018-02-05 06:33] LABS: Carbon Dioxide 29.5 meq/L (21.0-32.0)
[2018-02-05] MEDS: Insulin NovoLOG Aspart Correctional Sugar Inj SQ SCH (08:07)
[2018-02-05] MEDS: dilTIAZem 60 MG Tablet PO SCH (08:25)
[2018-02-05] MEDS: Lisinopril 10 MG Tablet PO SCH (08:25)
[2018-02-05] MEDS: Heparin - SQ 10,000 UNITS/ML Vial SQ SCH (08:26)
[2018-02-05] MEDS ORDERED: Lisinopril 10 MG Tablet PO SCH (09:00)
--- NOTE | 2018-02-05 09:10 | P.DS ---
Date of admission: 02/03/18 16:44 Primary care physician: Rigoberto Goldsmith MD Anticipated date of discharge: 02/05/18 Brief History from admission: This is a pleasant 72-year-old male patient with a known medical history of diabetes, obesity who presents to the ED with complaints of left foot pain with concern with possible infection. Patient states he has been following with a hvac estimator in the outpatient setting, states she is been following with him roughly 6 weeks for diabetes management. He states he called his hvac estimator today with concern for infection to his foot and worsening pain and erythema, he was advised to come to the ED for evaluation. Patient denies any recent antibiotic use. He states that he is able to walk on his foot, lives at home with his and is able to independently perform all ADLs per self. He does state that over the past couple weeks he has had increasingly shortness of breath especially with exertion. He also has a nonproductive cough for the past couple weeks. He is currently on 3 L nasal cannula, which he does not use any oxygen at home. Patient denies any recent illness including fever, chills, cough, shortness of breath, dumping, nausea, vomiting, diarrhea dysuria. He does have a history of diabetes, currently on metformin. He does also use insulin at home. Follows closely with his PCP, last seen 2 months ago with no changes to his medicines. Patient denies any medication allergies, denies any significant family history, denies any tobacco abuse. Patient was hospitalized roughly 2 months ago in [facility] while on a trip, he states that he was having black stools at that time patient had a colonoscopy which was reportedly unremarkable. Since that time patient has been doing well with no further black stools noted. An echocardiogram was done at that time per patient, he states that the echocardiogram was insignificant and unremarkable. Patient presents with acute kidney injury, denies any chronic kidney disease. We will continue to monitor labs while he is hospitalized here. Patient update on day of discharge: Follow-up sepsis and AK I. Patient seen and examined, lying in bed sleeping, awakens to voice. Denies any acute events overnight. On the monitor it does show patient had some bradycardia, completely asymptomatic. This is secondary to probably increasing his Cardizem dose from 3 times a day to 4 times a day. This will be back down and patient will be continued on home Cardizem 60 mg p.o. 3 times a day. Patient is doing much improved. Past walk test. Lying in bed on room air. Left foot is improved, mildly improved swelling. Pain is improved as well. Will discharge home to follow-up with PCP. Home health care ordered and arranged. DS: Diagnosis - Discharge Diagnosis (1) Cellulitis Status: Acute (2) LAQUITA (acute kidney injury) Status: Acute (3) Atrial tachycardia Status: Acute DS: Medications - Discharge Medications Prescriptions: clindamycin HCl [Cleocin HCl] 300 mg PO Q6HR 10 Days cap RX: hydrochlorothiazide 12.5 mg PO DAILY 30 Days #30 cap DS: Summary Hospital Course: This is a 72-year-old male patient who presented with sepsis secondary to left foot infection. Patient complained of pain and worsening swelling over the past couple weeks at home as well as erythema. He met sepsis criteria with leukocytosis white blood cell 12,000, tachycardia and suspected source left foot. Lactic acid normal. Patient was given IV fluids during hospitalization. A left foot x-ray was performed showing soft tissue swelling. Patient denies any trauma or injury to his foot. Patient was given clindamycin IV in ED. we will change IV clindamycin to p.o. Blood cultures negative to date. UA negative. Chest x-ray reviewed showing some cardiomegaly without any infectious source noted. Pain control with [place] p.o. as well as morphine IV as needed per pain scale during hospitalization. Has not used any pain medications overnight. PT evaluation ordered, home health care PT. patient also did present with acute kidney injury, creatinine was 1.7/GFR 40, this improved during hospitalization. Avoid nephrotoxins. Echocardiogram was done and adequate EF. Chest x-ray reviewed showing some cardiomegaly without overt congestive heart failure. Type 2 diabetes mellitus, chronic, started on Accu-Chek before meals at bedtime, sliding scale coverage as needed. Blood sugar trends were stable. Diabetic diet. Patient was stabilized on day of discharge and ready to go home. All symptoms have improved, left foot infection did improve as well. Patient has follow-up and antibiotics per discharge plan. - Time Spent with Patient Total time spent providing and/or coordinating discharge services: Greater than 30 minutes Exam Vital signs: Vital Signs 02/04/18 11:10 02/04/18 12:00 02/04/18 16:00 Temperature 97.7 F 96.2 F L Pulse Rate 123 H 93 H Respiratory Rate 24 24 Blood Pressure 136/64 123/59 L Pulse Oximetry 95 98 Pulse Oximetry [Exertion on Room Air] 98 Pulse Oximetry [Resting on Room Air] 96 Pulse Oximetry [Resting with Oxygen] 97 02/04/18 20:00 02/04/18 20:20 02/05/18 00:00 Temperature 96.4 F L 96.1 F L Pulse Rate 86 74 Respiratory Rate 18 18 Blood Pressure 143/65 H 125/56 L Pulse Oximetry 95 95 96 Pulse Oximetry [Exertion on Room Air] Pulse Oximetry [Resting on Room Air] Pulse Oximetry [Resting with Oxygen] 02/05/18 04:00 Temperature 76 F L Pulse Rate Respiratory Rate 20 Blood Pressure 144/65 H Pulse Oximetry 95 Pulse Oximetry [Exertion on Room Air] Pulse Oximetry [Resting on Room Air] Pulse Oximetry [Resting with Oxygen] Intake & Output 02/04/18 02/05/18 02/05/18 18:59 06:59 18:59 Intake Total 1250 / 1250 240 / 240 0 / 0 Output Total 2250 / 2250 Balance -1000 / -1000 240 / 240 0 / 0 Weight 139 kg Intake: IV 50 / 50 0 / 0 Cleocin 600 mg/NS Premix 600 mg 50 / 50 In 50 ml @ 100 mls/hr IV.SIG Q8H PIEDAD Rx#:[id number] Oral 1200 / 1200 240 / 240 Output: Urine 2250 / 2250 Other: # Voids 2 Results Procedures completed during hospitalization: See above. Labs on day of discharge: Labs from last 24 hours 02/05/18 02/05/18 02/04/18 07:45 05:46 20:28 Sodium 140 Potassium 4.4 Chloride 104 Carbon Dioxide 29.5 Anion Gap 7 BUN 27 H Creatinine 1.50 H Estimated GFR 46 L POC Glucose 207 H 236 H Random Glucose 196 H Calcium 8.9 02/04/18 02/04/18 16:21 12:21 Sodium Potassium Chloride Carbon Dioxide Anion Gap BUN Creatinine Estimated GFR POC Glucose 240 H 337 H Random Glucose Calcium Preliminary micro results at discharge 02/03/18 17:28 Aerobic Blood Culture - Preliminary Blood - Peripheral No growth in 1 day Anaerobic Blood Culture - Preliminary No growth in 1 day 02/03/18 17:46 Aerobic Blood Culture - Preliminary Blood - Peripheral No growth in 1 day Anaerobic Blood Culture - Preliminary No growth in 1 day - Impressions ITS Impressions Chest X-Ray 02/03/18 14:46 CONCLUSION: Cardiomegaly without overt congestive failure. Stable to improving parenchymal changes left base nonspecific. Foot X-Ray 02/03/18 14:46 CONCLUSION: Dorsal soft tissue swelling. Stable exam. Discharge Plan - Discharge Disposition Patient Disposition: /Home Health Service - Discharge Condition Condition: Stable - Discharge Order Discharge Orders: Discharge Order (Routine); Ordered 02/05/18 Ordered By: Sheri Aguilar - Discharge Details Anticipated Discharge Date: 02/04/18 - Physicians Team Primary Care Provider: Rigoberto Goldsmith Attending Provider: Reji Doe
[2018-02-05 10:26] VITALS: BP 133/59; PULSE 119; RESP 22; TEMP 97.6; O2SAT 93
--- NOTE | 2018-02-05 17:41 | ECG ---
Date Performed: 02/04/2018 Time Performed: 15:33:40 PTAGE: 72 years EKG: Sinus rhythm WITH FIRST DEGREE AV BLOCK Right bundle branch block Left axis deviation Compared to previous amanda g, no significant change ABNORMAL ECG PREVIOUS TRACING : 02/04/2018 03.58 DOCTOR: Yariel Torrez Interpretating Date/Time 02/05/2018 17:40:25
== END 2018-02-05 11:20 | disposition home health service (06) ==
LOC: PHEDA 13:33 → PHED 13:33 → PH3 18:45
PROVIDERS: ADMIT Internal Medicine; ATTEND Internal Medicine

== ENCOUNTER 2018-04-10 04:42 | Inpatient (IN) ==
[2018-04-10 05:36] LABS: Baso # (Auto) 0.2 th/mm3 (0.0-0.2); Baso % (Auto) 1.3 % (0.0-2.0); Eos # (Auto) 0.4 th/mm3 (0.0-0.4); Eos % (Auto) 2.1 % (0.0-4.0); Hematocrit 44.2 % (39.0-51.0); Hemoglobin 14.1 gm/dL (13.0-17.0); Lymph # (Auto) 2.6 th/mm3 (1.0-4.8); Lymph % (Auto) 15.4 % (9.0-44.0); Mean Corpuscular HGB Conc 31.9 % (32.0-36.0); Mean Corpuscular Hemoglobin 29.2 pg (27.0-34.0); Mean Corpuscular Volume 91.6 fL (80.0-100.0); Mean Platelet Volume 11.4 fL (7.0-11.0); Mono # (Auto) 1.1 th/mm3 (0.0-0.9); Mono % (Auto) 6.5 % (0.0-8.0); Neut # (Auto) 12.4 th/mm3 (1.8-7.7); Neut % (Auto) 74.7 % (16.0-70.0); Platelet Count 261 th/mm3 (150-450); Red Blood Count 4.83 mil/mm3 (4.50-5.90); Red Cell Distribution Width 15.3 % (11.6-17.2); White Blood Count 16.7 th/mm3 (4.0-11.0)
[2018-04-10 05:44] LABS: ABG Base Excess -0.7 mmol/L (-2-2); ABG PCO2 67 mmHg (38-42); ABG PO2 335 mmHg (61-120)
[2018-04-10 05:44] LABS: Chloride 105 meq/L (98-107); Sodium 139 meq/L (136-145)
[2018-04-10 05:48] LABS: Albumin 3.9 g/dL (3.4-5.0); Anion Gap 8 meq/L (5-15); Blood Urea Nitrogen 26 mg/dL (7-18); Calcium 8.5 mg/dL (8.5-10.1); Carbon Dioxide 26.2 meq/L (21.0-32.0); Glucose,Random 266 mg/dL (74-106)
[2018-04-10 05:49] LABS: Activated Partial Thrombo Time 27.5 sec (23.4-31.7); Magnesium 2.1 mg/dL (1.5-2.5); Prothrombin Time 9.9 sec (9.8-11.6)
--- NOTE | 2018-04-10 05:49 | XR ---
EXAM DATE: 04/10/2018 5:32 AM EST AGE/SEX: 72 years / Male INDICATIONS: Short of breath. CLINICAL DATA: This is the patient's subsequent encounter. Patient reports that signs and symptoms h ave been present for 1 day and indicates a pain score of 5/10. MEDICAL/SURGICAL HISTORY: None. None. COMPARISON: [facility], CHEST 2V PA&LAT, 02/03/2018. . FINDINGS: A single AP view of the chest demonstrates the lungs to be symmetrically aerated without evidence of mass, infiltrate or effusion. The cardiomediastinal contours are unremarkable. Osseous structures a re intact. There are number of suspected pleural plaques left greater than right unchanged CONCLUSION: Pleural plaquing, lungs are clear. Electronically signed by: Blake Martinez MD Board Certified Radiologist 04/10/2018 5:48 AM EST
[2018-04-10 05:51] LABS: Alanine Aminotransferase 31 U/L (12-78); Aspartate Aminotransferase 44 U/L (15-37); Glomerular Filtration Rate 43 mL/min (>89)
[2018-04-10 05:53] LABS: Total Protein 8.4 g/dL (6.4-8.2)
[2018-04-10 05:54] LABS: Alkaline Phosphatase 58 U/L (45-117)
[2018-04-10 05:56] LABS: Creatine Kinase 143 U/L (39-308); Troponin I 0.07 ng/mL (0.02-0.05)
[2018-04-10] MEDS ORDERED: MethylPREDNISolone Sod Succinate Inj 125 MG/2 ML Vial IV.PUSH ONE (06:05)
[2018-04-10] MEDS ORDERED: Azithromycin Inj 500 MG in Sodium Chlor 0.9% Inj 250 ML IV.SIG ONE (06:09)
[2018-04-10 06:11] LABS: Creatine Kinase MB 4.4 ng/mL (0.5-3.6)
--- NOTE | 2018-04-10 06:20 | ED ---
HPI General Chief Complaint: Respiratory Symptoms Stated Complaint: Short of Breath x 2 hrs Time Seen by Provider: 04/10/18 04:57 Source: patient Mode of arrival: ambulatory Limitations: no limitations History of Present Illness MD Complaint: Reports shortness of breath (x 2 hours) Onset (ago): hour(s) (2) Context: Reports other (awakened from sleep with orthopnea); Denies recent illness, occurred during exertion, choking/aspiration, medication noncompliance , allergen exposure, recent travel, smoke/fume exposure, anxiety, trauma/injury , elevated blood glucose and CO exposure Severity: similar to previous episodes Consistency/Duration: progressively worsening Relieving factors: nothing Exacerbating factors: lying flat, movement, coughing and talking Known history of: Reports diabetes; Denies COPD, asthma, congestive heart failure, recurrent pneumonia, aspiration pneumonia, HIV, PE, DVT and IVDU Associated symptoms: Reports cough, wheezing and orthopnea; Denies chest pain, pain with inspiration, fever, sputum production, lower extremity pain, polyuria , polydipsia, paresthesias, palpitations, carpopedal spasm, hemoptysis, diaphoresis, nausea/vomiting, syncope, abdominal pain, rash, sense of impending doom, chest congestion, dizziness and lightheadedness Treatment prior to arrival: Reports none Related Data Home oxygen amount: none Home Medications Medication Instructions Recorded Confirmed metformin 500 mg PO BID 02/03/18 04/10/18 diltiazem HCl 60 mg PO TID 02/04/18 04/10/18 lisinopril 10 mg PO DAILY 02/04/18 04/10/18 Allergies Allergy/AdvReac Type Severity Reaction Status Date / Time No Known Allergies Allergy Verified 02/03/18 13:44 Review of Systems ROS: all other systems reviewed are negative [facility] Medical History Medical History Diabetes (Acute) Hypertension (Acute) Surgical History Surgical History No history of previous surgery (Acute) Family History Family History Other Family history in first degree relatives is unremarkable Social History Social History Substance History: No History of Abuse Second Hand Smoke Exposure: No Smoking Status: Former smoker How Often Do You Have a Drink Containing Alcohol: Never Recent Travel in [place] within the Last 8 Weeks: No Recent Out of Country Travel within the Last 8 Weeks: No Immunization History Tetanus Immunization: <5 Years Exam Narrative Exam Narrative: GENERAL: Well-nourished, well-developed patient. Marked respiratory distress with simple single word answers room air O2 saturation 77% ; patient placed on nonrebreather mask. SKIN: Focused skin assessment warm/dry. HEAD: Normocephalic. EYES: No scleral icterus. No injection or drainage. NECK: Supple, trachea midline. No JVD or lymphadenopathy. CARDIOVASCULAR: Regular rate and rhythm without murmurs, gallops, or rubs. Radial arterial pulses 2+ to palpation and dorsalis pedis pulses 1+ to palpation RESPIRATORY: Breath sounds equal bilaterally markedly diminished with basilar crackles. No accessory muscle use. GASTROINTESTINAL: Abdomen soft, non-tender, nondistended. MUSCULOSKELETAL: No cyanosis, or nonpitting edema. BACK: Nontender without obvious deformity. No CVA tenderness. Course Initial Documented Vital Signs Pulse Rate 83 04/10/18 05:12 Respiratory Rate 34 H 04/10/18 05:12 Last Documented Vital Signs Pulse Rate 78 04/10/18 06:33 Respiratory Rate 28 H 04/10/18 06:33 Blood Pressure 131/74 04/10/18 06:20 Pulse Oximetry 100 04/10/18 06:20 Medical Decision Making [facility] Narrative Medical decision making narrative: 72-year-old male presents to the emergency department by private transportation for complaint of severe shortness of breath just prior to arrival to the emergency department approximately 2 hours ago upon awakening. Denies history of CHF COPD. No history of fever. No productive cough. Worsening symptoms with resting supine with orthopnea. PND. Dyspnea on exertion. Dyspnea at rest. No chest pain. Patient placed immediately on laboratory monitor with continuous pulse oximetry patient's room air O2 saturation 77% therefore placed on nonrebreather mask with plan to transition to BiPAP. Patient given updrafts and Solu-Medrol. Specimens collected and sent for resulting. EKG ectopic atrial rhythm with occasional PVC left atrial enlargement left anterior fascicular block IVCD ABG obtained while patient still on nonrebreather mask shows respiratory acidosis with pH of 7.22 PCO2 of 67 and PO2 of 335; patient transition to BiPAP 15/ with FiO2 40% Patient identified to have leukocytosis with left shift and elevated lactic acid with shortness of breath will cover presumptively for community-acquired pneumonia. Patient with respiratory acidosis suspect patient may have had event with sleep apnea due to his obesity and underlying medical conditions precipitated episode of hypoxemia and acute distress. Patient denies having history of sleep apnea or using CPAP at home. Patient is now able to answer sessions and provide more history. Patient received flu vaccine and pneumonia vaccine; no fever or chills; no productive cough; no chest pain no pleuritic chest pain no lower extremity pain or swelling. Patient also be treated for presentation with reactive airways disease worsening renal insufficiency without evidence of vascular congestion by chest x-ray and BNP is not elevated will avoid diuretics. Troponin I is elevated at 0.07 will need trending of serial enzymes. Patient is received aspirin. Additional bronchodilator therapy administered and did give bolus of Solu-Medrol. Blood sugar levated 266. D-dimer added to help assess for PE. Discussed with bone [employer] tender for admission --admit to [facility] ICU Review of medical records --patient under treatment for lymphoma 09/2017 --sob, hypoxemia, obesity, cxr neg---ordered CTA r/o PE Medical Screen Exam Complete: Yes Emergency Medical Condition: Yes Lab Data Result diagrams: 04/10/18 05:01 04/10/18 05:01 Lab Results 04/10/18 04/10/18 04/10/18 Range/Units 05:01 05:01 05:01 CBC w Diff Auto diff final WBC 16.7 H (4.0-11.0) th/mm3 RBC 4.83 (4.50-5.90) mil/mm3 Hgb 14.1 (13.0-17.0) gm/dL Hct 44.2 (39.0-51.0) % MCV 91.6 (80.0-100.0) fL MCH 29.2 (27.0-34.0) pg MCHC 31.9 L (32.0-36.0) % RDW 15.3 (11.6-17.2) % Plt Count 261 (150-450) th/mm3 MPV 11.4 H (7.0-11.0) fL Neut % (Auto) 74.7 H (16.0-70.0) % Lymph % (Auto) 15.4 (9.0-44.0) % [place] % (Auto) 6.5 (0.0-8.0) % Eos % (Auto) 2.1 (0.0-4.0) % Baso % (Auto) 1.3 (0.0-2.0) % Neut # (Auto) 12.4 H (1.8-7.7) th/mm3 Lymph # (Auto) 2.6 (1.0-4.8) th/mm3 [place] # (Auto) 1.1 H (0.0-0.9) th/mm3 Eos # (Auto) 0.4 (0.0-0.4) th/mm3 Baso # (Auto) 0.2 (0.0-0.2) th/mm3 WBC Differential . Differential Comment . PT 9.9 (9.8-11.6) sec INR 1.0 Ratio APTT 27.5 (23.4-31.7) sec Puncture Site Patient Temperature O2 Saturation (90-100) % ABG pH (7.380-7.420) ABG pCO2 (38-42) mmHg ABG pO2 (61-120) mmHg ABG HCO3 (22-26) mmol/L ABG O2 Content (12.0-20.0) Vol % ABG Base Excess (-2-2) mmol/L ABG Methemoglobin (0-2) % Jose Elias Test Hemoglobin (12.0-16.0) G/DL Carboxyhemoglobin (0-4) % O2 Delivery Device Liter Flow L/M Vent Setting Inspired O2 % Critical Value Sodium 139 (136-145) meq/L Potassium 5.0 (3.5-5.1) meq/L Chloride 105 (98-107) meq/L Carbon Dioxide 26.2 (21.0-32.0) meq/L Anion Gap 8 (5-15) meq/L BUN 26 H (7-18) mg/dL Creatinine 1.60 H (0.60-1.30) mg/dL Estimated GFR 43 L (>89) mL/min Random Glucose 266 H (74-106) mg/dL Lactic Acid (0.4-2.0) mmol/L Calcium 8.5 (8.5-10.1) mg/dL Magnesium (1.5-2.5) mg/dL Total Bilirubin 0.4 (0.2-1.0) mg/dL AST 44 H (15-37) U/L ALT 31 (12-78) U/L Alkaline Phosphatase 58 (45-117) U/L Total Creatine Kinase (39-308) U/L CK-MB (CK-2) (0.5-3.6) ng/mL Troponin I 0.07 H (0.02-0.05) ng/mL B-Natriuretic Peptide (0-100) pg/mL Total Protein 8.4 H (6.4-8.2) g/dL Albumin 3.9 (3.4-5.0) g/dL 04/10/18 04/10/18 04/10/18 Range/Units 05:01 05:01 05:01 CBC w Diff WBC (4.0-11.0) th/mm3 RBC (4.50-5.90) mil/mm3 Hgb (13.0-17.0) gm/dL Hct (39.0-51.0) % MCV (80.0-100.0) fL MCH (27.0-34.0) pg MCHC (32.0-36.0) % RDW (11.6-17.2) % Plt Count (150-450) th/mm3 MPV (7.0-11.0) fL Neut % (Auto) (16.0-70.0) % Lymph % (Auto) (9.0-44.0) % [place] % (Auto) (0.0-8.0) % Eos % (Auto) (0.0-4.0) % Baso % (Auto) (0.0-2.0) % Neut # (Auto) (1.8-7.7) th/mm3 Lymph # (Auto) (1.0-4.8) th/mm3 [place] # (Auto) (0.0-0.9) th/mm3 Eos # (Auto) (0.0-0.4) th/mm3 Baso # (Auto) (0.0-0.2) th/mm3 WBC Differential Differential Comment PT (9.8-11.6) sec INR Ratio APTT (23.4-31.7) sec Puncture Site Patient Temperature O2 Saturation (90-100) % ABG pH (7.380-7.420) ABG pCO2 (38-42) mmHg ABG pO2 (61-120) mmHg ABG HCO3 (22-26) mmol/L ABG O2 Content (12.0-20.0) Vol % ABG Base Excess (-2-2) mmol/L ABG Methemoglobin (0-2) % Jose Elias Test Hemoglobin (12.0-16.0) G/DL Carboxyhemoglobin (0-4) % O2 Delivery Device Liter Flow L/M Vent Setting Inspired O2 % Critical Value Sodium (136-145) meq/L Potassium (3.5-5.1) meq/L Chloride (98-107) meq/L Carbon Dioxide (21.0-32.0) meq/L Anion Gap (5-15) meq/L BUN (7-18) mg/dL Creatinine (0.60-1.30) mg/dL Estimated GFR (>89) mL/min Random Glucose (74-106) mg/dL Lactic Acid 2.2 H (0.4-2.0) mmol/L Calcium (8.5-10.1) mg/dL Magnesium 2.1 (1.5-2.5) mg/dL Total Bilirubin (0.2-1.0) mg/dL AST (15-37) U/L ALT (12-78) U/L Alkaline Phosphatase (45-117) U/L Total Creatine Kinase 143 (39-308) U/L CK-MB (CK-2) 4.4 H (0.5-3.6) ng/mL Troponin I (0.02-0.05) ng/mL B-Natriuretic Peptide 130 H (0-100) pg/mL Total Protein (6.4-8.2) g/dL Albumin (3.4-5.0) g/dL 04/10/18 04/10/18 Range/Units 05:15 06:28 CBC w Diff WBC (4.0-11.0) th/mm3 RBC (4.50-5.90) mil/mm3 Hgb (13.0-17.0) gm/dL Hct (39.0-51.0) % MCV (80.0-100.0) fL MCH (27.0-34.0) pg MCHC (32.0-36.0) % RDW (11.6-17.2) % Plt Count (150-450) th/mm3 MPV (7.0-11.0) fL Neut % (Auto) (16.0-70.0) % Lymph % (Auto) (9.0-44.0) % [place] % (Auto) (0.0-8.0) % Eos % (Auto) (0.0-4.0) % Baso % (Auto) (0.0-2.0) % Neut # (Auto) (1.8-7.7) th/mm3 Lymph # (Auto) (1.0-4.8) th/mm3 [place] # (Auto) (0.0-0.9) th/mm3 Eos # (Auto) (0.0-0.4) th/mm3 Baso # (Auto) (0.0-0.2) th/mm3 WBC Differential Differential Comment PT (9.8-11.6) sec INR Ratio APTT (23.4-31.7) sec Puncture Site Right radial Right radial Patient Temperature 98.6 98.6 O2 Saturation 98 96 (90-100) % ABG pH 7.22 L* 7.32 L (7.380-7.420) ABG pCO2 67 H* 50 H (38-42) mmHg ABG pO2 335 H 99 (61-120) mmHg ABG HCO3 26 25 (22-26) mmol/L ABG O2 Content 18.5 16.9 (12.0-20.0) Vol % ABG Base Excess -0.7 -0.2 (-2-2) mmol/L ABG Methemoglobin 1.1 1.1 (0-2) % Jose Elias Test Present Present Hemoglobin 12.9 12.5 (12.0-16.0) G/DL Carboxyhemoglobin 1.3 1.5 (0-4) % O2 Delivery Device Nonrebreather Bipap Liter Flow 15.00 L/M Vent Setting Ipap 15/epap 5 Inspired O2 40 % Critical Value Yes No Sodium (136-145) meq/L Potassium (3.5-5.1) meq/L Chloride (98-107) meq/L Carbon Dioxide (21.0-32.0) meq/L Anion Gap (5-15) meq/L BUN (7-18) mg/dL Creatinine (0.60-1.30) mg/dL Estimated GFR (>89) mL/min Random Glucose (74-106) mg/dL Lactic Acid (0.4-2.0) mmol/L Calcium (8.5-10.1) mg/dL Magnesium (1.5-2.5) mg/dL Total Bilirubin (0.2-1.0) mg/dL AST (15-37) U/L ALT (12-78) U/L Alkaline Phosphatase (45-117) U/L Total Creatine Kinase (39-308) U/L CK-MB (CK-2) (0.5-3.6) ng/mL Troponin I (0.02-0.05) ng/mL B-Natriuretic Peptide (0-100) pg/mL Total Protein (6.4-8.2) g/dL Albumin (3.4-5.0) g/dL Imaging Data Radiologist's impression: Chest X-Ray 04/10/18 04:57 CONCLUSION: Pleural plaquing, lungs are clear. Discharge Plan Discharge Disposition Patient Disposition: ED Admit(ED Internal Use Only) Discharge Condition Condition: Stable Discharge Details Diagnosis: Respiratory failure with hypoxia and hypercapnia, SIRS (systemic inflammatory response syndrome), Renal insufficiency, Elevated troponin I level Physicians Team ED Provider: Jayde Humphries Primary Care Provider: Rigoberto Goldsmith Rxs /Orders / Referrals /Forms Prescriptions: No Action metformin 500 mg PO BID RF: 0 lisinopril 10 mg Tablet 10 mg PO DAILY RF: 0 diltiazem HCl 60 mg Tablet 60 mg PO TID RF: 0 Status ED Status: With Doctor
[2018-04-10] MEDS ORDERED: Ketorolac Inj 30 MG/ML (IVP) Vial IV.PUSH ONE (06:39)
[2018-04-10 06:41] LABS: ABG Base Excess -0.2 mmol/L (-2-2); ABG PCO2 50 mmHg (38-42); ABG PO2 99 mmHg (61-120)
--- NOTE | 2018-04-10 08:34 | CT ---
EXAM DATE: 04/10/2018 8:26 AM EST AGE/SEX: 72 years / Male INDICATIONS: Short of breath, cough, dyspnea, fever CLINICAL DATA: This is the patient's initial encounter. Patient reports that signs and symptoms have been present for 1 day and indicates a pain score of 0/10. MEDICAL/SURGICAL HISTORY: Diabetes. Hypertension. None. RADIATION DOSE: 21.98 CTDI (mGy) COMPARISON: [facility] – [place]ULMON[place]IO[place], 10/18/2016. . TECHNIQUE: Volumetric scanning was performed using a multi-row detector CT scanner during bolus infu [place] of 74ml ml Omnipaque 350 (iohexol) nonionic water-soluble contrast as a single exam dose. The d amber was post processed with a variety of visualization algorithms including full volume maximum inten sity projection and sliding thin slab reformation. Using automated exposure control and adjustment of the mA and/or kV according to patient size, radiation dose was kept as low as reasonably achievable to obtain optimal diagnostic quality images. DICOM format image data is available electronically for review and comparison. FINDINGS: Pulmonary Arteries: No filling defects are seen in the pulmonary arteries out to the subsegmental ve ssels. The left and right pulmonary arteries are normal in diameter. Lung: There is increased density seen in the posterior lower lobes bilaterally being more prominent on the left likely related to consolidation or atelectasis. Effusion: Minimal right pleural effusion. Mediastinum: No evidence of mediastinal or hilar adenopathy. Other: The axilla is unremarkable. Gallstones are present. There is a stable nonspecific 1.7 cm hypo density seen at the anterior lateral aspect of the spleen. CONCLUSION: 1. No pulmonary embolus seen. 2. Bibasilar areas of consolidation or atelectasis being worse on the left. 3. Gallstone 4. Nonspecific stable 1.7 cm hypodensity in the spleen. Electronically signed by: Lisandro Servin MD Board Certified Radiologist 04/10/2018 8:33 AM EST
[2018-04-10] MEDS ORDERED: Bisacodyl 10 MG Supp RECTAL PRN (09:28)
[2018-04-10] MEDS ORDERED: Dextrose 50% in Water 50 ML Vial IV.PUSH PRN (09:36)
[2018-04-10] MEDS: Sod Chloride 0.9% Inj 1,000 ML IV.CONT SCH ×3 (09:46→23:15)
--- NOTE | 2018-04-10 10:16 | P.HPCC ---
History of Present Illness Service: ICU Primary Care Physician: Rigoberto Goldsmith MD Chief Complaint: Shortness of breath History of Present Illness: This is a 72-year-old male that began having shortness of breath at approximately 2 AM per his report and progressively worsened. She presented to [facility] in respiratory distress. Laboratory and imaging studies were performed, the patient was noted to have an elevated d-dimer however CT pulmonary angiogram was negative for pulmonary embolus. Lab studies revealed a leukocytosis, the patient was treated for community-acquired pneumonia, the placement was placed on BiPAP 15/5 FiO2 40% with somnolence improvement of symptomatology. The patient was transferred to [facility]. Upon evaluation the patient was transferred on 3 L nasal cannula O2 sat 98% with no respiratory distress. 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 Critical care medicine was consulted. - Diagnosis (1) Diabetes mellitus Inpatient Certification: I certify that the inpatient services were ordered in accordance with Medicare regulations governing the order. This includes certification that hospital inpatient services are reasonable and necessary and in the case of services not specified as inpatient-only under 42 CFR 419.22(n), that they are appropriately provided as inpatient services in accordance to with the 2-midnight benchmark under 43 CFR 412.3(e) Estimated Total Length of Stay (Days): 5 Plans for Post Hospital Care: Not yet determined Review of Systems All other systems reviewed negative except as stated in HPI Ears, Nose, Mouth, and Throat: Reports bad breath (Poor dentition multiple caries, missing teeth), Reports other Cardiovascular: Reports shortness of breath Respiratory: Reports excessive phlegm production, Reports shortness of breath Musculoskeletal: Reports other (venous stasis) Neurologic: Reports other (H/O blurry vision with resolution post treatment for lymphoma) PMFSH - History History Provided By: Patient - Medical History Medical History: Medical History (Last Reviewed 04/10/18 @ 06:17 by Jayde Humphries MD) Diabetes Hypertension - Surgical History Surgical History: Surgical History (Last Reviewed 04/10/18 @ 06:17 by Jayde Humphries MD) No history of previous surgery - Family History Family History: Family History (Last Reviewed 04/10/18 @ 06:17 by Jayde Humphries MD) Other Family history in first degree relatives is unremarkable - Tobacco History Second Hand Smoke Exposure: No Tobacco Use In Past 30 Days: No Smoking Status: Former smoker - Alcohol History How Often Do You Have a Drink Containing Alcohol: Never - Substance Use History Substance History: No History of Abuse - Travel History Recent Travel in the [place] Within the Last 8 Weeks: No Recent Travel Out of the Country Within the Last 8 Weeks: No - Immunization History Tetanus Immunization: <5 Years Medications and Allergies Active Medications: Active Medications Al Hydroxide/Mg Hydroxide (Milk Of Magnesia Liq) 30 ml PO Q12H PRN PRN Reason: Mild Constipation Albuterol (Duoneb Neb (Jessica)) 1 ampul NEB Q4HR NEB JESSICA Bisacodyl (Dulcolax Supp) 10 mg RECTAL DAILY PRN PRN Reason: SEVERE CONSITIPATION Chlorhexidine Gluconate (Chlorhexidine 2% Cloth) 3 pack TOPICAL DAILY@0400 JESSICA Stop: 04/16/18 03:59 Chlorhexidine Gluconate (Chlorhexidine 2% Cloth) 3 pack TOPICAL DAILY@0400 PRN PRN Reason: Extra cloth needed Stop: 04/16/18 03:59 Dextrose (D50w Vial) 50 ml IV.PUSH UNSCH PRN PRN Reason: PER HYPOGLYCEMIA PROTOCOL Famotidine (Pepcid) 20 mg PO BID JESSICA Glucagon (Glucagon Inj) 1 mg OTHER PRN PRN PRN Reason: for Hypoglycemia Protocol Sodium Chloride (Ns Inj) 1,000 mls @ 84 mls/hr IV.CONT .[id number] JESSICA Last Admin: 04/10/18 09:46 Dose: 84 mls/hr Cefepime HCl 2,000 mg/ Sodium (Chloride) 100 mls @ 200 mls/hr IV.SIG Q12H JESSICA Azithromycin 500 mg/ Sodium (Chloride) 250 mls @ 250 mls/hr IV.SIG Q24H JESSICA Insulin Aspart (Novolog Insulin Correctional Sugar Inj) 0 unit SQ ACHS AND 3AM JESSICA; Protocol Lactulose (Lactulose Liq) 30 ml PO DAILY PRN PRN Reason: SEVERE CONSITIPATION Senna/Docusate Sodium (Ellen-Colace) 1 tab PO BID JESSICA Sennosides (Senokot) 17.2 mg PO Q12H PRN PRN Reason: Moderate Constipation Sodium Chloride (Ns Flush) 2 ml IV.FLUSH PRN PRN PRN Reason: FLUSH AFTER USING IV ACCESS Sodium Chloride (Ns Flush) 2 ml IV.FLUSH BID JESSICA Allergies Allergy/AdvReac Type Severity Reaction Status Date / Time No Known Allergies Allergy Verified 02/03/18 13:44 Home Medications Medication Instructions Recorded Confirmed Type metformin 500 mg PO BID 02/03/18 04/10/18 History diltiazem HCl 60 mg PO TID 02/04/18 04/10/18 History lisinopril 10 mg PO DAILY 02/04/18 04/10/18 History Results - Labs CBC & Chem 7: 04/10/18 05:01 04/10/18 05:01 Labs: Short CBC 04/10/18 Range/Units 05:01 WBC 16.7 H (4.0-11.0) th/mm3 Hgb 14.1 (13.0-17.0) gm/dL Hct 44.2 (39.0-51.0) % Plt Count 261 (150-450) th/mm3 BMP 04/10/18 05:01 Sodium 139 Potassium 5.0 Chloride 105 Carbon Dioxide 26.2 BUN 26 H Creatinine 1.60 H Calcium 8.5 Cardiac Enzymes 04/10/18 04/10/18 Range/Units 05:01 05:01 Total Creatine Kinase 143 (39-308) U/L CK-MB (CK-2) 4.4 H (0.5-3.6) ng/mL Troponin I 0.07 H (0.02-0.05) ng/mL Liver Function 04/10/18 Range/Units 05:01 Total Bilirubin 0.4 (0.2-1.0) mg/dL AST 44 H (15-37) U/L ALT 31 (12-78) U/L Alkaline Phosphatase 58 (45-117) U/L Albumin 3.9 (3.4-5.0) g/dL - Imaging Impressions Chest X-Ray 04/10/18 04:57 CONCLUSION: Pleural plaquing, lungs are clear. Chest CTA 04/10/18 06:50 CONCLUSION: 1. No pulmonary embolus seen. 2. Bibasilar areas of consolidation or atelectasis being worse on the left. 3. Gallstone 4. Nonspecific stable 1.7 cm hypodensity in the spleen. Exam Vital signs: Vital Signs 04/10/18 05:12 04/10/18 05:35 04/10/18 05:47 Pulse Rate 83 90 Respiratory Rate 34 H 18 Blood Pressure 136/71 Pulse Oximetry 99 97 04/10/18 06:19 04/10/18 06:20 04/10/18 06:33 Pulse Rate 90 78 Respiratory Rate 22 28 H Blood Pressure 131/74 Pulse Oximetry 100 100 04/10/18 07:45 04/10/18 09:32 Pulse Rate 89 Respiratory Rate 25 H Blood Pressure 131/57 L Pulse Oximetry 97 97 Intake & Output 04/09/18 04/10/18 04/10/18 18:59 06:59 18:59 Intake Total 250 / 250 Balance 250 / 250 Weight 143.8 kg Intake: IV 250 / 250 Azithromycin Inj 500 MG In NS 250 / 250 Inj 250 ML @ 250 mls/hr IV.SIG ONCE ONE Rx#:[id number] - Constitutional no acute distress, morbidly obese - Routine HEENT Exam Head: Present: normocephalic Eye: Present: EOMI, PERRL, normal accommodation, conjunctivae pink ENT: Present: mucous membranes moist, nares patent - Routine Neck Exam Present: supple, full ROM, JVD (Unable to assess JVD secondary to body habitus) - Routine Respiratory Exam Present: wheezes (expiratory), distant breath sounds - Routine Abdominal Exam Present: soft, normoactive bowel sounds (obese) - Routine Extremities Exam Present: full ROM, normal capillary refill (venous stasis) - Routine Skin Exam Present: intact - Routine Neurological Exam Present: oriented X3, CN II-XII intact, sensory deficit (hard of hearing), vision grossly intact Caprini VTE Risk Assessment Caprini VTE Risk Assessment: Moderate/High Risk (score >= 2) Caprini Risk Assessment Model: Point Value = 1 Point Value = 2 Point Value = 3 Point Value = 5 Age 41-60 Minor surgery BMI > 25 kg/m2 Swollen legs Varicose veins or History of unexplained or recurrent spontaneous Oral contraceptives or hormone replacement Sepsis (< 1 month) Serious lung disease, including pneumonia (< 1 month) Abnormal pulmonary function Acute myocardial infarction Congestive heart failure (< 1 month) History of inflammatory bowel disease Medical patient at bed rest Age 61-74 Arthroscopic surgery Major open surgery (> 45 min) Laparoscopic surgery (> 45 min) Malignancy Confined to bed (> 72 hours) Immobilizing plaster cast Central venous access Age >= 75 History of VTE Family history of VTE Factor V Leiden Prothrombin 44242H Lupus anticoagulant Anticardiolipin antibodies Elevated serum homocysteine Heparin-induced thrombocytopenia Other congenital or acquired thrombophilia Stroke (< 1 month) Elective arthroplasty Hip, pelvis, or leg fracture Acute spinal cord injury (< 1 month) Prophylaxis Regimen: Total Risk Factor Score Risk Level Prophylaxis Regimen 0-1 Low Early ambulation 2 Moderate Order ONE of the following: *Sequential Compression Device (SCD) *Heparin 5000 units SQ BID 3-4 Higher Order ONE of the following medications: *Heparin 5000 units SQ TID *Enoxaparin/Lovenox 40 mg SQ daily (WT < 150 kg, CrCl > 30 mL/min) *Enoxaparin/Lovenox 30 mg SQ daily (WT < 150 kg, CrCl > 10-29 mL/min) *Enoxaparin/Lovenox 30 mg SQ BID (WT < 150 kg, CrCl > 30 mL/min) AND/OR *Sequential Compression Device (SCD) 5 or more Highest Order ONE of the following medications: *Heparin 5000 units SQ TID (Preferred with Epidurals) *Enoxaparin/Lovenox 40 mg SQ daily (WT < 150 kg, CrCl > 30 mL/min) *Enoxaparin/Lovenox 30 mg SQ daily (WT < 150 kg, CrCl > 10-29 mL/min) *Enoxaparin/Lovenox 30 mg SQ BID (WT < 150 kg, CrCl > 30 mL/min) AND *Sequential Compression Device (SCD) Assessment and Plan - Problem List (1) Diabetes mellitus Code(s): E11.9 - Type 2 diabetes mellitus without complications Status: Acute - Assessment and Plan Plan: Assessment This is a 72-year-old morbidly obese male that presented in respiratory distress though CT pulmonary angiogram negative for pulmonary emblem, noted bibasilar consolidations left greater than right and a small right pleural effusion noted patient is at risk for increasing FiO2 requirements, and possible intubation. Admit to ICU. Plan by systems: Neurologic: Neuro checks per ICU protocol Acetaminophen 650 mg every 6 hours as needed for temp greater than 101 Respiratory: Right pleural effusion Probable community-acquired pneumonia Acute hypoxemic respiratory distress Maintain O2 sat greater than 92 % Ensure BiPAP is utilized at night while asleep Pulmonology consultedappreciate recommendations Duo nebs every 4 hours as needed Antibiotics see below Wean FiO2 as tolerated currently on 3 L/min via nasal cannula CT pulmonary angiogram-basilar consolidation left greater than right, minimal right pleural effusion 04/10 chest x-ray-lungs clear, d-dimer 0.82 Cardiovascular: Hypertension Elevated troponin Repeat troponin level EKG left anterior fascicular block, right bundle branch block Renal: Chronic kidney disease Avoid nephrotoxins-we will hold KEL inhibitor lisinopril -- Strict I/Os FEN/GI: Diabetes mellitus Clear liquid diet for now patient is at risk for intubation Continue normal saline at 84 cc/hr Hold metformin Obtain lactate level sepsis protocol Monitor BP MP Heme/ID: Leukocytosis Monitor CBC Follow-up blood cultures Obtain urine cultures, strep pneumococcal, Legionella Influenza A/B negative Obtain sputum culture Continues azithromycin 500 mg daily, add cefepime 2 g every 12 hours renal dosing, de-escalate upon speciation of culture Endocrine: Diabetes mellitus Glucose monitoring every 4 hours medium dose coverage Obtain hemoglobin A1c -- SSI Prophylaxis: GI Prophylaxis Famotidine DVT Prophylaxis -- SCDs Heparin 5000 units every 8 hours Lines: Peripheral IVs providing adequate access at this time Dispo: Level 2 consult Code Status: Full Discussed Condition With: Patient and SUPERVIS[employer] at bedside H&P: Quality - VTE Deep Vein Thrombosis/Pulmonary Embolism Present on Admission: No (1) Diabetes mellitus Qualifiers: Diabetes mellitus type: type 2
[2018-04-10] MEDS: Insulin NovoLOG Aspart Correctional Sugar Inj SQ SCH ×3 (11:03→21:39)
[2018-04-10 12:23] LABS: ABG Base Excess -0.8 mmol/L (-2-2); ABG PCO2 39 mmHg (38-42); ABG PO2 95 mmHG (61-120)
[2018-04-10] MEDS: Heparin - SQ 10,000 UNITS/ML Vial SQ SCH ×2 (13:28→21:26)
--- NOTE | 2018-04-10 13:40 | MB ---
cc: Franklyn Morse MD DATE: 04/10/2018 HISTORY OF PRESENT ILLNESS: The patient is a 72-year-old male with a past medical history of hypertension, diabetes mellitus, who presented to [place] ED with respiratory distress. The patient was found to have mild elevation in the D-dimer and CT pulmonary angiogram was obtained, which was negative for a PE; however, it showed bibasilar areas of consolidation or atelectasis. The patient was given Solu-Medrol 125 mg IV push in the ED and started on broad spectrum antibiotics. ABG was performed on a nonrebreather which showed acute hypercapnic respiratory acidosis with a pH of 7.22, CO2 67, PaO2 335, bicarbonate of 26, and saturation 98%. He was subsequently placed on BiPAP 15/5 with 40% FiO2 and repeat ABG showed improvement in his respiratory acidosis with a pH of 7.32, CO2 of 50. The patient was weaned off BiPAP and when seen, he is on 2 liter oxygen. The patient is awake, lying in bed, in no acute respiratory distress. He felt short of breath this morning, however, he denies any chest pain, orthopnea, PND, or edema of lower extremities. ABG was performed on 2 liter oxygen, which showed resolution of his respiratory acidosis with a pH of 7.39, CO2 39, PaO2 95, bicarbonate 23, and saturation of 95% on 2 liter oxygen. The patient denies any nausea, vomiting, or abdominal pain. His nasal washing screening for influenza is negative. PAST MEDICAL HISTORY: Significant for hypertension, diabetes mellitus. PAST SURGICAL HISTORY: No history of previous surgeries. ALLERGIES: NO KNOWN DRUG ALLERGIES. FAMILY HISTORY: Not related to present medical illness. SOCIAL HISTORY: Nonsmoker, nondrinker. CURRENT MEDICATIONS: 1. DuoNeb. 2. Cefepime. 3. Azithromycin. 4. Pepcid. 5. Heparin subcutaneous. REVIEW OF SYSTEMS: As per HPI. The rest of review of systems unremarkable. PHYSICAL EXAMINATION: GENERAL: A 72-year-old male lying in bed in no acute respiratory distress. VITAL SIGNS: Afebrile with a temperature of 98.2, pulse of 89, respiratory rate 32, blood pressure 182/83, saturation 96%. HEENT: Atraumatic, normocephalic. Pupils are equal, round, reactive to light and accommodation. Extraocular muscles intact. Conjunctivae pink, nonicteric sclerae. Oral mucosa within normal. NECK: Supple. No JVD, adenopathy, or thyromegaly. Trachea in the midline. CARDIOVASCULAR: Regular rate and rhythm. Normal S1, S2. No murmurs, rubs, or gallops noted. PULMONARY: Bilateral equal air entry. No rales or wheezing. ABDOMEN: Soft, obese, nontender, nondistended, positive bowel sounds. EXTREMITIES: No cyanosis, clubbing, or edema. NEUROLOGIC: No focal sensory deficit. LABORATORY DATA: WBC 16.7, hemoglobin 14, hematocrit 44, platelet count of 261. Sodium 139, potassium 5, chloride 105, CO2 26, BUN 26, creatinine 1.60, glucose of 266. RADIOGRAPHIC STUDIES: CTA of the chest showed no PE, bibasilar areas of consolidation, or atelectasis. ABG at showed a pH of 7.39, CO2 39, PaO2 95, bicarbonate 23, sats of 95%. IMPRESSION: 1. Acute hypercapnic and hypoxemic respiratory insufficiency. 2. Probable community-acquired pneumonia. 3. Atelectasis. 4. Obesity. 5. Leukocytosis. 6. Acute kidney injury. 7. Hypertension. 8. Diabetes mellitus. RECOMMENDATIONS: 1. Continue with oxygen and maintain sats above 92%. 2. Bronchodilators. Continue with DuoNeb every 4 hours and every 2 hours p.r.n. for shortness of breath. 3. Noninvasive positive pressure ventilation p.r.n. for respiratory distress. 4. Continue with antibiotics in the form of azithromycin and cefepime. Monitor for signs of infection, which include fever and WBC. Check sputum culture with Gram stain a Strep pneumonia and Legionella urinary antigen. His nasal washing for influenza is negative. 5. Monitor renal function and avoid nephrotoxins. Continue with IV fluids. 6. Optimize blood pressure control. 7. Gastrointestinal and deep venous thrombosis prophylaxis. The patient is on heparin subcutaneously. 8. Further recommendations will be based on hospital course. Thank you for this consult and allowing us to participate in this patient's care. MD FRANCES Harrison/haile , 01:05 PM , 01:16 PM
[2018-04-10] MEDS ORDERED: hydrALAZINE HCl Inj 20 MG/ML Vial IV.PUSH PRN (16:07)
[2018-04-10] MEDS ORDERED: Sod Chloride 0.9% Inj 1,000 ML IV.SIG SCH (16:15)
[2018-04-10] MEDS: dilTIAZem 60 MG Tablet PO SCH (17:57)
[2018-04-10] MEDS ORDERED: Famotidine 20 MG Tablet PO SCH (21:00)
[2018-04-10] MEDS: Senna/Docusate Sodium 8.6/50 MG Tablet PO SCH (21:26)
[2018-04-10] MEDS: Famotidine 20 MG Tablet PO SCH (21:26)
[2018-04-11] MEDS ORDERED: Chlorhexidine Gluconate 2% 1 Pack (2 Cloths) TOPICAL PRN (04:00)
[2018-04-11] MEDS: Insulin NovoLOG Aspart Correctional Sugar Inj SQ SCH ×5 (04:01→21:21)
[2018-04-11] MEDS: Chlorhexidine Gluconate 2% 1 Pack (2 Cloths) TOPICAL SCH (04:02)
[2018-04-11 05:22] LABS: Baso % (Auto) 0.2 % (0.0-2.0); Hematocrit 34.1 % (39.0-51.0); Hemoglobin 11.3 gm/dL (13.0-17.0); Lymph # (Auto) 0.8 th/mm3 (1.0-4.8); Lymph % (Auto) 8.2 % (9.0-44.0); Mean Corpuscular HGB Conc 33.1 % (32.0-36.0); Mean Corpuscular Hemoglobin 30.5 pg (27.0-34.0); Mean Corpuscular Volume 92.2 fL (80.0-100.0); Mono % (Auto) 10.7 % (0.0-8.0); Neut # (Auto) 7.7 th/mm3 (1.8-7.7); Neut % (Auto) 80.9 % (16.0-70.0); Platelet Count 207 th/mm3 (150-450); Red Cell Distribution Width 15.2 % (11.6-17.2); White Blood Count 9.6 th/mm3 (4.0-11.0)
[2018-04-11 05:41] LABS: Calcium 8.1 mg/dL (8.5-10.1); Carbon Dioxide 25.9 meq/L (21.0-32.0); Magnesium 2.2 mg/dL (1.5-2.5)
[2018-04-11 05:42] LABS: Phosphorus 3.5 mg/dL (2.5-4.9)
[2018-04-11] MEDS: Heparin - SQ 10,000 UNITS/ML Vial SQ SCH ×3 (05:51→21:22)
[2018-04-11] MEDS: Famotidine 20 MG Tablet PO SCH ×2 (08:05→21:22)
[2018-04-11] MEDS: Sod Chloride 0.9% Inj 1,000 ML IV.CONT SCH ×2 (08:05→19:27)
[2018-04-11] MEDS: dilTIAZem 60 MG Tablet PO SCH ×3 (08:06→17:14)
[2018-04-11] MEDS: Senna/Docusate Sodium 8.6/50 MG Tablet PO SCH (08:06)
[2018-04-11] MEDS ORDERED: Azithromycin Inj 500 MG in Sodium Chlor 0.9% Inj 250 ML IV.SIG SCH (10:00)
--- NOTE | 2018-04-11 10:10 | P.PNPL ---
Subjective Interval history: Patient is lying in bed in NAD. On 2L oxygen. Awake and alert. Afebrile. Physical Exam Vital signs: Vital Signs 04/10/18 10:17 04/10/18 11:00 04/10/18 12:00 Temperature 98.2 F Pulse Rate 86 90 89 Respiratory Rate 33 H 34 H 32 H Blood Pressure 163/68 H 182/83 H Pulse Oximetry 96 96 04/10/18 13:00 04/10/18 14:00 04/10/18 14:47 Temperature Pulse Rate 93 H 97 H 89 Respiratory Rate 32 H 33 H 24 Blood Pressure 149/75 H 142/67 H Pulse Oximetry 96 96 04/10/18 15:00 04/10/18 16:00 04/10/18 17:00 Temperature 98.0 F Pulse Rate 95 H 93 H 98 H Respiratory Rate 32 H 31 H 31 H Blood Pressure 186/88 H 175/72 H 173/87 H Pulse Oximetry 96 95 96 04/10/18 18:00 04/10/18 19:00 04/10/18 19:35 Temperature 98.8 F Pulse Rate 100 H 101 H 98 H Respiratory Rate 31 H 39 H 30 H Blood Pressure 140/63 175/74 H Pulse Oximetry 96 96 96 04/10/18 20:00 04/10/18 22:00 04/10/18 23:23 Temperature 97.8 F Pulse Rate 101 H 92 H 88 Respiratory Rate 40 H 28 H Blood Pressure 173/79 H Pulse Oximetry 95 04/11/18 00:00 04/11/18 02:00 04/11/18 03:35 Temperature 98.7 F Pulse Rate 115 H 88 91 H Respiratory Rate 34 H 26 H Blood Pressure 164/65 H Pulse Oximetry 95 04/11/18 04:00 04/11/18 06:00 04/11/18 07:31 Temperature 98.8 F Pulse Rate 85 95 H 80 Respiratory Rate 22 28 H Blood Pressure 130/58 L Pulse Oximetry 98 98 04/11/18 08:00 04/11/18 09:00 04/11/18 09:17 Temperature 97.9 F Pulse Rate 81 83 77 Respiratory Rate 33 H 35 H 34 H Blood Pressure 140/61 140/61 Pulse Oximetry 98 98 97 Intake & Output 04/10/18 04/11/18 04/11/18 18:59 06:59 18:59 Intake Total 1970 / 1969 1380 / 1380 1000 / 1000 Output Total 750 / 750 750 / 750 Balance 1220 / 1220 630 / 630 1000 / 1000 Weight 147.2 kg Intake: IV 1670 / 1670 980 / 980 1000 / 1000 NS Inj 1,000 ML @ 84 mls/hr IV. 1120 / 1120 880 / 880 1000 / 1000 CONT .[id number] [facility] Rx#: [id number] Azithromycin Inj 500 MG In NS 250 / 250 Inj 250 ML @ 250 mls/hr IV.SIG ONCE ONE Rx#:[id number] Maxipime Inj 2,000 MG In NS Inj 100 / 100 100 / 100 100 ML @ 200 mls/hr IV.SIG Q12H [facility] Rx#:[id number] NS Inj 1,000 ML @ 1000 mls/hr 100 / 100 IV.SIG BOLUS [facility] Rx#:[id number] Rocephin Inj 1,000 MG In NS Inj 100 / 100 100 ML @ 200 mls/hr IV.SIG ONCE ONE Rx#:[id number] Oral 300 / 300 400 / 400 Output: Urine 750 / 750 750 / 750 Stool 0 / 0 0 / 0 Urine/Stool Mix 0 / 0 Other: Date of Last Bowel Movement 04/10/18 # Bowel Movements 0 0 # Incontinent Bowel Movements 0 - Constitutional no acute distress, obese - Routine HEENT Exam Head: Present: normocephalic, atraumatic Eye: Present: EOMI, PERRL, normal accommodation, conjunctivae pink ENT: Present: mucous membranes moist - Routine Neck Exam Present: supple, full ROM, trachea midline - Routine Respiratory Exam Present: CTA bilaterally - Routine Cardiovascular Exam Present: RRR, S1, S2 - Routine Abdominal Exam Present: soft, normoactive bowel sounds - Routine Extremities Exam Present: full ROM, pulses intact - Routine Skin Exam Present: intact - Routine Neurological Exam Present: alert, oriented X3, CN II-XII intact Assessment and Plan - Assessment (1) Diabetes mellitus Code(s): E11.9 - Type 2 diabetes mellitus without complications Status: Acute Qualifiers: Diabetes mellitus type: type 2 - Plan 1. Acute hypercapnic and hypoxemic respiratory insufficiency. 2. Community-acquired pneumonia. 3. Atelectasis. 4. Obesity. 5. Leukocytosis...trending down 6. Acute kidney injury. 7. Hypertension. 8. Diabetes mellitus. Plan Continue with oxygen and maintain sats >92%. Bronchodilators( DuoNeb), IS BIPAP p.r.n. for respiratory distress. Repeat ABG yesterday showed resolution of his resp acidosis Continue abx(azithromycin and cefepime). Monitor for signs of infection (fever and WBC). Influenza screening and strep pneumonia Ag negative. Legionella urinary Ag pending. Check sputum cx Monitor renal function and avoid nephrotoxins. Continue with IV fluids. GI/DVT prophylaxis. on heparin subQ
--- NOTE | 2018-04-11 10:46 | P.PN ---
Subjective Interval history: Follow-up acute hypercapnic and hypoxemic respiratory failure/community- acquired bacterial pneumonia/acute kidney injury April 11, 2018-patient seen and examined, currently on 2 L nasal cannula and denies any significant shortness of breath. Patient is refusing to use BiPAP at night states it bothers him. No other issues. Physical Exam Vital signs: Vital Signs 04/10/18 11:00 04/10/18 12:00 04/10/18 13:00 Temperature 98.2 F Pulse Rate 90 89 93 H Respiratory Rate 34 H 32 H 32 H Blood Pressure 163/68 H 182/83 H 149/75 H Pulse Oximetry 96 96 96 04/10/18 14:00 04/10/18 14:47 04/10/18 15:00 Temperature Pulse Rate 97 H 89 95 H Respiratory Rate 33 H 24 32 H Blood Pressure 142/67 H 186/88 H Pulse Oximetry 96 96 04/10/18 16:00 04/10/18 17:00 04/10/18 18:00 Temperature 98.0 F Pulse Rate 93 H 98 H 100 H Respiratory Rate 31 H 31 H 31 H Blood Pressure 175/72 H 173/87 H 140/63 Pulse Oximetry 95 96 96 04/10/18 19:00 04/10/18 19:35 04/10/18 20:00 Temperature 98.8 F 97.8 F Pulse Rate 101 H 98 H 101 H Respiratory Rate 39 H 30 H 40 H Blood Pressure 175/74 H 173/79 H Pulse Oximetry 96 96 95 04/10/18 22:00 04/10/18 23:23 04/11/18 00:00 Temperature 98.7 F Pulse Rate 92 H 88 115 H Respiratory Rate 28 H 34 H Blood Pressure 164/65 H Pulse Oximetry 95 04/11/18 02:00 04/11/18 03:35 04/11/18 04:00 Temperature 98.8 F Pulse Rate 88 91 H 85 Respiratory Rate 26 H 22 Blood Pressure 130/58 L Pulse Oximetry 98 04/11/18 06:00 04/11/18 07:31 04/11/18 08:00 Temperature 97.9 F Pulse Rate 95 H 80 81 Respiratory Rate 28 H 33 H Blood Pressure 140/61 Pulse Oximetry 98 98 04/11/18 09:00 04/11/18 09:17 04/11/18 10:00 Temperature Pulse Rate 83 77 80 Respiratory Rate 35 H 34 H Blood Pressure 140/61 Pulse Oximetry 98 97 Intake & Output 04/10/18 04/11/18 04/11/18 18:59 06:59 18:59 Intake Total 1969 / 1969 1380 / 1380 1000 / 1000 Output Total 750 / 750 750 / 750 Balance 1220 / 1220 630 / 630 1000 / 1000 Weight 147.2 kg Intake: IV 1670 / 1670 980 / 980 1000 / 1000 NS Inj 1,000 ML @ 84 mls/hr IV. 1120 / 1120 880 / 880 1000 / 1000 CONT .[id number] [facility] Rx#: [id number] Azithromycin Inj 500 MG In NS 250 / 250 Inj 250 ML @ 250 mls/hr IV.SIG ONCE ONE Rx#:[id number] Maxipime Inj 2,000 MG In NS Inj 100 / 100 100 / 100 100 ML @ 200 mls/hr IV.SIG Q12H [facility] Rx#:[id number] NS Inj 1,000 ML @ 1000 mls/hr 100 / 100 IV.SIG BOLUS [facility] Rx#:[id number] Rocephin Inj 1,000 MG In NS Inj 100 / 100 100 ML @ 200 mls/hr IV.SIG ONCE ONE Rx#:[id number] Oral 300 / 300 400 / 400 Output: Urine 750 / 750 750 / 750 Stool 0 / 0 0 / 0 Urine/Stool Mix 0 / 0 Other: Date of Last Bowel Movement 04/10/18 # Bowel Movements 0 0 # Incontinent Bowel Movements 0 Narrative: GENERAL: Obese elderly man in NAD SKIN: Warm and dry. HEAD: Atraumatic. Normocephalic. EYES: Pupils equal and round. No scleral icterus. No injection or drainage. ENT: No nasal bleeding or discharge. Mucous membranes pink and moist. NECK: Trachea midline. No JVD. CARDIOVASCULAR: Regular rate and rhythm. RESPIRATORY: No accessory muscle use. Clear to auscultation. Breath sounds equal bilaterally. GASTROINTESTINAL: Abdomen soft, non-tender, nondistended. Hepatic and splenic margins not palpable. MUSCULOSKELETAL: Extremities without clubbing, cyanosis, or edema. No obvious deformities. NEUROLOGICAL: Awake and alert. No obvious cranial nerve deficits. Motor grossly within normal limits. Five out of 5 muscle strength in the arms and legs. Normal speech. PSYCHIATRIC: Appropriate mood and affect; insight and judgment normal. Results - Labs CBC & Chem 7: 04/11/18 05:03 04/11/18 05:03 Laboratory Results - last 24 hr 04/10/18 04/10/18 04/10/18 09:13 10:52 11:56 WBC RBC Hgb Hct MCV MCH MCHC RDW Plt Count MPV Neut % (Auto) Lymph % (Auto) [place] % (Auto) Eos % (Auto) Baso % (Auto) Neut # (Auto) Lymph # (Auto) [place] # (Auto) Eos # (Auto) Baso # (Auto) WBC Differential Differential Comment Puncture Site Patient Temperature O2 Saturation ABG pH ABG pCO2 ABG pO2 ABG HCO3 ABG O2 Content ABG Base Excess ABG Methemoglobin Jose Elias Test Hemoglobin Carboxyhemoglobin O2 Delivery Device Liter Flow Critical Value Sodium Potassium Chloride Carbon Dioxide Anion Gap BUN Creatinine Estimated GFR POC Glucose 322 H Random Glucose Lactic Acid 2.3 H Calcium Phosphorus Magnesium Troponin I B-Natriuretic Peptide Nasal Screen MRSA (PCR) Not detected 04/10/18 04/10/18 04/10/18 11:56 12:18 15:05 WBC RBC Hgb Hct MCV MCH MCHC RDW Plt Count MPV Neut % (Auto) Lymph % (Auto) [place] % (Auto) Eos % (Auto) Baso % (Auto) Neut # (Auto) Lymph # (Auto) [place] # (Auto) Eos # (Auto) Baso # (Auto) WBC Differential Differential Comment Puncture Site Right radial Patient Temperature 98.6 O2 Saturation 95 ABG pH 7.39 ABG pCO2 39 ABG pO2 95 ABG HCO3 23 ABG O2 Content 16.5 ABG Base Excess -0.8 ABG Methemoglobin 1.7 Jose Elias Test Present Hemoglobin 12.3 Carboxyhemoglobin 1.2 O2 Delivery Device Nasal cannula Liter Flow 2.00 Critical Value No Sodium Potassium Chloride Carbon Dioxide Anion Gap BUN Creatinine Estimated GFR POC Glucose Random Glucose Lactic Acid 5.2 H* Calcium Phosphorus Magnesium Troponin I 0.05 B-Natriuretic Peptide Nasal Screen MRSA (PCR) 04/10/18 04/10/18 04/11/18 16:12 21:19 02:45 WBC RBC Hgb Hct MCV MCH MCHC RDW Plt Count MPV Neut % (Auto) Lymph % (Auto) [place] % (Auto) Eos % (Auto) Baso % (Auto) Neut # (Auto) Lymph # (Auto) [place] # (Auto) Eos # (Auto) Baso # (Auto) WBC Differential Differential Comment Puncture Site Patient Temperature O2 Saturation ABG pH ABG pCO2 ABG pO2 ABG HCO3 ABG O2 Content ABG Base Excess ABG Methemoglobin Jose Elias Test Hemoglobin Carboxyhemoglobin O2 Delivery Device Liter Flow Critical Value Sodium Potassium Chloride Carbon Dioxide Anion Gap BUN Creatinine Estimated GFR POC Glucose 417 H 434 H 306 H Random Glucose Lactic Acid Calcium Phosphorus Magnesium Troponin I B-Natriuretic Peptide Nasal Screen MRSA (PCR) 04/11/18 04/11/18 04/11/18 05:03 05:03 05:03 WBC 9.6 RBC 3.70 L Hgb 11.3 L D Hct 34.1 L MCV 92.2 MCH 30.5 MCHC 33.1 RDW 15.2 Plt Count 207 MPV 10.0 Neut % (Auto) 80.9 H Lymph % (Auto) 8.2 L [place] % (Auto) 10.7 H Eos % (Auto) 0.0 Baso % (Auto) 0.2 Neut # (Auto) 7.7 Lymph # (Auto) 0.8 L [place] # (Auto) 1.0 H Eos # (Auto) 0.0 Baso # (Auto) 0.0 WBC Differential . Differential Comment Auto diff final Puncture Site Patient Temperature O2 Saturation ABG pH ABG pCO2 ABG pO2 ABG HCO3 ABG O2 Content ABG Base Excess ABG Methemoglobin Jose Elias Test Hemoglobin Carboxyhemoglobin O2 Delivery Device Liter Flow Critical Value Sodium 139 Potassium 5.0 Chloride 106 Carbon Dioxide 25.9 Anion Gap 7 BUN 32 H Creatinine 1.60 H Estimated GFR 43 L POC Glucose Random Glucose 272 H Lactic Acid 1.7 Calcium 8.1 L Phosphorus 3.5 Magnesium 2.2 Troponin I B-Natriuretic Peptide Nasal Screen MRSA (PCR) 04/11/18 04/11/18 05:03 07:15 WBC RBC Hgb Hct MCV MCH MCHC RDW Plt Count MPV Neut % (Auto) Lymph % (Auto) [place] % (Auto) Eos % (Auto) Baso % (Auto) Neut # (Auto) Lymph # (Auto) [place] # (Auto) Eos # (Auto) Baso # (Auto) WBC Differential Differential Comment Puncture Site Patient Temperature O2 Saturation ABG pH ABG pCO2 ABG pO2 ABG HCO3 ABG O2 Content ABG Base Excess ABG Methemoglobin Jose Elias Test Hemoglobin Carboxyhemoglobin O2 Delivery Device Liter Flow Critical Value Sodium Potassium Chloride Carbon Dioxide Anion Gap BUN Creatinine Estimated GFR POC Glucose 278 H Random Glucose Lactic Acid Calcium Phosphorus Magnesium Troponin I B-Natriuretic Peptide 266 H Nasal Screen MRSA (PCR) Microbiology 04/10/18 11:56 Urine - Clean Catch Urine Streptococcus pneumoniae Antigen ( M - Final Presumptive negative for streptococcus pneumoniae antigen, suggesting no current or recent infection. Infection due to Streptococcus pneumoniae cannot be ruled out since the antigen present in the sample may be below the detection limit of the test. 04/10/18 08:20 Nasal Wash Influenza Types A,B Antigen - Final Negative for FLU A and B antigen Infection due to influenza A or B cannot be ruled out since the antigen present in the sample may be below the detection limit of the test. - Procedures None Assessment and Plan - Plan 72-year-old man with Acute hypercapnic and hypoxic respiratory failure-resolved Currently on 2 L nasal cannula Refusing to use BiPAP at night Incentive spirometry, DuoNeb as needed Keep oxygen saturation above 92% Community-acquired bacterial pneumonia Currently on cefepime and azithromycin, will discontinue azithromycin Continue to monitor cultures Influenza screening and strep pneumonia Ag negative. Legionella urinary Ag pending. Check sputum cx Diabetes type 2 Hold all oral antihyperglycemic agents including metformin Continue with insulin sliding scale Hypertension Currently on lisinopril, Cardizem Acute kidney injury Continue with gentle IV fluid hydration Monitor BUN and creatinine Morbid obesity Patient advised on weight reduction GI/DVT prophylaxis. on heparin subQ Check CBC, BMP in a.m. PT consult to treat and eval Transfer to [facility]
--- NOTE | 2018-04-12 01:10 | ECG ---
Date Performed: 04/10/2018 Time Performed: 04:53:46 PTAGE: 72 years EKG: BASELINE ARTIFACT MAKES INTERPRETATION DIFFICULT PROBABLE ECTOPIC ATRIAL RHYTHM WITH OCCASI ONAL VENTRICULAR PREMATURE COMPLEXES POSSIBLE LEFT ATRIAL ENLARGEMENT RIGHT BUNDLE BRANCH BLOCK LEFT ANTERIOR FASCICULAR BLOCK ABNORMAL ECG INTERPRETATION BASED ON A DEFAULT AGE OF 40 YEARS PREVIOUS TRACING : 02/04/2018 15.33 Compared to previous tracing, previously Sinus rhyth m with 1st degree AV block DOCTOR: Urban Carter Interpretating Date/Time 04/12/2018 01:08:59
[2018-04-12] MEDS: Chlorhexidine Gluconate 2% 1 Pack (2 Cloths) TOPICAL SCH (03:41)
[2018-04-12] MEDS: Insulin NovoLOG Aspart Correctional Sugar Inj SQ SCH ×5 (03:46→21:15)
[2018-04-12] MEDS: Heparin - SQ 10,000 UNITS/ML Vial SQ SCH ×3 (05:10→21:17)
[2018-04-12] MEDS: Sod Chloride 0.9% Inj 1,000 ML IV.CONT SCH (05:10)
[2018-04-12 07:15] LABS: Baso # (Auto) 0.1 th/mm3 (0.0-0.2); Baso % (Auto) 0.5 % (0.0-2.0); Eos # (Auto) 0.1 th/mm3 (0.0-0.4); Eos % (Auto) 0.7 % (0.0-4.0); Hematocrit 35.4 % (39.0-51.0); Hemoglobin 11.7 gm/dL (13.0-17.0); Lymph # (Auto) 1.4 th/mm3 (1.0-4.8); Lymph % (Auto) 12.8 % (9.0-44.0); Mean Corpuscular HGB Conc 33.1 % (32.0-36.0); Mean Corpuscular Hemoglobin 30.5 pg (27.0-34.0); Mean Corpuscular Volume 92.4 fL (80.0-100.0); Mean Platelet Volume 10.2 fL (7.0-11.0); Mono % (Auto) 9.3 % (0.0-8.0); Neut # (Auto) 8.3 th/mm3 (1.8-7.7); Neut % (Auto) 76.7 % (16.0-70.0); Platelet Count 188 th/mm3 (150-450); Red Blood Count 3.84 mil/mm3 (4.50-5.90); Red Cell Distribution Width 15.4 % (11.6-17.2); White Blood Count 10.8 th/mm3 (4.0-11.0)
[2018-04-12 07:42] LABS: Albumin 3.4 g/dL (3.4-5.0); Anion Gap 7 meq/L (5-15); Aspartate Aminotransferase 43 U/L (15-37); Blood Urea Nitrogen 31 mg/dL (7-18); Calcium 8.3 mg/dL (8.5-10.1); Carbon Dioxide 26.7 meq/L (21.0-32.0); Chloride 105 meq/L (98-107); Glomerular Filtration Rate 42 mL/min (>89); Glucose,Random 181 mg/dL (74-106); Potassium 4.8 meq/L (3.5-5.1); Sodium 139 meq/L (136-145)
[2018-04-12 07:43] LABS: Alanine Aminotransferase 36 U/L (12-78)
[2018-04-12 07:45] LABS: Alkaline Phosphatase 49 U/L (45-117); Total Protein 6.7 g/dL (6.4-8.2)
[2018-04-12] MEDS: Famotidine 20 MG Tablet PO SCH ×2 (08:04→20:17)
[2018-04-12] MEDS: dilTIAZem 60 MG Tablet PO SCH ×3 (08:04→17:07)
--- NOTE | 2018-04-12 09:48 | P.PNPL ---
Subjective Interval history: Patient is lying in bed in NAD. Afebrile. Physical Exam Vital signs: Vital Signs 04/11/18 10:00 04/11/18 11:28 04/11/18 12:00 Temperature 97.8 F Pulse Rate 80 79 80 Respiratory Rate 24 32 H Blood Pressure 149/65 H Pulse Oximetry 97 04/11/18 14:00 04/11/18 14:43 04/11/18 16:00 Temperature 98.3 F Pulse Rate 81 79 93 H Respiratory Rate 24 17 Blood Pressure 160/74 H Pulse Oximetry 92 L 04/11/18 19:17 04/11/18 19:18 04/11/18 20:00 Temperature 97.2 F L Pulse Rate 90 95 H Respiratory Rate 18 20 Blood Pressure 175/79 H Pulse Oximetry 93 L 94 L 04/12/18 00:00 04/12/18 00:42 04/12/18 04:00 Temperature 97.2 F L 97.4 F L Pulse Rate 95 H 86 92 H Respiratory Rate 20 35 H 20 Blood Pressure 189/77 H 165/71 H Pulse Oximetry 94 L 95 04/12/18 04:05 04/12/18 05:07 04/12/18 07:00 Temperature Pulse Rate 55 L 83 Respiratory Rate 27 H 16 Blood Pressure 180/79 H Pulse Oximetry 04/12/18 07:54 04/12/18 08:00 Temperature 97.3 F L Pulse Rate 56 L Respiratory Rate 20 Blood Pressure 150/67 H Pulse Oximetry 98 96 Intake & Output 04/11/18 04/12/18 04/12/18 18:59 06:59 18:59 Intake Total 1550 / 1550 1100 / 1100 474 / 474 Output Total 450 / 450 0 / 0 900 / 900 Balance 1100 / 1100 1100 / 1100 -426 / -426 Weight 148.8 kg Intake: IV 1350 / 1350 1100 / 1100 NS Inj 1,000 ML @ 84 mls/hr IV. 1000 / 1000 1000 / 1000 CONT .[id number] [facility] Rx#: [id number] Azithromycin Inj 500 MG In NS 250 / 250 Inj 250 ML @ 250 mls/hr IV.SIG Q24H [facility] Rx#:[id number] Maxipime Inj 2,000 MG In NS Inj 100 / 100 100 / 100 100 ML @ 200 mls/hr IV.SIG Q12H [facility] Rx#:[id number] Oral 200 / 200 474 / 474 Output: Urine 450 / 450 900 / 900 Stool 0 / 0 Urine/Stool Mix 0 / 0 Other: # Voids 2 Date of Last Bowel Movement 04/10/18 # Bowel Movements 0 0 # Incontinent Bowel Movements 0 - Constitutional no acute distress, obese - Routine HEENT Exam Head: Present: normocephalic, atraumatic Eye: Present: EOMI, PERRL, normal accommodation, conjunctivae pink ENT: Present: mucous membranes moist - Routine Neck Exam Present: supple, full ROM, trachea midline - Routine Respiratory Exam Present: CTA bilaterally - Routine Cardiovascular Exam Present: RRR, S1, S2 - Routine Abdominal Exam Present: soft, normoactive bowel sounds - Routine Extremities Exam Present: full ROM, pulses intact - Routine Skin Exam Present: intact - Routine Neurological Exam Present: alert, oriented X3, CN II-XII intact Assessment and Plan - Assessment (1) Diabetes mellitus Code(s): E11.9 - Type 2 diabetes mellitus without complications Status: Acute Qualifiers: Diabetes mellitus type: type 2 - Plan 1. Acute hypercapnic and hypoxemic respiratory insufficiency. 2. Community-acquired pneumonia. 3. Atelectasis. 4. Obesity. 5. Leukocytosis...resolved 6. Acute kidney injury. 7. Hypertension. 8. Diabetes mellitus. Plan Continue with oxygen and maintain sats >92%. Bronchodilators( DuoNeb), IS BIPAP p.r.n. for respiratory distress. Repeat ABG 04/10showed resolution of his resp acidosis Check CXR Continue abx(cefepime). Monitor for signs of infection (fever and WBC). Influenza screening and strep pneumonia Ag negative. Follow up on sputum cx Monitor renal function, d/c IVF and diurese with Lasix 40mg x1 Will need sleep study as outpatient. GI/DVT prophylaxis. on heparin subQ
--- NOTE | 2018-04-12 10:22 | XR ---
EXAM DATE: 04/12/2018 10:19 AM EST AGE/SEX: 72 years / Male INDICATIONS: Short of breath CLINICAL DATA: This is the patient's subsequent encounter. Patient reports that signs and symptoms h ave been present for 2 days and indicates a pain score of 0/10. MEDICAL/SURGICAL HISTORY: Chronic obstructive pulmonary disease. Congestive heart failure. Hy pertension. None. COMPARISON: [facility], CHEST 1V SINGLE AP, 04/10/2018. . FINDINGS: A single AP view of the chest demonstrates the lungs to be symmetrically aerated without evidence of mass, infiltrate or effusion. The heart size is enlarged but stable compared to the prior examinatio n. The bony structures are stable. No significant changes are seen compared to the prior examination. . CONCLUSION: No definite acute pulmonary infiltrates. Compensated cardiomegaly. Electronically signed by: Jluis Gauthier MD Board Certified Radiologist 04/12/2018 10:21 AM EST
--- NOTE | 2018-04-12 11:53 | P.PNIM ---
Subjective Interval history: Patient complains of shortness of breath with ambulation. At rest he says he is comfortable. Physical Exam Vital signs: Vital Signs 04/11/18 12:00 04/11/18 14:00 04/11/18 14:43 Temperature 97.8 F Pulse Rate 80 81 79 Respiratory Rate 32 H 24 Blood Pressure 149/65 H Pulse Oximetry 97 04/11/18 16:00 04/11/18 19:17 04/11/18 19:18 Temperature 98.3 F Pulse Rate 93 H 90 Respiratory Rate 17 18 Blood Pressure 160/74 H Pulse Oximetry 92 L 93 L 04/11/18 20:00 04/12/18 00:00 04/12/18 00:42 Temperature 97.2 F L 97.2 F L Pulse Rate 95 H 95 H 86 Respiratory Rate 20 20 35 H Blood Pressure 175/79 H 189/77 H Pulse Oximetry 94 L 94 L 04/12/18 04:00 04/12/18 04:05 04/12/18 05:07 Temperature 97.4 F L Pulse Rate 92 H 55 L Respiratory Rate 20 27 H Blood Pressure 165/71 H 180/79 H Pulse Oximetry 95 04/12/18 07:00 04/12/18 07:54 04/12/18 08:00 Temperature 97.3 F L Pulse Rate 83 56 L Respiratory Rate 16 20 Blood Pressure 150/67 H Pulse Oximetry 98 96 04/12/18 11:00 Temperature Pulse Rate 81 Respiratory Rate 14 Blood Pressure Pulse Oximetry Intake & Output 04/11/18 04/12/18 04/12/18 18:59 06:59 18:59 Intake Total 1550 / 1550 1100 / 1100 474 / 474 Output Total 450 / 450 0 / 0 900 / 900 Balance 1100 / 1100 1100 / 1100 -426 / -426 Weight 148.8 kg Intake: IV 1350 / 1350 1100 / 1100 NS Inj 1,000 ML @ 84 mls/hr IV. 1000 / 1000 1000 / 1000 CONT .[id number] [facility] Rx#: [id number] Azithromycin Inj 500 MG In NS 250 / 250 Inj 250 ML @ 250 mls/hr IV.SIG Q24H [facility] Rx#:[id number] Maxipime Inj 2,000 MG In NS Inj 100 / 100 100 / 100 100 ML @ 200 mls/hr IV.SIG Q12H [facility] Rx#:[id number] Oral 200 / 200 474 / 474 Output: Urine 450 / 450 900 / 900 Stool 0 / 0 Urine/Stool Mix 0 / 0 Other: # Voids 2 Date of Last Bowel Movement 04/10/18 # Bowel Movements 0 0 # Incontinent Bowel Movements 0 Narrative: General patient complains of shortness of breath with ambulation HEENT extraocular movements are intact, clear oropharyngeal mucosa, no JVD Cardiovascular S1-S2 audible Respiratory bibasilar crackles, difficult to auscultate given the patient's size. Abdomen soft, obese, normal bowel sounds Extremities 1+ pitting edema bilateral lower extremities up to the shins. Neuro no focal neurological deficits. Results - Labs CBC & Chem 7: 04/12/18 05:59 04/12/18 05:59 Laboratory Results - last 24 hr 04/11/18 04/11/18 04/11/18 12:07 16:51 19:49 WBC RBC Hgb Hct MCV MCH MCHC RDW Plt Count MPV Neut % (Auto) Lymph % (Auto) [place] % (Auto) Eos % (Auto) Baso % (Auto) Neut # (Auto) Lymph # (Auto) [place] # (Auto) Eos # (Auto) Baso # (Auto) WBC Differential Differential Comment Sodium Potassium Chloride Carbon Dioxide Anion Gap BUN Creatinine Estimated GFR POC Glucose 271 H 214 H 181 H Random Glucose Calcium Total Bilirubin AST ALT Alkaline Phosphatase Total Protein Albumin 04/11/18 04/12/18 04/12/18 22:46 03:43 05:59 WBC 10.8 RBC 3.84 L Hgb 11.7 L Hct 35.4 L MCV 92.4 MCH 30.5 MCHC 33.1 RDW 15.4 Plt Count 188 MPV 10.2 Neut % (Auto) 76.7 H Lymph % (Auto) 12.8 [place] % (Auto) 9.3 H Eos % (Auto) 0.7 Baso % (Auto) 0.5 Neut # (Auto) 8.3 H Lymph # (Auto) 1.4 [place] # (Auto) 1.0 H Eos # (Auto) 0.1 Baso # (Auto) 0.1 WBC Differential . Differential Comment Auto diff final Sodium Potassium Chloride Carbon Dioxide Anion Gap BUN Creatinine Estimated GFR POC Glucose 174 H 170 H Random Glucose Calcium Total Bilirubin AST ALT Alkaline Phosphatase Total Protein Albumin 04/12/18 04/12/1818 05:59 07:23 11:19 WBC RBC Hgb Hct MCV MCH MCHC RDW Plt Count MPV Neut % (Auto) Lymph % (Auto) [place] % (Auto) Eos % (Auto) Baso % (Auto) Neut # (Auto) Lymph # (Auto) [place] # (Auto) Eos # (Auto) Baso # (Auto) WBC Differential Differential Comment Sodium 139 Potassium 4.8 Chloride 105 Carbon Dioxide 26.7 Anion Gap 7 BUN 31 H Creatinine 1.62 H Estimated GFR 42 L POC Glucose 185 H 226 H Random Glucose 181 H Calcium 8.3 L Total Bilirubin 0.3 AST 43 H ALT 36 Alkaline Phosphatase 49 Total Protein 6.7 D Albumin 3.4 Microbiology 04/10/18 05:06 Blood - Peripheral Aerobic Blood Culture - Preliminary No growth in 2 days 04/10/18 05:06 Blood - Peripheral Anaerobic Blood Culture - Preliminary No growth in 2 days 04/10/18 05:01 Blood - Peripheral Aerobic Blood Culture - Preliminary No growth in 2 days 04/10/18 05:01 Blood - Peripheral Anaerobic Blood Culture - Preliminary No growth in 2 days 04/10/18 11:30 Clean Catch Urine Urine Culture - Final >100,000 cfu/mL mixed sotero (probable contaminants) 04/11/18 15:20 Sputum - Expectorated Sputum Gram Stain - Final 04/10/18 11:56 Urine - Clean Catch Urine Streptococcus pneumoniae Antigen ( M - Final Presumptive negative for streptococcus pneumoniae antigen, suggesting no current or recent infection. Infection due to Streptococcus pneumoniae cannot be ruled out since the antigen present in the sample may be below the detection limit of the test. - Imaging Impressions Chest X-Ray 04/12/18 09:43 CONCLUSION: No definite acute pulmonary infiltrates. Compensated cardiomegaly. - Procedures None Assessment and Plan - Plan This patient is a 72-year-old obese male with a diagnosis of hypertension, diabetes mellitus type 2 who presented to the emergency room with complaints of shortness of breath and an elevated d-dimer. Initially there was a concern the patient may have a pulmonary embolus. CT of the chest was done which was negative for PE however did show a lower lobe pneumonia. 1. Acute hypoxic Respiratory failure secondary to community acquired pneumonia CTA of the chest is negative for PE, shows left sided consolidation. WBC count initially elevated, now normal. Patient still slightly tachycardic. He is requiring 3 L of supplemental oxygen currently. Continue IV antibiotics, all cultures are negative up until now. We will titrate the patient off of supplemental oxygen. He has been refusing BiPAP at night, patient was advised to use a BiPAP. Given the patient's obesity and size of his neck patient also likely has RADHA. Pulmonary following. Case discussed with the patient's nurse, will stop IV fluids. I agree with the 1 dose of IV Lasix that was given by the pulmonary team today. If the patient is still requiring supplemental oxygen will perform walk test tomorrow. 2. Hypertension Norvasc added to the patient's medication regimen. We will continue to monitor his blood pressure and adjust his medications as needed. 3. Diabetes mellitus type 2 Patient on oral medications at home. Continue low-dose insulin sliding scale. We will adjust his diabetes regimen as needed. 4. Chronic kidney disease stage III a It appears the patient does have baseline CKD after reviewing his kidney function from 2016 to 2017 it appears his baseline serum creatinine is around 1.4. Creatinine is 1.6. We will discontinue IV fluids. We will continue to monitor his kidney function and adjust his medication as needed. Nephrotoxic agents. Heparin for DVT prophylaxis Discharge planning, the patient likely be discharged in next 1-2 days.
--- NOTE | 2018-04-12 12:04 | US ---
EXAM DATE: 04/12/2018 12:00 PM EST AGE/SEX: 72 years / Male INDICATIONS: Left pleural effusion. Shortness of breath. CLINICAL DATA: This is the patient's initial encounter. Patient reports that signs and symptoms have been present for 1 day and indicates a pain score of 0/10. MEDICAL/SURGICAL HISTORY: Diabetes. Hypertension. None. COMPARISON: C, CHEST 1V SINGLE AP, 04/12/2018. . MEASUREMENTS: Skin To Parietal Pleura:__N/A cm Skin To Max Safe Depth:__N/A cm Estimated Fluid Volume:__N/A cc Fluid Composition:__inadequate fluid FINDINGS: No marking was performed. CONCLUSION: 1. No evidence of any left-sided pleural effusion. Electronically signed by: Jluis Gauthier MD Board Certified Radiologist 04/12/2018 12:02 PM EST
[2018-04-12] MEDS: amLODIPine 5 MG Tablet PO SCH (13:18)
[2018-04-13] MEDS: Insulin NovoLOG Aspart Correctional Sugar Inj SQ SCH ×5 (02:50→22:25)
[2018-04-13] MEDS: Chlorhexidine Gluconate 2% 1 Pack (2 Cloths) TOPICAL SCH (03:12)
[2018-04-13] MEDS: Heparin - SQ 10,000 UNITS/ML Vial SQ SCH ×3 (04:59→21:36)
[2018-04-13] MEDS: amLODIPine 5 MG Tablet PO SCH (09:02)
[2018-04-13] MEDS: dilTIAZem 60 MG Tablet PO SCH ×3 (09:02→17:30)
[2018-04-13] MEDS: Famotidine 20 MG Tablet PO SCH ×2 (09:02→20:15)
--- NOTE | 2018-04-13 09:12 | P.PNPL ---
Subjective Interval history: No events overnight. Patient is sitting in chair in NAD. Afebrile. Physical Exam Vital signs: Vital Signs 04/12/18 11:00 04/12/18 11:46 04/12/18 12:00 Temperature 97.0 F L Pulse Rate 81 96 H Respiratory Rate 14 20 Blood Pressure 140/69 Pulse Oximetry 94 L Pulse Oximetry [Exertion on Room Air] 87 L Pulse Oximetry [Exertion with Oxygen] 94 L Pulse Oximetry [Resting on Room Air] 97 Pulse Oximetry [Resting with Oxygen] 99 04/12/18 16:00 04/12/18 20:00 04/12/18 20:51 Temperature 97.2 F L 98.0 F Pulse Rate 118 H 87 76 Respiratory Rate 18 18 26 H Blood Pressure 146/69 H 158/60 H Pulse Oximetry 96 95 97 Pulse Oximetry [Exertion on Room Air] Pulse Oximetry [Exertion with Oxygen] Pulse Oximetry [Resting on Room Air] Pulse Oximetry [Resting with Oxygen] 04/13/18 00:00 04/13/18 07:00 04/13/18 08:00 Temperature 97.8 F 97.6 F Pulse Rate 74 96 H 76 Respiratory Rate 17 16 16 Blood Pressure 142/61 H 133/66 Pulse Oximetry 95 94 L Pulse Oximetry [Exertion on Room Air] Pulse Oximetry [Exertion with Oxygen] Pulse Oximetry [Resting on Room Air] Pulse Oximetry [Resting with Oxygen] Intake & Output 04/12/18 04/13/18 04/13/18 18:59 06:59 18:59 Intake Total 1254 / 1254 100 / 100 Output Total 900 / 900 Balance 354 / 354 100 / 100 Weight 146.9 kg Intake: IV 100 / 100 100 / 100 Maxipime Inj 2,000 MG In NS Inj 100 / 100 100 / 100 100 ML @ 200 mls/hr IV.SIG Q12H [facility]EDAD Rx#:[id number] Oral 1154 / 1154 Output: Urine 900 / 900 Other: # Voids 5 4 Date of Last Bowel Movement 04/12/18 # Bowel Movements 1 - Constitutional no acute distress, morbidly obese - Routine HEENT Exam Head: Present: normocephalic, atraumatic Eye: Present: EOMI, PERRL, normal accommodation, conjunctivae pink ENT: Present: mucous membranes moist - Routine Neck Exam Present: supple, full ROM, trachea midline - Routine Respiratory Exam Present: CTA bilaterally - Routine Cardiovascular Exam Present: RRR, S1, S2 - Routine Abdominal Exam Present: soft, normoactive bowel sounds - Routine Skin Exam Present: intact, dry - Routine Neurological Exam Present: alert, oriented X3, CN II-XII intact Assessment and Plan - Assessment (1) Diabetes mellitus Code(s): E11.9 - Type 2 diabetes mellitus without complications Status: Acute Qualifiers: Diabetes mellitus type: type 2 - Plan 1. Acute hypercapnic and hypoxemic respiratory insufficiency. 2. Community-acquired pneumonia. 3. Atelectasis. 4. Obesity. 5. Leukocytosis...resolved 6. Acute kidney injury. 7. Hypertension. 8. Diabetes mellitus. Plan Continue with oxygen and maintain sats >92%. Bronchodilators( DuoNeb), IS BIPAP p.r.n. for respiratory distress. Repeat ABG 04/10 showed resolution of his resp acidosis CXR 04/12: No obvious infiltrates US chest: No effusion on left CTA chest 04/10: No PE Continue abx(cefepime). Influenza screening and strep pneumonia Ag negative. 04/11 sputum cx: normal resp sotero Will need sleep study as outpatient. GI/DVT prophylaxis. on heparin subQ Ok for discharge from Pulm standpoint follow up with Dr. Byrd in 1week from discharge
[2018-04-13] MEDS ORDERED: amLODIPine 5 MG Tablet PO ONE (14:20)
--- NOTE | 2018-04-13 14:35 | P.PNIM ---
Subjective Interval history: Patient complains of shortness of breath with ambulation. No other complaints at rest. Physical Exam Vital signs: Vital Signs 04/12/18 16:00 04/12/18 20:00 04/12/18 20:51 Temperature 97.2 F L 98.0 F Pulse Rate 118 H 87 76 Respiratory Rate 18 18 26 H Blood Pressure 146/69 H 158/60 H Pulse Oximetry 96 95 97 04/13/18 00:00 04/13/18 07:00 04/13/18 08:00 Temperature 97.8 F 97.6 F Pulse Rate 74 96 H 76 Respiratory Rate 17 16 16 Blood Pressure 142/61 H 133/66 Pulse Oximetry 95 94 L 04/13/18 09:01 04/13/18 12:00 04/13/18 13:51 Temperature 97.1 F L Pulse Rate 70 78 Respiratory Rate 17 20 Blood Pressure 176/68 H Pulse Oximetry 95 95 Intake & Output 04/12/18 04/13/18 04/13/18 18:59 06:59 18:59 Intake Total 1254 / 1254 100 / 100 Output Total 900 / 900 Balance 354 / 354 100 / 100 Weight 146.9 kg Intake: IV 100 / 100 100 / 100 Maxipime Inj 2,000 MG In NS Inj 100 / 100 100 / 100 100 ML @ 200 mls/hr IV.SIG Q12H [facility] Rx#:[id number] Oral 1154 / 1154 Output: Urine 900 / 900 Other: # Voids 5 4 Date of Last Bowel Movement 04/12/18 04/12/18 # Bowel Movements 1 Narrative: General patient complains of shortness of breath with ambulation HEENT extraocular movements are intact, clear oropharyngeal mucosa, no JVD Cardiovascular S1-S2 audible Respiratory bibasilar crackles, difficult to auscultate given the patient's size. Abdomen soft, obese, normal bowel sounds Extremities 1+ pitting edema bilateral lower extremities up to the shins. Neuro no focal neurological deficits. Results - Labs CBC & Chem 7: 04/12/18 05:59 04/12/18 05:59 Laboratory Results - last 24 hr 04/12/18 04/12/18 04/13/18 16:51 20:16 02:41 POC Glucose 241 H 174 H 186 H 04/13/18 04/13/18 08:29 11:48 POC Glucose 185 H 280 H Microbiology 04/11/18 15:20 Sputum - Expectorated Sputum Gram Stain - Final 04/11/18 15:20 Sputum - Expectorated Sputum Sputum Culture - Final Moderate growth normal respiratory sotero 04/10/18 05:06 Blood - Peripheral Aerobic Blood Culture - Preliminary No growth in 3 days 04/10/18 05:06 Blood - Peripheral Anaerobic Blood Culture - Preliminary No growth in 3 days 04/10/18 05:01 Blood - Peripheral Aerobic Blood Culture - Preliminary No growth in 3 days 04/10/18 05:01 Blood - Peripheral Anaerobic Blood Culture - Preliminary No growth in 3 days 04/10/18 11:30 Clean Catch Urine Urine Culture - Final >100,000 cfu/mL mixed sotero (probable contaminants) - Procedures None Assessment and Plan - Plan This patient is a 72-year-old obese male with a diagnosis of hypertension, diabetes mellitus type 2 who presented to the emergency room with complaints of shortness of breath and an elevated d-dimer. Initially there was a concern the patient may have a pulmonary embolus. CT of the chest was done which was negative for PE however did show a lower lobe pneumonia. 1. Acute hypoxic Respiratory failure secondary to community acquired pneumonia 04/13/18 1. Acute hypoxic Respiratory failure secondary to community acquired pneumonia Patient still requiring 2 L of supplemental oxygen, improved from 3L yesterday. Lasix 40mg IV x 1 will be given again today, patient felt somewhat better after iv lasix yesterday. Monitor ins/outs. Titrate off of supplemental oxygen. Patient will need sleep study after discharge. Walk test will be done tomorrow to see if pt needs home oxygen. Patient likely to be discharged tomorrow. 2. HTN Norvasc dose increased for HTN. 1. Acute hypoxic Respiratory failure secondary to community acquired pneumonia CTA of the chest is negative for PE, shows left sided consolidation. WBC count initially elevated, now normal. Patient still slightly tachycardic. He is requiring 3 L of supplemental oxygen currently. Continue IV antibiotics, all cultures are negative up until now. We will titrate the patient off of supplemental oxygen. He has been refusing BiPAP at night, patient was advised to use a BiPAP. Given the patient's obesity and size of his neck patient also likely has RADHA. Pulmonary following. Case discussed with the patient's nurse, will stop IV fluids. I agree with the 1 dose of IV Lasix that was given by the pulmonary team today. If the patient is still requiring supplemental oxygen will perform walk test tomorrow. 2. Hypertension Norvasc added to the patient's medication regimen. We will continue to monitor his blood pressure and adjust his medications as needed. 3. Diabetes mellitus type 2 Patient on oral medications at home. Continue low-dose insulin sliding scale. We will adjust his diabetes regimen as needed. 4. Chronic kidney disease stage III a It appears the patient does have baseline CKD after reviewing his kidney function from 2015 to 2017 it appears his baseline serum creatinine is around 1.4. Creatinine is 1.6. We will discontinue IV fluids. We will continue to monitor his kidney function and adjust his medication as needed. Nephrotoxic agents. Heparin for DVT prophylaxis Discharge planning, the patient likely be discharged in next 1-2 days.
[2018-04-14] MEDS: Insulin NovoLOG Aspart Correctional Sugar Inj SQ SCH ×5 (02:20→21:05)
[2018-04-14] MEDS: Chlorhexidine Gluconate 2% 1 Pack (2 Cloths) TOPICAL SCH (05:09)
[2018-04-14] MEDS: Heparin - SQ 10,000 UNITS/ML Vial SQ SCH ×3 (05:10→21:01)
[2018-04-14 05:28] LABS: Calcium 8.6 mg/dL (8.5-10.1); Carbon Dioxide 28.9 meq/L (21.0-32.0); Potassium 4.3 meq/L (3.5-5.1)
[2018-04-14] MEDS: dilTIAZem 60 MG Tablet PO SCH ×3 (08:31→18:18)
[2018-04-14] MEDS: amLODIPine 5 MG Tablet PO SCH (08:31)
[2018-04-14] MEDS: Famotidine 20 MG Tablet PO SCH ×2 (08:32→21:01)
--- NOTE | 2018-04-14 08:58 | P.PNPL ---
Subjective Interval history: Patient is lying in bed in NAD. On room air oxygen. Afebrile. Physical Exam Vital signs: Vital Signs 04/13/18 09:01 04/13/18 12:00 04/13/18 13:51 Temperature 97.1 F L Pulse Rate 70 78 Respiratory Rate 17 20 Blood Pressure 176/68 H Pulse Oximetry 95 95 04/13/18 16:00 04/13/18 20:00 04/13/18 21:55 Temperature 97.1 F L 97.6 F Pulse Rate 57 L 77 93 H Respiratory Rate 19 22 35 H Blood Pressure 136/96 H 157/73 H Pulse Oximetry 92 L 95 93 L 04/14/18 00:00 04/14/18 04:00 04/14/18 08:00 Temperature 98 F 98.1 F 97.7 F Pulse Rate 78 82 82 Respiratory Rate 22 22 22 Blood Pressure 152/69 H 122/64 182/80 H Pulse Oximetry 93 L 92 L 92 L 04/14/18 08:16 Temperature Pulse Rate 84 Respiratory Rate 18 Blood Pressure Pulse Oximetry 94 L Intake & Output 04/13/18 04/14/18 04/14/18 18:59 06:59 18:59 Intake Total 1200 / 1200 100 / 100 Balance 1200 / 1200 100 / 100 Weight 143.4 kg Intake: IV 100 / 100 100 / 100 Maxipime Inj 2,000 MG In NS Inj 100 / 100 100 / 100 100 ML @ 200 mls/hr IV.SIG Q12H [facility] Rx#:[id number] Oral 1100 / 1100 Other: # Voids 2 1 Date of Last Bowel Movement 04/12/18 04/12/18 # Bowel Movements 1 - Constitutional no acute distress, morbidly obese - Routine HEENT Exam Head: Present: normocephalic Eye: Present: EOMI, PERRL, normal accommodation, conjunctivae pink ENT: Present: mucous membranes moist - Routine Neck Exam Present: supple, full ROM, trachea midline - Routine Respiratory Exam Present: CTA bilaterally - Routine Cardiovascular Exam Present: RRR, S1, S2 - Routine Abdominal Exam Present: soft, normoactive bowel sounds - Routine Extremities Exam Present: full ROM, pulses intact - Routine Neurological Exam Present: alert, oriented X3, CN II-XII intact Assessment and Plan - Assessment (1) Diabetes mellitus Code(s): E11.9 - Type 2 diabetes mellitus without complications Status: Acute Qualifiers: Diabetes mellitus type: type 2 - Plan 1. Acute hypercapnic and hypoxemic respiratory insufficiency. 2. Community-acquired pneumonia. 3. Atelectasis. 4. Obesity. 5. Leukocytosis...resolved 6. Acute kidney injury..improving 7. Hypertension. 8. Diabetes mellitus. Plan Continue with oxygen and maintain sats >92%. Bronchodilators( DuoNeb), IS Asses for home oxygen prior to discharge BIPAP p.r.n. for respiratory distress. Repeat ABG 04/10 showed resolution of his resp acidosis CXR 04/12: No obvious infiltrates US chest: No effusion on left CTA chest 04/10: No PE Continue abx(cefepime). Influenza screening and strep pneumonia Ag negative. 04/11 sputum cx: normal resp sotero Will need sleep study as outpatient. GI/DVT prophylaxis. on heparin subQ Ok for discharge from Pulm standpoint follow up with Dr. Byrd in 1week from discharge
[2018-04-14] MEDS ORDERED: hydrALAZINE 25 MG Tablet PO SCH (13:00)
--- NOTE | 2018-04-14 16:43 | P.PNIM ---
Subjective Interval history: Patient with no complaints of sob at rest. No other complaints. Physical Exam Vital signs: Vital Signs 04/13/18 20:00 04/13/18 21:55 04/14/18 00:00 Temperature 97.6 F 98 F Pulse Rate 77 93 H 78 Respiratory Rate 22 35 H 22 Blood Pressure 157/73 H 152/69 H Pulse Oximetry 95 93 L 93 L Pulse Oximetry [Exertion on Room Air] Pulse Oximetry [Resting on Room Air] 04/14/18 04:00 04/14/18 08:00 04/14/18 08:16 Temperature 98.1 F 97.7 F Pulse Rate 82 82 84 Respiratory Rate 22 22 18 Blood Pressure 122/64 182/80 H Pulse Oximetry 92 L 92 L 94 L Pulse Oximetry [Exertion on Room Air] Pulse Oximetry [Resting on Room Air] 04/14/18 08:32 04/14/18 12:00 04/14/18 13:32 Temperature 97.4 F L Pulse Rate 74 91 H Respiratory Rate 19 18 Blood Pressure 144/90 H Pulse Oximetry 92 L 92 L Pulse Oximetry [Exertion on Room Air] Pulse Oximetry [Resting on Room Air] 04/14/18 13:45 04/14/18 16:00 Temperature 97.6 F Pulse Rate 66 Respiratory Rate 17 Blood Pressure 168/72 H Pulse Oximetry 92 L Pulse Oximetry [Exertion on Room Air] 92 L Pulse Oximetry [Resting on Room Air] 97 Intake & Output 04/13/18 04/14/18 04/14/18 18:59 06:59 18:59 Intake Total 1200 / 1200 100 / 100 Balance 1200 / 1200 100 / 100 Weight 143.4 kg Intake: IV 100 / 100 100 / 100 Maxipime Inj 2,000 MG In NS Inj 100 / 100 100 / 100 100 ML @ 200 mls/hr IV.SIG Q12H [facility] Rx#:[id number] Oral 1100 / 1100 Other: # Voids 2 1 Date of Last Bowel Movement 04/12/18 04/12/18 04/13/18 # Bowel Movements 1 Narrative: General patient complains of shortness of breath with ambulation, says he feels better over the past two days. HEENT extraocular movements are intact, clear oropharyngeal mucosa, no JVD Cardiovascular S1-S2 audible Respiratory bibasilar crackles, difficult to auscultate given the patient's size. Abdomen soft, obese, normal bowel sounds Extremities 1+ pitting edema bilateral lower extremities up to the shins. Neuro no focal neurological deficits. Results - Labs CBC & Chem 7: 04/12/18 05:59 04/14/18 04:19 Laboratory Results - last 24 hr 04/13/18 04/13/18 04/14/18 17:07 20:14 02:06 Sodium Potassium Chloride Carbon Dioxide Anion Gap BUN Creatinine Estimated GFR POC Glucose 152 H 193 H 150 H Random Glucose Calcium Magnesium 04/14/18 04/14/18 04/14/18 04:19 08:03 11:43 Sodium 142 Potassium 4.3 Chloride 106 Carbon Dioxide 28.9 Anion Gap 7 BUN 28 H Creatinine 1.33 H Estimated GFR 53 L POC Glucose 158 H 220 H Random Glucose 151 H Calcium 8.6 Magnesium 2.0 Microbiology 04/10/18 05:06 Blood - Peripheral Aerobic Blood Culture - Preliminary No growth in 4 days 04/10/18 05:06 Blood - Peripheral Anaerobic Blood Culture - Preliminary No growth in 4 days 04/10/18 05:01 Blood - Peripheral Aerobic Blood Culture - Preliminary No growth in 4 days 04/10/18 05:01 Blood - Peripheral Anaerobic Blood Culture - Preliminary No growth in 4 days 04/11/18 15:20 Sputum - Expectorated Sputum Gram Stain - Final 04/11/18 15:20 Sputum - Expectorated Sputum Sputum Culture - Final Moderate growth normal respiratory sotero - Procedures None Assessment and Plan - Plan This patient is a 72-year-old obese male with a diagnosis of hypertension, diabetes mellitus type 2 who presented to the emergency room with complaints of shortness of breath and an elevated d-dimer. Initially there was a concern the patient may have a pulmonary embolus. CT of the chest was done which was negative for PE however did show a lower lobe pneumonia. 1. Acute hypoxic Respiratory failure secondary to community acquired pneumonia 04/14/18 1. Acute hypoxic Respiratory failure secondary to community acquired pneumonia Patient on room air at rest. Will perform a walk test today to assess for need for home oxygen. Patient was diuresed over the past couple of days. Patient will need sleep study after discharge. Patient likely to be discharged tomorrow am after being assessed for home oxygen. 2. HTN Norvasc dose increased for HTN. 1. Acute hypoxic Respiratory failure secondary to community acquired pneumonia CTA of the chest is negative for PE, shows left sided consolidation. WBC count initially elevated, now normal. Patient still slightly tachycardic. He is requiring 3 L of supplemental oxygen currently. Continue IV antibiotics, all cultures are negative up until now. We will titrate the patient off of supplemental oxygen. He has been refusing BiPAP at night, patient was advised to use a BiPAP. Given the patient's obesity and size of his neck patient also likely has RADHA. Pulmonary following. Case discussed with the patient's nurse, will stop IV fluids. I agree with the 1 dose of IV Lasix that was given by the pulmonary team today. If the patient is still requiring supplemental oxygen will perform walk test tomorrow. 2. Hypertension Norvasc added to the patient's medication regimen. We will continue to monitor his blood pressure and adjust his medications as needed. 3. Diabetes mellitus type 2 Patient on oral medications at home. Continue low-dose insulin sliding scale. We will adjust his diabetes regimen as needed. 4. Chronic kidney disease stage III a It appears the patient does have baseline CKD after reviewing his kidney function from 2015 to 2017 it appears his baseline serum creatinine is around 1.4. Creatinine is 1.6. We will discontinue IV fluids. We will continue to monitor his kidney function and adjust his medication as needed. Nephrotoxic agents. Heparin for DVT prophylaxis Discharge planning, the patient likely be discharged in next 1-2 days.
[2018-04-14] MEDS: hydrALAZINE 50 MG Tablet PO SCH (18:18)
[2018-04-15] MEDS: Insulin NovoLOG Aspart Correctional Sugar Inj SQ SCH ×2 (02:10→08:07)
[2018-04-15] MEDS: Chlorhexidine Gluconate 2% 1 Pack (2 Cloths) TOPICAL SCH (04:55)
[2018-04-15] MEDS: Heparin - SQ 10,000 UNITS/ML Vial SQ SCH (05:19)
[2018-04-15] MEDS: hydrALAZINE 50 MG Tablet PO SCH (08:06)
[2018-04-15] MEDS: dilTIAZem 60 MG Tablet PO SCH (08:06)
[2018-04-15] MEDS: amLODIPine 5 MG Tablet PO SCH (08:07)
[2018-04-15] MEDS: Famotidine 20 MG Tablet PO SCH (08:07)
[2018-04-15 08:32] VITALS: BP 167/72; TEMP 97.6
[2018-04-15 08:34] VITALS: PULSE 94; RESP 18; O2SAT 94
--- NOTE | 2018-04-15 09:19 | P.DCO ---
- Physical Therapy Order: Evaluate and treat - Home Health Nursing Order: Medical education, Nursing assessment with vital signs - Case Management Consult Case Management Consult-Home Health: Yes - Certification I have seen patient Juan José Lai on 04/15/18. My clinical findings support the need for the requested home health care services because: Patient has SOB, Deconditioned with increased weakness, Limited ability to care for self I certify that my clinical findings support that this patient is homebound because: Unsafe to leave home unassisted
--- NOTE | 2018-04-15 09:37 | P.DS ---
Date of admission: 04/10/18 06:55 Primary care physician: Rigoberto Goldsmith MD Brief History from admission: This is a 72-year-old obese male with hypertension, diabetes, CKD stage IIIa. Patient presented with complaints of shortness of breath. CTA of the chest was done as a was a concern for pulmonary embolus. CT of the chest did not show pulmonary embolus however did show lower lobe pneumonia. Patient was subsequently admitted for acute hypoxic respiratory failure secondary to community acquired pneumonia. DS: Medications - Discharge Medications Prescriptions: amlodipine [Norvasc] 10 mg PO DAILY #60 tab diltiazem HCl 60 mg PO TID #90 tab hydralazine 50 mg PO TID #90 tab levofloxacin [Levaquin] 750 mg PO DAILY #4 tab metformin 500 mg PO BID #60 tab DS: Summary Hospital Course: This patient is a 72-year-old obese male with a diagnosis of hypertension, diabetes mellitus type 2 who presented to the emergency room with complaints of shortness of breath and an elevated d-dimer. Initially there was a concern the patient may have a pulmonary embolus. CT of the chest was done which was negative for PE however did show a lower lobe pneumonia. 1. Acute hypoxic Respiratory failure secondary to left lower lobe community acquired pneumonia 2. Sepsis 2/2 # 1 Present on admission The patient was found to be hypoxic and chest imaging showed a lower lobe pneumonia. Patient was started on submental oxygen as well as breathing treatments. He was also started on IV the antibiotics. Test for influenza was done which were negative, blood cultures negative, sputum culture grew normal respiratory sotero. The pulmonary team followed the patient while he was in-house. The patient received 4 days of antibiotics while in house and his symptoms have improved. He was weaned off of supplemental oxygen. A walk test was done as there was a concern that the patient may need home O2. The patient past walk test and there is no need for home oxygen at this time. We recommended the patient get a sleep study outpatient. He possibly has RADHA given his body habitus and large neck. Patient will be discharged home today with home health. He has a frontwheel walker at home. The patient was given a prescription for Levaquin for 4 more days. 2. HTN The patient also has hypertension. Additional medications to control his blood pressure were started during hospitalization. Due to the patient's acute kidney injury his lisinopril was held, after the initiation of treatment his serum creatinine has improved and is currently 1.3. Follow-up with his primary care doctor in 1 week a repeat renal panel can be done to monitor his kidney function. Once his kidney function resolves he can be restarted on lisinopril as he may benefit from this medication given his diagnosis of diabetes. Scripts for Norvasc, hydralazine, diltiazem were given to the patient prior to his discharge. 3. Diabetes mellitus type 2 Continue metformin at home. He can follow-up with his primary care doctor and his diabetes mellitus medication regimen can be adjusted as needed. 4. Acute kidney injury on chronic kidney disease stage III a The patient had an elevated serum creatinine of around 1.6 on admission. After the initiation of treatment is now down trended to 1.3. Lisinopril was held on admission. He should have a repeat renal panel done in 1 week and if his serum creatinine is normal lisinopril can be restarted. - Time Spent with Patient Total time spent providing and/or coordinating discharge services: Greater than 30 minutes - Quality: VTE Deep Vein Thrombosis/Pulmonary Embolism Present on Admission: No Exam Vital signs: Vital Signs 04/14/18 12:00 04/14/18 13:32 04/14/18 13:45 Temperature 97.4 F L Pulse Rate 74 91 H Respiratory Rate 19 18 Blood Pressure 144/90 H Pulse Oximetry 92 L Pulse Oximetry [Exertion on Room Air] 92 L Pulse Oximetry [Resting on Room Air] 97 04/14/18 16:00 04/14/18 20:00 04/14/18 21:51 Temperature 97.6 F 97.2 F L Pulse Rate 66 81 84 Respiratory Rate 17 20 22 Blood Pressure 168/72 H 148/65 H Pulse Oximetry 92 L 95 92 L Pulse Oximetry [Exertion on Room Air] Pulse Oximetry [Resting on Room Air] 04/15/18 00:00 04/15/18 08:00 04/15/18 08:33 Temperature 97.9 F 97.6 F Pulse Rate 87 84 94 H Respiratory Rate 20 17 18 Blood Pressure 173/74 H 167/72 H Pulse Oximetry 95 93 L 94 L Pulse Oximetry [Exertion on Room Air] Pulse Oximetry [Resting on Room Air] Intake & Output 04/14/18 04/15/18 04/15/18 18:59 06:59 18:59 Intake Total 1400 / 1400 440 / 440 Output Total 1800 / 1800 Balance 1400 / 1400 -1360 / -1360 Weight 141.2 kg Intake: IV 200 / 200 Maxipime Inj 2,000 MG In NS Inj 200 / 200 100 ML @ 200 mls/hr IV.SIG Q12H [facility]EDAD Rx#:[id number] Oral 1400 / 1400 240 / 240 Output: Urine 1800 / 1800 Other: # Voids 4 Date of Last Bowel Movement 04/13/18 04/14/18 # Bowel Movements 2 Narrative: General no complaints from the patient this morning. HEENT extraocular movements are intact, clear oropharyngeal mucosa, no JVD Cardiovascular S1-S2 audible Respiratory clear to auscultation bilaterally Abdomen soft, obese, normal bowel sounds Extremities no edema of the extremities. No focal neurological deficits. Results Procedures completed during hospitalization: None Labs on day of discharge: Labs from last 24 hours 04/15/18 04/15/18 04/14/18 07:25 01:54 20:03 POC Glucose 156 H 138 H 224 H Legionella Antibody 04/14/18 04/14/18 04/10/18 17:14 11:43 11:56 POC Glucose 212 H 220 H Legionella Antibody Negative Preliminary micro results at discharge 04/10/18 05:06 Aerobic Blood Culture - Preliminary Blood - Peripheral No growth in 4 days Anaerobic Blood Culture - Preliminary No growth in 4 days 04/10/18 05:01 Aerobic Blood Culture - Preliminary Blood - Peripheral No growth in 4 days Anaerobic Blood Culture - Preliminary No growth in 4 days - Impressions ITS Impressions Chest CTA 04/10/18 06:50 CONCLUSION: 1. No pulmonary embolus seen. 2. Bibasilar areas of consolidation or atelectasis being worse on the left. 3. Gallstone 4. Nonspecific stable 1.7 cm hypodensity in the spleen. Chest Ultrasound 04/12/18 00:00 CONCLUSION: 1. No evidence of any left-sided pleural effusion. Chest X-Ray 04/12/18 09:43 CONCLUSION: No definite acute pulmonary infiltrates. Compensated cardiomegaly. Discharge Plan - Discharge Disposition Patient Disposition: W/Home Health Service - Discharge Condition Condition: Stable - Discharge Order Discharge Orders: Discharge Order (Routine); Ordered 04/15/18 Ordered By: Claudette Francis - Physicians Team Primary Care Provider: Rigoberto Goldsmith Attending Provider: Claudette Francis Other Providers: Franklyn Morse MD
== END 2018-04-15 11:18 | disposition home health service (06) | DRG 871 ==
LOC: PHED 04:42 → PHEDA 06:55 → HIMC 09:00 → N07 04-11 15:56
PROVIDERS: ADMIT Hospitalist; ATTEND Hospitalist
CPT/HCPCS: 36600; 71010; 71045; 71275; 76604; 80048; 80053; 82550; 82552; 82805; 82948; 82962; 83520; 83605; 83735; 83880; 84100; 84484; 85025; 85379; 85610; 85730; 86713; 87040; 87070; 87086; 87205; 87275; 87276; 87449; 87641; 87804; 90774; 93005; 94150; 94618; 94620; 94640; 94664; 94665; 96374; 97110; 97116; 97163; 99285; C8952; J0360; J0456; J0692; J0696; J1644; J1815; J1885; J1940; J2405; J2930; J7030; J7050; Q9967